=== PATIENT | male | born 1930 | race Caucasian/White ===

== ENCOUNTER 2017-02-23 10:25 | Inpatient (IN) | payer MEDICARE, BC ==
[2017-02-23] MEDS ORDERED: FUROSEMIDE 10 MG/ML 4 ML VIAL IV STA (10:32)
[2017-02-23] MEDS ORDERED: ALBUTEROL NEBULIZED 2.5 MG/3 ML INHALATION STA (10:32)
[2017-02-23] MEDS ORDERED: IPRATROPIUM 0.5 MG/2.5 ML NEBU INHALATION STA (10:32)
--- NOTE | 2017-02-23 10:40 | ED ---
General Adult HPI - General Chief complaint: Shortness of Breath Stated complaint: Leg Pain Time Seen by Provider: 02/23/17 10:31 Source: patient, RN notes reviewed, old records reviewed Mode of arrival: wheelchair Limitations: no limitations - History of Present Illness Initial comments: This is an 86-year-old male to the ER for evaluation patient is presents today for evaluation regarding this to shortness of breath and leg edema. Overall weight gain. Patient has history of heart disease heart failure status post CABG 15 years ago. She has been taking Lasix to no avail, no significant urinary output. Patient denies any pain no recent fevers cough or congestion. Patient states he does have significant exertional shortness of breath. Again deny chest pain. No other change in medication - Related Data Home Medications Medication Instructions Recorded Confirmed Ascorbic Acid [Vitamin C] 500 mg PO DAILY@1200 07/22/14 02/23/17 Aspirin 81 mg PO 07/22/14 02/23/17 Cholecalciferol [Vitamin D3] 400 unit PO DAILY@1200 07/22/14 02/23/17 Finasteride [Proscar] 5 mg PO QA 07/22/14 02/23/17 Furosemide [Lasix] 80 mg PO AC-BID 07/22/14 02/23/17 Lisinopril [Zestril] 5 mg PO 07/22/14 02/23/17 Potassium Chloride [Klor-Con 10] 10 meq PO QA 07/22/14 02/23/17 Warfarin [Coumadin] 5 mg PO MOWEFR 07/22/14 02/23/17 Warfarin [Coumadin] 2.5 mg PO SUTUTHSA 11/03/14 02/23/17 Doxazosin Mesylate 8 mg PO QAM 02/23/17 02/23/17 Ferrous Sulfate [Feosol] 325 mg PO QAM 02/23/17 02/23/17 Simvastatin [Zocor] 20 mg PO HS 02/23/17 02/23/17 Vitamin E (Dl,Tocopheryl Acet) 400 unit PO DAILY@1200 02/23/17 02/23/17 [Vitamin E] glipiZIDE [Glucotrol] 10 mg PO AC-BID 02/23/17 02/23/17 Allergies Allergy/AdvReac Type Severity Reaction Status Date / Time No Known Allergies Allergy Verified 02/23/17 11:49 Review of Systems ROS Statement: Those systems with pertinent positive or pertinent negative responses have been documented in the HPI. ROS Other: All systems not noted in ROS Statement are negative. Past Medical History Past Medical History: Heart Failure, COPD, CVA/TIA, Diabetes Mellitus, Hearing Disorder / Deafness, Hyperlipidemia, Hypertension, Myocardial Infarction ([place]), Prostate Disorder Additional Past Medical History / Comment(s): TIA, chronic venous stasis with previous harvesting of vein from the left lower extremity for CABG, chronic back pain,constipation,enlarged prostate,mult bruising areas, deaf in Left ear Last Myocardial Infarction Date:: UNK History of Any Multi-Drug Resistant Organisms: None Reported Past Surgical History: Back Surgery, Coronary Bypass/CABG, Ear Surgery Additional Past Surgical History / Comment(s): 11-04-14 LAPROSCOPIC SHIVAM INGUINAL HERNIA REPAIR. OTHER PAST HX: right ear surgery, lumbar surgery with Dr. Ho many years ago, bilateral carotid endarterectomy with Dr. Villalobos, right shoulder lipoma excision. pneumonia Past Anesthesia/Blood Transfusion Reactions: No Reported Reaction Past Psychological History: Depression Smoking Status: Former smoker Past Alcohol Use History: None Reported Past Drug Use History: None Reported - Past Family History Mother Family Medical History: Cancer, Myocardial Infarction ([place]) Additional Family Medical History / Comment(s): Breast Father Family Medical History: Myocardial Infarction ([place]) Sister(s) Family Medical History: Cancer, Rheumatoid Arthritis ([place]) Additional Family Medical History / Comment(s): BREAST General Exam Limitations: no limitations General appearance: alert, in no apparent distress Head exam: Present: atraumatic, normocephalic, normal inspection Eye exam: Present: normal appearance, PERRL, EOMI. Absent: scleral icterus, conjunctival injection, periorbital swelling ENT exam: Present: normal exam, mucous membranes moist Neck exam: Present: normal inspection. Absent: tenderness, meningismus, lymphadenopathy Respiratory exam: Present: respiratory distress, wheezes, accessory muscle use, decreased breath sounds. Absent: rales, rhonchi, stridor Cardiovascular Exam: Present: regular rate, normal rhythm, normal heart sounds. Absent: systolic murmur, diastolic murmur, rubs, gallop, clicks GI/Abdominal exam: Present: soft, normal bowel sounds. Absent: distended, tenderness, guarding, rebound, rigid Extremities exam: Present: normal inspection, full ROM, normal capillary refill. Absent: tenderness, pedal edema, joint swelling, calf tenderness Back exam: Present: normal inspection Neurological exam: Present: alert, oriented X3, CN II-XII intact Psychiatric exam: Present: normal affect, normal mood Skin exam: Present: warm, dry, intact, normal color. Absent: rash Course Vital Signs 02/23/17 02/23/17 02/23/17 10:28 10:52 11:30 Temperature 97.4 F L Pulse Rate 90 60 Respiratory 20 20 Rate Blood Pressure 150/64 O2 Sat by Pulse 90 L Oximetry 02/23/17 11:41 Temperature Pulse Rate 81 Respiratory 20 Rate Blood Pressure 128/53 O2 Sat by Pulse 100 Oximetry - Reevaluation(s) Reevaluation #1: 02/23/17 12:18 Did improve pulse ox as well as oxygenation EKG Findings - EKG Comments: EKG Findings:: EKG shows sinus rhythm with PVCs, rate of 77, QRS 116, QTc 488 Medical Decision Making - Medical Decision Making 86-year-old ER for evaluation. Patient is ER for significant exacerbation of CHF COPD with hypoxia. Patient will be admitted for cardiopulmonary resuscitation and observation - Lab Data Result diagrams: 02/23/17 10:45 02/23/17 10:45 Lab Results 02/23/17 02/23/17 02/23/17 Range/Units 10:45 10:45 10:45 WBC 4.4 (3.8-10.6) k/uL RBC 3.63 L (4.30-5.90) m/uL Hgb 10.7 L (13.0-17.5) gm/dL Hct 34.8 L (39.0-53.0) % MCV 95.8 (80.0-100.0) fL MCH 29.4 (25.0-35.0) pg MCHC 30.7 L (31.0-37.0) g/dL RDW 14.5 (11.5-15.5) % Plt Count 89 L (150-450) k/uL Neutrophils % 63 % Lymphocytes % 25 % Monocytes % 7 % Eosinophils % 4 % Basophils % 0 % Neutrophils # 2.8 (1.3-7.7) k/uL Lymphocytes # 1.1 (1.0-4.8) k/uL Monocytes # 0.3 (0-1.0) k/uL Eosinophils # 0.2 (0-0.7) k/uL Basophils # 0.0 (0-0.2) k/uL Manual Slide Review Performed Hypochromasia Slight PT (9.0-12.0) sec INR (<1.2) APTT (22.0-30.0) sec Sodium 143 (137-145) mmol/L Potassium 4.3 (3.5-5.1) mmol/L Chloride 100 (98-107) mmol/L Carbon Dioxide 36 H (22-30) mmol/L Anion Gap 7 mmol/L BUN 45 H (9-20) mg/dL Creatinine 1.90 H (0.66-1.25) mg/dL Est GFR (MDRD) Af Amer 41 (>60 ml/min/1.73 sqM) Est GFR (MDRD) Non-Af 34 (>60 ml/min/1.73 sqM) Glucose 184 H (74-99) mg/dL Calcium 8.9 (8.4-10.2) mg/dL Magnesium 2.5 H (1.6-2.3) mg/dL Total Bilirubin 0.7 (0.2-1.3) mg/dL AST 21 (17-59) U/L ALT 34 (21-72) U/L Alkaline Phosphatase 89 (38-126) U/L Total Creatine Kinase 27 L (55-170) U/L CK-MB (CK-2) 0.7 (0.0-2.4) ng/mL CK-MB (CK-2) Rel Index 2.6 Troponin I 0.030 (0.000-0.034) ng/mL NT-Pro-B Natriuret Pep pg/mL Total Protein 6.0 L (6.3-8.2) g/dL Albumin 3.3 L (3.5-5.0) g/dL 02/23/17 02/23/17 Range/Units 10:45 10:45 WBC (3.8-10.6) k/uL RBC (4.30-5.90) m/uL Hgb (13.0-17.5) gm/dL Hct (39.0-53.0) % MCV (80.0-100.0) fL MCH (25.0-35.0) pg MCHC (31.0-37.0) g/dL RDW (11.5-15.5) % Plt Count (150-450) k/uL Neutrophils % % Lymphocytes % % Monocytes % % Eosinophils % % Basophils % % Neutrophils # (1.3-7.7) k/uL Lymphocytes # (1.0-4.8) k/uL Monocytes # (0-1.0) k/uL Eosinophils # (0-0.7) k/uL Basophils # (0-0.2) k/uL Manual Slide Review Hypochromasia PT 22.3 H (9.0-12.0) sec INR 2.5 H (<1.2) APTT 31.1 H (22.0-30.0) sec Sodium (137-145) mmol/L Potassium (3.5-5.1) mmol/L Chloride (98-107) mmol/L Carbon Dioxide (22-30) mmol/L Anion Gap mmol/L BUN (9-20) mg/dL Creatinine (0.66-1.25) mg/dL Est GFR (MDRD) Af Amer (>60 ml/min/1.73 sqM) Est GFR (MDRD) Non-Af (>60 ml/min/1.73 sqM) Glucose (74-99) mg/dL Calcium (8.4-10.2) mg/dL Magnesium (1.6-2.3) mg/dL Total Bilirubin (0.2-1.3) mg/dL AST (17-59) U/L ALT (21-72) U/L Alkaline Phosphatase (38-126) U/L Total Creatine Kinase (55-170) U/L CK-MB (CK-2) (0.0-2.4) ng/mL CK-MB (CK-2) Rel Index Troponin I (0.000-0.034) ng/mL NT-Pro-B Natriuret Pep 7290 pg/mL Total Protein (6.3-8.2) g/dL Albumin (3.5-5.0) g/dL - Radiology Data Radiology results: report reviewed (Chest x-ray positive for CHF), image reviewed Disposition Clinical Impression: Acute renal failure, Acute exacerbation of chronic obstructive airways disease , Acute pulmonary edema, Congestive heart failure Disposition: ADMITTED IP TO THIS HOSP Condition: Fair Referrals: Moise Jacobo MD [Primary Care Provider] - 1-2 days
[2017-02-23 11:03] LABS: Basophils % (A) 0 %; Eosinophils # (A) 0.2 k/uL (0-0.7); Eosinophils % (A) 4 %; HCT 34.8 % (39.0-53.0); HGB 10.7 gm/dL (13.0-17.5); Hypochromasia Slight; Lymphocytes # (A) 1.1 k/uL (1.0-4.8); Lymphocytes % (A) 25 %; MCH 29.4 pg (25.0-35.0); MCHC 30.7 g/dL (31.0-37.0); MCV 95.8 fL (80.0-100.0); Mean Platelet Volume 8.7; Monocytes # (A) 0.3 k/uL (0-1.0); Monocytes % (A) 7 %; Neutrophils # (A) 2.8 k/uL (1.3-7.7); Neutrophils % (A) 63 %; RBC 3.63 m/uL (4.30-5.90); RDW 14.5 % (11.5-15.5); WBC 4.4 k/uL (3.8-10.6)
[2017-02-23 11:07] LABS: INR 2.5 (<1.2); Partial Thromboplastin Time 31.1 sec (22.0-30.0); Prothrombin Time 22.3 sec (9.0-12.0)
[2017-02-23 11:08] LABS: Albumin 3.3 g/dL (3.5-5.0); Calcium 8.9 mg/dL (8.4-10.2); Magnesium 2.5 mg/dL (1.6-2.3); Potassium 4.3 mmol/L (3.5-5.1); Total Bilirubin 0.7 mg/dL (0.2-1.3)
--- NOTE | 2017-02-23 11:25 | XR ---
EXAMINATION TYPE: XR chest 1V portable DATE OF EXAM: 02/23/2017 COMPARISON: 11/12/2014 HISTORY: Short of breath TECHNIQUE: Single frontal view of the chest is obtained. FINDINGS: Heart is enlarged. There is pulmonary vascular congestion. There is blunting of costophren ic angles. There are chest leads. There are sternal wires. IMPRESSION: Congestive heart failure. Pleural effusions. Chest appears worse than last exam.
[2017-02-23 11:33] LABS: Creatine Kinase MB 0.7 ng/mL (0.0-2.4); Troponin I 0.03 ng/mL (0.000-0.034)
[2017-02-23 11:45] LABS: Platelet Count 89 k/uL (150-450)
--- NOTE | 2017-02-23 15:47 | US ---
EXAMINATION TYPE: US venous doppler duplex LE DATE OF EXAM: 02/23/2017 3:35 PM COMPARISON: NONE CLINICAL HISTORY: Led edema-pain. SIDE PERFORMED: Bilateral TECHNIQUE: The lower extremity deep venous system is examined utilizing real time linear array sonog dot with graded compression, doppler sonography and color-flow sonography. VESSELS IMAGED: External Iliac Vein (EIV) Common Femoral Vein Deep Femoral Vein Greater Saphenous Vein * Femoral Vein Popliteal Vein Small Saphenous Vein * Proximal Calf Veins (* superficial vessels) Moderate superficial edema right, severe edema left Right Leg: Negative for DVT Left Leg: Negative for DVT IMPRESSION: Normal exam. No evidence of deep venous thrombosis in both legs.
[2017-02-23 16:47] LABS: Glucose,Whole Blood 218 mg/dL (75-99)
[2017-02-23] MEDS: glipiZIDE 10 MG TAB PO SCH (17:09)
[2017-02-23] MEDS: WARFARIN 2.5 MG TAB PO SCH (17:09)
[2017-02-23 17:48] LABS: Creatine Kinase MB 0.6 ng/mL (0.0-2.4); Troponin I 0.025 ng/mL (0.000-0.034)
[2017-02-23 20:51] LABS: Glucose,Whole Blood 208 mg/dL (75-99)
[2017-02-23] MEDS: FUROSEMIDE 10 MG/ML 4 ML VIAL IV SCH (21:08)
[2017-02-23] MEDS: ASPIRIN 81 MG PO SCH (21:09)
[2017-02-23] MEDS: ATORVASTATIN 10 MG TAB PO SCH (21:09)
[2017-02-23] MEDS: LISINOPRIL 5 MG TAB PO SCH (21:09)
[2017-02-24 06:16] LABS: Glucose,Whole Blood 73 mg/dL (75-99)
[2017-02-24 06:26] LABS: Basophils % (A) 0 %; Eosinophils # (A) 0.2 k/uL (0-0.7); Eosinophils % (A) 4 %; HCT 33.1 % (39.0-53.0); HGB 9.9 gm/dL (13.0-17.5); Hypochromasia Moderate; Lymphocytes # (A) 1.2 k/uL (1.0-4.8); Lymphocytes % (A) 26 %; MCH 29.3 pg (25.0-35.0); MCV 97.7 fL (80.0-100.0); Mean Platelet Volume 9.5; Monocytes # (A) 0.4 k/uL (0-1.0); Monocytes % (A) 8 %; Neutrophils # (A) 2.7 k/uL (1.3-7.7); Neutrophils % (A) 60 %; RBC 3.39 m/uL (4.30-5.90); RDW 15.6 % (11.5-15.5); WBC 4.5 k/uL (3.8-10.6)
[2017-02-24 06:43] LABS: Potassium 4.3 mmol/L (3.5-5.1)
[2017-02-24 06:47] LABS: Platelet Count 73 k/uL (150-450)
[2017-02-24] MEDS: VITAMIN E (DL,TOCOPHERYL ACET) 400 UNIT CAP PO SCH (08:58)
[2017-02-24] MEDS: FERROUS SULFATE 325 MG TAB PO SCH (08:58)
[2017-02-24] MEDS: CHOLECALCIFEROL 400 UNIT TAB PO SCH (08:58)
[2017-02-24] MEDS: FUROSEMIDE 10 MG/ML 4 ML VIAL IV SCH (08:58)
[2017-02-24] MEDS: FINASTERIDE 5 MG TAB PO SCH (08:58)
[2017-02-24] MEDS: ASCORBIC ACID 500 MG TAB PO SCH (08:59)
[2017-02-24] MEDS: POTASSIUM CHLORIDE ER 10 MEQ TAB.ER.PRT PO SCH (08:59)
[2017-02-24] MEDS: glipiZIDE 10 MG TAB PO SCH ×2 (08:59→17:16)
--- NOTE | 2017-02-24 09:44 | P.NPCON ---
History of Present Illness - Reason for Consult Consult date: 02/24/17 acute renal failure - Chief Complaint Shortness of breath, acute kidney injury - History of Present Illness This is a 86-year-old male seen in consultation because of chronic kidney disease, acute kidney injury. He was admitted because of worsening edema of his legs with pain in the left leg and some mild serosanguineous discharge weeping edema. He said he has gained weight because of the swelling and is more short of breath. He admits eating prepared foods probably high in sodium. He describes this to the fact that his is now in the alf because of dementia. So he is eating processed foods. No changes in medication. He was on Lasix 20 mg 5 tablets in morning and 4 in the evening and it was not helping his edema. No fever chills no chest pain. No hemoptysis. No nausea vomiting diarrhea. His abdomen is somewhat bloated but this is normal for him he says. He does have history of prostatism. He is also known with chronic kidney disease creatinine has ranged between 1.7 in 2013-1.9 and the best creatinine in the last few months has been 1.46 on . Urinalysis unremarkable for any proteinuria Past history significant for diabetes, COPD coronary artery bypass graft 15 years ago. Past Medical History Past Medical History: Heart Failure, COPD, CVA/TIA, Diabetes Mellitus, Hearing Disorder / Deafness, Hyperlipidemia, Hypertension, Myocardial Infarction ([place]), Prostate Disorder Additional Past Medical History / Comment(s): TIA, chronic venous stasis with previous harvesting of vein from the left lower extremity for CABG, chronic back pain,constipation,enlarged prostate,mult bruising areas, deaf in Left ear Last Myocardial Infarction Date:: UNK History of Any Multi-Drug Resistant Organisms: None Reported Past Surgical History: Back Surgery, Coronary Bypass/CABG, Ear Surgery Additional Past Surgical History / Comment(s): 11-04-14 LAPROSCOPIC SHIVAM INGUINAL HERNIA REPAIR. OTHER PAST HX: right ear surgery, lumbar surgery with Dr. Ho many years ago, bilateral carotid endarterectomy with Dr. Villalobos, right shoulder lipoma excision. pneumonia Past Anesthesia/Blood Transfusion Reactions: No Reported Reaction Past Psychological History: Depression Smoking Status: Former smoker Past Alcohol Use History: None Reported Additional Past Alcohol Use History / Comment(s): Patient smoked occasional cigar many years ago. He denies any medical marijuana, marijuana or street drug use. He denies any alcohol use. He is retired from [employer]. He served in the Armed [employer] in the [employer] and was stationed in [place] for 18 months. He is currently living at home with his . There are no pets in the home. No recent travel. Past Drug Use History: None Reported - Past Family History Mother Family Medical History: Cancer, Myocardial Infarction ([place]) Additional Family Medical History / Comment(s): Breast Father Family Medical History: Myocardial Infarction ([place]) Sister(s) Family Medical History: Cancer, Rheumatoid Arthritis ([place]) Additional Family Medical History / Comment(s): BREAST Medications and Allergies Home Medications Medication Instructions Recorded Confirmed Type Ascorbic Acid [Vitamin C] 500 mg PO DAILY@1200 07/22/14 02/23/17 History Aspirin 81 mg PO 07/22/14 02/23/17 History Cholecalciferol [Vitamin D3] 400 unit PO DAILY@1200 07/22/14 02/23/17 History Finasteride [Proscar] 5 mg PO QA 07/22/14 02/23/17 History Furosemide [Lasix] 80 mg PO AC-BID 07/22/14 02/23/17 History Lisinopril [Zestril] 5 mg PO 07/22/14 02/23/17 History Potassium Chloride [Klor-Con 10] 10 meq PO QA 07/22/14 02/23/17 History Warfarin [Coumadin] 5 mg PO MOWEFR 07/22/14 02/23/17 History Warfarin [Coumadin] 2.5 mg PO SUTUTHSA 11/03/14 02/23/17 History Doxazosin Mesylate 8 mg PO QAM 02/23/17 02/23/17 History Ferrous Sulfate [Feosol] 325 mg PO QAM 02/23/17 02/23/17 History Simvastatin [Zocor] 20 mg PO 02/23/17 02/23/17 History Vitamin E (Dl,Tocopheryl Acet) 400 unit PO DAILY@1200 02/23/17 02/23/17 History [Vitamin E] glipiZIDE [Glucotrol] 10 mg PO AC-BID 02/23/17 02/23/17 History Allergies Allergy/AdvReac Type Severity Reaction Status Date / Time No Known Allergies Allergy Verified 02/23/17 11:49 Physical Exam Vitals: Vital Signs Temp Pulse Pulse Resp BP BP Pulse Ox 02/24/17 08:00 97.0 F L 84 20 117/69 96 02/24/17 04:00 97.9 F 69 18 106/69 95 02/24/17 00:00 97.8 F 74 18 111/65 96 02/23/17 20:09 92 L 02/23/17 20:00 97.9 F 83 19 113/67 95 02/23/17 16:00 97.4 F L 83 20 140/71 94 L 02/23/17 15:43 86 24 02/23/17 14:20 97.0 F L 86 24 141/66 92 L 02/23/17 13:22 98.9 F 78 16 128/56 95 02/23/17 13:09 97.0 F L 86 22 141/66 92 L 02/23/17 11:52 78 02/23/17 11:41 81 20 128/53 100 02/23/17 11:30 20 02/23/17 11:07 68 02/23/17 10:52 60 02/23/17 10:28 97.4 F L 90 20 150/64 90 L Intake and Output 02/23/17 02/24/17 02/24/17 22:59 06:59 14:59 Intake Total 660 240 Balance 660 240 Intake: Oral 660 240 Other: Voiding Method Toilet Toilet # Voids 2 2 Weight 86.8 kg Examination is awake alert oriented comfortable. HEENT exam no facial asymmetry carotid bruit or lymphadenopathy. His JVD is elevated about 7-8 cm above the sternal angle Heart sounds are remarkable for a grade 3 systolic ejection murmur. Cardiac upstroke was normal. He is in normal sinus rhythm Abdomen is soft somewhat distended and protuberant no ascites clinically was demonstrated. No masses felt nontender Extremity examination reveals 2+ edema with some stains on his bed sheet with serous sanguinous stains. Warm to touch. Neurologically awake alert oriented able to sit up with minimal help. No focal motor deficit Results - Lab Results Most recent lab results Calcium 9.0 mg/dL (8.4-10.2) 02/24/17 06:03 Magnesium 2.5 mg/dL (1.6-2.3) H 02/23/17 10:45 02/24/17 06:03 02/24/17 06:03 Assessment and Plan Assessment: Impression. 1. Acute kidney injury from prerenal from congestive heart failure. 2. CK D secondary to nephrosclerosis with baseline creatinine ranging between 1.46-1.9 from 2013 with no proteinuria in the urinalysis 3. Congestive heart failure likely secondary to diuretic resistance and poor absorption in spite of being on 180 mg of Lasix. There may be an element of diet 3 salt intake in excess because of consuming process food. 4. History of coronary artery bypass graft 15 years ago. 5. History of diabetes but no proteinuria 6. History of TIA in the past and 7. History of BPH. 8. Cellulitis of legs 9. Aortic sclerosis VS Stnosis. 10. Anemia of CKD H 9.9 1. Thromobocytopenia chronic since 2013, etiol? Recommendation. IV Lasix 80 every 12 hours. Monitor I's and O's closely and Check orthostatics every day morning. Check postvoid bladder residual Continue antibiotics. Echo to assess Iron sat
--- NOTE | 2017-02-24 09:53 | HP ---
HISTORY AND PHYSICAL DATE OF ADMISSION: 02/23/2017 This is a 86-year-old white male who is being admitted by me for Dr. Jacobo and I am covering him for this reason. CHIEF COMPLAINT: Severe shortness of breath and edema of the legs and pain in the left leg. This patient was brought to the emergency room because he was having severe pain and his both legs, but especially in the left leg, which he has severe edema and also erythematous changes with history of cellulitis. The patient also has increasing shortness of breath. He has a history of coronary artery disease, has had coronary artery bypass graft in the past about 15 years ago. He was evaluated in the emergency room and he was found to have congestive heart failure and his BNP was 7280. CBC showed a WBC count of 4.4, hemoglobin 10.7, platelet count 89,000. Cardiac enzymes were within normal limits. Glucose was 184 and chest x-ray showed acute pulmonary edema with pleural effusion. The patient was admitted to the hospital for further evaluation and treatment. PAST MEDICAL HISTORY: Reveals that he has a history of coronary artery disease and he has had coronary artery bypass graft in the past. He also has history of degenerative arthritis of multiple joints and chronic anemia, diabetes mellitus, and benign prostatic hypertrophy, hypertensive cardiovascular disease. His platelet count this time was 89,000 CURRENT MEDICATIONS: Including aspirin 81 mg p.o. daily, vitamin D3 daily and finasteride 5 mg daily, Lasix 80 mg p.o. b.i.d., lisinopril 5 mg daily, and potassium chloride 10 mEq daily. SOCIAL HISTORY: He does not smoke and he does not drink alcohol. ALLERGIES: He has no known drug allergies. FAMILY HISTORY: Noncontributory. He lives alone and his son takes care of him. REVIEW OF SYSTEMS: The patient denies any headache. Appetite had been poor lately. No chest pain but he is increasingly short of breath. He has no abdominal pain. He has no polyuria, dysuria. He has no neurological symptoms. PHYSICAL EXAMINATION: Reveals an 86-year-old white male, appears fairly comfortable, but he has dyspnea on exertion and he is alert and oriented. He seemed to have slight memory problems and there is no jaundice. There is no generalized lymphadenopathy. No petechia or bruises. His temperature is 97.9, and blood pressure 150/64. Examination of the ENT negative. NECK: Supple. There is no jugular venous distention. There is no goiter and no carotid bruits. Heart is in sinus rhythm. LUNGS: Clear to auscultation and percussion. ABDOMEN: Soft and nontender. There is no mass palpable. Examination of the lower extremities revealed no pitting edema. Neurologic examination does not reveal localizing signs and his lower extremities reveal bilateral edema. Left leg has severe erythematous changes suggestive of cellulitis. IMPRESSION: 1. Acute on chronic congestive heart failure. His BNP is 7290. 2. Coronary artery disease with a past history of coronary artery bypass graft. 3. Cellulitis of the left lower extremity. 4. Anemia possibly due to chronic disease. 5. Hypertensive cardiovascular disease. 6. Hyperlipidemia. 7. Thrombocytopenia[place] [address]. 8. Renal failure. 9. Benign prostatic hypertrophy. 10.Degenerative arthritis multiple joints. PLAN: Patient will be admitted to the hospital. Heart will be monitored with telemetry. We will obtain cardiology consultation and also nephrology consultation. We will also get a venous Doppler of the lower extremities to rule out any DVT. We will place him back on his previous medication and also will start him on some antibiotics and Rocephin IV will be started. Prognosis is guarded. All the diagnosis, prognosis and therapeutic plans were discussed in detail with the patient and also with his son. RAFFAELE / EDINSON: [id number] /
--- NOTE | 2017-02-24 10:53 | CONS ---
CONSULTATION This patient's electronic medical records reviewed and old charts were reviewed. The patient came with a complaint of worsening edema over his both legs and particularly the pain in the left leg over the last few days. The patient denies any significant orthopnea or PND. He has mild exertional shortness of breath. The patient has a known history of coronary artery bypass surgery many years ago. He has been taking Lasix 100 mg in the morning and 80 mg in the evening. He denies cough with expectoration. No fever or chills or denies any bowel or bladder problems. The patient does have a history of chronic kidney disease. PAST HISTORY: Includes diabetes, history of coronary artery bypass surgery 15 years ago. Past history of a stroke, hypertension, myocardial infarction. History of venous stasis, coronary artery bypass surgery, chronic back pain, enlarged prostate and bowel obstruction surgery done, bilateral carotid end arterectomy. Right shoulder lipoma was removed. HOME MEDICATIONS: Included vitamin C,aspirin,vitamin D3, Lasix 80 mg b.i.d., Coumadin, Feosol, Zocor and Glucotrol. PHYSICAL EXAMINATION: At present reveals an 86-year-old gentleman who does not appear to be in any acute distress at present, the patient is afebrile, heart rate is 70 to 80 per minute, blood pressure is 117/69 mmHg. Oxygen saturation is 96%. HEENT examination is negative. NECK: Supple. Jugular venous pressure is elevated. ABDOMEN: Soft, distended. Liver and spleen are not enlarged. There is a possibility of fluid. Extremities: There is 2+ pedal edema present. LABORATORY DATA: Hemoglobin is 9.9, electrolytes are normal. BUN is 49. Creatinine is 1.9. The patient's BNP level was 7200, troponin is 0.036 and 0.025. Chest x-ray suggestive of congestive cardiac failure. FINAL IMPRESSION: 1. This patient is primarily presented with bilateral swelling in the legs secondary to congestive cardiac failure. Chest x-ray does show evidence of some left ventricular failure. 2. The patient has a chronic kidney disease. 3. Stable coronary artery bypass surgery. The patient does have a short ejection systolic murmur over the left sternal border. RECOMMENDATIONS: We will recommend to continue the patient on Lasix IV mg b.i.d. echo and Doppler study will be done to assess the left ventricular systolic function. Mild elevation in the troponin is probably secondary to congestive cardiac failure. I do not think we are dealing with acute coronary syndrome. MMODL / IJN: [id number] /
[2017-02-24 11:40] LABS: Glucose,Whole Blood 180 mg/dL (75-99)
[2017-02-24] MEDS: cefTRIAXone IN SWFI 1,000 MG/10 ML SYRINGE IVP SCH (11:52)
[2017-02-24 16:09] LABS: Iron Saturation 17.55 (15.00-50.00)
[2017-02-24 16:31] LABS: Glucose,Whole Blood 152 mg/dL (75-99)
[2017-02-24] MEDS: WARFARIN 2.5 MG TAB PO SCH (17:16)
[2017-02-24] MEDS: ATORVASTATIN 10 MG TAB PO SCH (20:30)
[2017-02-24] MEDS: LISINOPRIL 5 MG TAB PO SCH (20:30)
[2017-02-24] MEDS: ASPIRIN 81 MG PO SCH (20:30)
[2017-02-24] MEDS: FUROSEMIDE 10 MG/ML 10 ML VIAL IV SCH (20:30)
[2017-02-24 21:24] LABS: Glucose,Whole Blood 223 mg/dL (75-99)
[2017-02-25 06:28] LABS: Glucose,Whole Blood 88 mg/dL (75-99)
[2017-02-25 06:34] LABS: HCT 33.5 % (39.0-53.0); HGB 10.4 gm/dL (13.0-17.5); Hypochromasia Marked; MCH 30.5 pg (25.0-35.0); MCHC 30.9 g/dL (31.0-37.0); MCV 98.8 fL (80.0-100.0); Macrocytosis Slight; Mean Platelet Volume 9.4; RBC 3.39 m/uL (4.30-5.90); RDW 15.6 % (11.5-15.5); WBC 5.7 k/uL (3.8-10.6)
[2017-02-25 06:40] LABS: Platelet Count 79 k/uL (150-450)
[2017-02-25 06:48] LABS: Calcium 9.2 mg/dL (8.4-10.2); Potassium 4.4 mmol/L (3.5-5.1)
[2017-02-25 06:59] LABS: INR 2.5 (<1.2)
[2017-02-25] MEDS: glipiZIDE 10 MG TAB PO SCH ×2 (07:12→17:16)
[2017-02-25] MEDS: FUROSEMIDE 10 MG/ML 10 ML VIAL IV SCH (08:37)
[2017-02-25] MEDS: FERROUS SULFATE 325 MG TAB PO SCH (08:37)
[2017-02-25] MEDS: POTASSIUM CHLORIDE ER 10 MEQ TAB.ER.PRT PO SCH (08:37)
[2017-02-25] MEDS: FINASTERIDE 5 MG TAB PO SCH (08:37)
[2017-02-25] MEDS: cefTRIAXone IN SWFI 1,000 MG/10 ML SYRINGE IVP SCH (08:38)
[2017-02-25 12:10] LABS: Glucose,Whole Blood 103 mg/dL (75-99)
[2017-02-25] MEDS: VITAMIN E (DL,TOCOPHERYL ACET) 400 UNIT CAP PO SCH (12:29)
[2017-02-25] MEDS: CHOLECALCIFEROL 400 UNIT TAB PO SCH (12:29)
[2017-02-25] MEDS: ASCORBIC ACID 500 MG TAB PO SCH (12:29)
--- NOTE | 2017-02-25 13:37 | P.PN ---
Subjective Progress Note Date: 02/25/17 Principal diagnosis: CHF This is a pleasant 86-year-old gentleman with history of coronary artery bypass surgery 15 years ago, diabetes, hypertension, [place], stroke as well as bilateral carotid endarterectomies. Presented to the emergency department with complaints of worsening edema and pain in both legs worse on the left leg over the last few days. Complaining of some exertional shortness of breath. Chest x-ray showed congestive heart failure, pleural effusions and appeared to be worse than last exam. BNP was found to be elevated at 7290. He is also Found to have very minimal elevation of third troponin at 0.030, 0.025 and 0.036. He is currently on 80 mg IV Lasix every 12 hours. Upon examination, patient feels his edema has improved pain has lessened in his legs and he is breathing a bit better. He continues to have shortness of breath with activity. Objective - Vital Signs Vital signs: Vital Signs Temp 98.7 F 02/25/17 12:00 Pulse 84 02/25/17 12:00 Resp 16 02/25/17 08:00 BP 137/68 02/25/17 12:00 Pulse Ox 98 02/25/17 12:00 Intake & Output 02/24/17 02/25/17 02/25/17 18:59 06:59 18:59 Intake Total 716 240 Balance 716 240 Weight 90.8 kg Intake: Oral 716 240 Other: Voiding Method Toilet Toilet Urinal # Voids 1 1 # Bowel Movements 0 - Exam PHYSICAL EXAMINATION: HEENT: Head is atraumatic, normocephalic. Pupils equal, round. Neck is supple. There is elevated jugular venous pressure. HEART EXAMINATION: Heart sounds irregular irregular, S1 and S2 normal. CHEST EXAMINATION: Lungs are clear to auscultation and precussion. No chest wall tenderness is noted on palpation or with deep breathing. ABDOMEN: Soft, nontender. Bowel sounds are heard. No organomegaly noted. EXTREMITIES: 1+ peripheral pulses with evidence of 2+ peripheral edema and no calf tenderness noted. NEUROLOGIC patient is awake, alert and oriented x3. . - Labs CBC & Chem 7: 02/25/17 05:42 02/25/17 05:42 Labs: Abnormal Lab Results - Last 24 Hours (Table) 02/24/17 02/24/17 02/25/17 Range/Units 16:29 21:23 05:42 RBC 3.39 L (4.30-5.90) m/uL Hgb 10.4 L (13.0-17.5) gm/dL Hct 33.5 L (39.0-53.0) % MCHC 30.9 L (31.0-37.0) g/dL RDW 15.6 H (11.5-15.5) % Plt Count 79 L (150-450) k/uL PT (9.0-12.0) sec INR (<1.2) Carbon Dioxide (22-30) mmol/L BUN (9-20) mg/dL Creatinine (0.66-1.25) mg/dL POC Glucose (mg/dL) 152 H 223 H (75-99) mg/dL 02/25/17 02/25/17 02/25/17 Range/Units 05:42 05:42 11:45 RBC (4.30-5.90) m/uL Hgb (13.0-17.5) gm/dL Hct (39.0-53.0) % MCHC (31.0-37.0) g/dL RDW (11.5-15.5) % Plt Count (150-450) k/uL PT 22.0 H (9.0-12.0) sec INR 2.5 H (<1.2) Carbon Dioxide 37 H (22-30) mmol/L BUN 47 H (9-20) mg/dL Creatinine 1.95 H (0.66-1.25) mg/dL POC Glucose (mg/dL) 103 H (75-99) mg/dL Assessment and Plan Assessment: #1 congestive heart failure, acute on chronic, awaiting echocardiogram results #2 chronic kidney disease #3 history of coronary artery disease with coronary artery bypass surgery, stable #4 chronic atrial fibrillation, on Coumadin #5 mild troponin leak, not consistent with acute coronary syndrome Plan: From a cardiology perspective, we will continue current medications including Lasix 80 mg IV every 12 hours. Await results of echocardiogram with Doppler study. Further recommendations to follow. 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 Patient was seen and examined.
--- NOTE | 2017-02-25 13:39 | PN ---
PROGRESS NOTE DATE OF SERVICE: 02/24/2017 This is an 86-year-old white male who was admitted with severe shortness of breath and edema of the both lower extremities and severe erythematous changes in the right leg. The patient was found to have acute congestive heart failure with marked edema of the extremities and chest x-ray showing congestive heart failure with some pleural effusion. The patient is known to have coronary artery disease. The patient was admitted to the hospital for further evaluation and treatment. The patient was seen by [facility] in consultation. Currently, he is receiving Lasix IV and also he was started on IV antibiotics of Rocephin and a venous Doppler was obtained and this was negative for any DVT bilaterally. The patient wearing nasal oxygen currently and patient clinically feeling better. Vital signs otherwise stable. Heart is in sinus rhythm. Lungs revealed diminished breath sounds over both bases and moist rales bilaterally. Abdomen soft and nontender. There is no mass palpable. Examination of the lower extremities revealed bilateral pitting edema and the left side is worse than right leg and also there is some improvement in the erythematous changes of the skin. IMPRESSION: 1. Acute on chronic congestive heart failure. 2. Coronary artery disease. 3. Cellulitis of the lower extremities. 4. Diabetes mellitus. Overall prognosis is guarded. The diagnosis, prognosis and therapeutic plans were discussed in detail with the patient again today. MMODL / IJN: [id number] /
--- NOTE | 2017-02-25 14:04 | ECHOF ---
Referral Reason:chf MEASUREMENTS -------- HEIGHT: 182.9 cm WEIGHT: 86.6 kg BP: RVIDd: 4.9 cm (< 3.3) IVSd: 1.4 cm (0.6 - 1.1) LVIDd: 5.9 cm (3.9 - 5.3) LVPWd: 1.2 cm (0.6 - 1.1) IVSs: 1.5 cm LVIDs: 5.6 cm LVPWs: 1.0 cm LA Diam: 5.4 cm (2.7 - 3.8) LAESV Index (A-L): 71.14 ml/m Ao Diam: 3.7 cm (2.0 - 3.7) AV Cusp: 1.5 cm (1.5 - 2.6) LA Diam: 5.2 cm (2.7 - 3.8) MV EXCURSION: 24.989 mm (> 18.000) MV EF SLOPE: 60 mm/s (70 - 150) EPSS: 0.6 cm MV E Dave: 1.25 m/s MV DecT: 201 ms MV A Dave: 0.27 m/s MV E/A Ratio: 4.67 RAP: 5.00 mmHg RVSP: 58.34 mmHg FINDINGS -------- Atrial fibrillation. This was a technically adequate study. The left ventricular size is normal. There is mild concentric left ventricular hypertrophy. Overa ll left ventricular systolic function is moderately impaired with, an EF between 35 - 40 %. The right ventricle is moderately enlarged. LA is severely dilated >40 ml/m2 The right atrial size is normal. There is mild aortic valve sclerosis. There is no evidence of aortic regurgitation. Mild mitral annular calcification present. Mild mitral regurgitation is present. Moderate tricuspid regurgitation present. There is moderate pulmonary hypertension. The right elpidio tricular systolic pressure, as measured by Doppler, is 58.34mmHg. Trace/mild (physiologic) pulmonic regurgitation. The aortic root size is normal. There is no pericardial effusion. CONCLUSIONS -------- 1. The left ventricular size is normal. 2. There is mild concentric left ventricular hypertrophy. 3. Overall left ventricular systolic function is moderately impaired with, an EF between 35 - 40 %. 4. The right ventricle is moderately enlarged. 5. LA is severely dilated >40 ml/m2 6. There is mild aortic valve sclerosis. 7. Mild mitral annular calcification present. 8. Mild mitral regurgitation is present. 9. Moderate tricuspid regurgitation present. 10. There is moderate pulmonary hypertension. 11. The right ventricular systolic pressure, as measured by Doppler, is 58.34mmHg. 12. Trace/mild (physiologic) pulmonic regurgitation. 13. The aortic root size is normal. 14. There is no pericardial effusion. LEAVE SPECIALIST: Grace Olguin RDCS
--- NOTE | 2017-02-25 14:15 | PN ---
PROGRESS NOTE DATE OF SERVICE: 02/25/2017 This is an 86-year-old white male admitted with a acute on chronic congestive heart failure and marked edema of the lower extremities and cellulitis in the left leg. He had a venous Doppler which was negative for DVT of both legs. The patient has been started on IV Rocephin and also IV Lasix and he was seen by [facility]. He also is known to have diabetes mellitus and he is on glipizide. His blood sugar has been running low and his diabetes is being controlled with glipizide. He is checking the lower extremities. Left leg cellulitis seems to be improving but he still has a marked edema of both lower extremities. He was seen by [facility]. His overall prognosis is guarded. He has a history of coronary artery disease and has undergone coronary bypass graft in the past. His heart is in sinus rhythm. Lungs revealed diminished breath sounds at both bases with scattered rales and rhonchi. Abdomen soft and nontender. There is no mass palpable. Examination of the lower extremities revealed significant improvement of erythematous changes on the left lower extremity and also still has some marked edema. Neurologic examination does not reveal localizing signs. IMPRESSION: 1. Acute on chronic congestive heart failure. 2. Coronary artery disease. 3. Cellulitis of the left lower extremity. 4. Diabetes mellitus. Will continue current medication. Overall prognosis is guarded. MMODL / IJN: [id number] /
[2017-02-25 16:48] LABS: Glucose,Whole Blood 109 mg/dL (75-99)
--- NOTE | 2017-02-25 16:54 | PN ---
PROGRESS NOTE Patient is seen for followup for acute kidney injury secondary to cardiorenal syndrome. He was admitted to the hospital with shortness of breath and fluid overload. He is currently maintained on Lasix 80 mg IV q.12 hours. The patient states that his swelling persists. He may be feeling slightly better; however, his weight seems to have gone up from yesterday and 24 hour urine output is not recorded to be much. EXAMINATION: Blood pressure is 137/68, heart rate 84 per minute. He is afebrile. Examination of the heart: S1, S2. Examination lungs: Bilateral breath sounds are heard. Abdomen is soft, nontender, distended. Examination of lower extremity shows chronic skin changes and chronic edema 2+ bilaterally, actually 3+ in his left lower extremity with chronic skin changes. LICENSED DIRECT ENTRY MIDWIFE exam is grossly intact. LAB: Show sodium 143, potassium 4.4, BUN 47, serum creatinine 1.95, hemoglobin 10.4 g/dL. ASSESSMENT: 1. Acute kidney injury, cardiorenal, currently nonoliguric. Renal function is about the same. Echocardiogram shows ejection fraction of 35-40% with moderately enlarged right ventricle and left atrium. I will increase the diuresis to Lasix drip and if he does not diurese the patient may need dobutamine. 2. Cardiomyopathy, EF 35 to 40% with elevated right heart pressures and left atrial dilatation. 3. Chronic kidney disease with previous creatinine at about 1.4 mg/dL from 2014 secondary to nephrosclerosis with urinalysis being negative for protein. 4. History of coronary artery disease status post coronary artery bypass surgery. 5. History of diabetes. 6. Aortic sclerosis versus stenosis. 7. History of transient ischemic attack. PLAN: Change Lasix to IV Lasix drip. Continue with fluid restriction and avoid high salt intake. Repeat labs in a.m. MMODL / IJN: [id number] /
[2017-02-25] MEDS: FUROSEMIDE 250 MG in SODIUM CHLORIDE 0.9% 225 ML IVP SCH (16:55)
[2017-02-25] MEDS: WARFARIN 5 MG TAB PO SCH (17:16)
[2017-02-25] MEDS: ASPIRIN 81 MG PO SCH (21:14)
[2017-02-25] MEDS: LISINOPRIL 5 MG TAB PO SCH (21:14)
[2017-02-25] MEDS: ATORVASTATIN 10 MG TAB PO SCH (21:14)
[2017-02-25 21:17] LABS: Glucose,Whole Blood 137 mg/dL (75-99)
[2017-02-26 06:19] LABS: Glucose,Whole Blood 69 mg/dL (75-99)
[2017-02-26 06:36] LABS: Glucose,Whole Blood 87 mg/dL (75-99)
[2017-02-26 06:54] LABS: INR 2.5 (<1.2); Prothrombin Time 22.2 sec (9.0-12.0)
[2017-02-26 06:55] LABS: Albumin 3.3 g/dL (3.5-5.0); Calcium 9.4 mg/dL (8.4-10.2); Potassium 4.6 mmol/L (3.5-5.1); Total Bilirubin 0.8 mg/dL (0.2-1.3); Total Protein 6.3 g/dL (6.3-8.2)
[2017-02-26] MEDS: glipiZIDE 10 MG TAB PO SCH ×2 (06:59→17:26)
[2017-02-26] MEDS: cefTRIAXone IN SWFI 1,000 MG/10 ML SYRINGE IVP SCH (08:42)
[2017-02-26] MEDS: POTASSIUM CHLORIDE ER 10 MEQ TAB.ER.PRT PO SCH (08:42)
[2017-02-26] MEDS: FINASTERIDE 5 MG TAB PO SCH (08:43)
[2017-02-26] MEDS: FERROUS SULFATE 325 MG TAB PO SCH (08:43)
[2017-02-26 11:20] LABS: Glucose,Whole Blood 127 mg/dL (75-99)
[2017-02-26] MEDS: CHOLECALCIFEROL 400 UNIT TAB PO SCH (11:22)
[2017-02-26] MEDS: VITAMIN E (DL,TOCOPHERYL ACET) 400 UNIT CAP PO SCH (11:22)
[2017-02-26] MEDS: ASCORBIC ACID 500 MG TAB PO SCH (11:22)
--- NOTE | 2017-02-26 13:07 | P.PN ---
Subjective Progress Note Date: 02/26/17 Principal diagnosis: CHF This is a pleasant 86-year-old gentleman with history of coronary artery bypass surgery 15 years ago, diabetes, hypertension, [place], stroke as well as bilateral carotid endarterectomies. Presented to the emergency department with complaints of worsening edema and pain in both legs worse on the left leg . Chest x-ray showed congestive heart failure, pleural effusions and appeared to be worse than last exam. BNP was found to be elevated at 7290. She is currently on IV Lasix drip 5 mg per hour, his urine output has been minimal, and his weight is actually documented to be up from yesterday. Nephrology is going to increase the Lasix drip to 10 mg per hour today, if urine output remains marginal dobutamine may be added. Patient continues to have bilateral peripheral edema as well as rales to the bases. INR 2.5, potassium 4.6, BUN 48 , creatinine 1.9. . Objective - Vital Signs Vital signs: Vital Signs Temp 98.0 F 02/26/17 08:00 Pulse 75 02/26/17 08:00 Resp 18 02/26/17 08:00 BP 113/65 02/26/17 08:00 Pulse Ox 96 02/26/17 08:00 Intake & Output 02/25/17 02/26/17 02/26/17 18:59 06:59 18:59 Intake Total 960 35 255 Output Total 1000 300 Balance 960 -965 -45 Weight 90.7 kg Intake: Intake, IV Titration 35 15 Amount Furosemide 250 mg In 35 15 Sodium Chloride 0.9% 225 ml @ 5 MG/HR 5 mls/hr IVP .Q24H [facility] Rx#:[id number] Oral 960 240 Output: Urine 1000 300 Other: Voiding Method Bedside Commode Bedside Commode Urinal Urinal # Voids 0 2 # Bowel Movements 0 - Exam PHYSICAL EXAMINATION: HEENT: Head is atraumatic, normocephalic. Pupils equal, round. Neck is supple. There is elevated jugular venous pressure. HEART EXAMINATION: Heart sounds irregular irregular, S1 and S2 normal. CHEST EXAMINATION: Lungs reveal rales to bilateral bases . No chest wall tenderness is noted on palpation or with deep breathing. ABDOMEN: Soft, nontender. Bowel sounds are heard. No organomegaly noted. EXTREMITIES: 1+ peripheral pulses with evidence of 2+ peripheral edema left leg greater than the right and no calf tenderness noted. NEUROLOGIC patient is awake, alert and oriented x3. . - Labs CBC & Chem 7: 02/25/17 05:42 02/26/17 06:14 Labs: Abnormal Lab Results - Last 24 Hours (Table) 02/24/17 02/25/17 02/25/17 Range/Units 06:03 16:46 20:59 PT (9.0-12.0) sec INR (<1.2) Carbon Dioxide (22-30) mmol/L BUN (9-20) mg/dL Creatinine (0.66-1.25) mg/dL Glucose (74-99) mg/dL POC Glucose (mg/dL) 109 H 137 H (75-99) mg/dL Iron 43 L (65-175) ug/dL Albumin (3.5-5.0) g/dL 02/26/17 02/26/17 02/26/17 Range/Units 06:07 06:14 06:14 PT 22.2 H (9.0-12.0) sec INR 2.5 H (<1.2) Carbon Dioxide 41 H* (22-30) mmol/L BUN 48 H (9-20) mg/dL Creatinine 1.90 H (0.66-1.25) mg/dL Glucose 66 L (74-99) mg/dL POC Glucose (mg/dL) 69 L (75-99) mg/dL Iron (65-175) ug/dL Albumin 3.3 L (3.5-5.0) g/dL 02/26/17 Range/Units 11:19 PT (9.0-12.0) sec INR (<1.2) Carbon Dioxide (22-30) mmol/L BUN (9-20) mg/dL Creatinine (0.66-1.25) mg/dL Glucose (74-99) mg/dL POC Glucose (mg/dL) 127 H (75-99) mg/dL Iron (65-175) ug/dL Albumin (3.5-5.0) g/dL Assessment and Plan Plan: Assessment and plan #1 systolic congestive heart failure acute on chronic, echocardiogram with Doppler study reveals an ejection fraction of 35-40%. #2 acute on chronic kidney disease #3 known history of coronary artery disease with prior bypass surgery #4 chronic persistent atrial fibrillation, on Coumadin for anticoagulation #5 hypertension #6 diabetes #7 history of TIA Plan Lasix drip will be increased to 10 mg per hour, if patient continues not to put out adequate urine we will add dobutamine to his medication regime. Check lytes BUN and creatinine in the morning. DNP note has been reviewed, I agree with a documented findings and plan of care. Patient was seen and examined.
--- NOTE | 2017-02-26 14:58 | PN ---
PROGRESS NOTE Patient is seen for followup for acute kidney injury secondary to cardiorenal syndrome. He is still complaining of significant edema. He is also short of breath. The patient was started on Lasix drip yesterday. However, his weight has not decreased. 24 hour urine output is higher at about 1000 mL for 24 hours. EXAMINATION: Blood pressure is 128/67, heart rate 54 per minute. Patient is afebrile. Examination of the heart S1, S2. Examination of the lungs bilateral breath sounds are heard. Abdomen is soft, nontender. Examination of lower extremities shows chronic skin changes with chronic edema, left worse than right. MATERIALS SCIENTIST exam is grossly intact. LABORATORY DATA: The labs show sodium 145, potassium 4.6, CO2 is 41, BUN 48, serum creatinine 1.9, calcium 9.4. ASSESSMENT: 1. Acute kidney injury. Cardiorenal. Renal function about the same. Currently, patient is maintained on Lasix drip. He has not diuresed much. I will increase his Lasix drip to 10 mg an hour. 2. Metabolic acidosis secondary to diuretics. Will start Diamox. 3. Chronic kidney disease. The previous creatinine at 1.4 mg/dL from 2013, most likely secondary to nephrosclerosis. Patient has a benign UA. 4. History of coronary artery disease status post coronary artery bypass surgery. 5. Cardiomyopathy, EF 35-40% with moderately enlarged right ventricle and left atrium. 6. Aortic sclerosis versus stenosis. 7. History of transient ischemic attack. PLAN: Increase Lasix drip to 10 mg an hour. Start Diamox and if volume status is not improved, patient may need dobutamine. MMODL / IJN: [id number] /
[2017-02-26] MEDS: FUROSEMIDE 250 MG in SODIUM CHLORIDE 0.9% 225 ML IVP SCH (15:33)
--- NOTE | 2017-02-26 15:44 | CDI ---
Last Revision, January 2017 Documentation Clarification Form Date: 02/26/2017 3:26:00 PM From: Jacki Foster RN, CCDS Admit Date: 02/23/2017 12:16:00 PM Patient Name: Ilya Christian Visit Number: [id number] Discharge Date: ATTENTION: The Clinical Documentation Specialists (CDI) and [facility] Coding Staff appreciate your assistance in clarifying documentation. Please respond to the clarification below the line at the bottom and electronically sign. The CDI & [facility] Coding staff will review the response and follow-up if needed. Please note: Queries are made part of the Legal Health Record. If you have any questions, please contact the author of this message via ITS. Dr. Orly Mercer History/Risk Factors: Systolic CHF, COPD, CVA/TIA, DM, Hypertension, Former smoker Clinical Indicators: Present with complaints of shortness of breath and bilateral leg edema, ongoing evaluation for acute kidney injury secondary to cardiorenal syndrome, with the stage of the CKD not specified. Current on admission: BUN 45, CR 1.90 GFR: 34 Patients Baseline: CR 1.4 (per progress notes) Treatment: Monitor Labs In order to capture the severity of condition, please clarify if the condition signifies: CKD Stage 1 (GFR > 90) CKD Stage 2 (GFR 60-89) CKD Stage 3 (GFR 30-59) CKD Stage 4 (GFR 15-29) CKD Stage 5 (GFR <15) ESRD Other, please specify Unable to determine Please continue to document in your progress notes and discharge summary in order to capture severity of illness and risk of mortality. Include clinical findings that support your diagnosis. MTDD
[2017-02-26 17:11] LABS: Glucose,Whole Blood 139 mg/dL (75-99)
[2017-02-26] MEDS: WARFARIN 2.5 MG TAB PO SCH (17:26)
[2017-02-26] MEDS: ASPIRIN 81 MG PO SCH (20:23)
[2017-02-26] MEDS: acetaZOLAMIDE 250 MG TAB PO SCH (20:23)
[2017-02-26] MEDS: ATORVASTATIN 10 MG TAB PO SCH (20:23)
[2017-02-26] MEDS: LISINOPRIL 5 MG TAB PO SCH (20:23)
[2017-02-26 21:11] LABS: Glucose,Whole Blood 198 mg/dL (75-99)
--- NOTE | 2017-02-26 22:42 | P.CONS ---
History of Present Illness - Reason for Consult Consult date: 02/26/17 - Chief Complaint Increasing edema and shortness of breath - History of Present Illness 86-year-old male with a known history of chronic kidney disease presented to the emergency center feeling poorly for several days. Was having increasing edema to the bilateral lower extremities with resultant weeping. The patient relates that his weight is been increasing despite his use of oral Lasix at home. His living situation has changed in that his is at the jail and he said eating as well as he used to. Because he was feeling considerably worse he presented to the emergency center with evidence of a cellulitis the left lower extremity the infectious diseases consultation was requested. The patient has a known history of a coronary artery bypass grafting procedure and had vein harvest from the left leg and is had resultant chronic venous stasis to the lower extremity which is now considerably aggravated by his worsening renal failure and extensive volume overload. Review of Systems Patient feels poorly he has weakness and shortness of breath. HEENT:Denies headache or acute visual change. Denies sinus or mouth discomforts. Denies neck stiffness or pain. Denies significant oral cavity pain. Denies difficulty on swallowing. Lungs: Patient has ongoing shortness of breath he has minimal cough but no sputum production or hemoptysis Cardiovascular: Feels poorly has chronic shortness of breath he has dyspnea on exertion and poor exercise tolerance Gastrointestinal:Denies nausea, vomiting, diarrhea, constipation, hematemesis, melena, hematochezia. No no significant change of bowel habit noticed. Musculoskeletal: denies significant myalgias or arthralgias. No new joint swelling. Denies new back pain. Skin: As per the HPI Neuro: Denies headache or visual change. Denies any new onset localized weakness or difficulty with ambulation. Denies falls or seizures. Psychiatric:Denies anxiety or depression. Endocrine: Extensive fatigue and increasing weight gain Past Medical History Past Medical History: Heart Failure, COPD, CVA/TIA, Diabetes Mellitus, Hearing Disorder / Deafness, Hyperlipidemia, Hypertension, Myocardial Infarction ([place]), Prostate Disorder Additional Past Medical History / Comment(s): TIA, chronic venous stasis with previous harvesting of vein from the left lower extremity for CABG, chronic back pain,constipation,enlarged prostate,mult bruising areas, deaf in Left ear Last Myocardial Infarction Date:: UNK History of Any Multi-Drug Resistant Organisms: None Reported Past Surgical History: Back Surgery, Coronary Bypass/CABG, Ear Surgery Additional Past Surgical History / Comment(s): 11-04-14 LAPROSCOPIC SHIVAM INGUINAL HERNIA REPAIR. OTHER PAST HX: right ear surgery, lumbar surgery with Dr. Ho many years ago, bilateral carotid endarterectomy with Dr. Villalobos, right shoulder lipoma excision. pneumonia Past Anesthesia/Blood Transfusion Reactions: No Reported Reaction Past Psychological History: Depression Smoking Status: Former smoker Past Alcohol Use History: None Reported Additional Past Alcohol Use History / Comment(s): Patient smoked occasional cigar many years ago. He denies any medical marijuana, marijuana or street drug use. He denies any alcohol use. He is retired from [employer]. He served in the [employer] in the [employer] and was stationed in [place] for 18 months. He is currently living at home with his . There are no pets in the home. No recent travel. Past Drug Use History: None Reported - Past Family History Mother Family Medical History: Cancer, Myocardial Infarction ([place]) Additional Family Medical History / Comment(s): Breast Father Family Medical History: Myocardial Infarction ([place]) Sister(s) Family Medical History: Cancer, Rheumatoid Arthritis ([place]) Additional Family Medical History / Comment(s): BREAST Medications and Allergies Home Medications and Allergies Comment(s): Current Medications Acetazolamide (Diamox) 250 mg PO BID [facility] Last Admin: 02/26/17 20:23 Dose: 250 mg Ascorbic Acid (Vitamin C) 500 mg PO DAILY@1200 [facility] Last Admin: 02/26/17 11:22 Dose: 500 mg Aspirin (Aspirin) 81 mg PO [facility] Last Admin: 02/26/17 20:23 Dose: 81 mg Atorvastatin Calcium (Lipitor) 10 mg PO [facility] Last Admin: 02/26/17 20:23 Dose: 10 mg Ceftriaxone Sodium (Rocephin) 1,000 mg IVP Q24HR [facility] Last Admin: 02/26/17 08:42 Dose: 1,000 mg Cholecalciferol (Vitamin D3) 400 unit PO DAILY@1200 [facility] Last Admin: 02/26/17 11:22 Dose: 400 unit Ferrous Sulfate (Feosol) 325 mg PO [facility] Last Admin: 02/26/17 08:43 Dose: 325 mg [facility] Admin: 02/26/17 08:43 Dose: 5 mg Glipizide (Glucotrol) 10 mg PO AC-BID [facility] Last Admin: 02/26/17 17:26 Dose: 10 mg Furosemide 250 mg/ Sodium (Chloride) 250 mls @ 10 mls/hr IVP .Q24H [facility] PRN Reason: 10 MG/HR Last Admin: 02/26/17 15:33 Dose: 10 mg/hr, 10 mls/hr Lisinopril (Zestril) 5 mg PO [facility] Last Admin: 02/26/17 20:23 Dose: 5 mg Potassium Chloride (K-Dur 10) 10 meq [facility] Last Admin: 02/26/17 08:42 Dose: 10 meq Vitamin E (Vitamin E) 400 unit PO DAILY@1200 [facility] Last Admin: 02/26/17 11:22 Dose: 400 unit Warfarin Sodium (Coumadin) 2.5 mg PO [email or web address]@1800 [facility] Last Admin: 02/26/17 17:26 Dose: 2.5 mg Warfarin Sodium (Coumadin) 5 mg PO MoWeFr@1800 [facility] Last Admin: 02/25/17 17:16 Dose: 5 mg Home Medications Medication Instructions Recorded Confirmed Type Ascorbic Acid [Vitamin C] 500 mg PO DAILY@1200 07/22/14 02/23/17 History Aspirin 81 mg PO 07/22/14 02/23/17 History Cholecalciferol [Vitamin D3] 400 unit PO DAILY@1200 07/22/14 02/23/17 History Finasteride [Proscar] 5 mg PO QA 07/22/14 02/23/17 History Furosemide [Lasix] 80 mg PO AC-BID 07/22/14 02/23/17 History Lisinopril [Zestril] 5 mg PO 07/22/14 02/23/17 History Potassium Chloride [Klor-Con 10] 10 meq PO QA 07/22/14 02/23/17 History Warfarin [Coumadin] 5 mg PO MOWEFR 07/22/14 02/23/17 History Warfarin [Coumadin] 2.5 mg PO SUTUTHSA 11/03/14 02/23/17 History Doxazosin Mesylate 8 mg PO QA 02/23/17 02/23/17 History Ferrous Sulfate [Feosol] 325 mg PO QA 02/23/17 02/23/17 History Simvastatin [Zocor] 20 mg PO HS 02/23/17 02/23/17 History Vitamin E (Dl,Tocopheryl Acet) 400 unit PO DAILY@1200 02/23/17 02/23/17 History [Vitamin E] glipiZIDE [Glucotrol] 10 mg PO AC-BID 02/23/17 02/23/17 History Allergies Allergy/AdvReac Type Severity Reaction Status Date / Time No Known Allergies Allergy Verified 02/23/17 11:49 Physical Exam Vitals: Vital Signs Temp Pulse Resp BP Pulse Ox 02/26/17 20:00 97.8 F 80 18 134/77 99 02/26/17 16:00 78 18 02/26/17 15:59 98.8 F 78 18 140/86 99 02/26/17 12:00 98.3 F 54 L 18 128/67 97 02/26/17 08:00 98.0 F 75 18 113/65 96 02/26/17 04:00 97.2 F L 75 17 116/67 97 02/26/17 00:00 97.0 F L 64 18 134/76 96 Intake and Output 02/26/17 02/26/17 02/26/17 06:59 14:59 22:59 Intake Total 35 255 114.833 Output Total 400 300 800 Balance -365 45 -685.167 Intake: Intake, IV Titration 35 15 114.833 Amount Furosemide 250 mg In 35 15 114.833 Sodium Chloride 0.9% 225 ml @ 10 MG/HR 10 mls/hr IVP .Q24H [facility] Rx#: [id number] Oral 240 Output: Urine 400 300 800 Other: Voiding Method Bedside Commode Bedside Commode Bedside Commode Urinal Urinal Urinal # Voids 2 3 Weight 90.7 kg 90.7 kg Patient Weight 02/27/17 06:59 Weight 90.7 kg Pleasant 86-year-old male who is short of breath and somewhat uncomfortable but denies fevers or chills. HEENT: Anicteric conjunctiva are pink and moist nasal mucosa grossly intact without significant lesions, there is no thrush. Full denture Neck: The neck is supple without significant lymphadenopathy or thyromegaly. Lungs: Symmetrical air entry is noted with bibasilar crackles but no alfredito wheezing. No egophony or dullness Heart: Irregular with an audible S1 and S2 loud S4 no distinct murmur click or rub PMI is nondisplaced Abdomen: Positive bowel sounds soft and nontender without palpable masses or organomegaly. There was no guarding or rebound. Extremities: The upper extremities have excellent pulses they are symmetric, no significant petechiae or telangiectasia. No splinter hemorrhages were noted. Lower extremities have significant edema left leg consuming more than the right. Left leg is evidence of the extensive erythematous present from the foot to the knee. There is been some weeping that is noted. He has tenderness that since the leg or to the groin. Edema is present rate the lower abdominal wall. No erythema is seen. No extensive lymphadenopathy is noted inguinal or other areas Neuro: Awake alert oriented to person place and time. There are no acute new gross focal sensory motor deficits. Results CBC & Chem 7: 02/25/17 05:42 02/26/17 06:14 Labs: Abnormal Lab Results - Last 24 Hours (Table) 02/26/17 02/26/17 02/26/17 Range/Units 06:07 06:14 06:14 PT 22.2 H (9.0-12.0) sec INR 2.5 H (<1.2) Carbon Dioxide 41 H* (22-30) mmol/L BUN 48 H (9-20) mg/dL Creatinine 1.90 H (0.66-1.25) mg/dL Glucose 66 L (74-99) mg/dL POC Glucose (mg/dL) 69 L (75-99) mg/dL Albumin 3.3 L (3.5-5.0) g/dL 02/26/17 02/26/17 02/26/17 Range/Units 11:19 17:08 21:09 PT (9.0-12.0) sec INR (<1.2) Carbon Dioxide (22-30) mmol/L BUN (9-20) mg/dL Creatinine (0.66-1.25) mg/dL Glucose (74-99) mg/dL POC Glucose (mg/dL) 127 H 139 H 198 H (75-99) mg/dL Albumin (3.5-5.0) g/dL Laboratory Results WBC 5.7 k/uL (3.8-10.6) 02/25/17 05:42 RBC 3.39 m/uL (4.30-5.90) L 02/25/17 05:42 Hgb 10.4 gm/dL (13.0-17.5) L 02/25/17 05:42 Hct 33.5 % (39.0-53.0) L 02/25/17 05:42 MCV 98.8 fL (80.0-100.0) 02/25/17 05:42 MCH 30.5 pg (25.0-35.0) 02/25/17 05:42 MCHC 30.9 g/dL (31.0-37.0) L 02/25/17 05:42 RDW 15.6 % (11.5-15.5) H 02/25/17 05:42 Plt Count 79 k/uL (150-450) L 02/25/17 05:42 Neutrophils % 60 % 02/24/17 06:03 Lymphocytes % 26 % 02/24/17 06:03 Monocytes % 8 % 02/24/17 06:03 Eosinophils % 4 % 02/24/17 06:03 Basophils % 0 % 02/24/17 06:03 Neutrophils # 2.7 k/uL (1.3-7.7) 02/24/17 06:03 Lymphocytes # 1.2 k/uL (1.0-4.8) 02/24/17 06:03 Monocytes # 0.4 k/uL (0-1.0) 02/24/17 06:03 Eosinophils # 0.2 k/uL (0-0.7) 02/24/17 06:03 Basophils # 0.0 k/uL (0-0.2) 02/24/17 06:03 Manual Slide Review Performed 02/23/17 10:45 Hypochromasia Marked 02/25/17 05:42 Macrocytosis Slight 02/25/17 05:42 PT 22.2 sec (9.0-12.0) H 02/26/17 06:14 INR 2.5 (<1.2) H 02/26/17 06:14 APTT 31.1 sec (22.0-30.0) H 02/23/17 10:45 Sodium 145 mmol/L (137-145) 02/26/17 06:14 Potassium 4.6 mmol/L (3.5-5.1) 02/26/17 06:14 Chloride 100 mmol/L (98-107) 02/26/17 06:14 Carbon Dioxide 41 mmol/L (22-30) H* 02/26/17 06:14 Anion Gap 4 mmol/L 02/26/17 06:14 BUN 48 mg/dL (9-20) H 02/26/17 06:14 Creatinine 1.90 mg/dL (0.66-1.25) H 02/26/17 06:14 Est GFR (MDRD) Af Amer 41 (>60 ml/min/1.73 sqM) 02/26/17 06:14 Est GFR (MDRD) Non-Af 34 (>60 ml/min/1.73 sqM) 02/26/17 06:14 Glucose 66 mg/dL (74-99) L 02/26/17 06:14 POC Glucose (mg/dL) 198 mg/dL (75-99) H 02/26/17 21:09 POC Glu [employer]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 ID Beata Saez 02/26/17 21:09 Uric Acid 8.1 mg/dL (3.5-8.5) 02/23/17 10:45 Calcium 9.4 mg/dL (8.4-10.2) 02/26/17 06:14 Magnesium 2.5 mg/dL (1.6-2.3) H 02/23/17 10:45 Iron 43 ug/dL (65-175) L 02/24/17 06:03 TIBC 245 ug/dL (228-460) 02/24/17 06:03 Iron Saturation 17.55 (15.00-50.00) 02/24/17 06:03 Total Bilirubin 0.8 mg/dL (0.2-1.3) 02/26/17 06:14 AST 22 U/L (17-59) 02/26/17 06:14 ALT 34 U/L (21-72) 02/26/17 06:14 Alkaline Phosphatase 91 U/L (38-126) 02/26/17 06:14 Total Creatine Kinase 27 U/L (55-170) L 02/23/17 17:02 CK-MB (CK-2) 0.6 ng/mL (0.0-2.4) 02/23/17 17:02 CK-MB (CK-2) Rel Index 2.2 02/23/17 17:02 Troponin I 0.036 ng/mL (0.000-0.034) H* 02/23/17 22:57 NT-Pro-B Natriuret Pep 7290 pg/mL 02/23/17 10:45 Total Protein 6.3 g/dL (6.3-8.2) 02/26/17 06:14 Albumin 3.3 g/dL (3.5-5.0) L 02/26/17 06:14 Assessment and Plan (1) Congestive heart failure Current Visit: Yes Status: Acute Code(s): I50.9 - HEART FAILURE, UNSPECIFIED SNOMED Code(s): 10707486 (2) Acute renal failure Current Visit: Yes Status: Acute Code(s): N17.9 - ACUTE KIDNEY FAILURE, UNSPECIFIED SNOMED Code(s): 63681998 (3) Cellulitis Narrative/Plan: 86-year-old male presents to hospital with increasing lower extremity edema especially the left lower extremity associated with weeping and drainage. He was feeling poorly. Much more short of breath and having increasing difficulty with day-to-day activities. He also relates to social situation is difficult with his being in the jail. Admission there was evidence of worsening of his chronic kidney disease with acute renal failure superimposed on his significant systolic congestive heart failure and pulmonary edema. He is an insulin drip showing some improvement. The extensive cellulitis of the left lower extremity is noted. The patient relates starting to show some improvement because he's had some diuresis. Duplexes been performed with no evidence of any deep venous thrombosis. We'll utilize Silvadene wrap the left lower extremity to see if we cannot more rapidly improve this extensive edematous process with a secondary infection. The vein harvest to the extremity is a significant intruding factor to the extensive edema and resultant cellulitis. Elevation the limb is important. Is being followed by nephrology trying to improve his fluid and potassium intake. Current Visit: No Status: Acute Code(s): L03.90 - CELLULITIS, UNSPECIFIED SNOMED Code(s): 991656323
--- NOTE | 2017-02-27 06:08 | PN ---
PROGRESS NOTE DATE OF SERVICE: 02/26/2017 This is an 86-year-old white male who was admitted with congestive heart failure and renal failure. He was seen by [facility] in consultation and also by Nephrology on consultation. He also has marked edema of the lower extremities and also cellulitis involving the left leg and he is currently on antibiotics with Rocephin IV and he was started on IV Lasix and his edema of the legs persisting. Dr. Mercer started him on Lasix IV drip. The patient appears to be fairly comfortable and his main problem is edema of the lower extremities. Ultrasound was negative for any DVT. He is currently receiving IV antibiotics for the cellulitis. However, we will get an Infectious Disease consultation. His vital signs were stable. He also has diabetes mellitus and he is a diabetic being controlled with NovoLog sliding scale. Overall prognosis is guarded. [id number] / IJN: [id number] /
[2017-02-27] MEDS: glipiZIDE 10 MG TAB PO SCH ×2 (06:44→17:24)
[2017-02-27 06:53] LABS: Glucose,Whole Blood 105 mg/dL (75-99)
[2017-02-27] MEDS: FERROUS SULFATE 325 MG TAB PO SCH (08:29)
[2017-02-27] MEDS: acetaZOLAMIDE 250 MG TAB PO SCH ×2 (08:29→21:13)
[2017-02-27] MEDS: FINASTERIDE 5 MG TAB PO SCH (08:29)
[2017-02-27] MEDS: POTASSIUM CHLORIDE ER 10 MEQ TAB.ER.PRT PO SCH (08:29)
[2017-02-27] MEDS: cefTRIAXone IN SWFI 1,000 MG/10 ML SYRINGE IVP SCH (08:32)
[2017-02-27 09:55] LABS: INR 2.4 (<1.2); Prothrombin Time 21.8 sec (9.0-12.0)
[2017-02-27 09:56] LABS: Calcium 9.3 mg/dL (8.4-10.2); Magnesium 2.5 mg/dL (1.6-2.3)
--- NOTE | 2017-02-27 10:26 | CDI ---
Last Revision, January 2017 Documentation Clarification Form Date: 02/26/2017 3:26:00 PM From: Jacki Foster RN, CCDS Admit Date: 02/23/2017 12:16:00 PM Patient Name: Ilya Christian Visit Number: [id number] Discharge Date: ATTENTION: The Clinical Documentation Specialists (CDI) and [facility] Coding Staff appreciate your assistance in clarifying documentation. Please respond to the clarification below the line at the bottom and electronically sign. The CDI & [facility] Coding staff will review the response and follow-up if needed. Please note: Queries are made part of the Legal Health Record. If you have any questions, please contact the author of this message via ITS. Dr. Orly Mercer History/Risk Factors: Systolic CHF, COPD, CVA/TIA, DM, Hypertension, Former smoker Clinical Indicators: Present with complaints of shortness of breath and bilateral leg edema, ongoing evaluation for acute kidney injury secondary to cardiorenal syndrome with stage of CKD not specified. Current on admission BUN 45, CR 1.90 GFR: 34 Patients Baseline: CR 1.4 (per progress notes) Treatment: Monitor Labs In order to capture the severity of condition, please clarify if the condition signifies: CKD Stage 1 (GFR > 90) CKD Stage 2 (GFR 60-89) CKD Stage 3 (GFR 30-59) CKD Stage 4 (GFR 15-29) CKD Stage 5 (GFR <15) ESRD Other, please specify Unable to determine Please continue to document in your progress notes and discharge summary in order to capture severity of illness and risk of mortality. Include clinical findings that support your diagnosis. MTDD
[2017-02-27 11:30] LABS: Glucose,Whole Blood 170 mg/dL (75-99)
--- NOTE | 2017-02-27 12:14 | P.PN ---
Subjective Progress Note Date: 02/27/17 Principal diagnosis: CHF This is a pleasant 86-year-old gentleman with history of coronary artery bypass surgery 15 years ago, diabetes, hypertension, [place], stroke as well as bilateral carotid endarterectomies. Presented to the emergency department with complaints of worsening edema and pain in both legs worse on the left leg . Chest x-ray showed congestive heart failure, pleural effusions and appeared to be worse than last exam. BNP was found to be elevated at 7290. She is currently on IV Lasix drip 5 mg per hour, his urine output has been minimal, and his weight is actually documented to be up from yesterday. Nephrology is going to increase the Lasix drip to 10 mg per hour today, if urine output remains marginal dobutamine may be added. Patient continues to have bilateral peripheral edema as well as rales to the bases. INR 2.5, potassium 4.6, BUN 48 , creatinine 1.9. 02/28/2016 Patient seen and examined this morning, Diuresed very well through the night last night, 2600 out. Weight down 1 kg. INR 2.4, potassium 4.0, BUN 48, creatinine 1.9, magnesium 2.5. Complaining of some pain in his left lower leg. Edema much improved today overall. Breathing improving as well. . Objective - Vital Signs Vital signs: Vital Signs Temp 97.5 F L 02/27/17 08:23 Pulse 88 02/27/17 08:23 Resp 20 02/27/17 08:23 BP 131/68 02/27/17 08:23 Pulse Ox 97 02/27/17 08:23 Intake & Output 02/26/17 02/27/17 02/27/17 18:59 06:59 18:59 Intake Total 369.833 476 Output Total 1100 1775 Balance -730.167 -1775 476 Weight 90.7 kg 90.7 kg Intake: Intake, IV Titration 129.833 Amount Furosemide 250 mg In 129.833 Sodium Chloride 0.9% 225 ml @ 10 MG/HR 10 mls/hr IVP .Q24H [facility] Rx#: [id number] Oral 240 476 Output: Urine 1100 1775 Other: Voiding Method Bedside Commode Bedside Commode Urinal Urinal # Voids 3 - Exam PHYSICAL EXAMINATION: HEENT: Head is atraumatic, normocephalic. Pupils equal, round. Neck is supple. There is elevated jugular venous pressure. HEART EXAMINATION: Heart sounds irregular irregular, S1 and S2 normal. CHEST EXAMINATION: Lungs reveal diminished air entry to bilateral bases . No chest wall tenderness is noted on palpation or with deep breathing. ABDOMEN: Soft, nontender. Bowel sounds are heard. No organomegaly noted. EXTREMITIES: 1+ peripheral pulses with evidence of 1+ peripheral edema left leg greater than the right , bilateral Gm wraps in place. NEUROLOGIC patient is awake, alert and oriented x3. . - Labs CBC & Chem 7: 02/25/17 05:42 02/27/17 09:23 Labs: Abnormal Lab Results - Last 24 Hours (Table) 02/26/17 02/26/17 02/27/17 Range/Units 17:08 21:09 06:40 PT (9.0-12.0) sec INR (<1.2) Carbon Dioxide (22-30) mmol/L BUN (9-20) mg/dL Creatinine (0.66-1.25) mg/dL Glucose (74-99) mg/dL POC Glucose (mg/dL) 139 H 198 H 105 H (75-99) mg/dL Magnesium (1.6-2.3) mg/dL 02/27/17 02/27/17 02/27/17 Range/Units 09:23 09:23 11:27 PT 21.8 H (9.0-12.0) sec INR 2.4 H (<1.2) Carbon Dioxide 36 H (22-30) mmol/L BUN 48 H (9-20) mg/dL Creatinine 1.91 H (0.66-1.25) mg/dL Glucose 182 H (74-99) mg/dL POC Glucose (mg/dL) 170 H (75-99) mg/dL Magnesium 2.5 H (1.6-2.3) mg/dL Assessment and Plan Plan: Assessment and plan #1 systolic congestive heart failure acute on chronic, echocardiogram with Doppler study reveals an ejection fraction of 35-40%. #2 acute on chronic kidney disease #3 known history of coronary artery disease with prior bypass surgery #4 chronic persistent atrial fibrillation, on Coumadin for anticoagulation #5 hypertension #6 diabetes #7 history of TIA Plan From cardiology's perspective, we'll recommend to continue Lasix drip at current rate. Repeat chest x-ray. Check lytes, BUN and creatinine, intake and output along with daily weights in the morning. DNP note has been reviewed, I agree with a documented findings and plan of care. Patient was seen and examined.
[2017-02-27] MEDS: CHOLECALCIFEROL 400 UNIT TAB PO SCH (13:05)
[2017-02-27] MEDS: ACETAMINOPHEN TAB 325 MG TAB PO PRN (13:06)
[2017-02-27] MEDS: ASCORBIC ACID 500 MG TAB PO SCH (13:06)
[2017-02-27] MEDS: VITAMIN E (DL,TOCOPHERYL ACET) 400 UNIT CAP PO SCH (13:06)
[2017-02-27] MEDS ORDERED: traMADol 50 MG TAB PO PRN (13:45)
--- NOTE | 2017-02-27 13:52 | XR ---
EXAMINATION TYPE: XR chest 2V DATE OF EXAM: 02/27/2017 COMPARISON: 02/23/2017 TECHNIQUE: PA and lateral views submitted. HISTORY: CHF and shortness of breath FINDINGS: Bilateral consolidation and pleural effusion or thickening noted. Coarsened interstitium stable. Card ia megaly postoperative changes noted. Atherosclerotic change aorta. Diffuse osteopenia and arthropathy of the shoulders. No sizable pneumothorax. IMPRESSION: 1. Stable bilateral infiltrate and small effusion. Mild central venous congestion in the differential .
--- NOTE | 2017-02-27 16:10 | PN ---
PROGRESS NOTE Patient is seen for followup for acute kidney injury secondary to cardiorenal syndrome. His creatinine is staying at 1.9. He is currently maintained on Lasix drip at 10 mg/hour and he has put out more urine than the day before after increasing the Lasix drip. Patient is still complaining of pain in his left lower extremity, which is more swollen than his right lower extremity. PHYSICAL EXAMINATION: Blood pressure is 141/67, heart rate 88 per minute. He has a temperature of 100.3. EXAMINATION OF THE HEART: S1, S2. EXAMINATION OF LUNGS: Bilateral breath sounds are heard. ABDOMEN: Soft, non-tender. Examination of lower extremities shows edema 2+ bilaterally, 3+ on the left side. ATOMIC PHYSICS PROFESSOR exam is grossly intact. LABS: Sodium 145, potassium 4.0, BUN 48, serum creatinine 1.9. ASSESSMENT: 1. Acute kidney injury, cardiorenal, with improved urine output, currently on Lasix drip at 10 mg/hour. We will continue with the Lasix drip for now. 2. Cardiomyopathy with ejection fraction of 35% to 40%. 3. Chronic kidney disease, stage IIIB, with previous creatinine in 2015 at 1.48, though it has been as high as 1.7 as well. Etiology is likely nephrosclerosis versus diabetic nephropathy. Will obtain urinalysis. 4. History of transient ischemic attack. 5. Aortic stenosis versus sclerosis. 6. Metabolic alkalosis secondary to diuretics, currently maintained on Diamox, and improved. CO2 is at 36 now. PLAN: Continue with Diamox. Check urinalysis. Continue Lasix drip at 10 mg/hour and repeat labs in a.m. MMODL / IJN: [id number] /
[2017-02-27 16:27] LABS: Glucose,Whole Blood 201 mg/dL (75-99)
[2017-02-27] MEDS: WARFARIN 5 MG TAB PO SCH (17:24)
[2017-02-27] MEDS: INSULIN ASPART 100 UNIT/ML 1 ML 10 ML VIAL SQ SCH ×2 (17:24→21:57)
--- NOTE | 2017-02-27 20:52 | P.PN ---
Subjective Progress Note Date: 02/27/17 Principal diagnosis: Increasing edema and shortness of breath 86-year-old male with a known history of chronic kidney disease presented to the emergency center feeling poorly for several days. Was having increasing edema to the bilateral lower extremities with resultant weeping. The patient relates that his weight is been increasing despite his use of oral Lasix at home. His living situation has changed in that his is at the snf and he said eating as well as he used to. Because he was feeling considerably worse he presented to the emergency center with evidence of a cellulitis the left lower extremity the infectious diseases consultation was requested. The patient has a known history of a coronary artery bypass grafting procedure and had vein harvest from the left leg and is had resultant chronic venous stasis to the lower extremity which is now considerably aggravated by his worsening renal failure and extensive volume overload. Patient feeling somewhat better today. No short of breath. Lower extremity edema is improved. The progress is discussed with the patient's son. Objective - Vital Signs Vital signs: Vital Signs Temp 99.0 F 02/27/17 19:46 Pulse 83 02/27/17 19:46 Resp 18 02/27/17 19:46 BP 128/77 02/27/17 19:46 Pulse Ox 100 02/27/17 19:46 Intake & Output 02/27/17 02/27/17 02/28/17 06:59 18:59 06:59 Intake Total 948 Output Total 1775 625 300 Balance -1775 323 -300 Weight 90.7 kg Intake: Oral 948 Output: Urine 1775 625 300 Other: Voiding Method Bedside Commode Urinal # Voids 2 1 # Bowel Movements 1 - Exam Pleasant 86-year-old male who is short of breath and somewhat uncomfortable but denies fevers or chills. HEENT: Anicteric conjunctiva are pink and moist nasal mucosa grossly intact without significant lesions, there is no thrush. Full denture Neck: The neck is supple without significant lymphadenopathy or thyromegaly. Lungs: Symmetrical air entry is noted with bibasilar crackles but no alfredito wheezing. No egophony or dullness Heart: Irregular with an audible S1 and S2 loud S4 no distinct murmur click or rub PMI is nondisplaced Abdomen: Positive bowel sounds soft and nontender without palpable masses or organomegaly. There was no guarding or rebound. Extremities: The upper extremities have excellent pulses they are symmetric, no significant petechiae or telangiectasia. No splinter hemorrhages were noted. Lower extremities have edema left leg more than the right. Left leg is evidence of the extensive erythematous present from the foot to the knee. The erythema is improved and the weeping to the leg is also improved today. He has tenderness that travels from the leg to the groin but no erythema at that site No extensive lymphadenopathy is noted inguinal or other areas Neuro: Awake alert oriented to person place and time. There are no acute new gross focal sensory motor deficits. - Labs CBC & Chem 7: 02/25/17 05:42 02/27/17 09:23 Labs: Abnormal Lab Results - Last 24 Hours (Table) 02/26/17 02/27/17 02/27/17 Range/Units 21:09 06:40 09:23 PT (9.0-12.0) sec INR (<1.2) Carbon Dioxide 36 H (22-30) mmol/L BUN 48 H (9-20) mg/dL Creatinine 1.91 H (0.66-1.25) mg/dL Glucose 182 H (74-99) mg/dL POC Glucose (mg/dL) 198 H 105 H (75-99) mg/dL Magnesium 2.5 H (1.6-2.3) mg/dL 02/27/17 02/27/17 02/27/17 Range/Units 09:23 11:27 16:25 PT 21.8 H (9.0-12.0) sec INR 2.4 H (<1.2) Carbon Dioxide (22-30) mmol/L BUN (9-20) mg/dL Creatinine (0.66-1.25) mg/dL Glucose (74-99) mg/dL POC Glucose (mg/dL) 170 H 201 H (75-99) mg/dL Magnesium (1.6-2.3) mg/dL Laboratory Results WBC 5.7 k/uL (3.8-10.6) 02/25/17 05:42 RBC 3.39 m/uL (4.30-5.90) L 02/25/17 05:42 Hgb 10.4 gm/dL (13.0-17.5) L 02/25/17 05:42 Hct 33.5 % (39.0-53.0) L 02/25/17 05:42 MCV 98.8 fL (80.0-100.0) 02/25/17 05:42 MCH 30.5 pg (25.0-35.0) 02/25/17 05:42 MCHC 30.9 g/dL (31.0-37.0) L 02/25/17 05:42 RDW 15.6 % (11.5-15.5) H 02/25/17 05:42 Plt Count 79 k/uL (150-450) L 02/25/17 05:42 Neutrophils % 60 % 02/24/17 06:03 Lymphocytes % 26 % 02/24/17 06:03 Monocytes % 8 % 02/24/17 06:03 Eosinophils % 4 % 02/24/17 06:03 Basophils % 0 % 02/24/17 06:03 Neutrophils # 2.7 k/uL (1.3-7.7) 02/24/17 06:03 Lymphocytes # 1.2 k/uL (1.0-4.8) 02/24/17 06:03 Monocytes # 0.4 k/uL (0-1.0) 02/24/17 06:03 Eosinophils # 0.2 k/uL (0-0.7) 02/24/17 06:03 Basophils # 0.0 k/uL (0-0.2) 02/24/17 06:03 Manual Slide Review Performed 02/23/17 10:45 Hypochromasia Marked 02/25/17 05:42 Macrocytosis Slight 02/25/17 05:42 PT 21.8 sec (9.0-12.0) H 02/27/17 09:23 INR 2.4 (<1.2) H 02/27/17 09:23 APTT 31.1 sec (22.0-30.0) H 02/23/17 10:45 Sodium 145 mmol/L (137-145) 02/27/17 09:23 Potassium 4.0 mmol/L (3.5-5.1) 02/27/17 09:23 Chloride 98 mmol/L (98-107) 02/27/17 09:23 Carbon Dioxide 36 mmol/L (22-30) H 02/27/17 09:23 Anion Gap 11 mmol/L 02/27/17 09:23 BUN 48 mg/dL (9-20) H 02/27/17 09:23 Creatinine 1.91 mg/dL (0.66-1.25) H 02/27/17 09:23 Est GFR (MDRD) Af Amer 41 (>60 ml/min/1.73 sqM) 02/27/17 09:23 Est GFR (MDRD) Non-Af 33 (>60 ml/min/1.73 sqM) 02/27/17 09:23 Glucose 182 mg/dL (74-99) H 02/27/17 09:23 POC Glucose (mg/dL) 201 mg/dL (75-99) H 02/27/17 16:25 POC Glu Shaping Machine Operator ID Tia Lynch 02/27/17 16:25 Uric Acid 8.1 mg/dL (3.5-8.5) 02/23/17 10:45 Calcium 9.3 mg/dL (8.4-10.2) 02/27/17 09:23 Magnesium 2.5 mg/dL (1.6-2.3) H 02/27/17 09:23 Iron 43 ug/dL (65-175) L 02/24/17 06:03 TIBC 245 ug/dL (228-460) 02/24/17 06:03 Iron Saturation 17.55 (15.00-50.00) 02/24/17 06:03 Total Bilirubin 0.8 mg/dL (0.2-1.3) 02/26/17 06:14 AST 22 U/L (17-59) 02/26/17 06:14 ALT 34 U/L (21-72) 02/26/17 06:14 Alkaline Phosphatase 91 U/L (38-126) 02/26/17 06:14 Total Creatine Kinase 27 U/L (55-170) L 02/23/17 17:02 CK-MB (CK-2) 0.6 ng/mL (0.0-2.4) 02/23/17 17:02 CK-MB (CK-2) Rel Index 2.2 02/23/17 17:02 Troponin I 0.036 ng/mL (0.000-0.034) H* 02/23/17 22:57 NT-Pro-B Natriuret Pep 7290 pg/mL 02/23/17 10:45 Total Protein 6.3 g/dL (6.3-8.2) 02/26/17 06:14 Albumin 3.3 g/dL (3.5-5.0) L 02/26/17 06:14 Assessment and Plan (1) Congestive heart failure Current Visit: Yes Status: Acute Code(s): I50.9 - HEART FAILURE, UNSPECIFIED SNOMED Code(s): 02370087 (2) Acute renal failure Current Visit: Yes Status: Acute Code(s): N17.9 - ACUTE KIDNEY FAILURE, UNSPECIFIED SNOMED Code(s): 57859758 (3) Cellulitis Narrative/Plan: 86-year-old male presents to hospital with increasing lower extremity edema especially the left lower extremity associated with weeping and drainage. He was feeling poorly. Much more short of breath and having increasing difficulty with day-to-day activities. He also relates to social situation is difficult with his being in the snf. Admission there was evidence of worsening of his chronic kidney disease with acute renal failure superimposed on his significant systolic congestive heart failure and pulmonary edema. He is an insulin drip showing some improvement. The extensive cellulitis of the left lower extremity is noted. The patient relates starting to show some improvement because he's had some diuresis. Duplexes been performed with no evidence of any deep venous thrombosis. The Silvadene wrap is now allowed some improvement of this extensive edematous process with a secondary infection. The vein harvest to the extremity is a significant contributing factor to the extensive edema and resultant cellulitis. Elevation the limb is important. Is being followed by nephrology trying to improve his fluid and potassium balance. Current Visit: No Status: Acute Code(s): L03.90 - CELLULITIS, UNSPECIFIED SNOMED Code(s): 680016545
[2017-02-27] MEDS: FUROSEMIDE 250 MG in SODIUM CHLORIDE 0.9% 225 ML IVP SCH (21:12)
[2017-02-27] MEDS: ASPIRIN 81 MG PO SCH (21:13)
[2017-02-27] MEDS: ATORVASTATIN 10 MG TAB PO SCH (21:13)
[2017-02-27] MEDS: LISINOPRIL 5 MG TAB PO SCH (21:13)
[2017-02-27 21:27] LABS: Glucose,Whole Blood 91 mg/dL (75-99)
[2017-02-28] MEDS: INSULIN ASPART 100 UNIT/ML 1 ML 10 ML VIAL SQ SCH ×4 (06:50→20:23)
[2017-02-28 07:12] LABS: Glucose,Whole Blood 45 mg/dL (75-99)
[2017-02-28 07:12] LABS: Glucose,Whole Blood 69 mg/dL (75-99)
[2017-02-28 07:18] LABS: Appearance,Urine Clear (Clear); Bilirubin,Urine Negative (Negative); Blood,Urine Small (Negative); Color,Urine Light Yellow; Glucose,Urine (UA) Negative (Negative); Ketones,Urine Negative (Negative); Leukocyte Esterase,Urine Negative (Negative); Mucus,Urine Rare /hpf; Nitrite,Urine Negative (Negative); PH, Urine 7.5 (5.0-8.0); Protein,Urine Negative (Negative); RBC,Urine 18 /hpf (0-5); Specific Gravity,Urine 1.007 (1.001-1.035); Urobilinogen,Urine <2.0 mg/dL (<2.0)
[2017-02-28 07:27] LABS: Calcium 9.3 mg/dL (8.4-10.2); Potassium 3.8 mmol/L (3.5-5.1)
[2017-02-28 07:32] LABS: Glucose,Whole Blood 97 mg/dL (75-99)
[2017-02-28] MEDS: POTASSIUM CHLORIDE ER 10 MEQ TAB.ER.PRT PO SCH (08:57)
[2017-02-28] MEDS: FINASTERIDE 5 MG TAB PO SCH (08:57)
[2017-02-28] MEDS: acetaZOLAMIDE 250 MG TAB PO SCH ×2 (08:57→20:25)
[2017-02-28] MEDS: FERROUS SULFATE 325 MG TAB PO SCH (08:57)
[2017-02-28] MEDS: glipiZIDE 10 MG TAB PO SCH ×2 (08:57→17:24)
[2017-02-28] MEDS: cefTRIAXone IN SWFI 1,000 MG/10 ML SYRINGE IVP SCH (09:06)
--- NOTE | 2017-02-28 11:31 | P.PN ---
Subjective Patient is seen in follow-up for acute kidney injury on chronic kidney disease. 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 Creatinine today is a little worse from yesterday at 1.98. He is currently maintained on Lasix drip running at 10 mL an hour. His weight is trending down. Edema is improving. Dyspnea has also improved. Oral intake is good. Vital signs are stable. General: The patient appeared well nourished and normally developed. HEENT: Head exam is unremarkable. Neck is without jugular venous distension. LUNGS: Lungs are clear to auscultation and percussion. Breath sounds decreased. HEART: Rate and Rhythm are regular. First and second heart sounds normal. No murmurs, rubs or gallops. ABDOMEN: Abdominal exam reveals normal bowel sounds. Non-tender and non- distended. No evidence of peritonitis. EXTREMITITES: 1+ edema. Objective - Vital Signs Vital signs: Vital Signs Temp 97.3 F L 02/28/17 08:00 Pulse 69 02/28/17 08:00 Resp 18 02/28/17 08:00 BP 110/55 02/28/17 08:00 Pulse Ox 100 02/28/17 08:00 Intake & Output 02/27/17 02/28/17 02/28/17 18:59 06:59 18:59 Intake Total 948 500 Output Total 625 750 Balance 323 -750 500 Weight 88.1 kg Intake: IV 20 Furosemide 250 mg In 20 Sodium Chloride 0.9% 225 ml @ 10 MG/HR 10 mls/hr IVP .Q24H [facility] Rx#: [id number] Oral 948 480 Output: Urine 625 750 Other: Voiding Method Bedside Commode Bedside Commode Urinal Urinal # Voids 2 2 1 # Bowel Movements 1 - Labs CBC & Chem 7: 02/25/17 05:42 02/28/17 06:53 Labs: Abnormal Lab Results - Last 24 Hours (Table) 02/27/17 02/27/17 02/28/17 Range/Units 11:27 16:25 06:20 Sodium (137-145) mmol/L Carbon Dioxide (22-30) mmol/L BUN (9-20) mg/dL Creatinine (0.66-1.25) mg/dL Glucose (74-99) mg/dL POC Glucose (mg/dL) 170 H 201 H (75-99) mg/dL Urine Blood Small H (Negative) Urine RBC 18 H (0-5) /hpf Urine Mucus Rare H (None) /hpf 02/28/17 02/28/17 02/28/17 Range/Units 06:48 06:53 07:09 Sodium 146 H (137-145) mmol/L Carbon Dioxide 39 H (22-30) mmol/L BUN 48 H (9-20) mg/dL Creatinine 1.98 H (0.66-1.25) mg/dL Glucose 39 L* (74-99) mg/dL POC Glucose (mg/dL) 45 L 69 L (75-99) mg/dL Urine Blood (Negative) Urine RBC (0-5) /hpf Urine Mucus (None) /hpf Assessment and Plan Plan: Assessment: #1. Nonoliguric acute kidney injury secondary to ATN secondary to cardiorenal syndrome. Creatinine is little worse today at 1.98. No proteinuria noted on urinalysis. #2. 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 #3. Systolic CHF with ejection fraction of 35-40%. #4. Volume overload. Improving. Weight trending down. #5. Mild hypernatremia secondary to dehydration from water loss due to diuretics. #6. Metabolic alkalosis due to volume contraction. Plan: Discontinue Lasix drip. Start Lasix 80 mg IV twice daily. Maintain Diamox for now. Monitor sodium level. Repeat electrolytes in the morning. Avoid nephrotoxic agents and hypotensive episodes.
[2017-02-28 11:46] LABS: Glucose,Whole Blood 151 mg/dL (75-99)
[2017-02-28] MEDS: CHOLECALCIFEROL 400 UNIT TAB PO SCH (12:23)
[2017-02-28] MEDS: VITAMIN E (DL,TOCOPHERYL ACET) 400 UNIT CAP PO SCH (12:23)
[2017-02-28] MEDS: ASCORBIC ACID 500 MG TAB PO SCH (12:23)
[2017-02-28] MEDS: FUROSEMIDE 10 MG/ML 10 ML VIAL IV SCH ×2 (12:23→20:25)
--- NOTE | 2017-02-28 12:59 | P.PN ---
Subjective Progress Note Date: 02/28/17 Principal diagnosis: CHF This is a pleasant 86-year-old gentleman with history of coronary artery bypass surgery 15 years ago, diabetes, hypertension, GA, stroke as well as bilateral carotid endarterectomies. Presented to the emergency department with complaints of worsening edema and pain in both legs worse on the left leg . Chest x-ray showed congestive heart failure, pleural effusions and appeared to be worse than last exam. BNP was found to be elevated at 7290. She is currently on IV Lasix drip 5 mg per hour, his urine output has been minimal, and his weight is actually documented to be up from yesterday. Nephrology is going to increase the Lasix drip to 10 mg per hour today, if urine output remains marginal dobutamine may be added. Patient continues to have bilateral peripheral edema as well as rales to the bases. INR 2.5, potassium 4.6, BUN 48 , creatinine 1.9. 02/27/2017 Patient seen and examined this morning, Diuresed very well through the night last night, 2600 out. Weight down 1 kg. INR 2.4, potassium 4.0, BUN 48, creatinine 1.9, magnesium 2.5. Complaining of some pain in his left lower leg. Edema much improved today overall. Breathing improving as well. 02/28/2017 Patient seen and examined this morning, weight down 2 kg today. Sodium 146, potassium 3.8, BUN 48, creatinine 1.9. Continues to diurese well, edema is improving, breathing is improving. . Objective - Vital Signs Vital signs: Vital Signs Temp 97.3 F L 02/28/17 08:00 Pulse 69 02/28/17 08:00 Resp 18 02/28/17 08:00 BP 110/55 02/28/17 08:00 Pulse Ox 100 02/28/17 08:00 Intake & Output 02/27/17 02/28/17 02/28/17 18:59 06:59 18:59 Intake Total 948 500 Output Total 625 750 800 Balance 323 -750 -300 Weight 88.1 kg Intake: IV 20 Furosemide 250 mg In 20 Sodium Chloride 0.9% 225 ml @ 10 MG/HR 10 mls/hr IVP .Q24H [facility] Rx#: [id number] Oral 948 480 Output: Urine 625 750 800 Other: Voiding Method Bedside Commode Bedside Commode Urinal Urinal # Voids 2 2 5 # Bowel Movements 1 1 - Exam PHYSICAL EXAMINATION: HEENT: Head is atraumatic, normocephalic. Pupils equal, round. Neck is supple. There is elevated jugular venous pressure. HEART EXAMINATION: Heart sounds irregular irregular, S1 and S2 normal. CHEST EXAMINATION: Lungs reveal diminished air entry to bilateral bases . No chest wall tenderness is noted on palpation or with deep breathing. ABDOMEN: Soft, nontender. Bowel sounds are heard. No organomegaly noted. EXTREMITIES: 1+ peripheral pulses with evidence of trace to 1+ peripheral edema left leg greater than the right , bilateral Gm wraps in place. NEUROLOGIC patient is awake, alert and oriented x3. . - Labs CBC & Chem 7: 02/25/17 05:42 02/28/17 06:53 Labs: Abnormal Lab Results - Last 24 Hours (Table) 02/27/17 02/28/17 02/28/17 Range/Units 16:25 06:20 06:48 Sodium (137-145) mmol/L Carbon Dioxide (22-30) mmol/L BUN (9-20) mg/dL Creatinine (0.66-1.25) mg/dL Glucose (74-99) mg/dL POC Glucose (mg/dL) 201 H 45 L (75-99) mg/dL Urine Blood Small H (Negative) Urine RBC 18 H (0-5) /hpf Urine Mucus Rare H (None) /hpf 02/28/17 02/28/17 02/28/17 Range/Units 06:53 07:09 11:33 Sodium 146 H (137-145) mmol/L Carbon Dioxide 39 H (22-30) mmol/L BUN 48 H (9-20) mg/dL Creatinine 1.98 H (0.66-1.25) mg/dL Glucose 39 L* (74-99) mg/dL POC Glucose (mg/dL) 69 L 151 H (75-99) mg/dL Urine Blood (Negative) Urine RBC (0-5) /hpf Urine Mucus (None) /hpf Assessment and Plan Plan: Assessment and plan #1 systolic congestive heart failure acute on chronic, echocardiogram with Doppler study reveals an ejection fraction of 35-40%. #2 acute on chronic kidney disease #3 known history of coronary artery disease with prior bypass surgery #4 chronic persistent atrial fibrillation, on Coumadin for anticoagulation #5 hypertension #6 diabetes #7 history of TIA Plan IV Lasix drip was discontinued today and patient was initiated on Lasix 80 mg IV push twice a day. We will continue to monitor accurate intake and output along with daily weights and daily lytes BUN and creatinine. DNP note has been reviewed, I agree with a documented findings and plan of care. Patient was seen and examined.
[2017-02-28 13:22] LABS: INR 2.4 (<1.2); Prothrombin Time 21.8 sec (9.0-12.0)
[2017-02-28 16:51] LABS: Glucose,Whole Blood 125 mg/dL (75-99)
[2017-02-28] MEDS: WARFARIN 2.5 MG TAB PO SCH (17:24)
[2017-02-28] MEDS: ASPIRIN 81 MG PO SCH (20:25)
[2017-02-28] MEDS: LISINOPRIL 5 MG TAB PO SCH (20:25)
[2017-02-28] MEDS: ATORVASTATIN 10 MG TAB PO SCH (20:25)
[2017-02-28 21:18] LABS: Glucose,Whole Blood 139 mg/dL (75-99)
--- NOTE | 2017-02-28 23:29 | P.PN ---
Subjective Progress Note Date: 02/28/17 Principal diagnosis: Increasing edema and shortness of breath 86-year-old male with a known history of chronic kidney disease presented to the emergency center feeling poorly for several days. Was having increasing edema to the bilateral lower extremities with resultant weeping. The patient relates that his weight is been increasing despite his use of oral Lasix at home. His living situation has changed in that his is at the longterm and he said eating as well as he used to. Because he was feeling considerably worse he presented to the emergency center with evidence of a cellulitis the left lower extremity the infectious diseases consultation was requested. The patient has a known history of a coronary artery bypass grafting procedure and had vein harvest from the left leg and is had resultant chronic venous stasis to the lower extremity which is now considerably aggravated by his worsening renal failure and extensive volume overload. Patient feeling somewhat better today. No short of breath. Lower extremity edema is improved. The progress is discussed with the patient's son. Objective - Vital Signs Vital signs: Vital Signs Temp 99.0 F 02/28/17 20:00 Pulse 93 02/28/17 20:00 Resp 18 02/28/17 20:00 BP 125/69 02/28/17 20:00 Pulse Ox 95 02/28/17 20:00 Intake & Output 02/28/17 02/28/17 03/01/17 06:59 18:59 06:59 Intake Total 500 Output Total 750 1000 Balance -750 -500 Weight 88.1 kg Intake: IV 20 Furosemide 250 mg In 20 Sodium Chloride 0.9% 225 ml @ 10 MG/HR 10 mls/hr IVP .Q24H [facility] Rx#: [id number] Oral 480 Output: Urine 750 1000 Other: Voiding Method Bedside Commode Urinal # Voids 2 2 # Bowel Movements 1 1 - Exam Pleasant 86-year-old male who is short of breath and somewhat uncomfortable but denies fevers or chills. HEENT: Anicteric conjunctiva are pink and moist nasal mucosa grossly intact without significant lesions, there is no thrush. Full denture Neck: The neck is supple without significant lymphadenopathy or thyromegaly. Lungs: Symmetrical air entry is noted with bibasilar crackles but no alfredito wheezing. No egophony or dullness Heart: Irregular with an audible S1 and S2 loud S4 no distinct murmur click or rub PMI is nondisplaced Abdomen: Positive bowel sounds soft and nontender without palpable masses or organomegaly. There was no guarding or rebound. Extremities: The upper extremities have excellent pulses they are symmetric, no significant petechiae or telangiectasia. No splinter hemorrhages were noted. Lower extremities have edema left leg more than the right. Left leg is evidence of the extensive erythematous present from the foot to the knee. The erythema is improved No weeping is noted in the leg today. He has tenderness that travels from the leg to the groin but no erythema at that site No extensive lymphadenopathy is noted inguinal or other areas Neuro: Awake alert oriented to person place and time. There are no acute new gross focal sensory motor deficits. - Labs CBC & Chem 7: 02/25/17 05:42 02/28/17 06:53 Labs: Abnormal Lab Results - Last 24 Hours (Table) 02/28/17 02/28/17 02/28/17 Range/Units 06:20 06:48 06:53 PT (9.0-12.0) sec INR (<1.2) Sodium 146 H (137-145) mmol/L Carbon Dioxide 39 H (22-30) mmol/L BUN 48 H (9-20) mg/dL Creatinine 1.98 H (0.66-1.25) mg/dL Glucose 39 L* (74-99) mg/dL POC Glucose (mg/dL) 45 L (75-99) mg/dL Urine Blood Small H (Negative) Urine RBC 18 H (0-5) /hpf Urine Mucus Rare H (None) /hpf 02/28/17 02/28/17 02/28/17 Range/Units 06:55 07:09 11:33 PT 21.8 H (9.0-12.0) sec INR 2.4 H (<1.2) Sodium (137-145) mmol/L Carbon Dioxide (22-30) mmol/L BUN (9-20) mg/dL Creatinine (0.66-1.25) mg/dL Glucose (74-99) mg/dL POC Glucose (mg/dL) 69 L 151 H (75-99) mg/dL Urine Blood (Negative) Urine RBC (0-5) /hpf Urine Mucus (None) /hpf 02/28/17 02/28/17 Range/Units 16:41 20:58 PT (9.0-12.0) sec INR (<1.2) Sodium (137-145) mmol/L Carbon Dioxide (22-30) mmol/L BUN (9-20) mg/dL Creatinine (0.66-1.25) mg/dL Glucose (74-99) mg/dL POC Glucose (mg/dL) 125 H 139 H (75-99) mg/dL Urine Blood (Negative) Urine RBC (0-5) /hpf Urine Mucus (None) /hpf Microbiology - Last 24 Hours (Table) 02/27/17 12:29 Blood Culture - Preliminary Blood No Growth after 24 hours Laboratory Results WBC 5.7 k/uL (3.8-10.6) 02/25/17 05:42 RBC 3.39 m/uL (4.30-5.90) L 02/25/17 05:42 Hgb 10.4 gm/dL (13.0-17.5) L 02/25/17 05:42 Hct 33.5 % (39.0-53.0) L 02/25/17 05:42 MCV 98.8 fL (80.0-100.0) 02/25/17 05:42 MCH 30.5 pg (25.0-35.0) 02/25/17 05:42 MCHC 30.9 g/dL (31.0-37.0) L 02/25/17 05:42 RDW 15.6 % (11.5-15.5) H 02/25/17 05:42 Plt Count 79 k/uL (150-450) L 02/25/17 05:42 Neutrophils % 60 % 02/24/17 06:03 Lymphocytes % 26 % 02/24/17 06:03 Monocytes % 8 % 02/24/17 06:03 Eosinophils % 4 % 02/24/17 06:03 Basophils % 0 % 02/24/17 06:03 Neutrophils # 2.7 k/uL (1.3-7.7) 02/24/17 06:03 Lymphocytes # 1.2 k/uL (1.0-4.8) 02/24/17 06:03 Monocytes # 0.4 k/uL (0-1.0) 02/24/17 06:03 Eosinophils # 0.2 k/uL (0-0.7) 02/24/17 06:03 Basophils # 0.0 k/uL (0-0.2) 02/24/17 06:03 Manual Slide Review Performed 02/23/17 10:45 Hypochromasia Marked 02/25/17 05:42 Macrocytosis Slight 02/25/17 05:42 PT 21.8 sec (9.0-12.0) H 02/28/17 06:55 INR 2.4 (<1.2) H 02/28/17 06:55 APTT 31.1 sec (22.0-30.0) H 02/23/17 10:45 Sodium 146 mmol/L (137-145) H 02/28/17 06:53 Potassium 3.8 mmol/L (3.5-5.1) 02/28/17 06:53 Chloride 99 mmol/L (98-107) 02/28/17 06:53 Carbon Dioxide 39 mmol/L (22-30) H 02/28/17 06:53 Anion Gap 8 mmol/L 02/28/17 06:53 BUN 48 mg/dL (9-20) H 02/28/17 06:53 Creatinine 1.98 mg/dL (0.66-1.25) H 02/28/17 06:53 Est GFR (MDRD) Af Amer 39 (>60 ml/min/1.73 sqM) 02/28/17 06:53 Est GFR (MDRD) Non-Af 32 (>60 ml/min/1.73 sqM) 02/28/17 06:53 Glucose 39 mg/dL (74-99) L* 02/28/17 06:53 POC Glucose (mg/dL) 139 mg/dL (75-99) H 02/28/17 20:58 POC Glu [employer]ator [employer] ID Kari Jeffers 02/28/17 20:[address] Glu mg/dL 126 02/27/17 09:23 Hemoglobin A1c 6.0 % (4.0-6.0) 02/27/17 09:23 Uric Acid 8.1 mg/dL (3.5-8.5) 02/23/17 10:45 Calcium 9.3 mg/dL (8.4-10.2) 02/28/17 06:53 Magnesium 2.5 mg/dL (1.6-2.3) H 02/27/17 09:23 Iron 43 ug/dL (65-175) L 02/24/17 06:03 TIBC 245 ug/dL (228-460) 02/24/17 06:03 Iron Saturation 17.55 (15.00-50.00) 02/24/17 06:03 Total Bilirubin 0.8 mg/dL (0.2-1.3) 02/26/17 06:14 AST 22 U/L (17-59) 02/26/17 06:14 ALT 34 U/L (21-72) 02/26/17 06:14 Alkaline Phosphatase 91 U/L (38-126) 02/26/17 06:14 Total Creatine Kinase 27 U/L (55-170) L 02/23/17 17:02 CK-MB (CK-2) 0.6 ng/mL (0.0-2.4) 02/23/17 17:02 CK-MB (CK-2) Rel Index 2.2 02/23/17 17:02 Troponin I 0.036 ng/mL (0.000-0.034) H* 02/23/17 22:57 NT-Pro-B Natriuret Pep 7290 pg/mL 02/23/17 10:45 Total Protein 6.3 g/dL (6.3-8.2) 02/26/17 06:14 Albumin 3.3 g/dL (3.5-5.0) L 02/26/17 06:14 Urine Color Light Yellow 02/28/17 06:20 Urine Appearance Clear (Clear) 02/28/17 06:20 Urine pH 7.5 (5.0-8.0) 02/28/17 06:20 Ur Specific [place] 1.007 (1.001-1.035) 02/28/17 06:20 Urine Protein Negative (Negative) 02/28/17 06:20 Urine Glucose (UA) Negative (Negative) 02/28/17 06:20 Urine Ketones Negative (Negative) 02/28/17 06:20 Urine Blood Small (Negative) H 02/28/17 06:20 Urine Nitrite Negative (Negative) 02/28/17 06:20 Urine Bilirubin Negative (Negative) 02/28/17 06:20 Urine Urobilinogen <2.0 mg/dL (<2.0) 02/28/17 06:20 Ur Leukocyte Esterase Negative (Negative) 02/28/17 06:20 Urine RBC 18 /hpf (0-5) H 02/28/17 06:20 Urine Mucus Rare /hpf (None) H 02/28/17 06:20 Microbiology 02/27/17 12:29 Blood Blood Culture - Preliminary No Growth after 24 hours Assessment and Plan (1) Congestive heart failure Current Visit: Yes Status: Acute Code(s): I50.9 - HEART FAILURE, UNSPECIFIED SNOMED Code(s): 77352922 (2) Acute renal failure Current Visit: Yes Status: Acute Code(s): N17.9 - ACUTE KIDNEY FAILURE, UNSPECIFIED SNOMED Code(s): 98979907 (3) Cellulitis Narrative/Plan: 86-year-old male presents to hospital with increasing lower extremity edema especially the left lower extremity associated with weeping and drainage. He was feeling poorly. Much more short of breath and having increasing difficulty with day-to-day activities. He also relates to social situation is difficult with his being in the longterm. Admission there was evidence of worsening of his chronic kidney disease with acute renal failure superimposed on his significant systolic congestive heart failure and pulmonary edema. He is an insulin drip showing some improvement. The extensive cellulitis of the left lower extremity is noted. The patient relates starting to show some improvement because he's had some diuresis. Duplexes been performed with no evidence of any deep venous thrombosis. The Silvadene wrap is now allowed some improvement of this extensive edematous process with a secondary infection. The vein harvest to the extremity is a significant contributing factor to the extensive edema and resultant cellulitis. Elevation the limb is important. Is being followed by nephrology trying to improve his fluid and potassium balance. Once the patient shows more improvement may be transition to oral antibiotic therapy with cefuroxime 500 mg orally every 12 hours for 10 days. Current Visit: No Status: Acute Code(s): L03.90 - CELLULITIS, UNSPECIFIED SNOMED Code(s): 701326752
[2017-03-01 06:15] LABS: Glucose,Whole Blood 53 mg/dL (75-99)
[2017-03-01] MEDS: INSULIN ASPART 100 UNIT/ML 1 ML 10 ML VIAL SQ SCH ×4 (06:27→23:27)
[2017-03-01 06:31] LABS: Glucose,Whole Blood 53 mg/dL (75-99)
[2017-03-01 07:21] LABS: Glucose,Whole Blood 97 mg/dL (75-99)
[2017-03-01 08:15] LABS: INR 2.8 (<1.2); Prothrombin Time 24.7 sec (9.0-12.0)
[2017-03-01] MEDS: FUROSEMIDE 10 MG/ML 10 ML VIAL IV SCH ×3 (09:06→23:42)
[2017-03-01] MEDS: glipiZIDE 10 MG TAB PO SCH ×2 (09:06→17:31)
[2017-03-01] MEDS: FERROUS SULFATE 325 MG TAB PO SCH (09:06)
[2017-03-01] MEDS: acetaZOLAMIDE 250 MG TAB PO SCH ×2 (09:06→21:42)
[2017-03-01] MEDS: FINASTERIDE 5 MG TAB PO SCH (09:06)
[2017-03-01] MEDS: cefTRIAXone IN SWFI 1,000 MG/10 ML SYRINGE IVP SCH (09:06)
[2017-03-01] MEDS: POTASSIUM CHLORIDE ER 10 MEQ TAB.ER.PRT PO SCH (09:06)
[2017-03-01] MEDS: VITAMIN E (DL,TOCOPHERYL ACET) 400 UNIT CAP PO SCH (11:25)
[2017-03-01] MEDS: ASCORBIC ACID 500 MG TAB PO SCH (11:25)
[2017-03-01] MEDS: CHOLECALCIFEROL 400 UNIT TAB PO SCH (11:25)
[2017-03-01 12:25] LABS: Glucose,Whole Blood 82 mg/dL (75-99)
[2017-03-01 12:43] LABS: Calcium 9.2 mg/dL (8.4-10.2); Potassium 3.8 mmol/L (3.5-5.1)
--- NOTE | 2017-03-01 15:01 | P.PN ---
Subjective Progress Note Date: 03/01/17 Principal diagnosis: CHF This is a pleasant 86-year-old gentleman with history of coronary artery bypass surgery 15 years ago, diabetes, hypertension, HI, stroke as well as bilateral carotid endarterectomies. Presented to the emergency department with complaints of worsening edema and pain in both legs worse on the left leg . Chest x-ray showed congestive heart failure, pleural effusions and appeared to be worse than last exam. BNP was found to be elevated at 7290. She is currently on IV Lasix drip 5 mg per hour, his urine output has been minimal, and his weight is actually documented to be up from yesterday. Nephrology is going to increase the Lasix drip to 10 mg per hour today, if urine output remains marginal dobutamine may be added. Patient continues to have bilateral peripheral edema as well as rales to the bases. INR 2.5, potassium 4.6, BUN 48 , creatinine 1.9. 02/27/2017 Patient seen and examined this morning, Diuresed very well through the night last night, 2600 out. Weight down 1 kg. INR 2.4, potassium 4.0, BUN 48, creatinine 1.9, magnesium 2.5. Complaining of some pain in his left lower leg. Edema much improved today overall. Breathing improving as well. 02/28/2017 Patient seen and examined this morning, weight down 2 kg today. Sodium 146, potassium 3.8, BUN 48, creatinine 1.9. Continues to diurese well, edema is improving, breathing is improving. 03/01/2017 Patient seen and examined this morning weight is down 2 kg, continues to have some peripheral edema. Creatinine 2.07 today. In are 2.8 . Objective - Vital Signs Vital signs: Vital Signs Temp 99.2 F 03/01/17 11:29 Pulse 78 03/01/17 11:29 Resp 18 03/01/17 11:29 BP 121/61 03/01/17 11:29 Pulse Ox 100 03/01/17 11:29 Intake & Output 02/28/17 03/01/17 03/01/17 18:59 06:59 18:59 Intake Total 500 200 10 Output Total 1000 Balance -500 200 10 Weight 86.7 kg Intake: IV 20 10 Furosemide 250 mg In 20 Sodium Chloride 0.9% 225 ml @ 10 MG/HR 10 mls/hr IVP .Q24H [facility] Rx#: [id number] saline 10 Oral 480 200 Output: Urine 1000 Other: Voiding Method Bedside Commode Bedside Commode Urinal Urinal # Voids 2 300 # Bowel Movements 1 3 - Exam PHYSICAL EXAMINATION: HEENT: Head is atraumatic, normocephalic. Pupils equal, round. Neck is supple. There is elevated jugular venous pressure. HEART EXAMINATION: Heart sounds irregular irregular, S1 and S2 normal. CHEST EXAMINATION: Lungs reveal diminished air entry to bilateral bases . No chest wall tenderness is noted on palpation or with deep breathing. ABDOMEN: Soft, nontender. Bowel sounds are heard. No organomegaly noted. EXTREMITIES: 1+ peripheral pulses with evidence of trace to 1+ peripheral edema left leg greater than the right , bilateral Gm wraps in place. NEUROLOGIC patient is awake, alert and oriented x3. . - Labs CBC & Chem 7: 02/25/17 05:42 03/01/17 07:58 Labs: Abnormal Lab Results - Last 24 Hours (Table) 02/28/17 02/28/17 03/01/17 Range/Units 16:41 20:58 06:14 PT (9.0-12.0) sec INR (<1.2) Carbon Dioxide (22-30) mmol/L BUN (9-20) mg/dL Creatinine (0.66-1.25) mg/dL POC Glucose (mg/dL) 125 H 139 H 53 L (75-99) mg/dL 03/01/17 03/01/17 03/01/17 Range/Units 06:29 07:58 07:58 PT 24.7 H (9.0-12.0) sec INR 2.8 H (<1.2) Carbon Dioxide 33 H (22-30) mmol/L BUN 47 H (9-20) mg/dL Creatinine 2.07 H (0.66-1.25) mg/dL POC Glucose (mg/dL) 53 L (75-99) mg/dL Microbiology - Last 24 Hours (Table) 02/27/17 12:29 Blood Culture - Preliminary Blood No Growth after 48 hours Assessment and Plan Plan: Assessment and plan #1 systolic congestive heart failure acute on chronic, echocardiogram with Doppler study reveals an ejection fraction of 35-40%. #2 acute on chronic kidney disease #3 known history of coronary artery disease with prior bypass surgery #4 chronic persistent atrial fibrillation, on Coumadin for anticoagulation #5 hypertension #6 diabetes #7 history of TIA Plan Current dose of IV Lasix. Check lytes BUN and creatinine in the morning. DNP note has been reviewed, I agree with a documented findings and plan of care. Patient was seen and examined.
[2017-03-01 15:10] LABS: Glucose,Whole Blood 120 mg/dL (75-99)
[2017-03-01] MEDS: ACETAMINOPHEN TAB 325 MG TAB PO PRN (16:22)
[2017-03-01 17:20] LABS: Glucose,Whole Blood 96 mg/dL (75-99)
[2017-03-01] MEDS: WARFARIN 5 MG TAB PO SCH (17:34)
--- NOTE | 2017-03-01 18:46 | PN ---
PROGRESS NOTE Patient is seen for followup for acute kidney injury mainly cardiorenal syndrome. He has been putting out more urine however he remains quite fluid overloaded. Currently patient is maintained on Lasix, which was switched from IV drip to 80 mg q.12 hours. I discussed with Cardiology. We will start him on a dobutamine drip and increase his Lasix to 40 IV q8 hours. EXAMINATION: Patient is comfortable. Blood pressure is 130/80, heart rate 100 per minute. Patient is afebrile and had a temp of 101.8. Examination of the heart S1, S2. Examination of the lungs bilateral breath sounds are heard. Abdomen is soft, nontender. Examination of the lower extremities shows chronic skin changes, significant edema bilaterally. Right more than left. [employer] exam is grossly intact. LABS SHOW: Sodium 144, potassium 3.8, chloride 101, BUN 47, serum creatinine 2.07. ASSESSMENT: 1. Acute kidney injury, cardiorenal. The patient has had some improvement in his edema. However, he still remains significantly volume overloaded. We will increase the Lasix to 40 mg IV q.8 hours and discuss with Cardiology. We can start him on dobutamine drip, which we can continue over the weekend. 2. Fluid overload, with cardiomyopathy, ejection fraction about 30%. 3. Metabolic alkalosis, maintained on Demadex and improved. PLAN: Increase Lasix to 80 mg q.8 hours, add dobutamine for about 1-2 days. Renal function is stable. MMODL / IJN: [id number] /
[2017-03-01 21:38] LABS: Glucose,Whole Blood 127 mg/dL (75-99)
[2017-03-01] MEDS: ASPIRIN 81 MG PO SCH (21:42)
[2017-03-01] MEDS: LISINOPRIL 5 MG TAB PO SCH (21:43)
[2017-03-01] MEDS: ATORVASTATIN 10 MG TAB PO SCH (21:43)
[2017-03-02 06:07] LABS: Basophils % (A) 0 %; Eosinophils % (A) 0 %; HCT 33.8 % (39.0-53.0); HGB 9.9 gm/dL (13.0-17.5); Hypochromasia Marked; Lymphocytes # (A) 1.1 k/uL (1.0-4.8); Lymphocytes % (A) 9 %; MCH 28.9 pg (25.0-35.0); MCHC 29.4 g/dL (31.0-37.0); MCV 98.3 fL (80.0-100.0); Mean Platelet Volume 8.6; Monocytes # (A) 0.6 k/uL (0-1.0); Monocytes % (A) 5 %; Neutrophils # (A) 10.1 k/uL (1.3-7.7); Neutrophils % (A) 84 %; Platelet Count 114 k/uL (150-450); RBC 3.44 m/uL (4.30-5.90); RDW 15.1 % (11.5-15.5)
[2017-03-02 06:15] LABS: Calcium 9.3 mg/dL (8.4-10.2); Potassium 3.5 mmol/L (3.5-5.1)
[2017-03-02 06:18] LABS: Glucose,Whole Blood 103 mg/dL (75-99)
[2017-03-02] MEDS: INSULIN ASPART 100 UNIT/ML 1 ML 10 ML VIAL SQ SCH ×4 (06:59→22:07)
[2017-03-02] MEDS ORDERED: glipiZIDE 10 MG TAB PO SCH (07:30)
[2017-03-02] MEDS: cefTRIAXone IN SWFI 1,000 MG/10 ML SYRINGE IVP SCH (08:59)
[2017-03-02] MEDS: acetaZOLAMIDE 250 MG TAB PO SCH ×2 (09:00→22:08)
[2017-03-02] MEDS: FUROSEMIDE 10 MG/ML 10 ML VIAL IV SCH ×3 (09:00→23:17)
[2017-03-02] MEDS: FERROUS SULFATE 325 MG TAB PO SCH (09:00)
[2017-03-02] MEDS: FINASTERIDE 5 MG TAB PO SCH (09:00)
[2017-03-02] MEDS: POTASSIUM CHLORIDE ER 10 MEQ TAB.ER.PRT PO SCH (09:00)
[2017-03-02] MEDS ORDERED: POTASSIUM CHLORIDE ER 20 MEQ TAB.ER PO STA (09:12)
--- NOTE | 2017-03-02 09:16 | P.PN ---
Subjective Patient is seen in follow-up for acute kidney injury on chronic kidney disease. 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 Creatinine today is a little worse from yesterday at 2.15. He is currently maintained on IV Lasix 80 mg 3 times daily. Edema is improved but still has quite a bit of edema. Oral intake is fair. His weight is a little bit higher today. Also difficult to get accurate I's and O's as he is having loose bowel movements and urine together. Vital signs are stable. General: The patient appeared well nourished and normally developed. HEENT: Head exam is unremarkable. Neck is without jugular venous distension. LUNGS: Lungs are clear to auscultation and percussion. Breath sounds decreased. HEART: Rate and Rhythm are regular. First and second heart sounds normal. No murmurs, rubs or gallops. ABDOMEN: Abdominal exam reveals normal bowel sounds. Non-tender and non- distended. No evidence of peritonitis. EXTREMITITES: 1+ edema. Objective - Vital Signs Vital signs: Vital Signs Temp 97.6 F 03/02/17 08:20 Pulse 98 03/02/17 08:20 Resp 18 03/02/17 08:20 BP 115/59 03/02/17 08:20 Pulse Ox 100 03/02/17 08:20 Intake & Output 03/01/17 03/02/17 03/02/17 18:59 06:59 18:59 Intake Total 250 240 Output Total 300 3 Balance -50 -3 240 Weight 87.1 kg Intake: IV 10 saline 10 Oral 240 240 Output: Urine 300 Urine/Stool Mix 3 Other: Voiding Method Bedside Commode Bedside Commode Urinal Diaper # Voids 300 2 # Bowel Movements 1 2 - Labs CBC & Chem 7: 03/02/17 05:37 03/02/17 05:37 Labs: Abnormal Lab Results - Last 24 Hours (Table) 03/01/17 03/01/17 03/01/17 Range/Units 07:58 14:57 21:33 WBC (3.8-10.6) k/uL RBC (4.30-5.90) m/uL Hgb (13.0-17.5) gm/dL Hct (39.0-53.0) % MCHC (31.0-37.0) g/dL Plt Count (150-450) k/uL Neutrophils # (1.3-7.7) k/uL Carbon Dioxide 33 H (22-30) mmol/L BUN 47 H (9-20) mg/dL Creatinine 2.07 H (0.66-1.25) mg/dL POC Glucose (mg/dL) 120 H 127 H (75-99) mg/dL 03/02/17 03/02/17 03/02/17 Range/Units 05:37 05:37 06:14 WBC 12.0 H (3.8-10.6) k/uL RBC 3.44 L (4.30-5.90) m/uL Hgb 9.9 L (13.0-17.5) gm/dL Hct 33.8 L (39.0-53.0) % MCHC 29.4 L (31.0-37.0) g/dL Plt Count 114 L (150-450) k/uL Neutrophils # 10.1 H (1.3-7.7) k/uL Carbon Dioxide 35 H (22-30) mmol/L BUN 51 H (9-20) mg/dL Creatinine 2.15 H (0.66-1.25) mg/dL POC Glucose (mg/dL) 103 H (75-99) mg/dL Microbiology - Last 24 Hours (Table) 02/27/17 12:29 Blood Culture - Preliminary Blood No Growth after 48 hours Assessment and Plan Plan: Assessment: #1. Nonoliguric acute kidney injury secondary to ATN secondary to cardiorenal syndrome. Creatinine is little worse today at 2.15. No proteinuria noted on urinalysis. #2. 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 #3. Systolic CHF with ejection fraction of 35-40%. #4. Volume overload. Improving. #5. Mild hypernatremia secondary to dehydration from water loss due to diuretics. Improved. #6. Metabolic alkalosis due to volume contraction. Stable. #7. Hypokalemia due to diuretics. Also rule out magnesium deficiency. Plan: Continue Lasix 80 mg IV 3 times daily for the next 24 hours. Add low-dose dobutamine. Maintain Diamox for now. Repeat electrolytes in the morning. Avoid nephrotoxic agents and hypotensive episodes. Daily weights. Replace potassium. 40 mEq today.
[2017-03-02] MEDS: DOBUTamine DRIP 500 MG in DEXTROSE/WATER 1 250ML.BAG IV SCH (10:18)
--- NOTE | 2017-03-02 11:53 | PN ---
PROGRESS NOTE Mr. Christian is an 86-year-old male who presented with symptoms of progressive dyspnea. He has a known history of chronic atrial fibrillation as well as chronic kidney disease. He is status post coronary artery bypass grafting. He is complaining of diarrhea at this time related to C difficile. He denies any chest pain. He denies any dizziness or palpitation. He has been started on IV dobutamine because of his worsening renal function as well as his persistent fluid overload in spite of IV Lasix. He continues to be on: 1. Lasix 80 mg IV q.8 hours. 2. Lipitor 10 mg daily. 3. Aspirin once a day. 4. Coumadin. 5. Lisinopril 5 mg daily. 6. Glipizide. 7. Diamox 250 mg twice a day. PHYSICAL EXAMINATION: Blood pressure 115/59 with a heart rate in the 90s. LUNGS: A few crackles at the bases. HEART: Irregularly irregular. S1, S2. No S3. Systolic murmur. No diastolic murmur. No rub. ABDOMEN: Soft, nontender. EXTREMITIES: Plus 1 to 2 edema bilaterally. LAB DATA AND IMAGING: BUN and creatinine of 51 and 2.15. His carbon dioxide is 35. His echocardiogram that was performed during this admission showed an ejection fraction of 35% to 40%. IMPRESSION: 1. Worsening renal failure. 2. Congestive heart failure with known history of cardiomyopathy. 3. Chronic atrial fibrillation. 4. Hypertension. 5. Hyperlipidemia. RECOMMENDATIONS: From the cardiac standpoint, we will continue IV dobutamine for now, follow his renal function, follow his INR. Depending on his blood pressure, beta elza can be added to his regimen. MMODL / IJN: [id number] /
--- NOTE | 2017-03-02 12:20 | PN ---
PROGRESS NOTE DATE OF SERVICE: 03/02/17 ATTENDING PHYSICIAN: Dr. Mervin Oliver, covering for Dr. Jacobo. However, today, Dr. 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 Today, I did have discussion with his nurse, which informed me that the patient had positive for C difficile. The patient also had left leg cellulitis and has been taken care of by the Infectious disease Dr. Padilla. The patient has underlying chronic kidney disease and chronic renal failure and has been followed by Dr. Gonzalez/Dr. Mercer. The patient also has underlying heart disease and congestive heart failure and has been followed by the Cardiology. On today's examination patient felt today that he is a diabetic. He feeling miserable and by the diarrhea and he has a diarrhea history that has been on and off for the last 2 months. He currently if he drinks water he has to go to the bathroom. With the first problem facing at this time is the C difficile and I did advise the nurse to contract and check with Dr. Padilla with Infectious Disease. I did consult with the Infectious Disease control consultation as well and I did start the patient on Vancomycin orally 250 mg for q.6 hours and probiotic as well. Next problem is underlying chronic kidney disease, has been seen by Dr. Gonzalez with impression nonoliguric acute kidney injury secondary to the ATN secondary to cardiorenal syndrome. His creatinine is 2.15 and no proteinuria in the urinalysis. 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 He had systolic congestive heart failure with the ischemic cardiomyopathy and the ejection fraction 35-40. He has a history of volume overload. However, with the current diarrhea, he will be losing more fluid. In his note as well he mentioned that he had mild hypernatremia with dehydration from the water loss and metabolic alkalosis due to volume contraction, hypokalemia due to the diuretic and rule out magnesium deficiency. Plan at this time 80 mg of Lasix 3 times a day for the next 24 hours and he had adding low-dose dobutamine and maintain on the Diamox and repeat electrolytes in a.m. His white count is 12, and hemoglobin is 9.9, hematocrit 33.8, and his platelet count is 114 with the underlying leukocytosis as well as anemia and thrombocytopenia added to his complexion. He is diabetic and he has a problem with the renal failure and the oral hypoglycemic has been causing him to be hypoglycemia and we will discontinue all the oral hypoglycemia and only continue with the insulin to scale. His creatinine today 2.07 and BUN is 47. His PT and INR was not available today and his blood sugar was this morning 103 and prior to that at night, 127 and 96. On the physical examination, his vital signs indicating temperature 97.6 orally. His pulse rate 98, respiratory rate 18, blood pressure 115/59, and the oxygen 2 L was 100%. His HEENT negative. Neck was supple. The chest was aerated bilaterally and the heart was irregular irregularities apparently with atrial fibrillation. His last followup with cardiology was done by Dr. Aga Roger. Her underlying impression is that the patient has systolic congestive heart failure, acute on the top of chronic and his echocardiogram revealed that the ejection fraction 35-40%, and he had acute on the top of chronic kidney disease as well as he has a coronary artery disease and history of bypass graft and chronic resistant atrial fibrillation on anticoagulation with the Coumadin. He has a history of hypertension which is currently normotensive and diabetes mellitus type 2, and currently he is hypoglycemic. We will be discontinuing the oral hypoglycemic agent. His chest was aerated today. No wheezes, no rhonchi. The heart was irregular irregularity. The abdomen is soft, cramping with extensive bathroom diarrhea associated with C difficile. Extremities: He has a wrapping on the leg for previous left leg ulcer and that was taken care of by Dr. Padilla. PLAN: The patient is started on vancomycin. The discontinuation of the Rocephin as well as started probiotic and discontinuation of the glipizide and continue with the scale only and further recommendation is requesting Dr. Padilla to evaluate the patient and I did discuss that with the nurse and Dr. Oliver will follow the patient after the weekend. We will be planning for laboratory tomorrow and including the CBC with differential and the CMP. MMODL / IJN: [id number] /
[2017-03-02 12:35] LABS: Glucose,Whole Blood 176 mg/dL (75-99)
[2017-03-02] MEDS: ASCORBIC ACID 500 MG TAB PO SCH (13:21)
[2017-03-02] MEDS: CHOLECALCIFEROL 400 UNIT TAB PO SCH (13:21)
[2017-03-02] MEDS: LACTOBACILLUS ACIDOPH & BULGAR 1 EACH PACKET PO SCH ×3 (13:22→22:07)
[2017-03-02] MEDS: VITAMIN E (DL,TOCOPHERYL ACET) 400 UNIT CAP PO SCH (13:22)
[2017-03-02] MEDS: VANCOMYCIN ORAL SOLUTION 250 MG/5 ML BOTTLE PO SCH ×3 (15:10→23:19)
--- NOTE | 2017-03-02 16:35 | PN ---
PROGRESS NOTE DATE OF SERVICE: 02/27/2017 This is an 86-year-old white male who was admitted with a severe shortness of breath and severe swelling of the legs and also pain and redness of the left leg, and he was admitted with diagnoses of congestive heart failure, hypoxia, and marked edema on the lower extremities, mainly the left lower extremity and also severe erythematous changes and cellulitis involving the left leg. At the time of admission, patient also was found to have renal failure due to acute renal injury. The patient was started on IV antibiotics and the patient was seen by [facility] in consultation and also by inpatient nursing aide, Dr. Mercer. The patient was receiving aggressive diuretic treatment. Patient was seen by Dr. Mercer and the edema is still not improving, and patient is currently on antibiotics and his vital signs otherwise stable and he is also complaining of weakness and tiredness. His diabetes is being controlled with NovoLog sliding scale. The overall prognosis is guarded. We will also consult Dr. Padilla regarding his cellulitis. MMODL / IJN: [id number] /
[2017-03-02 17:02] LABS: Glucose,Whole Blood 158 mg/dL (75-99)
--- NOTE | 2017-03-02 17:50 | PN ---
PROGRESS NOTE DATE OF SERVICE: 03/01/2017 This is an 86-year-old white male who is a patient of Dr. Jacobo's and the patient was admitted by me because I am covering Dr. Jacobo who is on vacation now. The patient was admitted with general weakness and shortness of breath and the patient was found to have congestive heart failure and marked edema of the lower extremities and cellulitis involving the left leg and patient is also known to have diabetes mellitus and chronic anemia and at the time of admission, patient was also found to have a renal failure due to acute kidney injury from his congestive heart failure. The patient was seen by [facility] and they are following the patient. The veneer layer, also saw the patient in consultation. Dr. Kurtz is following the patient and the patient treated with Lasix and has been treated and received Lasix. He was given a Lasix drip and his swelling is still there but is gradually improving and patient is also placed on Diamox by the veneer layer and his cellulitis is also improving. He is on Rocephin IV and he was seen by Dr. Padilla in consultation and he is also following the patient. Overall, clinically patient is improving gradually and prognosis is guarded. He has no acute cardio or respiratory problems. Prognosis guarded. The diagnosis, prognosis and therapeutic plans were discussed in detail with the patient today and we will continue current medications and treatments. MMODL / IJN: [id number] /
--- NOTE | 2017-03-02 18:05 | PN ---
PROGRESS NOTE DATE OF SERVICE: 02/28/2017 This is an 86-year-old white male who was admitted with severe edema of the legs and in the cellulitis involving the left leg and also congestive heart failure with marked elevation of BNP and patient also known to have diabetes mellitus and the patient was admitted for further evaluation and treatment. Patient has been placed back on his previous home medications and he was seen by [facility] in consultation. At the time of admission, patient was found to have acute renal injury due to the congestive heart failure and patient was seen by a artificial intelligence specialist in consultation. Patient was treated aggressively with diuretics and the artificial intelligence specialist recommended giving him Lasix IV drip and the edema is gradually improving, but the patient also had cellulitis involving the left leg and the patient is currently on IV Rocephin and the patient was seen by Dr. Padilla in consultation and he is also following the patient with regard to the cellulitis. The patient's overall general condition is improving slowly. He still has marked edema of the left lower extremity. The cellulitis started improving. Overall prognosis guarded. He is still extremely weak and tired, but he is not in acute distress, but he is resting. Overall prognosis is guarded. We will continue current treatments. MMODL / IJN: [id number] /
[2017-03-02 18:34] LABS: INR 3.4 (<1.2); Prothrombin Time 30.8 sec (9.0-12.0)
[2017-03-02] MEDS: CHERRY FLAVOR 60 ML BOTTLE PO PRN ×2 (18:48→23:20)
[2017-03-02] MEDS: WARFARIN 2.5 MG TAB PO SCH (19:41)
[2017-03-02 21:53] LABS: Glucose,Whole Blood 224 mg/dL (75-99)
[2017-03-02] MEDS: LISINOPRIL 5 MG TAB PO SCH (22:08)
[2017-03-02] MEDS: ATORVASTATIN 10 MG TAB PO SCH (22:08)
[2017-03-03 06:33] LABS: Glucose,Whole Blood 105 mg/dL (75-99)
[2017-03-03] MEDS: INSULIN ASPART 100 UNIT/ML 1 ML 10 ML VIAL SQ SCH ×4 (06:36→21:26)
[2017-03-03] MEDS: VANCOMYCIN ORAL SOLUTION 250 MG/5 ML BOTTLE PO SCH ×4 (06:41→23:46)
[2017-03-03] MEDS: CHERRY FLAVOR 60 ML BOTTLE PO PRN ×4 (06:42→23:47)
[2017-03-03 07:12] LABS: Basophils % (A) 0 %; Eosinophils # (A) 0.1 k/uL (0-0.7); Eosinophils % (A) 1 %; HCT 32.1 % (39.0-53.0); HGB 9.3 gm/dL (13.0-17.5); Hypochromasia Marked; Lymphocytes # (A) 1.3 k/uL (1.0-4.8); Lymphocytes % (A) 13 %; MCH 28.6 pg (25.0-35.0); MCHC 28.9 g/dL (31.0-37.0); MCV 98.7 fL (80.0-100.0); Mean Platelet Volume 8.7; Monocytes # (A) 0.7 k/uL (0-1.0); Monocytes % (A) 7 %; Neutrophils # (A) 7.3 k/uL (1.3-7.7); Neutrophils % (A) 77 %; Platelet Count 129 k/uL (150-450); RBC 3.25 m/uL (4.30-5.90); RDW 14.9 % (11.5-15.5); WBC 9.5 k/uL (3.8-10.6)
[2017-03-03 07:17] LABS: INR 3.2 (<1.2); Prothrombin Time 28.7 sec (9.0-12.0)
[2017-03-03 07:29] LABS: Magnesium 2.3 mg/dL (1.6-2.3); Potassium 3.5 mmol/L (3.5-5.1)
[2017-03-03] MEDS ORDERED: POTASSIUM CHLORIDE ER 20 MEQ TAB.ER PO STA (08:31)
[2017-03-03] MEDS: FUROSEMIDE 10 MG/ML 10 ML VIAL IV SCH ×3 (08:52→23:46)
[2017-03-03] MEDS: acetaZOLAMIDE 250 MG TAB PO SCH ×2 (08:52→21:25)
[2017-03-03] MEDS: POTASSIUM CHLORIDE ER 10 MEQ TAB.ER.PRT PO SCH (08:52)
[2017-03-03] MEDS: FERROUS SULFATE 325 MG TAB PO SCH (08:52)
[2017-03-03] MEDS: FINASTERIDE 5 MG TAB PO SCH (08:52)
[2017-03-03] MEDS: LACTOBACILLUS ACIDOPH & BULGAR 1 EACH PACKET PO SCH ×4 (08:52→21:25)
--- NOTE | 2017-03-03 08:53 | P.PN ---
Subjective Patient is seen in follow-up for acute kidney injury on chronic kidney disease. 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 Creatinine today is a little worse from yesterday at 2.27. He is currently maintained on IV Lasix 80 mg 3 times daily. Dobutamine was also started on 03/02/2017. Edema is improved but still has quite a bit of edema. Oral intake is fair. His weight is higher today as it's now being checked while laying down and before it was a standing scale. Also difficult to get accurate I's and O's as he is having loose bowel movements and urine together. He is also noted to be C. diff positive. Vital signs are stable. General: The patient appeared well nourished and normally developed. HEENT: Head exam is unremarkable. Neck is without jugular venous distension. LUNGS: Lungs are clear to auscultation and percussion. Breath sounds decreased. HEART: Rate and Rhythm are regular. First and second heart sounds normal. No murmurs, rubs or gallops. ABDOMEN: Abdominal exam reveals normal bowel sounds. Non-tender and non- distended. No evidence of peritonitis. EXTREMITITES: 1+ edema. Objective - Vital Signs Vital signs: Vital Signs Temp 96.9 F L 03/03/17 04:00 Pulse 96 03/03/17 04:00 Resp 18 03/03/17 04:00 BP 111/56 03/03/17 04:00 Pulse Ox 96 03/03/17 04:00 Intake & Output 03/02/17 03/03/17 03/03/17 18:59 06:59 18:59 Intake Total 240 Balance 240 Weight 90 kg 89 kg Intake: Oral 240 Other: Voiding Method Bedside Commode Bedside Commode Diaper Diaper # Voids 5 2 # Bowel Movements 5 4 - Labs CBC & Chem 7: 03/03/17 06:18 03/03/17 06:18 Labs: Abnormal Lab Results - Last 24 Hours (Table) 03/02/17 03/02/17 03/02/17 Range/Units 08:11 12:15 17:00 RBC (4.30-5.90) m/uL Hgb (13.0-17.5) gm/dL Hct (39.0-53.0) % MCHC (31.0-37.0) g/dL Plt Count (150-450) k/uL PT (9.0-12.0) sec INR (<1.2) Carbon Dioxide (22-30) mmol/L BUN (9-20) mg/dL Creatinine (0.66-1.25) mg/dL POC Glucose (mg/dL) 176 H 158 H (75-99) mg/dL C. difficile (EIA) Intrp Positive A (Negative) 03/02/17 03/02/17 03/03/17 Range/Units 18:18 21:37 06:18 RBC (4.30-5.90) m/uL Hgb (13.0-17.5) gm/dL Hct (39.0-53.0) % MCHC (31.0-37.0) g/dL Plt Count (150-450) k/uL PT 30.8 H (9.0-12.0) sec INR 3.4 H (<1.2) Carbon Dioxide 34 H (22-30) mmol/L BUN 54 H (9-20) mg/dL Creatinine 2.27 H (0.66-1.25) mg/dL POC Glucose (mg/dL) 224 H (75-99) mg/dL C. difficile (EIA) Intrp (Negative) 03/03/17 03/03/17 03/03/17 Range/Units 06:18 06:18 06:28 RBC 3.25 L (4.30-5.90) m/uL Hgb 9.3 L (13.0-17.5) gm/dL Hct 32.1 L (39.0-53.0) % MCHC 28.9 L (31.0-37.0) g/dL Plt Count 129 L (150-450) k/uL PT 28.7 H (9.0-12.0) sec INR 3.2 H (<1.2) Carbon Dioxide (22-30) mmol/L BUN (9-20) mg/dL Creatinine (0.66-1.25) mg/dL POC Glucose (mg/dL) 105 H (75-99) mg/dL C. difficile (EIA) Intrp (Negative) Microbiology - Last 24 Hours (Table) 03/01/17 18:11 Blood Culture - Preliminary Blood No Growth after 24 hours 02/27/17 12:29 Blood Culture - Preliminary Blood No Growth after 72 hours Assessment and Plan Plan: Assessment: #1. Nonoliguric acute kidney injury secondary to ATN secondary to cardiorenal syndrome. Renal function is worse today with creatinine at 2.27. No proteinuria noted on urinalysis. #2. 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 #3. Systolic CHF with ejection fraction of 35-40%. #4. Volume overload. Improving. #5. Mild hypernatremia secondary to dehydration from water loss due to diuretics. Improved. #6. Metabolic alkalosis due to volume contraction. Improved. #7. Hypokalemia due to diuretics. Magnesium replete. [place] #8. C. diff colitis. Plan: Continue Lasix 80 mg IV 3 times daily for now. Maintain low-dose dobutamine. Maintain Diamox for now. Repeat electrolytes in the morning. Avoid nephrotoxic agents and hypotensive episodes. Daily weights. Replace potassium. 40 mEq today.
--- NOTE | 2017-03-03 10:15 | PN ---
PROGRESS NOTE DATE OF SERVICE: 03/02/2017. REASON FOR EVALUATION: C difficile colitis. HISTORY OF PRESENT ILLNESS: The patient is an 86-year-old male who was admitted to this facility after he presented on February 06, 2017 with chief complaints of increasing shortness of breath and leg edema. The patient subsequently has been diagnosed with congestive heart failure with left lower extremity cellulitis and was seen by Dr. Pdailla on February 26, 2017. The patient has been treated with IV Rocephin for his underlying left lower extremity cellulitis. The patient apparently has developed diarrhea with multiple loose stools over the last 2 days. Stool for C difficile was sent which came back positive, hence, the admitting team asked the RN to call the ID service for ID evaluation and antibiotic adjustment. The admitting team did discontinue his Rocephin. The patient did mention he had multiple loose stools, though denies any blood or mucus in it. He did have some vague lower abdominal pain for last 2 days mostly cramping with intensity of 3-4/10 and no radiation , no associated nausea or vomiting. Did mention that his left leg swelling and redness has improved. Denies having any high-grade fever or chills. His white count was slightly coming up to 12,000 today. REVIEW OF SYMPTOMS: Positive points including weakness, diarrhea, abdominal pain, and some shortness of breath. Rest of systems being negative. His past medical and past surgical histories were reviewed. No change. Medication reviewed. ALLERGIES: No known drug allergies. EXAMINATION: Blood pressure is 114/58 with a pulse of 90, temperature of 99.1. He is 97% on 2 L nasal cannula. General description is an elderly male lying in bed in no distress. No tachypnea or accessory muscle of respiration use. HEENT: Shows pallor, no scleral icterus. Oral mucosa is dry. NECK: Trachea is central. No thyromegaly. LUNGS: Unlabored breathing, decreased intensity of breath sounds. No wheeze. HEART: S1, S2. Regular rate and rhythm. ABDOMEN: Soft, no tenderness. No guarding. No rigidity. EXTREMITIES: Left leg very minimal erythema. No significant skin breakdown or any drainage. NEUROLOGICAL: Patient is awake, alert, oriented. Mood and affect normal. LABS: Hemoglobin is 9.8, white count of 12,000. BUN of 51, creatinine is 2.15. Stool for C diff positive. DIAGNOSTIC IMPRESSION AND PLAN: Patient with diarrhea with multiple loose stools, some crampy abdominal pain. The patient now stool for C diff positive with elevated white count and antibiotic exposure, likely a symptomatic C difficile colitis. PLAN: 1. Vancomycin 250 p.o. q.6 hours. 2. We will add Questran for symptomatic relief and toxin binding. 3. Leg cellulitis has been adequately treated and antibiotic has been discontinued. Agree with plan as per admitting team. 4. We will follow up on his clinical condition and further adjust medication if needed. Thank you for this consultation. Will follow this patient along with you. MMODL / IJN: [id number] / JENNIFER
[2017-03-03] MEDS: WARFARIN 2.5 MG TAB PO SCH (10:41)
[2017-03-03 11:50] LABS: Glucose,Whole Blood 166 mg/dL (75-99)
[2017-03-03] MEDS: CHOLECALCIFEROL 400 UNIT TAB PO SCH (12:10)
[2017-03-03] MEDS: VITAMIN E (DL,TOCOPHERYL ACET) 400 UNIT CAP PO SCH (12:10)
[2017-03-03] MEDS: ASCORBIC ACID 500 MG TAB PO SCH (12:10)
--- NOTE | 2017-03-03 12:15 | PN ---
PROGRESS NOTE PATIENT NO CODE. He is 86 years old white male. Today, he was moved to a private room due to the C difficile. He had no known allergy. DATE OF SERVICE: March 03, 2017. ATTENDING PHYSICIAN: Dr. Jacobo. However, patient followed by Dr. Oliver and I am dictating the progress note for covering on the weekend, Dr. Mervin Oliver. Currently patient is seen, evaluated, and he had diarrhea and found to be positive for C difficile. His consultation was already with Dr. Benito Padilla, Dr. Durham, infectious Disease, covering for Dr. Padilla and subsequently as Dr. Padilla out of town, Dr. Durham saw the patient and started him also on vancomycin orally and for the C difficile and the patient has a diagnostic of multiple diarrhea and stool and had a crampy abdominal pain and found that he positive for C diff. He had underlying and anemia mild, and he started him on vancomycin 250 mg q.6 hours and he had the Questran. He has also had leg cellulitis and treated with antibiotic and discontinued. Agreed with the plan. This is Dr. Durham's infectious disease consultation. The antibiotic was discontinued because of the C difficile, which probably associated with antibiotic. The patient also had underlying history of chronic kidney disease, seen by Dr. Gonzalez. He stated that he is stage IIIB secondary to nephrosclerosis and his baseline was 1.4-1.7. He is at 2.27 and we are maintaining the Lasix at 3 times a day. He is also on dobutamine. His edema is improved but still present. On the assessment by Dr. Gonzalez he stated that he has a nonoliguric acute kidney injury secondary to ATN with secondary to cardiorenal syndrome. The renal function is worse today and the creatinine is 2.27. 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 Also he had a systolic congestive heart failure with ejection fraction 35-40. He had volume overload is improving. He had a mild hypernatremia secondary to dehydration from the water loss due to diuretic and he had a metabolic alkalosis due to volume contraction hypokalemia due to diuretic magnesium. Magnesium depletion and had C difficile. He recommended to continue Lasix 80 mg t.i.d. and low-dose of the dobutamine and maintain the Diamox and repeat electrolytes in a.m. Avoid nephrotoxic agents and hypotensive agents and daily weight and replace the potassium with 40 mEq. Today as patient is seen, evaluated. LABORATORY: Indicating his white count is normal 9.5 and his hemoglobin 9.3 and hematocrit 32.1, and his platelet count is 129, with the underlying mild thrombocytopenia and hypochromasia. His protime is 3.2, and we will still continue holding the Coumadin. His electrolytes indicating sodium 141, potassium 3.5, carbon dioxide 34, and his BUN 54 and creatinine 2.27. His estimated glomerular filtration rate for non- is 27, and his blood sugar has been fairly well controlled with only coverage to scale and oral hypoglycemic agents. His calcium is 9. Magnesium is 2.3. On the microbiology, blood cultures negative, which was done after 24 hours and after 72 hours, still negative. EXAMINATION: The patient is conscious, alert, oriented. He felt to that his loose bowel came and he was calling the nursing techn for help. His HEENT was negative. Neck was supple. Oropharynx was no thrush. Chest was clear to auscultation, percussion and the heart was regular sinus rhythm and his echocardiogram indicating that was done on February 24 indicating mild left ventricular cyst, ventricular hypertrophy. He had impaired ejection fraction 35-40% and enlarged right ventricle. He had the left atrium was dilated severely with more than 40 mL/m2. He had also moderate pulmonary hypertension and he had right ventricular systolic pressure 58.34 with the associated pulmonary hypertension. Pulmonary regurgitation. Mild mitral annular calcification. Mitral regurgitation, moderate tricuspid regurgitation. The patient has also all chronic paroxysmal atrial fibrillation and he had also incomplete left bundle branch block and prolonged QT and patient was on chronic anticoagulation with Coumadin for the atrial fibrillation and ischemic cardiomyopathy with systolic impairment, probably with the associated congestive heart failure. The abdomen is soft. However, he has discomfort with deep palpation with spasm and cramping lower abdomen due to the C diff. Extremity is wrapped his legs bilaterally for the edema and with Gm bandage and also he had left leg ulceration and was treated by Dr. Benito Padilla. ASSESSMENT: 1. As mentioned above in my note and currently he has wound healing and with wrap on the left leg. 2. As well as associated congestive heart failure, systolic and diastolic with pulmonary hypertension, acute on the top of chronic. 3. C difficile with diarrhea at this point and patient currently on the medication and with the continuing monitoring. General condition is still guarded and with multiple medical problems. MMODL / IJN: [id number] /
--- NOTE | 2017-03-03 13:30 | PN ---
PROGRESS NOTE Mr. Christian is an 86-year-old male who presented with symptoms of progressive dyspnea, has chronic persistent atrial fibrillation, history of chronic disease status post bypass grafting. He continues to feeling fatigued today. He continues to be on IV dobutamine drip. He has no chest pain, no palpitation. He denies any nausea. He continues to have peripheral edema. He continues to be on the IV dobutamine in addition to that, Diamox 250 mg twice a day, Lasix 80 mg IV q.8 hours, lisinopril 5 mg daily, Coumadin. PHYSICAL EXAMINATION: Blood pressure 127/60 with a heart in 60. LUNGS: No wheezes or rales. HEART: Irregular regular S1, S2. No S3. No rub. ABDOMEN: Soft and nontender. EXTREMITIES: Edema bilaterally. LAB DATA: BUN and creatinine of 54 and 2.27. INR is 3.2. Potassium is 3.5, hemoglobin of 9.3. IMPRESSION: 1. Atrial fibrillation, chronic and persistent, anticoagulated. 2. Symptoms of congestive heart failure. 3. Chronic kidney disease. 4. Hypertension. 5. Hyperlipidemia. RECOMMENDATION: We will continue on the present therapy. Follow his heart rate, further adjust his regimen in the meantime. We will continue IV dobutamine for another 24 hours. Unfortunately in view of the worsening renal function and the overall status, the prognosis is guarded. MMODL / IJN: [id number] /
[2017-03-03 17:02] LABS: Glucose,Whole Blood 215 mg/dL (75-99)
--- NOTE | 2017-03-03 17:30 | PN ---
PROGRESS NOTE DATE OF SERVICE: 03/03/2017. REASON FOR FOLLOWUP: C difficile colitis. INTERVAL HISTORY: The patient is afebrile. His diarrhea frequency is slightly decreased. Per the RN did have about 2 loose stools today. The patient denies significant abdominal pain. No nausea, no vomiting. Denies any pain in the left leg area. EXAMINATION: Blood pressure is 127/60 with a pulse of 52, temperature 97.1. He is 96% on 2 L nasal cannula. General description is an elderly male lying in bed in no distress. Respiratory system unlabored breathing. Clear to auscultation anteriorly. Heart S1, S2. Regular rate and rhythm. Abdomen is soft, distended. No guarding or rigidity. Extremities: Swelling and redness has much improved to resolved. LABS: Hemoglobin 9.8, white count normalized to 9.5 with a BUN of 54, creatinine is 2.27. DIAGNOSTIC IMPRESSION/PLAN: 1. Patient with C difficile colitis currently responding to be p.o. vancomycin, Questran has been added for symptomatic relief and toxin binding. 2. Left lower extremity cellulitis, adequately treated. 3. Dr. Padilla will follow this patient tomorrow who will be updated about his care. MMODL / IJN: [id number] /
[2017-03-03] MEDS: CHOLESTYRAMINE (WITH SUGAR) 4 GM PACKET PO SCH (18:31)
[2017-03-03 21:08] LABS: Glucose,Whole Blood 227 mg/dL (75-99)
[2017-03-03] MEDS: LISINOPRIL 5 MG TAB PO SCH (21:25)
[2017-03-03] MEDS: ATORVASTATIN 10 MG TAB PO SCH (21:25)
[2017-03-03] MEDS: DOBUTamine DRIP 500 MG in DEXTROSE/WATER 1 250ML.BAG IV SCH (21:57)
[2017-03-04 06:07] LABS: Glucose,Whole Blood 160 mg/dL (75-99)
[2017-03-04] MEDS: VANCOMYCIN ORAL SOLUTION 250 MG/5 ML BOTTLE PO SCH ×3 (06:37→18:38)
[2017-03-04] MEDS: INSULIN ASPART 100 UNIT/ML 1 ML 10 ML VIAL SQ SCH ×4 (06:37→21:40)
[2017-03-04] MEDS: CHERRY FLAVOR 60 ML BOTTLE PO PRN (06:37)
[2017-03-04 06:49] LABS: INR 3.3 (<1.2); Prothrombin Time 29.5 sec (9.0-12.0)
[2017-03-04 07:00] LABS: Calcium 9.1 mg/dL (8.4-10.2); Magnesium 2.4 mg/dL (1.6-2.3); Potassium 3.8 mmol/L (3.5-5.1)
[2017-03-04] MEDS: FUROSEMIDE 10 MG/ML 10 ML VIAL IV SCH ×3 (09:30→20:26)
[2017-03-04] MEDS: LACTOBACILLUS ACIDOPH & BULGAR 1 EACH PACKET PO SCH ×4 (09:31→20:26)
[2017-03-04] MEDS: POTASSIUM CHLORIDE ER 10 MEQ TAB.ER.PRT PO SCH (09:32)
[2017-03-04] MEDS: acetaZOLAMIDE 250 MG TAB PO SCH ×2 (09:32→20:26)
[2017-03-04] MEDS: CHOLECALCIFEROL 400 UNIT TAB PO SCH (09:32)
[2017-03-04] MEDS: FINASTERIDE 5 MG TAB PO SCH (09:32)
[2017-03-04] MEDS: ASCORBIC ACID 500 MG TAB PO SCH (09:32)
[2017-03-04] MEDS: FERROUS SULFATE 325 MG TAB PO SCH (09:32)
[2017-03-04] MEDS: CHOLESTYRAMINE (WITH SUGAR) 4 GM PACKET PO SCH ×2 (09:33→18:37)
[2017-03-04] MEDS: VITAMIN E (DL,TOCOPHERYL ACET) 400 UNIT CAP PO SCH (09:33)
[2017-03-04 11:18] LABS: Glucose,Whole Blood 155 mg/dL (75-99)
--- NOTE | 2017-03-04 14:02 | P.PN ---
Subjective Progress Note Date: 03/04/17 Principal diagnosis: CHF This is a pleasant 86-year-old gentleman with history of coronary artery bypass surgery 15 years ago, diabetes, hypertension, NH, stroke as well as bilateral carotid endarterectomies. Presented to the emergency department with complaints of worsening edema and pain in both legs worse on the left leg . Chest x-ray showed congestive heart failure, pleural effusions and appeared to be worse than last exam. BNP was found to be elevated at 7290. She is currently on IV Lasix drip 5 mg per hour, his urine output has been minimal, and his weight is actually documented to be up from yesterday. Nephrology is going to increase the Lasix drip to 10 mg per hour today, if urine output remains marginal dobutamine may be added. Patient continues to have bilateral peripheral edema as well as rales to the bases. INR 2.5, potassium 4.6, BUN 48 , creatinine 1.9. 02/27/2017 Patient seen and examined this morning, Diuresed very well through the night last night, 2600 out. Weight down 1 kg. INR 2.4, potassium 4.0, BUN 48, creatinine 1.9, magnesium 2.5. Complaining of some pain in his left lower leg. Edema much improved today overall. Breathing improving as well. 02/28/2017 Patient seen and examined this morning, weight down 2 kg today. Sodium 146, potassium 3.8, BUN 48, creatinine 1.9. Continues to diurese well, edema is improving, breathing is improving. 03/01/2017 Patient seen and examined this morning weight is down 2 kg, continues to have some peripheral edema. Creatinine 2.07 today. In are 2.8 03/04/2017 Patient seen and examined this morning, doing much better overall. Continues to be on IV dobutamine. Blood pressure 116/60 heart rate in the 90s. Weight down 2 kg. Ostium 3.4, BUN 27, creatinine 0.7. . Objective - Vital Signs Vital signs: Vital Signs Temp 97.9 F 03/04/17 04:00 Pulse 98 03/04/17 04:00 Resp 19 03/04/17 04:00 BP 118/59 03/04/17 04:00 Pulse Ox 98 03/04/17 04:00 Intake & Output 03/03/17 03/04/17 03/04/17 18:59 06:59 18:59 Intake Total 412.795 240 Output Total 900 400 Balance -900 412.795 -160 Weight 89 kg 90 kg Intake: Intake, IV Titration 232.795 Amount DOBUTamine DRIP 500 mg In 232.795 Dextrose/Water 1 250ml. bag @ 2.5 MCG/KG/MIN 6.53 mls/hr IV .[facility] Rx#: [id number] Oral 180 240 Output: Urine 900 400 Other: Voiding Method Bedside Commode Bedside Commode Diaper Diaper # Voids 3 1 # Bowel Movements 2 3 - Exam PHYSICAL EXAMINATION: HEENT: Head is atraumatic, normocephalic. Pupils equal, round. Neck is supple. There is elevated jugular venous pressure. HEART EXAMINATION: Heart sounds irregular irregular, S1 and S2 normal. CHEST EXAMINATION: Lungs reveal diminished air entry to bilateral bases . No chest wall tenderness is noted on palpation or with deep breathing. ABDOMEN: Soft, nontender. Bowel sounds are heard. No organomegaly noted. EXTREMITIES: 1+ peripheral pulses with evidence of trace to 1+ peripheral edema left leg greater than the right , bilateral Gm wraps in place. NEUROLOGIC patient is awake, alert and oriented x3. . - Labs CBC & Chem 7: 03/03/17 06:18 03/04/17 06:11 Labs: Abnormal Lab Results - Last 24 Hours (Table) 03/03/17 03/03/17 03/04/17 Range/Units 16:54 21:04 05:59 PT (9.0-12.0) sec INR (<1.2) BUN (9-20) mg/dL Creatinine (0.66-1.25) mg/dL Glucose (74-99) mg/dL POC Glucose (mg/dL) 215 H 227 H 160 H (75-99) mg/dL Magnesium (1.6-2.3) mg/dL 03/04/17 03/04/17 03/04/17 Range/Units 06:11 06:11 11:16 PT 29.5 H (9.0-12.0) sec INR 3.3 H (<1.2) BUN 51 H (9-20) mg/dL Creatinine 2.24 H (0.66-1.25) mg/dL Glucose 129 H (74-99) mg/dL POC Glucose (mg/dL) 155 H (75-99) mg/dL Magnesium 2.4 H (1.6-2.3) mg/dL Microbiology - Last 24 Hours (Table) 03/01/17 18:11 Blood Culture - Preliminary Blood No Growth after 48 hours 02/27/17 12:29 Blood Culture - Preliminary Blood No Growth after 96 hours Assessment and Plan Plan: Assessment and plan #1 systolic congestive heart failure acute on chronic, echocardiogram with Doppler study reveals an ejection fraction of 35-40%. #2 acute on chronic kidney disease #3 known history of coronary artery disease with prior bypass surgery #4 chronic persistent atrial fibrillation, on Coumadin for anticoagulation #5 hypertension #6 diabetes #7 history of TIA Plan Current dose of PO Lasix. Continues to be on dobutamine. Check lytes BUN and creatinine in the morning. DNP note has been reviewed, I agree with a documented findings and plan of care. Patient was seen and examined.
--- NOTE | 2017-03-04 15:10 | PN ---
PROGRESS NOTE DATE OF SERVICE: 03/04/2017 This is an 86-year-old white male who was admitted with severe shortness of breath, general weakness and marked edema on the lower extremities, mostly on the left side and also cellulitis involving the left leg. The patient had a markedly elevated BNP and a chest x-ray showing congestive heart failure. The patient has severe low ejection fraction. The patient was seen by [facility] in consultation. The patient also had acute renal injury from the congestive heart failure. She was seen by [facility] in consultation and they have been following the patient. The patient was treated aggressively with IV Lasix and also was given Lasix IV drip. The patient was started on IV antibiotics with Rocephin for the cellulitis and apparently this started gradually improving. The patient recently developed severe diarrhea and the stool was positive for C diff. The patient was seen by Dr. Padilla in consultation and the patient has been placed on vancomycin orally. The IV Rocephin has been discontinued. The patient is still extremely weak and has shortness of breath on exertion. However, we will have community mental health social worker see the patient for making discharge planning and possibly transferring him to a rehab unit when discharged. Prognosis is guarded. MMODL / IJN: [id number] /
[2017-03-04 16:12] LABS: Glucose,Whole Blood 194 mg/dL (75-99)
[2017-03-04] MEDS: ATORVASTATIN 10 MG TAB PO SCH (20:26)
[2017-03-04] MEDS: LISINOPRIL 5 MG TAB PO SCH (20:26)
[2017-03-04] MEDS: DOBUTamine DRIP 500 MG in DEXTROSE/WATER 1 250ML.BAG IV SCH (20:58)
--- NOTE | 2017-03-04 21:25 | P.PN ---
Subjective Progress Note Date: 03/04/17 Principal diagnosis: Increasing edema and shortness of breath 86-year-old male with a known history of chronic kidney disease presented to the emergency center feeling poorly for several days. Was having increasing edema to the bilateral lower extremities with resultant weeping. The patient relates that his weight is been increasing despite his use of oral Lasix at home. His living situation has changed in that his is at the senior care and he said eating as well as he used to. Because he was feeling considerably worse he presented to the emergency center with evidence of a cellulitis the left lower extremity the infectious diseases consultation was requested. The patient has a known history of a coronary artery bypass grafting procedure and had vein harvest from the left leg and is had resultant chronic venous stasis to the lower extremity which is now considerably aggravated by his worsening renal failure and extensive volume overload. Patient feeling somewhat better today. No shortness of breath. Lower extremity edema is improved. Developed diarrhea and CDIFF was isolated. Rocephin has completed and diarrhea improved with oral Vanco. Objective - Vital Signs Vital signs: Vital Signs Temp 97.9 F 03/04/17 04:00 Pulse 104 H 03/04/17 16:00 Resp 19 03/04/17 16:00 BP 110/60 03/04/17 16:00 Pulse Ox 95 03/04/17 16:00 Intake & Output 03/04/17 03/04/17 03/05/17 06:59 18:59 06:59 Intake Total 412.795 480 Output Total 400 Balance 412.795 80 Weight 90 kg Intake: Intake, IV Titration 232.795 Amount DOBUTamine DRIP 500 mg In 232.795 Dextrose/Water 1 250ml. bag @ 2.5 MCG/KG/MIN 6.53 mls/hr IV .Q24H LUIS Rx#: [id number] Oral 180 480 Output: Urine 400 Other: Voiding Method Bedside Commode Bedside Commode Diaper Diaper # Voids 1 # Bowel Movements 3 - Exam Pleasant 86-year-old male who is short of breath and somewhat uncomfortable but denies fevers or chills. HEENT: Anicteric conjunctiva are pink and moist nasal mucosa grossly intact without significant lesions, there is no thrush. Full denture Neck: The neck is supple without significant lymphadenopathy or thyromegaly. Lungs: Symmetrical air entry is noted with bibasilar crackles but no alfredito wheezing. No egophony or dullness Heart: Irregular with an audible S1 and S2 loud S4 no distinct murmur click or rub PMI is nondisplaced Abdomen: Positive bowel sounds soft and nontender without palpable masses or organomegaly. There was no guarding or rebound. Extremities: The upper extremities have excellent pulses they are symmetric, no significant petechiae or telangiectasia. No splinter hemorrhages were noted. Lower extremities have edema left leg more than the right. Left leg is evidence of the extensive erythematous present from the foot to the knee. The erythema is much improved and no longer tender No extensive lymphadenopathy is noted inguinal or other areas Neuro: Awake alert oriented to person place and time. There are no acute new gross focal sensory motor deficits. - Labs CBC & Chem 7: 03/03/17 06:18 03/04/17 06:11 Labs: Abnormal Lab Results - Last 24 Hours (Table) 03/04/17 03/04/17 03/04/17 Range/Units 05:59 06:11 06:11 PT 29.5 H (9.0-12.0) sec INR 3.3 H (<1.2) BUN 51 H (9-20) mg/dL Creatinine 2.24 H (0.66-1.25) mg/dL Glucose 129 H (74-99) mg/dL POC Glucose (mg/dL) 160 H (75-99) mg/dL Magnesium 2.4 H (1.6-2.3) mg/dL 03/04/17 03/04/17 Range/Units 11:16 16:10 PT (9.0-12.0) sec INR (<1.2) BUN (9-20) mg/dL Creatinine (0.66-1.25) mg/dL Glucose (74-99) mg/dL POC Glucose (mg/dL) 155 H 194 H (75-99) mg/dL Magnesium (1.6-2.3) mg/dL Microbiology - Last 24 Hours (Table) 03/01/17 18:11 Blood Culture - Preliminary Blood No Growth after 72 hours 02/27/17 12:29 Blood Culture - Preliminary Blood No Growth after 120 hours Laboratory Results WBC 9.5 k/uL (3.8-10.6) 03/03/17 06:18 RBC 3.25 m/uL (4.30-5.90) L 03/03/17 06:18 Hgb 9.3 gm/dL (13.0-17.5) L 03/03/17 06:18 Hct 32.1 % (39.0-53.0) L 03/03/17 06:18 MCV 98.7 fL (80.0-100.0) 03/03/17 06:18 MCH 28.6 pg (25.0-35.0) 03/03/17 06:18 MCHC 28.9 g/dL (31.0-37.0) L 03/03/17 06:18 RDW 14.9 % (11.5-15.5) 03/03/17 06:18 Plt Count 129 k/uL (150-450) L 03/03/17 06:18 Neutrophils % 77 % 03/03/17 06:18 Lymphocytes % 13 % 03/03/17 06:18 Monocytes % 7 % 03/03/17 06:18 Eosinophils % 1 % 03/03/17 06:18 Basophils % 0 % 03/03/17 06:18 Neutrophils # 7.3 k/uL (1.3-7.7) 03/03/17 06:18 Lymphocytes # 1.3 k/uL (1.0-4.8) 03/03/17 06:18 Monocytes # 0.7 k/uL (0-1.0) 03/03/17 06:18 Eosinophils # 0.1 k/uL (0-0.7) 03/03/17 06:18 Basophils # 0.0 k/uL (0-0.2) 03/03/17 06:18 Manual Slide Review Performed 02/23/17 10:45 Hypochromasia Marked 03/03/17 06:18 Macrocytosis Slight 02/25/17 05:42 PT 29.5 sec (9.0-12.0) H 03/04/17 06:11 INR 3.3 (<1.2) H 03/04/17 06:11 APTT 31.1 sec (22.0-30.0) H 02/23/17 10:45 Sodium 141 mmol/L (137-145) 03/04/17 06:11 Potassium 3.8 mmol/L (3.5-5.1) 03/04/17 06:11 Chloride 102 mmol/L (98-107) 03/04/17 06:11 Carbon Dioxide 30 mmol/L (22-30) 03/04/17 06:11 Anion Gap 9 mmol/L 03/04/17 06:11 BUN 51 mg/dL (9-20) H 03/04/17 06:11 Creatinine 2.24 mg/dL (0.66-1.25) H 03/04/17 06:11 Est GFR (MDRD) Af Amer 34 (>60 ml/min/1.73 sqM) 03/04/17 06:11 Est GFR (MDRD) Non-Af 28 (>60 ml/min/1.73 sqM) 03/04/17 06:11 Glucose 129 mg/dL (74-99) H 03/04/17 06:11 POC Glucose (mg/dL) 194 mg/dL (75-99) H 03/04/17 16:10 POC Glu Crime Laboratory Analyst ID Brittanie Currie 03/04/17 16:[address] Glu mg/dL 126 02/27/17 09:23 Hemoglobin A1c 6.0 % (4.0-6.0) 02/27/17 09:23 Uric Acid 8.1 mg/dL (3.5-8.5) 02/23/17 10:45 Calcium 9.1 mg/dL (8.4-10.2) 03/04/17 06:11 Magnesium 2.4 mg/dL (1.6-2.3) H 03/04/17 06:11 Iron 43 ug/dL (65-175) L 02/24/17 06:03 TIBC 245 ug/dL (228-460) 02/24/17 06:03 Iron Saturation 17.55 (15.00-50.00) 02/24/17 06:03 Total Bilirubin 0.8 mg/dL (0.2-1.3) 02/26/17 06:14 AST 22 U/L (17-59) 02/26/17 06:14 ALT 34 U/L (21-72) 02/26/17 06:14 Alkaline Phosphatase 91 U/L (38-126) 02/26/17 06:14 Total Creatine Kinase 27 U/L (55-170) L 02/23/17 17:02 CK-MB (CK-2) 0.6 ng/mL (0.0-2.4) 02/23/17 17:02 CK-MB (CK-2) Rel Index 2.2 02/23/17 17:02 Troponin I 0.036 ng/mL (0.000-0.034) H* 02/23/17 22:57 NT-Pro-B Natriuret Pep 7290 pg/mL 02/23/17 10:45 Total Protein 6.3 g/dL (6.3-8.2) 02/26/17 06:14 Albumin 3.3 g/dL (3.5-5.0) L 02/26/17 06:14 Urine Color Light Yellow 02/28/17 06:20 Urine Appearance Clear (Clear) 02/28/17 06:20 Urine pH 7.5 (5.0-8.0) 02/28/17 06:20 Ur Specific [place] 1.007 (1.001-1.035) 02/28/17 06:20 Urine Protein Negative (Negative) 02/28/17 06:20 Urine Glucose (UA) Negative (Negative) 02/28/17 06:20 Urine Ketones Negative (Negative) 02/28/17 06:20 Urine Blood Small (Negative) H 02/28/17 06:20 Urine Nitrite Negative (Negative) 02/28/17 06:20 Urine Bilirubin Negative (Negative) 02/28/17 06:20 Urine Urobilinogen <2.0 mg/dL (<2.0) 02/28/17 06:20 Ur Leukocyte Esterase Negative (Negative) 02/28/17 06:20 Urine RBC 18 /hpf (0-5) H 02/28/17 06:20 Urine Mucus Rare /hpf (None) H 02/28/17 06:20 C. difficile (EIA) Intrp Positive (Negative) A 03/02/17 08:11 Microbiology 03/01/17 18:11 Blood Blood Culture - Preliminary No Growth after 72 hours 02/27/17 12:29 Blood Blood Culture - Preliminary No Growth after 120 hours Assessment and Plan (1) Congestive heart failure Current Visit: Yes Status: Acute Code(s): I50.9 - HEART FAILURE, UNSPECIFIED SNOMED Code(s): 41454107 (2) Acute renal failure Current Visit: Yes Status: Acute Code(s): N17.9 - ACUTE KIDNEY FAILURE, UNSPECIFIED SNOMED Code(s): 88280068 (3) Cellulitis Narrative/Plan: 86-year-old male presents to hospital with increasing lower extremity edema especially the left lower extremity associated with weeping and drainage. He was feeling poorly. Much more short of breath and having increasing difficulty with day-to-day activities. He also relates to social situation is difficult with his being in the senior care. Admission there was evidence of worsening of his chronic kidney disease with acute renal failure superimposed on his significant systolic congestive heart failure and pulmonary edema. He is an insulin drip showing some improvement. The extensive cellulitis of the left lower extremity is noted. The patient relates starting to show some improvement because he's had some diuresis. Duplexes been performed with no evidence of any deep venous thrombosis. The Silvadene wrap is now allowed resolution of the swelling erythema and cellulitis of the left leg. The vein harvest to the extremity is a significant contributing factor to the extensive edema and resultant cellulitis. Elevation the limb is important. Is being followed by nephrology trying to improve his fluid and potassium balance. It is noted patient developed diarrhea and Clostridium difficile colitis has been diagnosed. Responding well to vancomycin therapy. Fortunately the leg is now much improved and intravenous antibiotic therapy has discontinued. Current Visit: No Status: Acute Code(s): L03.90 - CELLULITIS, UNSPECIFIED SNOMED Code(s): 076893799
[2017-03-04 21:28] LABS: Glucose,Whole Blood 228 mg/dL (75-99)
--- NOTE | 2017-03-04 22:07 | PN ---
PROGRESS NOTE Patient is seen for followup for acute kidney injury mainly cardiorenal syndrome. He was admitted with severe fluid overload for which patient was started on Lasix drip initially. This was then discontinued to Lasix 80 mg IV q.8 hours. Over the weekend dobutamine was started and it looks like the patient's edema has improved significantly. His weight, however, is not changed much. The patient is currently weak. He is lying in bed. He also has C. difficile colitis. Creatinine is staying about the same at about 2.2 mg/dL. The patient denies any significant shortness of breath. EXAMINATION: Blood pressure is 101/57, heart rate 100 per minute. He is afebrile. Examination of the heart S1, S2. Examination lungs bilateral breath sounds are heard. Decreased breath sounds bases. Abdomen is soft, nontender. Examination lower extremities shows much decreased edema left is still greater than right. There is edema in the upper thighs though. EMBALMER ASSISTANT exam is grossly intact. ASSESSMENT: 1. Acute kidney injury, cardiorenal syndrome. Renal function is stable. I will decrease the Lasix and we will also check a chest x-ray in a.m. 2. Clostridium difficile colitis. 3. Metabolic alkalosis. Maintained on Diamox. 4. Hypokalemia, status post replacement. 5. Generalized debility. PLAN: Decrease Lasix. Check chest x-ray in a.m. since blood pressure is significantly low, we may need to discontinue the VERNON inhibitors. I will reassess tomorrow. MMODL / IJN: [id number] /
[2017-03-05] MEDS: VANCOMYCIN ORAL SOLUTION 250 MG/5 ML BOTTLE PO SCH ×4 (00:08→17:40)
[2017-03-05 05:54] LABS: Glucose,Whole Blood 143 mg/dL (75-99)
[2017-03-05] MEDS: INSULIN ASPART 100 UNIT/ML 1 ML 10 ML VIAL SQ SCH ×4 (06:33→21:49)
[2017-03-05 06:43] LABS: INR 3.5 (<1.2); Prothrombin Time 31.2 sec (9.0-12.0)
[2017-03-05] MEDS: acetaZOLAMIDE 250 MG TAB PO SCH ×2 (09:22→21:49)
[2017-03-05] MEDS: FERROUS SULFATE 325 MG TAB PO SCH (09:23)
[2017-03-05] MEDS: FUROSEMIDE 10 MG/ML 10 ML VIAL IV SCH ×2 (09:23→17:40)
[2017-03-05] MEDS: FINASTERIDE 5 MG TAB PO SCH (09:23)
[2017-03-05] MEDS: CHOLESTYRAMINE (WITH SUGAR) 4 GM PACKET PO SCH ×2 (09:24→17:40)
[2017-03-05] MEDS: POTASSIUM CHLORIDE ER 10 MEQ TAB.ER.PRT PO SCH (09:24)
[2017-03-05] MEDS: ASCORBIC ACID 500 MG TAB PO SCH (09:24)
[2017-03-05] MEDS: CHOLECALCIFEROL 400 UNIT TAB PO SCH (09:24)
[2017-03-05] MEDS: LACTOBACILLUS ACIDOPH & BULGAR 1 EACH PACKET PO SCH ×5 (09:24→21:56)
[2017-03-05] MEDS: VITAMIN E (DL,TOCOPHERYL ACET) 400 UNIT CAP PO SCH (09:25)
[2017-03-05 12:09] LABS: Glucose,Whole Blood 173 mg/dL (75-99)
--- NOTE | 2017-03-05 15:34 | P.PN ---
Subjective Progress Note Date: 03/05/17 Principal diagnosis: CHF This is a pleasant 86-year-old gentleman with history of coronary artery bypass surgery 15 years ago, diabetes, hypertension, ID, stroke as well as bilateral carotid endarterectomies. Presented to the emergency department with complaints of worsening edema and pain in both legs worse on the left leg . Chest x-ray showed congestive heart failure, pleural effusions and appeared to be worse than last exam. BNP was found to be elevated at 7290. She is currently on IV Lasix drip 5 mg per hour, his urine output has been minimal, and his weight is actually documented to be up from yesterday. Nephrology is going to increase the Lasix drip to 10 mg per hour today, if urine output remains marginal dobutamine may be added. Patient continues to have bilateral peripheral edema as well as rales to the bases. INR 2.5, potassium 4.6, BUN 48 , creatinine 1.9. 02/27/2017 Patient seen and examined this morning, Diuresed very well through the night last night, 2600 out. Weight down 1 kg. INR 2.4, potassium 4.0, BUN 48, creatinine 1.9, magnesium 2.5. Complaining of some pain in his left lower leg. Edema much improved today overall. Breathing improving as well. 02/28/2017 Patient seen and examined this morning, weight down 2 kg today. Sodium 146, potassium 3.8, BUN 48, creatinine 1.9. Continues to diurese well, edema is improving, breathing is improving. 03/01/2017 Patient seen and examined this morning weight is down 2 kg, continues to have some peripheral edema. Creatinine 2.07 today. In are 2.8 03/04/2017 Patient seen and examined this morning, doing much better overall. Continues to be on IV dobutamine. Blood pressure 116/60 heart rate in the 90s. Weight down 2 kg. Ostium 3.4, BUN 27, creatinine 0.7. 03/05/2017 Patient seen sitting up in the chair today, continues to be on IV dobutamine. Weight unchanged today. INR 3.5. . Objective - Vital Signs Vital signs: Vital Signs Temp 98.2 F 03/05/17 08:00 Pulse 107 H 03/05/17 11:37 Resp 16 03/05/17 11:43 BP 130/71 03/05/17 11:37 Pulse Ox 94 L 03/05/17 11:37 Intake & Output 03/04/17 03/05/17 03/05/17 18:59 06:59 18:59 Intake Total 480 360 Output Total 400 Balance 80 360 Weight 90 kg 90 kg Intake: Oral 480 360 Output: Urine 400 Other: Voiding Method Bedside Commode Diaper Diaper Diaper # Voids 1 2 # Bowel Movements 1 1 - Exam PHYSICAL EXAMINATION: HEENT: Head is atraumatic, normocephalic. Pupils equal, round. Neck is supple. There is elevated jugular venous pressure. HEART EXAMINATION: Heart sounds irregular irregular, S1 and S2 normal. CHEST EXAMINATION: Lungs reveal diminished air entry to bilateral bases . No chest wall tenderness is noted on palpation or with deep breathing. ABDOMEN: Soft, nontender. Bowel sounds are heard. No organomegaly noted. EXTREMITIES: 1+ peripheral pulses with evidence of trace to 1+ peripheral edema left leg greater than the right , bilateral Gm wraps in place. NEUROLOGIC patient is awake, alert and oriented x3. . - Labs CBC & Chem 7: 03/03/17 06:18 03/04/17 06:11 Labs: Abnormal Lab Results - Last 24 Hours (Table) 03/04/17 03/04/17 03/05/17 Range/Units 16:10 21:27 05:53 PT (9.0-12.0) sec INR (<1.2) POC Glucose (mg/dL) 194 H 228 H 143 H (75-99) mg/dL 03/05/17 03/05/17 Range/Units 06:10 12:07 PT 31.2 H (9.0-12.0) sec INR 3.5 H (<1.2) POC Glucose (mg/dL) 173 H (75-99) mg/dL Microbiology - Last 24 Hours (Table) 02/27/17 12:29 Blood Culture - Final Blood No Growth after 144 hours 03/01/17 18:11 Blood Culture - Preliminary Blood No Growth after 72 hours Assessment and Plan Plan: Assessment and plan #1 systolic congestive heart failure acute on chronic, echocardiogram with Doppler study reveals an ejection fraction of 35-40%. #2 acute on chronic kidney disease #3 known history of coronary artery disease with prior bypass surgery #4 chronic persistent atrial fibrillation, on Coumadin for anticoagulation #5 hypertension #6 diabetes #7 history of TIA Plan Current dose of PO Lasix. Continues to be on dobutamine. We would recommend to continue dobutamine and possibly discontinue in 24 hours. Check lytes BUN and creatinine in the morning. DNP note has been reviewed, I agree with a documented findings and plan of care. Patient was seen and examined.
[2017-03-05] MEDS: DOBUTamine DRIP 500 MG in DEXTROSE/WATER 1 250ML.BAG IV SCH (16:25)
--- NOTE | 2017-03-05 17:02 | PN ---
PROGRESS NOTE DATE OF SERVICE: 03/05/2017 This is an 86-year-old white male who was admitted with increasing shortness of breath, general weakness and severe edema of the lower extremities, but it was worse on the left side, and then there was also cellulitis with weeping and drainage. The patient was admitted to the hospital for further evaluation and treatment. He had a markedly elevated BNP and the patient also has systolic congestive heart failure. The patient was seen by [facility] in consideration and at the time of admission, the patient also was found to have renal failure due to acute renal injury. The patient was seen by a government minister in consultation and the patient was started on IV antibiotic Rocephin for the cellulitis and Dr. Padilla saw the patient in consultation. The patient was given Lasix IV and government minister gave him this, placed him on an Lasix IV drip and the swelling came down to some extent and the cellulitis also was controlled with antibiotics. Apparently the patient developed severe diarrhea due to C. diff. infection and the Rocephin was discontinued and his cellulitis improved, but he was still placed on vancomycin oral orally. The patient still continues to be extremely weak and the patient's IV fluids and also diuretics are being regulated by the government minister. However, the overall prognosis is guarded. manager financial services is evaluating the patient for discharge arrangements. RAFFAELE / EDINSON: [id number] /
[2017-03-05 17:10] LABS: Glucose,Whole Blood 184 mg/dL (75-99)
--- NOTE | 2017-03-05 20:53 | PN ---
PROGRESS NOTE The patient is seen for followup for acute kidney injury secondary to cardiorenal syndrome. He is currently lying in bed. Patient is feeling weak, but he appears slightly better than yesterday. He is continuously having diarrhea from Clostridium difficile colitis. EXAMINATION: Blood pressure is 130/71, heart rate 107 per minute. Patient is afebrile. Examination of the heart S1, S2. Examination lungs bilateral breath sounds are heard. Abdomen is soft, nontender. Exam of lower extremities shows chronic skin changes, edema 2+ bilaterally, more on the right leg than on the left leg. WARDROBE MISTRESS exam is grossly intact. LAB: Show from yesterday serum creatinine 2.24, BUN was 51. Sodium 141, potassium 3.8. ASSESSMENT: 1. Acute kidney injury, cardiorenal syndrome. Renal function has been fairly stable. Patient is maintained on IV Lasix, which was decreased yesterday. I will decrease it further since the patient is having significant diarrhea. 2. Cardiomyopathy. Maintained on dobutamine which will be discontinued tomorrow. 3. Clostridium difficile colitis, currently still having diarrhea. 4. Metabolic alkalosis, maintained on Diamox. I will repeat labs in a.m. as patient may now have acidosis from the GI fluid loss from diarrhea. PLAN: To decrease IV Lasix. Repeat labs in a.m. If renal function is worse, we may need to hold off or decrease rhonda inhibitors. MMODL / IJN: [id number] /
[2017-03-05 21:04] LABS: Glucose,Whole Blood 185 mg/dL (75-99)
[2017-03-05] MEDS: LISINOPRIL 5 MG TAB PO SCH (21:49)
[2017-03-05] MEDS: ATORVASTATIN 10 MG TAB PO SCH (21:49)
--- NOTE | 2017-03-05 22:52 | P.PN ---
Subjective Progress Note Date: 03/05/17 Principal diagnosis: Increasing edema and shortness of breath 86-year-old male with a known history of chronic kidney disease presented to the emergency center feeling poorly for several days. Was having increasing edema to the bilateral lower extremities with resultant weeping. The patient relates that his weight is been increasing despite his use of oral Lasix at home. His living situation has changed in that his is at the [place] [facility] and he said eating as well as he used to. Because he was feeling considerably worse he presented to the emergency center with evidence of a cellulitis the left lower extremity the infectious diseases consultation was requested. The patient has a known history of a coronary artery bypass grafting procedure and had vein harvest from the left leg and is had resultant chronic venous stasis to the lower extremity which is now considerably aggravated by his worsening renal failure and extensive volume overload. Patient feeling somewhat better today. No shortness of breath. Lower extremity edema is improved. Developed diarrhea and CDIFF was isolated. Rocephin has completed and diarrhea improved with oral Vanco. Objective - Vital Signs Vital signs: Vital Signs Temp 98.2 F 03/05/17 08:00 Pulse 107 H 03/05/17 11:37 Resp 16 03/05/17 11:43 BP 130/71 03/05/17 11:37 Pulse Ox 94 L 03/05/17 11:37 Intake & Output 03/05/17 03/05/17 03/06/17 06:59 18:59 06:59 Intake Total 850 Output Total 100 Balance 750 Weight 90 kg 90 kg Intake: Intake, IV Titration 250 Amount DOBUTamine DRIP 500 mg In 250 Dextrose/Water 1 250ml. bag @ 2.5 MCG/KG/MIN 6.53 mls/hr IV .Q24H [facility] Rx#: [id number] Oral 600 Output: Urine 100 Other: Voiding Method Diaper Diaper # Voids 1 1 # Bowel Movements 1 1 - Exam Pleasant 86-year-old male who is short of breath and somewhat uncomfortable but denies fevers or chills. HEENT: Anicteric conjunctiva are pink and moist nasal mucosa grossly intact without significant lesions, there is no thrush. Full denture Neck: The neck is supple without significant lymphadenopathy or thyromegaly. Lungs: Symmetrical air entry is noted with bibasilar crackles but no alfredito wheezing. No egophony or dullness Heart: Irregular with an audible S1 and S2 loud S4 no distinct murmur click or rub PMI is nondisplaced Abdomen: Positive bowel sounds soft and nontender without palpable masses or organomegaly. There was no guarding or rebound. Extremities: The upper extremities have excellent pulses they are symmetric, no significant petechiae or telangiectasia. No splinter hemorrhages were noted. Lower extremities have edema left leg more than the right. Left leg is evidence of the extensive erythematous present from the foot to the knee. The erythema is much improved and no longer tender No extensive lymphadenopathy is noted inguinal or other areas Neuro: Awake alert oriented to person place and time. There are no acute new gross focal sensory motor deficits. - Labs CBC & Chem 7: 03/03/17 06:18 03/04/17 06:11 Labs: Abnormal Lab Results - Last 24 Hours (Table) 03/05/17 03/05/17 03/05/17 Range/Units 05:53 06:10 12:07 PT 31.2 H (9.0-12.0) sec INR 3.5 H (<1.2) POC Glucose (mg/dL) 143 H 173 H (75-99) mg/dL 03/05/17 03/05/17 Range/Units 17:08 20:52 PT (9.0-12.0) sec INR (<1.2) POC Glucose (mg/dL) 184 H 185 H (75-99) mg/dL Microbiology - Last 24 Hours (Table) 03/01/17 18:11 Blood Culture - Preliminary Blood No Growth after 96 hours 02/27/17 12:29 Blood Culture - Final Blood No Growth after 144 hours Laboratory Results WBC 9.5 k/uL (3.8-10.6) 03/03/17 06:18 RBC 3.25 m/uL (4.30-5.90) L 03/03/17 06:18 Hgb 9.3 gm/dL (13.0-17.5) L 03/03/17 06:18 Hct 32.1 % (39.0-53.0) L 03/03/17 06:18 MCV 98.7 fL (80.0-100.0) 03/03/17 06:18 MCH 28.6 pg (25.0-35.0) 03/03/17 06:18 MCHC 28.9 g/dL (31.0-37.0) L 03/03/17 06:18 RDW 14.9 % (11.5-15.5) 03/03/17 06:18 Plt Count 129 k/uL (150-450) L 03/03/17 06:18 Neutrophils % 77 % 03/03/17 06:18 Lymphocytes % 13 % 03/03/17 06:18 Monocytes % 7 % 03/03/17 06:18 Eosinophils % 1 % 03/03/17 06:18 Basophils % 0 % 03/03/17 06:18 Neutrophils # 7.3 k/uL (1.3-7.7) 03/03/17 06:18 Lymphocytes # 1.3 k/uL (1.0-4.8) 03/03/17 06:18 Monocytes # 0.7 k/uL (0-1.0) 03/03/17 06:18 Eosinophils # 0.1 k/uL (0-0.7) 03/03/17 06:18 Basophils # 0.0 k/uL (0-0.2) 03/03/17 06:18 Manual Slide Review Performed 02/23/17 10:45 Hypochromasia Marked 03/03/17 06:18 Macrocytosis Slight 02/25/17 05:42 PT 31.2 sec (9.0-12.0) H 03/05/17 06:10 INR 3.5 (<1.2) H 03/05/17 06:10 APTT 31.1 sec (22.0-30.0) H 02/23/17 10:45 Sodium 141 mmol/L (137-145) 03/04/17 06:11 Potassium 3.8 mmol/L (3.5-5.1) 03/04/17 06:11 Chloride 102 mmol/L (98-107) 03/04/17 06:11 Carbon Dioxide 30 mmol/L (22-30) 03/04/17 06:11 Anion Gap 9 mmol/L 03/04/17 06:11 BUN 51 mg/dL (9-20) H 03/04/17 06:11 Creatinine 2.24 mg/dL (0.66-1.25) H 03/04/17 06:11 Est GFR (MDRD) Af Amer 34 (>60 ml/min/1.73 sqM) 03/04/17 06:11 Est GFR (MDRD) Non-Af 28 (>60 ml/min/1.73 sqM) 03/04/17 06:11 Glucose 129 mg/dL (74-99) H 03/04/17 06:11 POC Glucose (mg/dL) 185 mg/dL (75-99) H 03/05/17 20:52 POC Glu [employer] Professor ID Keturah Chamorro 03/05/17 20:[address] Glu mg/dL 126 02/27/17 09:23 Hemoglobin A1c 6.0 % (4.0-6.0) 02/27/17 09:23 Uric Acid 8.1 mg/dL (3.5-8.5) 02/23/17 10:45 Calcium 9.1 mg/dL (8.4-10.2) 03/04/17 06:11 Magnesium 2.4 mg/dL (1.6-2.3) H 03/04/17 06:11 Iron 43 ug/dL (65-175) L 02/24/17 06:03 TIBC 245 ug/dL (228-460) 02/24/17 06:03 Iron Saturation 17.55 (15.00-50.00) 02/24/17 06:03 Total Bilirubin 0.8 mg/dL (0.2-1.3) 02/26/17 06:14 AST 22 U/L (17-59) 02/26/17 06:14 ALT 34 U/L (21-72) 02/26/17 06:14 Alkaline Phosphatase 91 U/L (38-126) 02/26/17 06:14 Total Creatine Kinase 27 U/L (55-170) L 02/23/17 17:02 CK-MB (CK-2) 0.6 ng/mL (0.0-2.4) 02/23/17 17:02 CK-MB (CK-2) Rel Index 2.2 02/23/17 17:02 Troponin I 0.036 ng/mL (0.000-0.034) H* 02/23/17 22:57 NT-Pro-B Natriuret Pep 7290 pg/mL 02/23/17 10:45 Total Protein 6.3 g/dL (6.3-8.2) 02/26/17 06:14 Albumin 3.3 g/dL (3.5-5.0) L 02/26/17 06:14 Urine Color Light Yellow 02/28/17 06:20 Urine Appearance Clear (Clear) 02/28/17 06:20 Urine pH 7.5 (5.0-8.0) 02/28/17 06:20 Ur Specific Brewer 1.007 (1.001-1.035) 02/28/17 06:20 Urine Protein Negative (Negative) 02/28/17 06:20 Urine Glucose (UA) Negative (Negative) 02/28/17 06:20 Urine Ketones Negative (Negative) 02/28/17 06:20 Urine Blood Small (Negative) H 02/28/17 06:20 Urine Nitrite Negative (Negative) 02/28/17 06:20 Urine Bilirubin Negative (Negative) 02/28/17 06:20 Urine Urobilinogen <2.0 mg/dL (<2.0) 02/28/17 06:20 Ur Leukocyte Esterase Negative (Negative) 02/28/17 06:20 Urine RBC 18 /hpf (0-5) H 02/28/17 06:20 Urine Mucus Rare /hpf (None) H 02/28/17 06:20 C. difficile (EIA) Intrp Positive (Negative) A 03/02/17 08:11 Microbiology 03/01/17 18:11 Blood Blood Culture - Preliminary No Growth after 96 hours 02/27/17 12:29 Blood Blood Culture - Final No Growth after 144 hours Assessment and Plan (1) Congestive heart failure Current Visit: Yes Status: Acute Code(s): I50.9 - HEART FAILURE, UNSPECIFIED SNOMED Code(s): 93254180 (2) Acute renal failure Current Visit: Yes Status: Acute Code(s): N17.9 - ACUTE KIDNEY FAILURE, UNSPECIFIED SNOMED Code(s): 99615407 (3) Cellulitis Narrative/Plan: 86-year-old male presents to hospital with increasing lower extremity edema especially the left lower extremity associated with weeping and drainage. He was feeling poorly. Much more short of breath and having increasing difficulty with day-to-day activities. He also relates to social situation is difficult with his being in the [place] [facility]. Admission there was evidence of worsening of his chronic kidney disease with acute renal failure superimposed on his significant systolic congestive heart failure and pulmonary edema. He is an insulin drip showing some improvement. The extensive cellulitis of the left lower extremity is noted. The patient relates starting to show some improvement because he's had some diuresis. Duplexes been performed with no evidence of any deep venous thrombosis. The Silvadene wrap is now allowed resolution of the swelling erythema and cellulitis of the left leg. The vein harvest to the extremity is a significant contributing factor to the extensive edema and resultant cellulitis. Elevation the limb is important. Is being followed by nephrology trying to improve his fluid and potassium balance. It is noted patient developed diarrhea and Clostridium difficile colitis has been diagnosed. Responding well to vancomycin therapy. One stool only today. Plan 10 days of therapy. Fortunately the leg is now much improved and intravenous antibiotic therapy has discontinued. Current Visit: No Status: Acute Code(s): L03.90 - CELLULITIS, UNSPECIFIED SNOMED Code(s): 272438021
[2017-03-06] MEDS: VANCOMYCIN ORAL SOLUTION 250 MG/5 ML BOTTLE PO SCH ×4 (00:40→15:56)
[2017-03-06 05:54] LABS: Glucose,Whole Blood 143 mg/dL (75-99)
[2017-03-06 06:25] LABS: INR 3.1 (<1.2)
[2017-03-06 06:36] LABS: Calcium 9.2 mg/dL (8.4-10.2); Potassium 3.9 mmol/L (3.5-5.1)
[2017-03-06] MEDS: INSULIN ASPART 100 UNIT/ML 1 ML 10 ML VIAL SQ SCH ×4 (07:03→21:21)
--- NOTE | 2017-03-06 07:57 | XR ---
EXAMINATION TYPE: XR chest 1V DATE OF EXAM: 02/27/2017 COMPARISON: Prior chest x-ray 03/06/2017 HISTORY: Congestive heart failure, hypoxia TECHNIQUE: Single frontal view of the chest is obtained. FINDINGS: Patient is post median sternotomy and there are overlying cardiac leads. The heart is enla rged. Patchy bilateral perihilar densities present which may reflect atelectasis or possibly airspace disease. No pneumothorax. Blunting of the costophrenic angle on the right is again noted. Interstiti um mildly prominent. IMPRESSION: No significant change. There may be a component of volume overload, correlate, follow-up recommended. Consider underlying edema versus pneumonia. Stable cardiomegaly.
[2017-03-06] MEDS: ASCORBIC ACID 500 MG TAB PO SCH (08:59)
[2017-03-06] MEDS: FERROUS SULFATE 325 MG TAB PO SCH (08:59)
[2017-03-06] MEDS: POTASSIUM CHLORIDE ER 10 MEQ TAB.ER.PRT PO SCH (08:59)
[2017-03-06] MEDS: FUROSEMIDE 10 MG/ML 10 ML VIAL IV SCH (08:59)
[2017-03-06] MEDS: acetaZOLAMIDE 250 MG TAB PO SCH (08:59)
[2017-03-06] MEDS: LACTOBACILLUS ACIDOPH & BULGAR 1 EACH PACKET PO SCH ×4 (08:59→20:19)
[2017-03-06] MEDS: CHOLESTYRAMINE (WITH SUGAR) 4 GM PACKET PO SCH ×2 (08:59→15:56)
[2017-03-06] MEDS: FINASTERIDE 5 MG TAB PO SCH (08:59)
[2017-03-06] MEDS: VITAMIN E (DL,TOCOPHERYL ACET) 400 UNIT CAP PO SCH (08:59)
[2017-03-06] MEDS: CHOLECALCIFEROL 400 UNIT TAB PO SCH (09:00)
--- NOTE | 2017-03-06 10:06 | P.PN ---
Subjective Patient is seen in follow-up for acute kidney injury on chronic kidney disease. 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 Creatinine today is down to 1.99. He is currently maintained on IV Lasix 60 mg once daily. Dobutamine was also started on 03/02/2017. Edema is improved. Oral intake is fair. He is noted to be C. diff positive and is having quite a bit of diarrhea. Vital signs are stable. General: The patient appeared well nourished and normally developed. HEENT: Head exam is unremarkable. Neck is without jugular venous distension. LUNGS: Lungs are clear to auscultation and percussion. Breath sounds decreased. HEART: Rate and Rhythm are regular. First and second heart sounds normal. No murmurs, rubs or gallops. ABDOMEN: Abdominal exam reveals normal bowel sounds. Non-tender and non- distended. No evidence of peritonitis. EXTREMITITES: Trace edema. Objective - Vital Signs Vital signs: Vital Signs Temp 98.4 F 03/06/17 04:15 Pulse 62 03/06/17 04:15 Resp 18 03/06/17 04:15 BP 133/70 03/06/17 04:15 Pulse Ox 98 03/06/17 04:15 Intake & Output 03/05/17 03/06/17 03/06/17 18:59 06:59 18:59 Intake Total 850 236 Output Total 100 2 Balance 750 -2 236 Weight 90 kg 92 kg Intake: Intake, IV Titration 250 Amount DOBUTamine DRIP 500 mg In 250 Dextrose/Water 1 250ml. bag @ 2.5 MCG/KG/MIN 6.53 mls/hr IV .Q24H [facility] Rx#: [id number] Oral 600 236 Output: Urine 100 Urine/Stool Mix 2 Other: Voiding Method Diaper Diaper # Voids 1 2 # Bowel Movements 1 - Labs CBC & Chem 7: 03/03/17 06:18 03/06/17 05:45 Labs: Abnormal Lab Results - Last 24 Hours (Table) 03/05/17 03/05/17 03/05/17 Range/Units 12:07 17:08 20:52 PT (9.0-12.0) sec INR (<1.2) Carbon Dioxide (22-30) mmol/L BUN (9-20) mg/dL Creatinine (0.66-1.25) mg/dL Glucose (74-99) mg/dL POC Glucose (mg/dL) 173 H 184 H 185 H (75-99) mg/dL 03/06/17 03/06/17 03/06/17 Range/Units 05:45 05:45 05:50 PT 28.0 H (9.0-12.0) sec INR 3.1 H (<1.2) Carbon Dioxide 31 H (22-30) mmol/L BUN 49 H (9-20) mg/dL Creatinine 1.99 H (0.66-1.25) mg/dL Glucose 136 H (74-99) mg/dL POC Glucose (mg/dL) 143 H (75-99) mg/dL Microbiology - Last 24 Hours (Table) 03/01/17 18:11 Blood Culture - Preliminary Blood No Growth after 96 hours 02/27/17 12:29 Blood Culture - Final Blood No Growth after 144 hours Assessment and Plan Plan: Assessment: #1. Nonoliguric acute kidney injury secondary to ATN secondary to cardiorenal syndrome. Renal function is better today with creatinine at 1.99. No proteinuria noted on urinalysis. #2. 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 #3. Systolic CHF with ejection fraction of 35-40%. #4. Volume overload. Improving. #5. C diff colitis maintained on antibiotics. #6. Metabolic alkalosis due to volume contraction. Improved. Plan: Continue Lasix 60 mg once daily. Discontinue dobutamine. Discontinue Diamox. Repeat electrolytes in the morning. Avoid nephrotoxic agents and hypotensive episodes.
[2017-03-06 11:51] LABS: Glucose,Whole Blood 184 mg/dL (75-99)
--- NOTE | 2017-03-06 15:17 | P.PN ---
Subjective Progress Note Date: 03/06/17 Principal diagnosis: CHF This is a pleasant 86-year-old gentleman with history of coronary artery bypass surgery 15 years ago, diabetes, hypertension, [place], stroke as well as bilateral carotid endarterectomies. Presented to the emergency department with complaints of worsening edema and pain in both legs worse on the left leg . Chest x-ray showed congestive heart failure, pleural effusions and appeared to be worse than last exam. BNP was found to be elevated at 7290. She is currently on IV Lasix drip 5 mg per hour, his urine output has been minimal, and his weight is actually documented to be up from yesterday. Nephrology is going to increase the Lasix drip to 10 mg per hour today, if urine output remains marginal dobutamine may be added. Patient continues to have bilateral peripheral edema as well as rales to the bases. INR 2.5, potassium 4.6, BUN 48 , creatinine 1.9. 02/27/2017 Patient seen and examined this morning, Diuresed very well through the night last night, 2600 out. Weight down 1 kg. INR 2.4, potassium 4.0, BUN 48, creatinine 1.9, magnesium 2.5. Complaining of some pain in his left lower leg. Edema much improved today overall. Breathing improving as well. 02/28/2017 Patient seen and examined this morning, weight down 2 kg today. Sodium 146, potassium 3.8, BUN 48, creatinine 1.9. Continues to diurese well, edema is improving, breathing is improving. 03/01/2017 Patient seen and examined this morning weight is down 2 kg, continues to have some peripheral edema. Creatinine 2.07 today. In are 2.8 03/04/2017 Patient seen and examined this morning, doing much better overall. Continues to be on IV dobutamine. Blood pressure 116/60 heart rate in the 90s. Weight down 2 kg. Ostium 3.4, BUN 27, creatinine 0.7. 03/05/2017 Patient seen sitting up in the chair today, continues to be on IV dobutamine. Weight unchanged today. INR 3.5. 03/06/2017 Seen and examined this morning, creatinine today down to 1.9, currently maintained on IV Lasix 60 mg daily, dobutamine discontinued. Edema is improving , patient states today feeling overall better. Oral intake is fair, patient is C. diff positive and still continues to have a significant amount of diarrhea. . Objective - Vital Signs Vital signs: Vital Signs Temp 96.8 F L 03/06/17 08:00 Pulse 69 03/06/17 14:04 Resp 16 03/06/17 14:04 BP 113/56 03/06/17 12:00 Pulse Ox 94 L 03/06/17 12:00 Intake & Output 03/05/17 03/06/17 03/06/17 18:59 06:59 18:59 Intake Total 850 456 Output Total 100 2 Balance 750 -2 456 Weight 90 kg 92 kg Intake: Intake, IV Titration 250 Amount DOBUTamine DRIP 500 mg In 250 Dextrose/Water 1 250ml. bag @ 2.5 MCG/KG/MIN 6.53 mls/hr IV .Q24H [facility] Rx#: [id number] Oral 600 456 Output: Urine 100 Urine/Stool Mix 2 Other: Voiding Method Diaper Diaper Diaper # Voids 1 2 2 # Bowel Movements 1 2 - Exam PHYSICAL EXAMINATION: HEENT: Head is atraumatic, normocephalic. Pupils equal, round. Neck is supple. There is elevated jugular venous pressure. HEART EXAMINATION: Heart sounds irregular irregular, S1 and S2 normal. CHEST EXAMINATION: Lungs reveal diminished air entry to bilateral bases . No chest wall tenderness is noted on palpation or with deep breathing. ABDOMEN: Soft, nontender. Bowel sounds are heard. No organomegaly noted. EXTREMITIES: 1+ peripheral pulses with evidence of trace to 1+ peripheral edema left leg greater than the right , bilateral Gm wraps in place. NEUROLOGIC patient is awake, alert and oriented x3. . - Labs CBC & Chem 7: 03/03/17 06:18 03/06/17 05:45 Labs: Abnormal Lab Results - Last 24 Hours (Table) 03/05/17 03/05/17 03/06/17 Range/Units 17:08 20:52 05:45 PT 28.0 H (9.0-12.0) sec INR 3.1 H (<1.2) Carbon Dioxide (22-30) mmol/L BUN (9-20) mg/dL Creatinine (0.66-1.25) mg/dL Glucose (74-99) mg/dL POC Glucose (mg/dL) 184 H 185 H (75-99) mg/dL 03/06/17 03/06/17 03/06/17 Range/Units 05:45 05:50 11:44 PT (9.0-12.0) sec INR (<1.2) Carbon Dioxide 31 H (22-30) mmol/L BUN 49 H (9-20) mg/dL Creatinine 1.99 H (0.66-1.25) mg/dL Glucose 136 H (74-99) mg/dL POC Glucose (mg/dL) 143 H 184 H (75-99) mg/dL Microbiology - Last 24 Hours (Table) 03/01/17 18:11 Blood Culture - Preliminary Blood No Growth after 96 hours 02/27/17 12:29 Blood Culture - Final Blood No Growth after 144 hours Assessment and Plan Plan: Assessment and plan #1 systolic congestive heart failure acute on chronic, echocardiogram with Doppler study reveals an ejection fraction of 35-40%. #2 acute on chronic kidney disease #3 known history of coronary artery disease with prior bypass surgery #4 chronic persistent atrial fibrillation, on Coumadin for anticoagulation #5 hypertension #6 diabetes #7 history of TIA Plan We will continue Lasix 60 mg daily, dobutamine has been discontinued as well as the Diamox. Check labs in the morning.. . DNP note has been reviewed, I agree with a documented findings and plan of care. Patient was seen and examined.
[2017-03-06] MEDS ORDERED: LOPERAMIDE 2 MG CAP PO ONE (16:12)
[2017-03-06 16:55] LABS: Glucose,Whole Blood 203 mg/dL (75-99)
[2017-03-06] MEDS: DOBUTamine DRIP 500 MG in DEXTROSE/WATER 1 250ML.BAG IV SCH (19:45)
[2017-03-06] MEDS: ATORVASTATIN 10 MG TAB PO SCH (20:19)
[2017-03-06] MEDS: LISINOPRIL 5 MG TAB PO SCH (20:19)
[2017-03-06 20:49] LABS: Basophils % (A) 0 %; Eosinophils # (A) 0.3 k/uL (0-0.7); Eosinophils % (A) 4 %; HCT 33.4 % (39.0-53.0); Hypochromasia Marked; Lymphocytes # (A) 0.9 k/uL (1.0-4.8); Lymphocytes % (A) 14 %; MCH 29.5 pg (25.0-35.0); MCHC 29.9 g/dL (31.0-37.0); MCV 98.9 fL (80.0-100.0); Mean Platelet Volume 7.7; Monocytes # (A) 0.4 k/uL (0-1.0); Monocytes % (A) 6 %; Neutrophils # (A) 4.8 k/uL (1.3-7.7); Neutrophils % (A) 74 %; Platelet Count 203 k/uL (150-450); RBC 3.37 m/uL (4.30-5.90); WBC 6.5 k/uL (3.8-10.6)
[2017-03-06 21:30] LABS: Glucose,Whole Blood 176 mg/dL (75-99)
--- NOTE | 2017-03-06 22:44 | P.PN ---
Subjective Progress Note Date: 03/06/17 Principal diagnosis: Increasing edema and shortness of breath 86-year-old male with a known history of chronic kidney disease presented to the emergency center feeling poorly for several days. Was having increasing edema to the bilateral lower extremities with resultant weeping. The patient relates that his weight is been increasing despite his use of oral Lasix at home. His living situation has changed in that his is at the halfway and he said eating as well as he used to. Because he was feeling considerably worse he presented to the emergency center with evidence of a cellulitis the left lower extremity the infectious diseases consultation was requested. The patient has a known history of a coronary artery bypass grafting procedure and had vein harvest from the left leg and is had resultant chronic venous stasis to the lower extremity which is now considerably aggravated by his worsening renal failure and extensive volume overload. Patient feeling somewhat better today. No shortness of breath. Lower extremity edema is improved. Developed diarrhea and CDIFF was isolated. Rocephin has completed and diarrhea improved with oral Vanco. Objective - Vital Signs Vital signs: Vital Signs Temp 98.4 F 03/06/17 19:30 Pulse 62 03/06/17 19:30 Resp 16 03/06/17 19:30 BP 112/58 03/06/17 19:30 Pulse Ox 96 03/06/17 19:30 Intake & Output 03/06/17 03/06/17 03/07/17 06:59 18:59 06:59 Intake Total 576 Output Total 2 2 Balance -2 574 Weight 92 kg Intake: Oral 576 Output: Urine/Stool Mix 2 2 Other: Voiding Method Diaper Diaper Diaper Incontinent # Voids 2 2 # Bowel Movements 2 - Exam Pleasant 86-year-old male who is short of breath and somewhat uncomfortable but denies fevers or chills. HEENT: Anicteric conjunctiva are pink and moist nasal mucosa grossly intact without significant lesions, there is no thrush. Full denture Neck: The neck is supple without significant lymphadenopathy or thyromegaly. Lungs: Symmetrical air entry is noted with bibasilar crackles but no alfredito wheezing. No egophony or dullness Heart: Irregular with an audible S1 and S2 loud S4 no distinct murmur click or rub PMI is nondisplaced Abdomen: Positive bowel sounds soft and nontender without palpable masses or organomegaly. There was no guarding or rebound. Extremities: The upper extremities have excellent pulses they are symmetric, no significant petechiae or telangiectasia. No splinter hemorrhages were noted. Lower extremities have edema left leg more than the right. Left leg is evidence of the extensive erythematous present from the foot to the knee. The erythema is much improved and no longer tender No extensive lymphadenopathy is noted inguinal or other areas Neuro: Awake alert oriented to person place and time. There are no acute new gross focal sensory motor deficits. - Labs CBC & Chem 7: 03/06/17 20:27 03/06/17 05:45 Labs: Abnormal Lab Results - Last 24 Hours (Table) 03/06/17 03/06/17 03/06/17 Range/Units 05:45 05:45 05:50 RBC (4.30-5.90) m/uL Hgb (13.0-17.5) gm/dL Hct (39.0-53.0) % MCHC (31.0-37.0) g/dL Lymphocytes # (1.0-4.8) k/uL PT 28.0 H (9.0-12.0) sec INR 3.1 H (<1.2) Carbon Dioxide 31 H (22-30) mmol/L BUN 49 H (9-20) mg/dL Creatinine 1.99 H (0.66-1.25) mg/dL Glucose 136 H (74-99) mg/dL POC Glucose (mg/dL) 143 H (75-99) mg/dL Magnesium (1.6-2.3) mg/dL 03/06/17 03/06/17 03/06/17 Range/Units 11:44 16:49 20:27 RBC 3.37 L (4.30-5.90) m/uL Hgb 10.0 L (13.0-17.5) gm/dL Hct 33.4 L (39.0-53.0) % MCHC 29.9 L (31.0-37.0) g/dL Lymphocytes # 0.9 L (1.0-4.8) k/uL PT (9.0-12.0) sec INR (<1.2) Carbon Dioxide (22-30) mmol/L BUN (9-20) mg/dL Creatinine (0.66-1.25) mg/dL Glucose (74-99) mg/dL POC Glucose (mg/dL) 184 H 203 H (75-99) mg/dL Magnesium (1.6-2.3) mg/dL 03/06/17 03/06/17 Range/Units 20:27 21:07 RBC (4.30-5.90) m/uL Hgb (13.0-17.5) gm/dL Hct (39.0-53.0) % MCHC (31.0-37.0) g/dL Lymphocytes # (1.0-4.8) k/uL PT (9.0-12.0) sec INR (<1.2) Carbon Dioxide (22-30) mmol/L BUN (9-20) mg/dL Creatinine (0.66-1.25) mg/dL Glucose (74-99) mg/dL POC Glucose (mg/dL) 176 H (75-99) mg/dL Magnesium 2.5 H (1.6-2.3) mg/dL Microbiology - Last 24 Hours (Table) 03/01/17 18:11 Blood Culture - Preliminary Blood No Growth after 120 hours Laboratory Results WBC 6.5 k/uL (3.8-10.6) 03/06/17 20: RBC 3.37 m/uL (4.30-5.90) L 03/06/17 20:27 Hgb 10.0 gm/dL (13.0-17.5) L 03/06/17 20:27 Hct 33.4 % (39.0-53.0) L 03/06/17 20: MCV 98.9 fL (80.0-100.0) 03/06/17 20: MCH 29.5 pg (25.0-35.0) 03/06/17 20: MCHC 29.9 g/dL (31.0-37.0) L 03/06/17 20: RDW 14.0 % (11.5-15.5) 03/06/17 20:27 Plt Count 203 k/uL (150-450) 03/06/17 20:27 Neutrophils % 74 % 03/06/17 20:27 Lymphocytes % 14 % 03/06/17 20:27 Monocytes % 6 % 03/06/17 20:27 Eosinophils % 4 % 03/06/17 20:27 Basophils % 0 % 03/06/17 20:27 Neutrophils # 4.8 k/uL (1.3-7.7) 03/06/17 20: Lymphocytes # 0.9 k/uL (1.0-4.8) L 03/06/17 20:27 Monocytes # 0.4 k/uL (0-1.0) 03/06/17 20:27 Eosinophils # 0.3 k/uL (0-0.7) 03/06/17 20: Basophils # 0.0 k/uL (0-0.2) 03/06/17 20:27 Manual Slide Review Performed 02/23/17 10:45 Hypochromasia Marked 03/06/17 20:27 Macrocytosis Slight 02/25/17 05:42 PT 28.0 sec (9.0-12.0) H 03/06/17 05:45 INR 3.1 (<1.2) H 03/06/17 05:45 APTT 31.1 sec (22.0-30.0) H 02/23/17 10:45 Sodium 140 mmol/L (137-145) 03/06/17 05:45 Potassium 3.9 mmol/L (3.5-5.1) 03/06/17 05:45 Chloride 102 mmol/L (98-107) 03/06/17 05:45 Carbon Dioxide 31 mmol/L (22-30) H 03/06/17 05:45 Anion Gap 7 mmol/L 03/06/17 05:45 BUN 49 mg/dL (9-20) H 03/06/17 05:45 Creatinine 1.99 mg/dL (0.66-1.25) H 03/06/17 05:45 Est GFR (MDRD) Af Amer 39 (>60 ml/min/1.73 sqM) 03/06/17 05:45 Est GFR (MDRD) Non-Af 32 (>60 ml/min/1.73 sqM) 03/06/17 05:45 Glucose 136 mg/dL (74-99) H 03/06/17 05:45 POC Glucose (mg/dL) 176 mg/dL (75-99) H 03/06/17 21:07 POC Glu [employer] ID LexiKari bautista 03/06/17 21:[address] Glu mg/dL 126 02/27/17 09:23 Hemoglobin A1c 6.0 % (4.0-6.0) 02/27/17 09:23 Uric Acid 8.1 mg/dL (3.5-8.5) 02/23/17 10:45 Calcium 9.2 mg/dL (8.4-10.2) 03/06/17 05:45 Magnesium 2.5 mg/dL (1.6-2.3) H 03/06/17 20:27 Iron 43 ug/dL (65-175) L 02/24/17 06:03 TIBC 245 ug/dL (228-460) 02/24/17 06:03 Iron Saturation 17.55 (15.00-50.00) 02/24/17 06:03 Total Bilirubin 0.8 mg/dL (0.2-1.3) 02/26/17 06:14 AST 22 U/L (17-59) 02/26/17 06:14 ALT 34 U/L (21-72) 02/26/17 06:14 Alkaline Phosphatase 91 U/L (38-126) 02/26/17 06:14 Total Creatine Kinase 27 U/L (55-170) L 02/23/17 17:02 CK-MB (CK-2) 0.6 ng/mL (0.0-2.4) 02/23/17 17:02 CK-MB (CK-2) Rel Index 2.2 02/23/17 17:02 Troponin I 0.036 ng/mL (0.000-0.034) H* 02/23/17 22:57 NT-Pro-B Natriuret Pep 7290 pg/mL 02/23/17 10:45 Total Protein 6.3 g/dL (6.3-8.2) 02/26/17 06:14 Albumin 3.3 g/dL (3.5-5.0) L 02/26/17 06:14 Urine Color Light Yellow 02/28/17 06:20 Urine Appearance Clear (Clear) 02/28/17 06:20 Urine pH 7.5 (5.0-8.0) 02/28/17 06:20 Ur Specific [place] 1.007 (1.001-1.035) 02/28/17 06:20 Urine Protein Negative (Negative) 02/28/17 06:20 Urine Glucose (UA) Negative (Negative) 02/28/17 06:20 Urine Ketones Negative (Negative) 02/28/17 06:20 Urine Blood Small (Negative) H 02/28/17 06:20 Urine Nitrite Negative (Negative) 02/28/17 06:20 Urine Bilirubin Negative (Negative) 02/28/17 06:20 Urine Urobilinogen <2.0 mg/dL (<2.0) 02/28/17 06:20 Ur Leukocyte Esterase Negative (Negative) 02/28/17 06:20 Urine RBC 18 /hpf (0-5) H 02/28/17 06:20 Urine Mucus Rare /hpf (None) H 02/28/17 06:20 C. difficile (EIA) Intrp Positive (Negative) A 03/02/17 08:11 Microbiology 03/01/17 18:11 Blood Blood Culture - Preliminary No Growth after 120 hours 02/27/17 12:29 Blood Blood Culture - Final No Growth after 144 hours Assessment and Plan (1) Congestive heart failure Current Visit: Yes Status: Acute Code(s): I50.9 - HEART FAILURE, UNSPECIFIED SNOMED Code(s): 48687642 (2) Acute renal failure Current Visit: Yes Status: Acute Code(s): N17.9 - ACUTE KIDNEY FAILURE, UNSPECIFIED SNOMED Code(s): 61887501 (3) Cellulitis Narrative/Plan: 86-year-old male presents to hospital with increasing lower extremity edema especially the left lower extremity associated with weeping and drainage. He was feeling poorly. Much more short of breath and having increasing difficulty with day-to-day activities. He also relates to social situation is difficult with his being in the halfway. Admission there was evidence of worsening of his chronic kidney disease with acute renal failure superimposed on his significant systolic congestive heart failure and pulmonary edema. He is an insulin drip showing some improvement. The extensive cellulitis of the left lower extremity is noted. The patient relates starting to show some improvement because he's had some diuresis. Duplexes been performed with no evidence of any deep venous thrombosis. The Silvadene wrap is now allowed resolution of the swelling erythema and cellulitis of the left leg. The vein harvest to the extremity is a significant contributing factor to the extensive edema and resultant cellulitis. Elevation the limb is important. Is being followed by nephrology trying to improve his fluid and potassium balance. It is noted patient developed diarrhea and Clostridium difficile colitis has been diagnosed. Responding well to vancomycin therapy. Less frequent stools today. Plan 10 days of therapy. Fortunately the leg is now much improved and intravenous antibiotic therapy has discontinued. Because of some ongoing large-volume stools 8 single dose of Imodium and is added. Current Visit: No Status: Acute Code(s): L03.90 - CELLULITIS, UNSPECIFIED SNOMED Code(s): 072353403
[2017-03-07] MEDS: VANCOMYCIN ORAL SOLUTION 250 MG/5 ML BOTTLE PO SCH ×4 (00:49→17:58)
[2017-03-07 06:23] LABS: Glucose,Whole Blood 205 mg/dL (75-99)
[2017-03-07] MEDS: INSULIN ASPART 100 UNIT/ML 1 ML 10 ML VIAL SQ SCH ×4 (06:36→21:26)
[2017-03-07 07:03] LABS: Calcium 9.1 mg/dL (8.4-10.2); Potassium 3.8 mmol/L (3.5-5.1)
[2017-03-07 07:06] LABS: INR 2.7 (<1.2); Prothrombin Time 24.3 sec (9.0-12.0)
[2017-03-07] MEDS: FUROSEMIDE 10 MG/ML 10 ML VIAL IV SCH (09:41)
[2017-03-07] MEDS: LACTOBACILLUS ACIDOPH & BULGAR 1 EACH PACKET PO SCH ×4 (09:41→20:20)
[2017-03-07] MEDS: FINASTERIDE 5 MG TAB PO SCH (09:41)
[2017-03-07] MEDS: FERROUS SULFATE 325 MG TAB PO SCH (09:41)
[2017-03-07] MEDS: POTASSIUM CHLORIDE ER 10 MEQ TAB.ER.PRT PO SCH (09:42)
[2017-03-07] MEDS: CHOLESTYRAMINE (WITH SUGAR) 4 GM PACKET PO SCH ×2 (09:42→17:57)
--- NOTE | 2017-03-07 11:20 | FL ---
Modified barium swallow. HISTORY: Dysphagia. Modified barium swallow was performed with the department of speech pathology. The patient was prese nted with various consistencies of barium. Norman aspiration was noted with thin liquid barium. Full report is to follow from the department of [facility]. Impression: Norman aspiration was noted with thin liquid barium.
[2017-03-07 11:35] LABS: Glucose,Whole Blood 158 mg/dL (75-99)
[2017-03-07] MEDS: CHOLECALCIFEROL 400 UNIT TAB PO SCH (12:42)
[2017-03-07] MEDS: VITAMIN E (DL,TOCOPHERYL ACET) 400 UNIT CAP PO SCH (12:42)
[2017-03-07] MEDS: ASCORBIC ACID 500 MG TAB PO SCH (12:42)
--- NOTE | 2017-03-07 13:44 | P.CNPUL ---
History of Present Illness Consult date: 03/07/17 Requesting physician: Mervin Oliver Reason for consult: pneumonia Chief complaint: Shortness of breath and leg edema History of present illness: This is an 86-year-old white male with history of multiple medical problems including chronic systolic congestive heart failure, COPD, diabetes, hypertension, coronary artery disease and previous NE, previous CABG, history of enlarged prostate, patient presented and he was admitted to the hospital on 02/23/2017 with mostly symptoms of acute congestive heart failure, acute renal failure, and acute cellulitis of the left lower extremity. Since admission, the patient has been seen by many consultants including nephrology, cardiology, infectious disease, and has been treated for his congestive heart failure with diuretics, and cellulitis with antibiotics, and he was treated by nephrology for what seems to be a stage IIB renal failure secondary to nephrosclerosis. Baseline creatinine is in the range of 1.4-1.7. Patient was placed on good doses of diuretics in the form of Lasix, and he was on dobutamine on telemetry recently which was discontinued by cardiology. Overall the patient has made a significant clinical improvement, follow-up chest x-ray done yesterday showed some component of volume overload, patchy bilateral perihilar densities representing areas of atelectasis or pneumonia. Patient had a swallow evaluation study, and there was alfredito aspiration noted with thin liquid barium. Hence the Department of speech pathology is making recommendations regarding feeding. Clinically however the patient is feeling better, breathing easier, he seems to be debilitated and he will likely benefit from physical therapy or from rehabilitation. Today, the patient describes some occasional cough, no wheezing, no chest pain, no fever no chills no hemoptysis, no nausea no vomiting no abdominal pain. Review of Systems 14 point review of systems were obtained, please refer to pertinent positives in HPI otherwise remaining systems are negative. Past Medical History Past Medical History: Heart Failure, COPD, CVA/TIA, Diabetes Mellitus, Hearing Disorder / Deafness, Hyperlipidemia, Hypertension, Myocardial Infarction (NE), Prostate Disorder Additional Past Medical History / Comment(s): TIA, chronic venous stasis with previous harvesting of vein from the left lower extremity for CABG, chronic back pain,constipation,enlarged prostate,mult bruising areas, deaf in Left ear Last Myocardial Infarction Date:: UNK History of Any Multi-Drug Resistant Organisms: None Reported Past Surgical History: Back Surgery, Coronary Bypass/CABG, Ear Surgery Additional Past Surgical History / Comment(s): 11-04-14 LAPROSCOPIC SHIVAM INGUINAL HERNIA REPAIR. OTHER PAST HX: right ear surgery, lumbar surgery with Dr. Ho many years ago, bilateral carotid endarterectomy with Dr. Villalobos, right shoulder lipoma excision. pneumonia Past Anesthesia/Blood Transfusion Reactions: No Reported Reaction Past Psychological History: Depression Smoking Status: Former smoker Past Alcohol Use History: None Reported Additional Past Alcohol Use History / Comment(s): Patient smoked occasional cigar many years ago. He denies any medical marijuana, marijuana or street drug use. He denies any alcohol use. He is retired from [email or web address]. He served in the [employer] in the [employer] and was stationed in [place] for 18 months. He is currently living at home with his . There are no pets in the home. No recent travel. Past Drug Use History: None Reported - Past Family History Mother Family Medical History: Cancer, Myocardial Infarction (NE) Additional Family Medical History / Comment(s): Breast Father Family Medical History: Myocardial Infarction (NE) Sister(s) Family Medical History: Cancer, Rheumatoid Arthritis (RA) Additional Family Medical History / Comment(s): BREAST Medications and Allergies Home Medications Medication Instructions Recorded Confirmed Type Ascorbic Acid [Vitamin C] 500 mg PO DAILY@1200 07/22/14 02/23/17 History Aspirin 81 mg PO HS 07/22/14 02/23/17 History Cholecalciferol [Vitamin D3] 400 unit PO DAILY@1200 07/22/14 02/23/17 History Finasteride [Proscar] 5 mg PO QAM 07/22/14 02/23/17 History Furosemide [Lasix] 80 mg PO AC-BID 07/22/14 02/23/17 History Lisinopril [Zestril] 5 mg PO HS 07/22/14 02/23/17 History Potassium Chloride [Klor-Con 10] 10 meq PO QAM 07/22/14 02/23/17 History Warfarin [Coumadin] 5 mg PO MOWEFR 07/22/14 02/23/17 History Warfarin [Coumadin] 2.5 mg PO SUTUTHSA 11/03/14 02/23/17 History Doxazosin Mesylate 8 mg PO QAM 02/23/17 02/23/17 History Ferrous Sulfate [Feosol] 325 mg PO QAM 02/23/17 02/23/17 History Simvastatin [Zocor] 20 mg PO HS 02/23/17 02/23/17 History Vitamin E (Dl,Tocopheryl Acet) 400 unit PO DAILY@1200 02/23/17 02/23/17 History [Vitamin E] glipiZIDE [Glucotrol] 10 mg PO AC-BID 02/23/17 02/23/17 History Allergies Allergy/AdvReac Type Severity Reaction Status Date / Time No Known Allergies Allergy Verified 02/23/17 11:49 Physical Exam Vitals: Vital Signs Temp Pulse Resp BP Pulse Ox 03/07/17 12:00 97.0 F L 66 20 134/74 95 03/07/17 08:00 97.0 F L 80 18 119/62 100 03/07/17 04:00 97.9 F 79 18 109/57 94 L 03/07/17 00:00 97.4 F L 65 18 117/59 93 L 03/06/17 19:30 98.4 F 62 16 112/58 96 03/06/17 16:00 69 16 116/56 96 03/06/17 14:04 69 16 Intake and Output 03/06/17 03/07/17 03/07/17 22:59 06:59 14:59 Intake Total 120 0 Output Total 2 Balance 118 0 Intake: Oral 120 0 Output: Urine/Stool Mix 2 Other: Voiding Method Diaper Diaper Diaper Incontinent Incontinent Incontinent # Voids 2 1 # Bowel Movements 1 Weight 92 kg Physical Exam: Revealed an 86-year-old white male, frail looking, in no form of respiratory distress, seems to be comfortable. HEENT:[Neck is supple.] [No neck masses.] [No thyromegaly.] [No JVD.] Anicteric conjunctiva, PERRLA, EOMI. Dry mucous membranes noted. Chest: [Diminished breath sounds at the bases with minimal crackles, no alfredito wheezing noted. No dullness..] Cardiac Exam: [Irregular irregular rhythm Normal S1 and S2, no S3 gallop, no murmur.] Abdomen: [Soft, nontender, no megaly, no rebound, no guarding, normal bowel sounds.] Extremities: [No clubbing, no edema, no cyanosis.] There is evidence of edema bilaterally, left more so than right, there is also some extensive erythematous changes of the left lower extremity from the left foot to the left knee. Neurological Exam: [No focal neurologic deficit.] However the patient seems to be generally weak. Lymphatics: No lymphadenopathy. Psychiatric: Normal mood affect and mental status examination. Results - Laboratory Findings CBC and BMP: 03/06/17 20:27 03/07/17 06:14 PT/INR, D-dimer PT 24.3 sec (9.0-12.0) H 03/07/17 06:14 INR 2.7 (<1.2) H 03/07/17 06:14 Abnormal lab findings: Abnormal Labs 02/23/17 02/23/17 02/23/17 10:45 10:45 10:45 WBC RBC 3.63 L Hgb 10.7 L Hct 34.8 L MCHC 30.7 L RDW Plt Count 89 L Neutrophils # Lymphocytes # PT INR APTT Sodium Carbon Dioxide 36 H BUN 45 H Creatinine 1.90 H Glucose 184 H POC Glucose (mg/dL) Magnesium 2.5 H Iron Total Creatine Kinase 27 L Troponin I Total Protein 6.0 L Albumin 3.3 L Urine Blood Urine RBC Urine Mucus C. difficile (EIA) Intrp 02/23/17 02/23/17 02/23/17 10:45 16:45 17:02 WBC RBC Hgb Hct MCHC RDW Plt Count Neutrophils # Lymphocytes # PT 22.3 H INR 2.5 H APTT 31.1 H Sodium Carbon Dioxide BUN Creatinine Glucose POC Glucose (mg/dL) 218 H Magnesium Iron Total Creatine Kinase 27 L Troponin I Total Protein Albumin Urine Blood Urine RBC Urine Mucus C. difficile (EIA) Intrp 02/23/17 02/23/17 02/24/17 20:49 22:57 06:03 WBC RBC 3.39 L Hgb 9.9 L Hct 33.1 L MCHC 30.0 L RDW 15.6 H Plt Count 73 L Neutrophils # Lymphocytes # PT INR APTT Sodium Carbon Dioxide BUN Creatinine Glucose POC Glucose (mg/dL) 208 H Magnesium Iron Total Creatine Kinase Troponin I 0.036 H* Total Protein Albumin Urine Blood Urine RBC Urine Mucus C. difficile (EIA) Intrp 02/24/17 02/24/17 02/24/17 06:03 06:03 06:14 WBC RBC Hgb Hct MCHC RDW Plt Count Neutrophils # Lymphocytes # PT INR APTT Sodium Carbon Dioxide 36 H BUN 49 H Creatinine 1.99 H Glucose 73 L POC Glucose (mg/dL) 73 L Magnesium Iron 43 L Total Creatine Kinase Troponin I Total Protein Albumin Urine Blood Urine RBC Urine Mucus C. difficile (EIA) Intr 02/24/17 02/24/17 02/24/17 11:25 16:29 21:23 WBC RBC Hgb Hct MCHC RDW Plt Count Neutrophils # Lymphocytes # PT INR APTT Sodium Carbon Dioxide BUN Creatinine Glucose POC Glucose (mg/dL) 180 H 152 H 223 H Magnesium Iron Total Creatine Kinase Troponin I Total Protein Albumin Urine Blood Urine RBC Urine Mucus C. difficile (EIA) Intrp 02/25/17 02/25/17 02/25/17 05:42 05:42 05:42 WBC RBC 3.39 L Hgb 10.4 L Hct 33.5 L MCHC 30.9 L RDW 15.6 H Plt Count 79 L Neutrophils # Lymphocytes # PT 22.0 H INR 2.5 H APTT Sodium Carbon Dioxide 37 H BUN 47 H Creatinine 1.95 H Glucose POC Glucose (mg/dL) Magnesium Iron Total Creatine Kinase Troponin I Total Protein Albumin Urine Blood Urine RBC Urine Mucus C. difficile (EIA) Intrp 02/25/17 02/25/17 02/25/17 11:45 16:46 20:59 WBC RBC Hgb Hct MCHC RDW Plt Count Neutrophils # Lymphocytes # PT INR APTT Sodium Carbon Dioxide BUN Creatinine Glucose POC Glucose (mg/dL) 103 H 109 H 137 H Magnesium Iron Total Creatine Kinase Troponin I Total Protein Albumin Urine Blood Urine RBC Urine Mucus C. difficile (EIA) Intrp 02/26/17 02/26/17 02/26/17 06:07 06:14 06:14 WBC RBC Hgb Hct MCHC RDW Plt Count Neutrophils # Lymphocytes # PT 22.2 H INR 2.5 H APTT Sodium Carbon Dioxide 41 H* BUN 48 H Creatinine 1.90 H Glucose 66 L POC Glucose (mg/dL) 69 L Magnesium Iron Total Creatine Kinase Troponin I Total Protein Albumin 3.3 L Urine Blood Urine RBC Urine Mucus C. difficile (EIA) Intrp 02/26/17 02/26/17 02/26/17 11:19 17:08 21:09 WBC RBC Hgb Hct MCHC RDW Plt Count Neutrophils # Lymphocytes # PT INR APTT Sodium Carbon Dioxide BUN Creatinine Glucose POC Glucose (mg/dL) 127 H 139 H 198 H Magnesium Iron Total Creatine Kinase Troponin I Total Protein Albumin Urine Blood Urine RBC Urine Mucus C. difficile (EIA) [facility] 02/27/17 02/27/17 02/27/17 06:40 09:23 09:23 WBC RBC Hgb Hct MCHC RDW Plt Count Neutrophils # Lymphocytes # PT 21.8 H INR 2.4 H APTT Sodium Carbon Dioxide 36 H BUN 48 H Creatinine 1.91 H Glucose 182 H POC Glucose (mg/dL) 105 H Magnesium 2.5 H Iron Total Creatine Kinase Troponin I Total Protein Albumin Urine Blood Urine RBC Urine Mucus C. difficile (EIA) [facility] 02/27/17 02/27/17 02/28/17 11:27 16:25 06:20 WBC RBC Hgb Hct MCHC RDW Plt Count Neutrophils # Lymphocytes # PT INR APTT Sodium Carbon Dioxide BUN Creatinine Glucose POC Glucose (mg/dL) 170 H 201 H Magnesium Iron Total Creatine Kinase Troponin I Total Protein Albumin Urine Blood Small H Urine RBC 18 H Urine Mucus Rare H C. difficile (EIA) [facility] 02/28/17 02/28/17 02/28/17 06:48 06:53 06:55 WBC RBC Hgb Hct MCHC RDW Plt Count Neutrophils # Lymphocytes # PT 21.8 H INR 2.4 H APTT Sodium 146 H Carbon Dioxide 39 H BUN 48 H Creatinine 1.98 H Glucose 39 L* POC Glucose (mg/dL) 45 L Magnesium Iron Total Creatine Kinase Troponin I Total Protein Albumin Urine Blood Urine RBC Urine Mucus C. difficile (EIA) [facility] 02/28/17 02/28/17 02/28/17 07:09 11:33 16:41 WBC RBC Hgb Hct MCHC RDW Plt Count Neutrophils # Lymphocytes # PT INR APTT Sodium Carbon Dioxide BUN Creatinine Glucose POC Glucose (mg/dL) 69 L 151 H 125 H Magnesium Iron Total Creatine Kinase Troponin I Total Protein Albumin Urine Blood Urine RBC Urine Mucus C. difficile (EIA) [facility] 02/28/17 03/01/17 03/01/17 20:58 06:14 06:29 WBC RBC Hgb Hct MCHC RDW Plt Count Neutrophils # Lymphocytes # PT INR APTT Sodium Carbon Dioxide BUN Creatinine Glucose POC Glucose (mg/dL) 139 H 53 L 53 L Magnesium Iron Total Creatine Kinase Troponin I Total Protein Albumin Urine Blood Urine RBC Urine Mucus C. difficile (EIA) Intrp 03/01/17 03/01/17 03/01/17 07:58 07:58 14:57 WBC RBC Hgb Hct MCHC RDW Plt Count Neutrophils # Lymphocytes # PT 24.7 H INR 2.8 H APTT Sodium Carbon Dioxide 33 H BUN 47 H Creatinine 2.07 H Glucose POC Glucose (mg/dL) 120 H Magnesium Iron Total Creatine Kinase Troponin I Total Protein Albumin Urine Blood Urine RBC Urine Mucus C. difficile (EIA) Intrp 03/01/17 03/02/17 03/02/17 21:33 05:37 05:37 WBC 12.0 H RBC 3.44 L Hgb 9.9 L Hct 33.8 L MCHC 29.4 L RDW Plt Count 114 L Neutrophils # 10.1 H Lymphocytes # PT INR APTT Sodium Carbon Dioxide 35 H BUN 51 H Creatinine 2.15 H Glucose POC Glucose (mg/dL) 127 H Magnesium Iron Total Creatine Kinase Troponin I Total Protein Albumin Urine Blood Urine RBC Urine Mucus C. difficile (EIA) Intrp 03/02/17 03/02/17 03/02/17 06:14 08:11 12:15 WBC RBC Hgb Hct MCHC RDW Plt Count Neutrophils # Lymphocytes # PT INR APTT Sodium Carbon Dioxide BUN Creatinine Glucose POC Glucose (mg/dL) 103 H 176 H Magnesium Iron Total Creatine Kinase Troponin I Total Protein Albumin Urine Blood Urine RBC Urine Mucus C. difficile (EIA) Intr Positive A 03/02/17 03/02/17 03/02/17 17:00 18:18 21:37 WBC RBC Hgb Hct MCHC RDW Plt Count Neutrophils # Lymphocytes # PT 30.8 H INR 3.4 H APTT Sodium Carbon Dioxide BUN Creatinine Glucose POC Glucose (mg/dL) 158 H 224 H Magnesium Iron Total Creatine Kinase Troponin I Total Protein Albumin Urine Blood Urine RBC Urine Mucus C. difficile (EIA) Intrp 03/03/17 03/03/17 03/03/17 06:18 06:18 06:18 WBC RBC 3.25 L Hgb 9.3 L Hct 32.1 L MCHC 28.9 L RDW Plt Count 129 L Neutrophils # Lymphocytes # PT 28.7 H INR 3.2 H APTT Sodium Carbon Dioxide 34 H BUN 54 H Creatinine 2.27 H Glucose POC Glucose (mg/dL) Magnesium Iron Total Creatine Kinase Troponin I Total Protein Albumin Urine Blood Urine RBC Urine Mucus C. difficile (EIA) Intrp 03/03/17 03/03/17 03/03/17 06:28 11:45 16:54 WBC RBC Hgb Hct MCHC RDW Plt Count Neutrophils # Lymphocytes # PT INR APTT Sodium Carbon Dioxide BUN Creatinine Glucose POC Glucose (mg/dL) 105 H 166 H 215 H Magnesium Iron Total Creatine Kinase Troponin I Total Protein Albumin Urine Blood Urine RBC Urine Mucus C. difficile (EIA) Intrp 03/03/17 03/04/17 03/04/17 21:04 05:59 06:11 WBC RBC Hgb Hct MCHC RDW Plt Count Neutrophils # Lymphocytes # PT 29.5 H INR 3.3 H APTT Sodium Carbon Dioxide BUN Creatinine Glucose POC Glucose (mg/dL) 227 H 160 H Magnesium Iron Total Creatine Kinase Troponin I Total Protein Albumin Urine Blood Urine RBC Urine Mucus C. difficile (EIA) Intr 03/04/17 03/04/17 03/04/17 06:11 11:16 16:10 WBC RBC Hgb Hct MCHC RDW Plt Count Neutrophils # Lymphocytes # PT INR APTT Sodium Carbon Dioxide BUN 51 H Creatinine 2.24 H Glucose 129 H POC Glucose (mg/dL) 155 H 194 H Magnesium 2.4 H Iron Total Creatine Kinase Troponin I Total Protein Albumin Urine Blood Urine RBC Urine Mucus C. difficile (EIA) Intr 03/04/17 03/05/17 03/05/17 21:27 05:53 06:10 WBC RBC Hgb Hct MCHC RDW Plt Count Neutrophils # Lymphocytes # PT 31.2 H INR 3.5 H APTT Sodium Carbon Dioxide BUN Creatinine Glucose POC Glucose (mg/dL) 228 H 143 H Magnesium Iron Total Creatine Kinase Troponin I Total Protein Albumin Urine Blood Urine RBC Urine Mucus C. difficile (EIA) Intrp 03/05/17 03/05/17 03/05/17 12:07 17:08 20:52 WBC RBC Hgb Hct MCHC RDW Plt Count Neutrophils # Lymphocytes # PT INR APTT Sodium Carbon Dioxide BUN Creatinine Glucose POC Glucose (mg/dL) 173 H 184 H 185 H Magnesium Iron Total Creatine Kinase Troponin I Total Protein Albumin Urine Blood Urine RBC Urine Mucus C. difficile (EIA) Intrp 03/06/17 03/06/17 03/06/17 05:45 05:45 05:50 WBC RBC Hgb Hct MCHC RDW Plt Count Neutrophils # Lymphocytes # PT 28.0 H INR 3.1 H APTT Sodium Carbon Dioxide 31 H BUN 49 H Creatinine 1.99 H Glucose 136 H POC Glucose (mg/dL) 143 H Magnesium Iron Total Creatine Kinase Troponin I Total Protein Albumin Urine Blood Urine RBC Urine Mucus C. difficile (EIA) Intrp 03/06/17 03/06/17 03/06/17 11:44 16:49 20:27 WBC RBC 3.37 L Hgb 10.0 L Hct 33.4 L MCHC 29.9 L RDW Plt Count Neutrophils # Lymphocytes # 0.9 L PT INR APTT Sodium Carbon Dioxide BUN Creatinine Glucose POC Glucose (mg/dL) 184 H 203 H Magnesium Iron Total Creatine Kinase Troponin I Total Protein Albumin Urine Blood Urine RBC Urine Mucus C. difficile (EIA) Intrp 03/06/17 03/06/17 03/07/17 20:27 21:07 06:14 WBC RBC Hgb Hct MCHC RDW Plt Count Neutrophils # Lymphocytes # PT 24.3 H INR 2.7 H APTT Sodium Carbon Dioxide BUN Creatinine Glucose POC Glucose (mg/dL) 176 H Magnesium 2.5 H Iron Total Creatine Kinase Troponin I Total Protein Albumin Urine Blood Urine RBC Urine Mucus C. difficile (EIA) Intrp 03/07/17 03/07/17 03/07/17 06:14 06:22 11:33 WBC RBC Hgb Hct MCHC RDW Plt Count Neutrophils # Lymphocytes # PT INR APTT Sodium Carbon Dioxide BUN 48 H Creatinine 1.91 H Glucose 107 H POC Glucose (mg/dL) 205 H 158 H Magnesium Iron Total Creatine Kinase Troponin I Total Protein Albumin Urine Blood Urine RBC Urine Mucus C. difficile (EIA) Intr - Diagnostic Findings Chest x-ray: image reviewed (Please refer to HPI.) Assessment and Plan Assessment: Impression: 1 acute on chronic systolic congestive heart failure 2 chronic microaspiration with possible component of aspiration pneumonia bilaterally. 3 acute renal failure, nonoliguric acute kidney injury secondary to ATN secondary to cardiorenal syndrome. 4 systolic congestive heart failure with ejection fraction of 35-40%. 5 acute cellulitis of the left lower extremity 6 acute C. difficile colitis being treated Recommendation: I fully agree with the present treatment plan, patient is actually improving since admission, all his meds were reviewed, would suggest basically following up the recommendation of speech is that appear regarding feedings. We'll continue to follow. Time with Patient: Greater than 30
--- NOTE | 2017-03-07 14:28 | PN ---
PROGRESS NOTE Patient is seen for followup for acute kidney injury, mainly cardiorenal syndrome. Patient is status post Lasix drip and dobutamine. He is now maintained on IV Lasix, which was decreased to 60 mg IV daily as the patient has had significant diarrhea from C. diff colitis. Today is sitting up in a chair. His nurse reports that he has trouble swallowing with high suspicion for aspiration and therefore, currently he is not eating. He is being scheduled for a barium swallow. PHYSICAL EXAMINATION: Blood pressure 134/74, heart rate 66 per minute. He is afebrile. examination of the heart, S1, S2. Examination of the lungs, decreased breath sounds at the bases. Bilateral basal crackles are heard. Abdomen is soft, distended, obese, nontender. Examination of the lower extremities, chronic skin changes with edema, 2+ on the left leg, 1+on the right with significant improvement in edema since admission. LABS: Show sodium 140, potassium 3.8, serum creatinine 1.9 mg/dL. ASSESSMENT: 1. Acute kidney injury mainly cardiorenal with stable renal function. 2. Volume overload, currently improved. 3. Clostridium difficile colitis with some improvement in diarrhea. 4. Aspiration. Patient is currently n.p.o. and being further evaluated for swallowing studies. 5. Cardiomyopathy, ejection fraction of 30% to 35%, status post acute . PLAN: Continue with current dose of IV Lasix. RAFFAELE / ISABELN: [id number] /
--- NOTE | 2017-03-07 14:31 | P.PN ---
Subjective Progress Note Date: 03/07/17 Principal diagnosis: CHF This is a pleasant 86-year-old gentleman with history of coronary artery bypass surgery 15 years ago, diabetes, hypertension, [place], stroke as well as bilateral carotid endarterectomies. Presented to the emergency department with complaints of worsening edema and pain in both legs worse on the left leg . Chest x-ray showed congestive heart failure, pleural effusions and appeared to be worse than last exam. BNP was found to be elevated at 7290. She is currently on IV Lasix drip 5 mg per hour, his urine output has been minimal, and his weight is actually documented to be up from yesterday. Nephrology is going to increase the Lasix drip to 10 mg per hour today, if urine output remains marginal dobutamine may be added. Patient continues to have bilateral peripheral edema as well as rales to the bases. INR 2.5, potassium 4.6, BUN 48 , creatinine 1.9. 02/27/2017 Patient seen and examined this morning, Diuresed very well through the night last night, 2600 out. Weight down 1 kg. INR 2.4, potassium 4.0, BUN 48, creatinine 1.9, magnesium 2.5. Complaining of some pain in his left lower leg. Edema much improved today overall. Breathing improving as well. 02/28/2017 Patient seen and examined this morning, weight down 2 kg today. Sodium 146, potassium 3.8, BUN 48, creatinine 1.9. Continues to diurese well, edema is improving, breathing is improving. 03/01/2017 Patient seen and examined this morning weight is down 2 kg, continues to have some peripheral edema. Creatinine 2.07 today. In are 2.8 03/04/2017 Patient seen and examined this morning, doing much better overall. Continues to be on IV dobutamine. Blood pressure 116/60 heart rate in the 90s. Weight down 2 kg. Ostium 3.4, BUN 27, creatinine 0.7. 03/05/2017 Patient seen sitting up in the chair today, continues to be on IV dobutamine. Weight unchanged today. INR 3.5. 03/06/2017 Seen and examined this morning, creatinine today down to 1.9, currently maintained on IV Lasix 60 mg daily, dobutamine discontinued. Edema is improving , patient states today feeling overall better. Oral intake is fair, patient is C. diff positive and still continues to have a significant amount of diarrhea. 03/07/2017 Patient seen and examined this morning, feeling better overall. Edema significantly improved today. Off IV dobutamine for 48 hours. INR 2.7, BUN 48 , creatinine 1.9, potassium 3.8. . Objective - Vital Signs Vital signs: Vital Signs Temp 97.0 F L 03/07/17 12:00 Pulse 66 03/07/17 12:00 Resp 20 03/07/17 12:00 BP 134/74 03/07/17 12:00 Pulse Ox 95 03/07/17 12:00 Intake & Output 03/06/17 03/07/17 03/07/17 18:59 06:59 18:59 Intake Total 576 0 Output Total 2 Balance 574 0 Weight 92 kg Intake: Oral 576 0 Output: Urine/Stool Mix 2 Other: Voiding Method Diaper Diaper Diaper Incontinent Incontinent # Voids 2 1 # Bowel Movements 2 1 - Exam PHYSICAL EXAMINATION: HEENT: Head is atraumatic, normocephalic. Pupils equal, round. Neck is supple. There is elevated jugular venous pressure. HEART EXAMINATION: Heart sounds irregular irregular, S1 and S2 normal. CHEST EXAMINATION: Lungs reveal diminished air entry to bilateral bases . No chest wall tenderness is noted on palpation or with deep breathing. ABDOMEN: Soft, nontender. Bowel sounds are heard. No organomegaly noted. EXTREMITIES: 1+ peripheral pulses with evidence of trace peripheral edema left leg greater than the right , bilateral Gm wraps in place. NEUROLOGIC patient is awake, alert and oriented x3. . - Labs CBC & Chem 7: 03/06/17 20:27 03/07/17 06:14 Labs: Abnormal Lab Results - Last 24 Hours (Table) 03/06/17 03/06/17 03/06/17 Range/Units 16:49 20:27 20:27 RBC 3.37 L (4.30-5.90) m/uL Hgb 10.0 L (13.0-17.5) gm/dL Hct 33.4 L (39.0-53.0) % MCHC 29.9 L (31.0-37.0) g/dL Lymphocytes # 0.9 L (1.0-4.8) k/uL PT (9.0-12.0) sec INR (<1.2) BUN (9-20) mg/dL Creatinine (0.66-1.25) mg/dL Glucose (74-99) mg/dL POC Glucose (mg/dL) 203 H (75-99) mg/dL Magnesium 2.5 H (1.6-2.3) mg/dL 03/06/17 03/07/17 03/07/17 Range/Units 21:07 06:14 06:14 RBC (4.30-5.90) m/uL Hgb (13.0-17.5) gm/dL Hct (39.0-53.0) % MCHC (31.0-37.0) g/dL Lymphocytes # (1.0-4.8) k/uL PT 24.3 H (9.0-12.0) sec INR 2.7 H (<1.2) BUN 48 H (9-20) mg/dL Creatinine 1.91 H (0.66-1.25) mg/dL Glucose 107 H (74-99) mg/dL POC Glucose (mg/dL) 176 H (75-99) mg/dL Magnesium (1.6-2.3) mg/dL 03/07/17 03/07/17 Range/Units 06:22 11:33 RBC (4.30-5.90) m/uL Hgb (13.0-17.5) gm/dL Hct (39.0-53.0) % MCHC (31.0-37.0) g/dL Lymphocytes # (1.0-4.8) k/uL PT (9.0-12.0) sec INR (<1.2) BUN (9-20) mg/dL Creatinine (0.66-1.25) mg/dL Glucose (74-99) mg/dL POC Glucose (mg/dL) 205 H 158 H (75-99) mg/dL Magnesium (1.6-2.3) mg/dL Microbiology - Last 24 Hours (Table) 03/01/17 18:11 Blood Culture - Preliminary Blood No Growth after 120 hours Assessment and Plan Plan: Assessment and plan #1 systolic congestive heart failure acute on chronic, echocardiogram with Doppler study reveals an ejection fraction of 35-40%. #2 acute on chronic kidney disease #3 known history of coronary artery disease with prior bypass surgery #4 chronic persistent atrial fibrillation, on Coumadin for anticoagulation #5 hypertension #6 diabetes #7 history of TIA Plan We will continue patient on his current medications. Possible discharge home tomorrow. DNP note has been reviewed, I agree with a documented findings and plan of care. Patient was seen and examined.
[2017-03-07 16:22] LABS: Glucose,Whole Blood 184 mg/dL (75-99)
[2017-03-07] MEDS: ATORVASTATIN 10 MG TAB PO SCH (20:20)
[2017-03-07 21:13] LABS: Glucose,Whole Blood 139 mg/dL (75-99)
--- NOTE | 2017-03-07 22:45 | P.PN ---
Subjective Progress Note Date: 03/07/17 Principal diagnosis: Increasing edema and shortness of breath 86-year-old male with a known history of chronic kidney disease presented to the emergency center feeling poorly for several days. Was having increasing edema to the bilateral lower extremities with resultant weeping. The patient relates that his weight is been increasing despite his use of oral Lasix at home. His living situation has changed in that his is at the [place] [facility] and he said eating as well as he used to. Because he was feeling considerably worse he presented to the emergency center with evidence of a cellulitis the left lower extremity the infectious diseases consultation was requested. The patient has a known history of a coronary artery bypass grafting procedure and had vein harvest from the left leg and is had resultant chronic venous stasis to the lower extremity which is now considerably aggravated by his worsening renal failure and extensive volume overload. Patient feeling somewhat better today. No shortness of breath. Lower extremity edema is improved. Developed diarrhea and CDIFF was isolated. Rocephin has completed and diarrhea improved with oral Vanco. Patient has been noted to fail his swallow study. Has been seen by pulmonary critical care. He is doing relatively well in no need for any further intervention except appropriate diet and techniques to avoid aspiration. Objective - Vital Signs Vital signs: Vital Signs Temp 97.6 F 03/07/17 20:00 Pulse 67 03/07/17 20:00 Resp 18 03/07/17 20:00 BP 101/58 03/07/17 20:00 Pulse Ox 99 03/07/17 20:00 Intake & Output 03/07/17 03/07/17 03/08/17 06:59 18:59 06:59 Intake Total 476 Output Total 400 Balance 76 Weight 92 kg Intake: Oral 476 Output: Urine 400 Other: Voiding Method Diaper Diaper Diaper Incontinent Incontinent Incontinent # Voids 1 # Bowel Movements 1 - Exam Pleasant 86-year-old male who is short of breath and somewhat uncomfortable but denies fevers or chills. HEENT: Anicteric conjunctiva are pink and moist nasal mucosa grossly intact without significant lesions, there is no thrush. Full denture Neck: The neck is supple without significant lymphadenopathy or thyromegaly. Lungs: Symmetrical air entry is noted with bibasilar crackles but no alfredito wheezing. No egophony or dullness Heart: Irregular with an audible S1 and S2 loud S4 no distinct murmur click or rub PMI is nondisplaced Abdomen: Positive bowel sounds soft and nontender without palpable masses or organomegaly. There was no guarding or rebound. Extremities: The upper extremities have excellent pulses they are symmetric, no significant petechiae or telangiectasia. No splinter hemorrhages were noted. Lower extremities have edema left leg more than the right. Left leg is evidence of the extensive erythematous present from the foot to the knee. The erythema is much improved and no longer tender No extensive lymphadenopathy is noted inguinal or other areas Neuro: Awake alert oriented to person and place. There are no acute new gross focal sensory motor deficits. - Labs CBC & Chem 7: 03/06/17 20:27 03/07/17 06:14 Labs: Abnormal Lab Results - Last 24 Hours (Table) 03/07/17 03/07/17 03/07/17 Range/Units 06:14 06:14 06:22 PT 24.3 H (9.0-12.0) sec INR 2.7 H (<1.2) BUN 48 H (9-20) mg/dL Creatinine 1.91 H (0.66-1.25) mg/dL Glucose 107 H (74-99) mg/dL POC Glucose (mg/dL) 205 H (75-99) mg/dL 03/07/17 03/07/17 03/07/17 Range/Units 11:33 16:20 21:03 PT (9.0-12.0) sec INR (<1.2) BUN (9-20) mg/dL Creatinine (0.66-1.25) mg/dL Glucose (74-99) mg/dL POC Glucose (mg/dL) 158 H 184 H 139 H (75-99) mg/dL Microbiology - Last 24 Hours (Table) 03/01/17 18:11 Blood Culture - Final Blood No Growth after 144 hours Laboratory Results WBC 6.5 k/uL (3.8-10.6) 03/06/17 20:27 RBC 3.37 m/uL (4.30-5.90) L 03/06/17 20:27 Hgb 10.0 gm/dL (13.0-17.5) L 03/06/17 20:27 Hct 33.4 % (39.0-53.0) L 03/06/17 20: MCV 98.9 fL (80.0-100.0) 03/06/17 20: MCH 29.5 pg (25.0-35.0) 03/06/17 20: MCHC 29.9 g/dL (31.0-37.0) L 03/06/17 20: RDW 14.0 % (11.5-15.5) 03/06/17 20: Plt Count 203 k/uL (150-450) 03/06/17 20: Neutrophils % 74 % 03/06/17: Lymphocytes % 14 % 03/06/17: Monocytes % 6 % 03/06/17: Eosinophils % 4 % 03/06/17 Basophils % 0 % 03/06/17: Neutrophils # 4.8 k/uL (1.3-7.7) 03/06/17 20: Lymphocytes # 0.9 k/uL (1.0-4.8) L 03/06/17: Monocytes # 0.4 k/uL (0-1.0) 03/06/17: Eosinophils # 0.3 k/uL (0-0.7) 03/06/17: Basophils # 0.0 k/uL (0-0.2) 03/06/17 20: Manual Slide Review Performed 02/23/17 10:45 Hypochromasia Marked 03/06/17 20:27 Macrocytosis Slight 02/25/17 05:42 PT 24.3 sec (9.0-12.0) H 03/07/17 06:14 INR 2.7 (<1.2) H 03/07/17 06:14 APTT 31.1 sec (22.0-30.0) H 02/23/17 10:45 Sodium 140 mmol/L (137-145) 03/07/17 06:14 Potassium 3.8 mmol/L (3.5-5.1) 03/07/17 06:14 Chloride 103 mmol/L (98-107) 03/07/17 06:14 Carbon Dioxide 27 mmol/L (22-30) 03/07/17 06:14 Anion Gap 10 mmol/L 03/07/17 06:14 BUN 48 mg/dL (9-20) H 03/07/17 06:14 Creatinine 1.91 mg/dL (0.66-1.25) H 03/07/17 06:14 Est GFR (MDRD) Af Amer 41 (>60 ml/min/1.73 sqM) 03/07/17 06:14 Est GFR (MDRD) Non-Af 33 (>60 ml/min/1.73 sqM) 03/07/17 06:14 Glucose 107 mg/dL (74-99) H 03/07/17 06:14 POC Glucose (mg/dL) 139 mg/dL (75-99) H 03/07/17 21:03 POC Glu Camera Maker Irasema Chang 03/07/17 21:[address] Glu mg/dL 126 02/27/17 09:23 Hemoglobin A1c 6.0 % (4.0-6.0) 02/27/17 09:23 Uric Acid 8.1 mg/dL (3.5-8.5) 02/23/17 10:45 Calcium 9.1 mg/dL (8.4-10.2) 03/07/17 06:14 Magnesium 2.5 mg/dL (1.6-2.3) H 03/06/17 20:27 Iron 43 ug/dL (65-175) L 02/24/17 06:03 TIBC 245 ug/dL (228-460) 02/24/17 06:03 Iron Saturation 17.55 (15.00-50.00) 02/24/17 06:03 Total Bilirubin 0.8 mg/dL (0.2-1.3) 02/26/17 06:14 AST 22 U/L (17-59) 02/26/17 06:14 ALT 34 U/L (21-72) 02/26/17 06:14 Alkaline Phosphatase 91 U/L (38-126) 02/26/17 06:14 Total Creatine Kinase 27 U/L (55-170) L 02/23/17 17:02 CK-MB (CK-2) 0.6 ng/mL (0.0-2.4) 02/23/17 17:02 CK-MB (CK-2) Rel Index 2.2 02/23/17 17:02 Troponin I 0.036 ng/mL (0.000-0.034) H* 02/23/17 22:57 NT-Pro-B Natriuret Pep 7290 pg/mL 02/23/17 10:45 Total Protein 6.3 g/dL (6.3-8.2) 02/26/17 06:14 Albumin 3.3 g/dL (3.5-5.0) L 02/26/17 06:14 Urine Color Light Yellow 02/28/17 06:20 Urine Appearance Clear (Clear) 02/28/17 06:20 Urine pH 7.5 (5.0-8.0) 02/28/17 06:20 Ur Specific [place] 1.007 (1.001-1.035) 02/28/17 06:20 Urine Protein Negative (Negative) 02/28/17 06:20 Urine Glucose (UA) Negative (Negative) 02/28/17 06:20 Urine Ketones Negative (Negative) 02/28/17 06:20 Urine Blood Small (Negative) H 02/28/17 06:20 Urine Nitrite Negative (Negative) 02/28/17 06:20 Urine Bilirubin Negative (Negative) 02/28/17 06:20 Urine Urobilinogen <2.0 mg/dL (<2.0) 02/28/17 06:20 Ur Leukocyte Esterase Negative (Negative) 02/28/17 06:20 Urine RBC 18 /hpf (0-5) H 02/28/17 06:20 Urine Mucus Rare /hpf (None) H 02/28/17 06:20 C. difficile (EIA) Intrp Positive (Negative) A 03/02/17 08:11 Microbiology 03/01/17 18:11 Blood Blood Culture - Final No Growth after 144 hours 02/27/17 12:29 Blood Blood Culture - Final No Growth after 144 hours - Imaging and Cardiology CT scan - chest: image reviewed (Improving basilar atelectasis infiltrate) Assessment and Plan (1) Congestive heart failure Current Visit: Yes Status: Acute Code(s): I50.9 - HEART FAILURE, UNSPECIFIED SNOMED Code(s): 39790593 (2) Acute renal failure Current Visit: Yes Status: Acute Code(s): N17.9 - ACUTE KIDNEY FAILURE, UNSPECIFIED SNOMED Code(s): 27281984 (3) Cellulitis Narrative/Plan: 86-year-old male presents to hospital with increasing lower extremity edema especially the left lower extremity associated with weeping and drainage. He was feeling poorly. Much more short of breath and having increasing difficulty with day-to-day activities. He also relates to social situation is difficult with his being in the [place] [facility]. Admission there was evidence of worsening of his chronic kidney disease with acute renal failure superimposed on his significant systolic congestive heart failure and pulmonary edema. He is an insulin drip showing some improvement. The extensive cellulitis of the left lower extremity is noted. The patient relates starting to show some improvement because he's had some diuresis. Duplexes been performed with no evidence of any deep venous thrombosis. The Silvadene wrap is now allowed resolution of the swelling erythema and cellulitis of the left leg. The vein harvest to the extremity is a significant contributing factor to the extensive edema and resultant cellulitis. Elevation the limb is important. Is being followed by nephrology trying to improve his fluid and potassium balance. It is noted patient developed diarrhea and Clostridium difficile colitis has been diagnosed. Responding well to vancomycin therapy. Less frequent stools today. Plan 10 days of therapy. Fortunately the leg is now much improved and intravenous antibiotic therapy has discontinued. Because of some ongoing large-volume stools a single dose of Imodium was given and there is no been reduction in volume of stool. With his new diet he is doing relatively well with his lunch. No evidence of aspiration. Current Visit: No Status: Acute Code(s): L03.90 - CELLULITIS, UNSPECIFIED SNOMED Code(s): 409702060
[2017-03-08] MEDS: VANCOMYCIN ORAL SOLUTION 250 MG/5 ML BOTTLE PO SCH ×5 (00:05→23:12)
[2017-03-08] MEDS: LISINOPRIL 5 MG TAB PO SCH ×2 (00:05→22:00)
[2017-03-08 06:31] LABS: Glucose,Whole Blood 125 mg/dL (75-99)
[2017-03-08 06:31] LABS: INR 2.2 (<1.2); Prothrombin Time 20.1 sec (9.0-12.0)
[2017-03-08] MEDS: INSULIN ASPART 100 UNIT/ML 1 ML 10 ML VIAL SQ SCH ×4 (06:45→22:00)
[2017-03-08] MEDS: FERROUS SULFATE 325 MG TAB PO SCH (09:05)
[2017-03-08] MEDS: CHOLESTYRAMINE (WITH SUGAR) 4 GM PACKET PO SCH ×2 (09:05→17:39)
[2017-03-08] MEDS: FINASTERIDE 5 MG TAB PO SCH (09:05)
[2017-03-08] MEDS: POTASSIUM CHLORIDE ER 10 MEQ TAB.ER.PRT PO SCH (09:05)
[2017-03-08] MEDS: FUROSEMIDE 10 MG/ML 10 ML VIAL IV SCH ×2 (09:05→21:59)
[2017-03-08] MEDS: LACTOBACILLUS ACIDOPH & BULGAR 1 EACH PACKET PO SCH ×4 (09:05→22:01)
--- NOTE | 2017-03-08 11:23 | P.PN ---
Subjective Progress Note Date: 03/08/17 Principal diagnosis: CHF This is a pleasant 86-year-old gentleman with history of coronary artery bypass surgery 15 years ago, diabetes, hypertension, [place], stroke as well as bilateral carotid endarterectomies. Presented to the emergency department with complaints of worsening edema and pain in both legs worse on the left leg. Complaining of some exertional shortness of breath. Chest x-ray showed congestive heart failure, pleural effusions and appeared to be worse than last exam. BNP was found to be elevated at 7290. He is also Found to have very minimal elevation of third troponin at 0.030, 0.025 and 0.036. He was diuresed with IV Lasix and was also on dobutamine drip. Currently being treated for C. diff with by mouth vancomycin. He is currently on Lasix 60 mg IV push twice a day per nephrology. Upon examination this morning, patient is resting in bed complains of quite a bit of phlegm and his breathing seems stable. Objective - Vital Signs Vital signs: Vital Signs Temp 97.1 F L 03/08/17 08:00 Pulse 96 03/08/17 08:00 Resp 16 03/08/17 08:00 BP 122/59 03/08/17 08:00 Pulse Ox 98 03/08/17 08:00 Intake & Output 03/07/17 03/08/17 03/08/17 18:59 06:59 18:59 Intake Total 476 240 Output Total 400 0 Balance 76 240 Weight 92.5 kg Intake: Oral 476 240 Output: Urine 400 Stool 0 Other: Voiding Method Diaper Diaper Diaper Incontinent Incontinent Incontinent # Voids 1 3 1 # Bowel Movements 1 - Exam PHYSICAL EXAMINATION: HEENT: Head is atraumatic, normocephalic. Pupils equal, round. Neck is supple. There is elevated jugular venous pressure. HEART EXAMINATION: Heart sounds irregular irregular, S1 and S2 normal. CHEST EXAMINATION: Lungs reveal diminished air entry bilaterally. No chest wall tenderness is noted on palpation or with deep breathing. ABDOMEN: Soft, nontender. Bowel sounds are heard. No organomegaly noted. EXTREMITIES: 1+ peripheral pulses with evidence of trace peripheral edema, left greater than right and no calf tenderness noted. Lateral Gm wrap in place. NEUROLOGIC patient is awake, alert and oriented x3. . - Labs CBC & Chem 7: 03/06/17 20:27 01/11/18 06:14 Labs: Abnormal Lab Results - Last 24 Hours (Table) 03/07/17 03/07/17 03/07/17 Range/Units 11:33 16:20 21:03 PT (9.0-12.0) sec INR (<1.2) POC Glucose (mg/dL) 158 H 184 H 139 H (75-99) mg/dL 03/08/17 03/08/17 Range/Units 05:57 06:20 PT 20.1 H (9.0-12.0) sec INR 2.2 H (<1.2) POC Glucose (mg/dL) 125 H (75-99) mg/dL Microbiology - Last 24 Hours (Table) 03/01/17 18:11 Blood Culture - Final Blood No Growth after 144 hours Assessment and Plan Assessment: #1 systolic congestive heart failure, acute on chronic, echocardiogram shows an ejection fraction of 35-40% #2 acute on chronic kidney disease #3 history of coronary artery disease with coronary artery bypass surgery, stable #4 chronic atrial fibrillation, on Coumadin #5 mild troponin leak, not consistent with acute coronary syndrome #6 hypertension #7 diabetes #8 history of TIA Plan: Tool Checker perspective, we'll continue patient on current medications. Anticipate discharge soon. Further recommendations to follow. [employer] note has been reviewed, I agree with a documented findings and plan of care. Patient was seen and examined.
--- NOTE | 2017-03-08 11:45 | P.PN ---
Subjective Progress Note Date: 03/08/17 Principal diagnosis: acute on chronic systolic congestive heart failure, aspiration pneumonia, and acute cellulitis of lower extremity. This is an 86-year-old white male with history of multiple medical problems including chronic systolic congestive heart failure, COPD, diabetes, hypertension, coronary artery disease and previous NH, previous CABG, history of enlarged prostate, patient presented and he was admitted to the hospital on 02/23/2017 with mostly symptoms of acute congestive heart failure, acute renal failure, and acute cellulitis of the left lower extremity. Since admission, the patient has been seen by many consultants including nephrology, cardiology, infectious disease, and has been treated for his congestive heart failure with diuretics, and cellulitis with antibiotics, and he was treated by nephrology for what seems to be a stage IIB renal failure secondary to nephrosclerosis. Baseline creatinine is in the range of 1.4-1.7. Patient was placed on good doses of diuretics in the form of Lasix, and he was on dobutamine on telemetry recently which was discontinued by cardiology. Overall the patient has made a significant clinical improvement, follow-up chest x-ray done yesterday showed some component of volume overload, patchy bilateral perihilar densities representing areas of atelectasis or pneumonia. Patient had a swallow evaluation study, and there was alrfedito aspiration noted with thin liquid barium. Hence the Department of speech pathology is making recommendations regarding feeding. Clinically however the patient is feeling better, breathing easier, he seems to be debilitated and he will likely benefit from physical therapy or from rehabilitation. Today, the patient describes some occasional cough, no wheezing, no chest pain, no fever no chills no hemoptysis, no nausea no vomiting no abdominal pain. Patient was reevaluated today on 03/08/2017, feeling better, breathing easier, no cough no wheezing no shortness of breath, seen by speech pathology, and recommendation was made regarding his diet.labs were reviewed INR is 2.2, otherwise no other labs were done today. Patient is pleasant, and in no distress. Objective - Vital Signs Vital signs: Vital Signs Temp 97.1 F L 03/08/17 08:00 Pulse 96 03/08/17 08:00 Resp 16 03/08/17 08:00 BP 122/59 03/08/17 08:00 Pulse Ox 98 03/08/17 08:00 Intake & Output 03/07/17 03/08/17 03/08/17 18:59 06:59 18:59 Intake Total 476 240 Output Total 400 0 Balance 76 240 Weight 92.5 kg Intake: Oral 476 240 Output: Urine 400 Stool 0 Other: Voiding Method Diaper Diaper Diaper Incontinent Incontinent Incontinent # Voids 1 3 1 # Bowel Movements 1 - Exam Physical Exam: Revealed an 86-year-old white male, frail looking, in no form of respiratory distress, seems to be comfortable. HEENT:[Neck is supple.] [No neck masses.] [No thyromegaly.] [No JVD.] Anicteric conjunctiva, PERRLA, EOMI. Dry mucous membranes noted. Chest: [Diminished breath sounds at the bases with minimal crackles, no alfredito wheezing noted. No dullness..] Cardiac Exam: [Irregular irregular rhythm Normal S1 and S2, no S3 gallop, no murmur.] Abdomen: [Soft, nontender, no megaly, no rebound, no guarding, normal bowel sounds.] Extremities: [No clubbing, no edema, no cyanosis.] There is evidence of edema bilaterally, left more so than right, there is also some extensive erythematous changes of the left lower extremity from the left foot to the left knee. Neurological Exam: [No focal neurologic deficit.] However the patient seems to be generally weak. Lymphatics: No lymphadenopathy. Psychiatric: Normal mood affect and mental status examination. - Labs CBC & Chem 7: 03/06/17 20:27 03/07/17 06:14 Labs: Abnormal Lab Results - Last 24 Hours (Table) 03/07/17 03/07/17 03/08/17 Range/Units 16:20 21:03 05:57 PT 20.1 H (9.0-12.0) sec INR 2.2 H (<1.2) POC Glucose (mg/dL) 184 H 139 H (75-99) mg/dL 03/08/17 Range/Units 06:20 PT (9.0-12.0) sec INR (<1.2) POC Glucose (mg/dL) 125 H (75-99) mg/dL Microbiology - Last 24 Hours (Table) 03/01/17 18:11 Blood Culture - Final Blood No Growth after 144 hours Assessment and Plan Assessment: Impression: 1 acute on chronic systolic congestive heart failure 2 chronic microaspiration with possible component of aspiration pneumonia bilaterally. 3 acute renal failure, nonoliguric acute kidney injury secondary to ATN secondary to cardiorenal syndrome. 4 systolic congestive heart failure with ejection fraction of 35-40%. 5 acute cellulitis of the left lower extremity 6 acute C. difficile colitis being treated Recommendation: continue present treatment plan, not much to be added from my perspective, will follow on when necessary basis. Time with Patient: Less than 30
[2017-03-08 12:04] LABS: Glucose,Whole Blood 200 mg/dL (75-99)
[2017-03-08] MEDS: ACETAMINOPHEN TAB 325 MG TAB PO PRN (13:27)
[2017-03-08] MEDS: ASCORBIC ACID 500 MG TAB PO SCH (13:27)
[2017-03-08] MEDS: VITAMIN E (DL,TOCOPHERYL ACET) 400 UNIT CAP PO SCH (13:27)
[2017-03-08] MEDS: CHOLECALCIFEROL 400 UNIT TAB PO SCH (13:27)
--- NOTE | 2017-03-08 15:20 | PN ---
PROGRESS NOTE Patient is seen for followup for acute kidney injury, mainly cardiorenal syndrome, which has improved. The patient's edema has significantly improved as well. He was having a lot of diarrhea from C. diff colitis, which seems to have slowed down. Lasix was decreased secondary to significant diarrhea. However, this morning patient states he feels more swollen. He denies any significant shortness of breath. PHYSICAL EXAMINATION: Blood pressure is 122/59, heart rate 96 per minute. He is afebrile. Examination of the heart, S1, S2. Examination of the lungs lungs bilateral breath sounds are heard. Decreased breath sounds at bases. Abdomen is soft, nontender. Examination of the lower extremities, chronic skin changes, chronic edema 2+ bilaterally, worse on the left leg than on the right leg. LABS: Show serum creatinine 1.9 mg/dL on 03/07/2017. Sodium 140, potassium 3.8. ASSESSMENT: 1. Acute kidney injury, cardiorenal. Renal function is currently fairly stable with creatinine about 1.9 mg/dL. I will increase the Lasix to 60 mg IV q.12 hours. 2. Clostridium difficile colitis with improvement in diarrhea. 3. Cardiomyopathy, ejection fraction of about 30%. Status post Dobutamine ]and Lasix drip. 4. Metabolic alkalosis, maintained on Diamox. {patient was maintained on Diamox. It is now discontinued. 5. Hypertension. Blood pressure is stable. Patient is maintained on rhonda inhibitors. PLAN: Continue with the Zestril and increase Lasix to 60 mg IV b.i.d. Check labs periodically and monitor electrolytes. MMODL / IJN: [id number] /
[2017-03-08 16:37] LABS: Glucose,Whole Blood 196 mg/dL (75-99)
--- NOTE | 2017-03-08 20:29 | PN ---
PROGRESS NOTE DATE OF SERVICE: 03/06/2017 This is an 86-year-old white male who is a patient of Dr. Jacobo's and the patient was admitted by me, as I was covering Dr. Jacobo, who is on vacation. The patient came to the emergency room because of increasing shortness of breath and worsening edema and pain of both legs, worse on the left side and also there was skin erythema and weeping drainage on the left leg and the patient was found to have markedly elevated BNP and chest x-ray showed congestive heart failure and pleural effusion. The patient was admitted to the hospital for further evaluation and treatment. The patient had extensive cellulitis involving the left leg and patient was started on IV Rocephin and also he was seen by [facility] in consultation and also he had renal failure due to acute kidney injury and he was seen by a golf technician in consultation. He was treated aggressively with the Lasix and he was placed back on his previous home medications. The patient also has a history of coronary artery disease and a past history of coronary artery bypass graft and he also has a history of chronic atrial fibrillation. The patient was seen by Dr. Mercer and the patient was treated with Lasix IV drip. Because of the extensive cellulitis, Dr. Padilla was consulted from infectious disease. With the Rocephin, the cellulitis seemed to be improving; however, patient developed severe diarrhea and stool was stool was positive for C. diff. and the Rocephin was discontinued and patient was placed on vancomycin orally. The patient was extremely weak and physical therapy was started. The patient patient's renal function is still abnormal and still the patient is getting IV Lasix. He has alert and oriented and vital signs otherwise stable. He also has a history of diabetes and this is being controlled with NovoLog sliding scale. Overall prognosis is guarded. MMODL / IJN: [id number] /
--- NOTE | 2017-03-08 20:59 | PN ---
PROGRESS NOTE DATE OF SERVICE: 03/07/2017. This is an 86-year-old white male who has multiple medical problems and he was admitted this time with increasing shortness of breath and increasing edema of the legs and cellulitis of the left leg and the patient was also found to have congestive heart failure and the patient was placed back on his previous home medications and [facility] saw the patient in consultation and was treated aggressively with Lasix and as he was found to have acute kidney injury and renal failure, he was seen by a data officer in consultation. Patient was treated with Lasix IV drip and he was started on IV antibiotics. He initially received Rocephin IV. He also is known to have diabetes mellitus and chronic atrial fibrillation and he has been on Coumadin. He has also been on glipizide. As his blood sugar was running low, the glipizide was discontinued and he was placed on NovoLog sliding scale. The patient developed severe diarrhea and stool was positive for C. diff. and the Rocephin was discontinued and the patient was also being followed by Dr. Padilla in consultation and he placed him on vancomycin orally. The patient still continues to have diarrhea, even though there is some improvement. The patient is getting physical therapy for improving his muscle strength and his vital signs are otherwise stable. He is alert and oriented, but he has some memory problems. The overall prognosis is guarded. The diagnosis, prognosis and therapeutic plans were discussed in detail with the patient today. [id number] / IJN: [id number] /
[2017-03-08 21:02] LABS: Glucose,Whole Blood 144 mg/dL (75-99)
--- NOTE | 2017-03-08 21:05 | PN ---
PROGRESS NOTE DATE OF SERVICE: 03/08/2017 This is an 86-year-old white male who was brought to the emergency room because of increasing shortness of breath and edema of the lower extremities, worse on the left side and also cellulitis of the left leg. In the ER, his chest x-ray showed congestive heart failure, pleural effusion and his BNP was markedly elevated and the patient was also known to have chronic atrial fibrillation, diabetes mellitus, early dementia and the patient was seen by [facility] in consultation and the patient was treated aggressively with Lasix IV. As he was found to have renal failure due to acute kidney injury from the congestive heart failure, the patient was seen by pot reliner in consultation. He was started on Lasix IV drip and his blood sugar was running low and the glipizide was discontinued and he was placed on NovoLog sliding scale. His cellulitis started improving. He was also seen by Dr. Padilla in consultation from infectious disease and the patient developed severe diarrhea and his stool was positive for C. diff. The Rocephin was discontinued and he was placed on vancomycin orally. The patient continues to have the diarrhea, which showed some short-term improvement now and he is also extremely weak and he is getting physical therapy. He has multiple medical problems. 1. Systolic congestive heart failure with extreme a low ejection fraction, which is 35%-40%. 2. Acute on chronic kidney injury and renal failure. 3. History of coronary artery disease with past with a prior coronary artery bypass graft. 4. Chronic atrial fibrillation on Coumadin therapy. 5. Hypertensive cardiovascular disease. 6. Diabetes mellitus. 7. History of transient ischemic attack. 8. Anemia of chronic disease and the patient is on ferrous sulfate and. 9. He is on oral vancomycin for Clostridium difficile colitis. As the patient continues to have diarrhea, if it is not improving, we will get the gastroenterology consultation. Overall prognosis is guarded. As the patient is extremely weak, arrangements are being made for him to be transferred to [facility] rehab unit when discharged. MMODL / IJN: [id number] /
[2017-03-08] MEDS: ATORVASTATIN 10 MG TAB PO SCH (21:59)
--- NOTE | 2017-03-08 22:04 | P.PN ---
Subjective Progress Note Date: 03/08/17 Principal diagnosis: Increasing edema and shortness of breath 86-year-old male with a known history of chronic kidney disease presented to the emergency center feeling poorly for several days. Was having increasing edema to the bilateral lower extremities with resultant weeping. The patient relates that his weight is been increasing despite his use of oral Lasix at home. His living situation has changed in that [facility] and he said eating as well as he used to. Because he was feeling considerably worse he presented to the emergency center with evidence of a cellulitis the left lower extremity the infectious diseases consultation was requested. The patient has a known history of a coronary artery bypass grafting procedure and had vein harvest from the left leg and is had resultant chronic venous stasis to the lower extremity which is now considerably aggravated by his worsening renal failure and extensive volume overload. Patient feeling somewhat better today. No shortness of breath. Lower extremity edema is improved. Developed diarrhea and CDIFF was isolated. Rocephin has completed and diarrhea improved with oral Vanco. Patient has been noted to fail his swallow study. Has been seen by pulmonary critical care. He is doing relatively well in no need for any further intervention except appropriate diet and techniques to avoid aspiration. Objective - Vital Signs Vital signs: Vital Signs Temp 97.1 F L 03/08/17 08:00 Pulse 85 03/08/17 16:00 Resp 20 03/08/17 16:00 BP 144/71 03/08/17 16:00 Pulse Ox 95 03/08/17 16:00 Intake & Output 03/08/17 03/08/17 03/09/17 06:59 18:59 06:59 Intake Total 562 Output Total 0 Balance 562 Weight 92.5 kg Intake: Oral 562 Output: Stool 0 Other: Voiding Method Diaper Diaper Incontinent Incontinent # Voids 3 2 # Bowel Movements 2 - Exam Pleasant 86-year-old male who is short of breath and somewhat uncomfortable but denies fevers or chills. HEENT: Anicteric conjunctiva are pink and moist nasal mucosa grossly intact without significant lesions, there is no thrush. Full denture Neck: The neck is supple without significant lymphadenopathy or thyromegaly. Lungs: Symmetrical air entry is noted with bibasilar crackles but no alfredito wheezing. No egophony or dullness Heart: Irregular with an audible S1 and S2 loud S4 no distinct murmur click or rub PMI is nondisplaced Abdomen: Positive bowel sounds soft and nontender without palpable masses or organomegaly. There was no guarding or rebound. Extremities: The upper extremities have excellent pulses they are symmetric, no significant petechiae or telangiectasia. No splinter hemorrhages were noted. Lower extremities have edema left leg more than the right. Left leg is evidence of the extensive erythematous present from the foot to the knee. The erythema is much improved and no longer tender No extensive lymphadenopathy is noted inguinal or other areas Neuro: Awake alert oriented to person and place. There are no acute new gross focal sensory motor deficits. - Labs CBC & Chem 7: 03/06/17 20:27 03/07/17 06:14 Labs: Abnormal Lab Results - Last 24 Hours (Table) 03/08/17 03/08/17 03/08/17 Range/Units 05:57 06:20 12:01 PT 20.1 H (9.0-12.0) sec INR 2.2 H (<1.2) POC Glucose (mg/dL) 125 H 200 H (75-99) mg/dL 03/08/17 03/08/17 Range/Units 16:28 20:59 PT (9.0-12.0) sec INR (<1.2) POC Glucose (mg/dL) 196 H 144 H (75-99) mg/dL Microbiology - Last 24 Hours (Table) 03/01/17 18:11 Blood Culture - Final Blood No Growth after 144 hours Laboratory Results WBC 6.5 k/uL (3.8-10.6) 03/06/17 20: RBC 3.37 m/uL (4.30-5.90) L 03/06/17 20:27 Hgb 10.0 gm/dL (13.0-17.5) L 03/06/17 20: Hct 33.4 % (39.0-53.0) L 03/06/17: MCV 98.9 fL (80.0-100.0) 03/06/17 20: MCH 29.5 pg (25.0-35.0) 03/06/17 20: MCHC 29.9 g/dL (31.0-37.0) L 03/06/17 20:27 RDW 14.0 % (11.5-15.5) 03/06/17 20:27 Plt Count 203 k/uL (150-450) 03/06/17 20: Neutrophils % 74 % 03/06/17 20: Lymphocytes % 14 % 03/06/17 20: Monocytes % 6 % 03/06/17 20: Eosinophils % 4 % 03/06/17 20: Basophils % 0 % 03/06/17 20: Neutrophils # 4.8 k/uL (1.3-7.7) 03/06/17 20: Lymphocytes # 0.9 k/uL (1.0-4.8) L 03/06/17 20: Monocytes # 0.4 k/uL (0-1.0) 03/06/17: Eosinophils # 0.3 k/uL (0-0.7) 03/06/17 20: Basophils # 0.0 k/uL (0-0.2) 03/06/17 20: Manual Slide Review Performed 02/23/17 10:45 Hypochromasia Marked 03/06/17 20:27 Macrocytosis Slight 02/25/17 05:42 PT 20.1 sec (9.0-12.0) H 03/08/17 05:57 INR 2.2 (<1.2) H 03/08/17 05:57 APTT 31.1 sec (22.0-30.0) H 02/23/17 10:45 Sodium 140 mmol/L (137-145) 03/07/17 06:14 Potassium 3.8 mmol/L (3.5-5.1) 03/07/17 06:14 Chloride 103 mmol/L (98-107) 03/07/17 06:14 Carbon Dioxide 27 mmol/L (22-30) 03/07/17 06:14 Anion Gap 10 mmol/L 03/07/17 06:14 BUN 48 mg/dL (9-20) H 03/07/17 06:14 Creatinine 1.91 mg/dL (0.66-1.25) H 03/07/17 06:14 Est GFR (MDRD) Af Amer 41 (>60 ml/min/1.73 sqM) 03/07/17 06:14 Est GFR (MDRD) Non-Af 33 (>60 ml/min/1.73 sqM) 03/07/17 06:14 Glucose 107 mg/dL (74-99) H 03/07/17 06:14 POC Glucose (mg/dL) 144 mg/dL (75-99) H 03/08/17 20:59 POC Glu Accountant Controller ID Jie Murphy 03/08/17 20:[address] Glu mg/dL 126 02/27/17 09:23 Hemoglobin A1c 6.0 % (4.0-6.0) 02/27/17 09:23 Uric Acid 8.1 mg/dL (3.5-8.5) 02/23/17 10:45 Calcium 9.1 mg/dL (8.4-10.2) 03/07/17 06:14 Magnesium 2.5 mg/dL (1.6-2.3) H 03/06/17 20:27 Iron 43 ug/dL (65-175) L 02/24/17 06:03 TIBC 245 ug/dL (228-460) 02/24/17 06:03 Iron Saturation 17.55 (15.00-50.00) 02/24/17 06:03 Total Bilirubin 0.8 mg/dL (0.2-1.3) 02/26/17 06:14 AST 22 U/L (17-59) 02/26/17 06:14 ALT 34 U/L (21-72) 02/26/17 06:14 Alkaline Phosphatase 91 U/L (38-126) 02/26/17 06:14 Total Creatine Kinase 27 U/L (55-170) L 02/23/17 17:02 CK-MB (CK-2) 0.6 ng/mL (0.0-2.4) 02/23/17 17:02 CK-MB (CK-2) Rel Index 2.2 02/23/17 17:02 Troponin I 0.036 ng/mL (0.000-0.034) H* 02/23/17 22:57 NT-Pro-B Natriuret Pep 7290 pg/mL 02/23/17 10:45 Total Protein 6.3 g/dL (6.3-8.2) 02/26/17 06:14 Albumin 3.3 g/dL (3.5-5.0) L 02/26/17 06:14 Urine Color Light Yellow 02/28/17 06:20 Urine Appearance Clear (Clear) 02/28/17 06:20 Urine pH 7.5 (5.0-8.0) 02/28/17 06:20 Ur Specific [place] 1.007 (1.001-1.035) 02/28/17 06:20 Urine Protein Negative (Negative) 02/28/17 06:20 Urine Glucose (UA) Negative (Negative) 02/28/17 06:20 Urine Ketones Negative (Negative) 02/28/17 06:20 Urine Blood Small (Negative) H 02/28/17 06:20 Urine Nitrite Negative (Negative) 02/28/17 06:20 Urine Bilirubin Negative (Negative) 02/28/17 06:20 Urine Urobilinogen <2.0 mg/dL (<2.0) 02/28/17 06:20 Ur Leukocyte Esterase Negative (Negative) 02/28/17 06:20 Urine RBC 18 /hpf (0-5) H 02/28/17 06:20 Urine Mucus Rare /hpf (None) H 02/28/17 06:20 C. difficile (EIA) Intrp Positive (Negative) A 03/02/17 08:11 Microbiology 03/01/17 18:11 Blood Blood Culture - Final No Growth after 144 hours 02/27/17 12:29 Blood Blood Culture - Final No Growth after 144 hours Assessment and Plan (1) Congestive heart failure Current Visit: Yes Status: Acute Code(s): I50.9 - HEART FAILURE, UNSPECIFIED SNOMED Code(s): 79888138 (2) Acute renal failure Current Visit: Yes Status: Acute Code(s): N17.9 - ACUTE KIDNEY FAILURE, UNSPECIFIED SNOMED Code(s): 17093680 (3) Cellulitis Narrative/Plan: 86-year-old male presents to hospital with increasing lower extremity edema especially the left lower extremity associated with weeping and drainage. He was feeling poorly. Much more short of breath and having increasing difficulty with day-to-day activities. He also relates to social situation is difficult with his being in the [facility]. Admission there was evidence of worsening of his chronic kidney disease with acute renal failure superimposed on his significant systolic congestive heart failure and pulmonary edema. He is an insulin drip showing some improvement. The extensive cellulitis of the left lower extremity is noted. The patient relates starting to show some improvement because he's had some diuresis. Duplexes been performed with no evidence of any deep venous thrombosis. The Silvadene wrap is now allowed resolution of the swelling erythema and cellulitis of the left leg. The vein harvest to the extremity is a significant contributing factor to the extensive edema and resultant cellulitis. Elevation the limb is important. Is being followed by nephrology trying to improve his fluid and potassium balance. It is noted patient developed diarrhea and Clostridium difficile colitis has been diagnosed. Responding well to vancomycin therapy. Less frequent stools today. Plan 10 days of therapy. Fortunately the leg is now much improved and intravenous antibiotic therapy has discontinued. Because of some ongoing large-volume stools adose of Imodium was given and there is now reduction in volume of stool. With his new diet he is doing relatively well with his lunch. No evidence of aspiration. Current Visit: No Status: Acute Code(s): L03.90 - CELLULITIS, UNSPECIFIED SNOMED Code(s): 692114024
[2017-03-08] MEDS: CHERRY FLAVOR 60 ML BOTTLE PO PRN (23:12)
[2017-03-09 06:18] LABS: Glucose,Whole Blood 167 mg/dL (75-99)
[2017-03-09] MEDS: INSULIN ASPART 100 UNIT/ML 1 ML 10 ML VIAL SQ SCH ×4 (06:56→20:53)
[2017-03-09 07:10] LABS: INR 1.9 (<1.2); Prothrombin Time 17.3 sec (9.0-12.0)
[2017-03-09] MEDS: VANCOMYCIN ORAL SOLUTION 250 MG/5 ML BOTTLE PO SCH ×4 (07:57→23:33)
[2017-03-09] MEDS: FUROSEMIDE 10 MG/ML 10 ML VIAL IV SCH ×2 (07:59→20:54)
[2017-03-09] MEDS: FINASTERIDE 5 MG TAB PO SCH (07:59)
[2017-03-09] MEDS: POTASSIUM CHLORIDE ER 10 MEQ TAB.ER.PRT PO SCH (08:00)
[2017-03-09] MEDS: LACTOBACILLUS ACIDOPH & BULGAR 1 EACH PACKET PO SCH ×4 (08:00→20:54)
[2017-03-09] MEDS: FERROUS SULFATE 325 MG TAB PO SCH (08:00)
--- NOTE | 2017-03-09 08:51 | P.PN ---
Subjective Progress Note Date: 03/09/17 Principal diagnosis: this is an 86-year-old male with acute kidney injury on chronic kidney disease his acute kidney injury from C. diff and also cardiorenal syndrome and creatinine has been stable He continues to have some diarrhea. Has poor appetite. States that some shortness of breath. No nausea vomiting no abdominal pain. No fever chills. He was initially admitted because of worsening edema and cellulitis. His baseline creatinine is about 1.7-1.9 Objective - Vital Signs Vital signs: Vital Signs Temp 98.2 F 03/09/17 07:53 Pulse 74 03/09/17 07:53 Resp 18 03/09/17 07:53 BP 136/68 03/09/17 07:53 Pulse Ox 99 03/09/17 07:53 Intake & Output 03/08/17 03/09/17 03/09/17 18:59 06:59 18:59 Intake Total 562 120 Output Total 0 0 Balance 562 0 120 Weight 91.5 kg Intake: Oral 562 120 Output: Stool 0 0 Other: Voiding Method Diaper Diaper Diaper Incontinent Incontinent Incontinent # Voids 2 1 2 # Bowel Movements 2 1 on examination is awake alert oriented. HEENT exam no JVP neck is supple no facial asymmetry Lungs are significant for bilateral wheezing just mild and end expiratory fairly good breath sounds no dullness to percussion. heart sounds are unremarkable for any murmur rub gallop Abdomen soft nontender. No masses felt Extremity exam reveals trace to minimal edema. There is some chronic erythema of the legs. Neurologically awake alert oriented. - Labs CBC & Chem 7: 03/06/17 20:27 03/07/17 06:14 Labs: Abnormal Lab Results - Last 24 Hours (Table) 03/08/17 03/08/17 03/08/17 Range/Units 12:01 16:28 20:59 PT (9.0-12.0) sec INR (<1.2) POC Glucose (mg/dL) 200 H 196 H 144 H (75-99) mg/dL 03/09/17 03/09/17 Range/Units 05:59 06:12 PT 17.3 H (9.0-12.0) sec INR 1.9 H (<1.2) POC Glucose (mg/dL) 167 H (75-99) mg/dL Assessment and Plan Assessment: Impression. 1. Acute kidney injury from prerenal from congestive heart failure , C. diff colitis.. last creatinine on 03/07/2017 is 1.9 which is stable 2. 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 Congestive heart failure with some persistent end expiratory wheezing 4. History of coronary artery bypass graft 15 years ago. 5. History of diabetes but no proteinuria 6. History of TIA in the past and 7. History of BPH. 8. Cellulitis of legs , improved 9. Aortic sclerosis VS Stenosis. 10. Anemia of CKD , hemoglobin is 10 at target. Recommendation. 1. continue IV Lasix 60 twice a day 2.Monitor I's and O's closely and 3. Check labs tomorrow
[2017-03-09] MEDS: CHOLESTYRAMINE (WITH SUGAR) 4 GM PACKET PO SCH ×2 (10:43→18:19)
[2017-03-09 11:22] LABS: Glucose,Whole Blood 153 mg/dL (75-99)
[2017-03-09] MEDS: CHOLECALCIFEROL 400 UNIT TAB PO SCH (12:19)
[2017-03-09] MEDS: ASCORBIC ACID 500 MG TAB PO SCH (12:20)
[2017-03-09] MEDS: VITAMIN E (DL,TOCOPHERYL ACET) 400 UNIT CAP PO SCH (12:20)
--- NOTE | 2017-03-09 12:42 | PN ---
PROGRESS NOTE DATE OF SERVICE: 03/09/2017 This is an 86-year-old white male who was brought to the emergency room with increasing shortness of breath and worsening edema of the legs, left worse than the right leg. He also had severe pain and cellulitis involving the left leg. The patient's chest x-ray in the ER showed congestive heart failure and also pleural effusion. At the time of admission, the patient also was found to have renal failure due to acute renal kidney injury. The patient was started on IV antibiotics for his cellulitis of the left leg and the patient was also seen by [facility] and medical affairs director in consultation. The patient has a past history of coronary artery disease, coronary artery bypass graft and chronic atrial fibrillation. The patient developed diarrhea and stool was positive for C. difficile. The Rocephin was discontinued and patient was started on vancomycin orally and the patient was also seen by Dr. Padilla in consultation. Group Fitness Assistant Department Head was following the patient. The patient was initially treated with Lasix IV drip and now he is getting Lasix 60 mg IV b.i.d. The patient continued to have severe persistent diarrhea, but today seems to have some improvement. The patient is feeling better with regards to the diarrhea. His vital signs otherwise stable. The patient also had dysphagia and modified barium swallow was obtained by the speech therapist and there was definite aspiration and dietitian has recommended appropriate diet for him and the patient is tolerating that well. Overall prognosis is guarded. We will continue current treatments and if he continues to improve he could be discharged in 2 to 3 days and arrangements are being made for him to be transferred to [facility] rehab unit when discharged. MMSAMMY / EDINSON: [id number] /
--- NOTE | 2017-03-09 14:18 | P.PN ---
Subjective Progress Note Date: 03/09/17 Principal diagnosis: CHF This is a pleasant 86-year-old gentleman with history of coronary artery bypass surgery 15 years ago, diabetes, hypertension, LA, stroke as well as bilateral carotid endarterectomies. Presented to the emergency department with complaints of worsening edema and pain in both legs worse on the left leg. Complaining of some exertional shortness of breath. Chest x-ray showed congestive heart failure, pleural effusions and appeared to be worse than last exam. BNP was found to be elevated at 7290. He is also Found to have very minimal elevation of third troponin at 0.030, 0.025 and 0.036. He was diuresed with IV Lasix and was also on dobutamine drip. Currently being treated for C. diff with by mouth vancomycin. He is currently on Lasix 60 mg IV push twice a day per nephrology. Upon examination this morning, patient is resting in bed he feels his breathing has improved.. Objective - Vital Signs Vital signs: Vital Signs Temp 98.4 F 03/09/17 12:00 Pulse 84 03/09/17 12:00 Resp 18 03/09/17 12:00 BP 124/74 03/09/17 12:00 Pulse Ox 95 03/09/17 12:00 Intake & Output 03/08/17 03/09/17 03/09/17 18:59 06:59 18:59 Intake Total 562 240 Output Total 0 0 Balance 562 0 240 Weight 91.5 kg Intake: Oral 562 240 Output: Stool 0 0 Other: Voiding Method Diaper Diaper Diaper Incontinent Incontinent Incontinent # Voids 2 1 2 # Bowel Movements 2 1 - Exam PHYSICAL EXAMINATION: HEENT: Head is atraumatic, normocephalic. Pupils equal, round. Neck is supple. There is elevated jugular venous pressure. HEART EXAMINATION: Heart sounds irregular irregular, S1 and S2 normal. CHEST EXAMINATION: Lungs reveal diminished air entry bilaterally. No chest wall tenderness is noted on palpation or with deep breathing. ABDOMEN: Soft, nontender. Bowel sounds are heard. No organomegaly noted. EXTREMITIES: 1+ peripheral pulses with evidence of 1+ peripheral edema, left greater than right and no calf tenderness noted. NEUROLOGIC patient is awake, alert and oriented x3. . - Labs CBC & Chem 7: 03/06/17 20:27 03/07/17 06:14 Labs: Abnormal Lab Results - Last 24 Hours (Table) 03/08/17 03/08/17 03/09/17 Range/Units 16:28 20:59 05:59 PT 17.3 H (9.0-12.0) sec INR 1.9 H (<1.2) POC Glucose (mg/dL) 196 H 144 H (75-99) mg/dL 03/09/17 03/09/17 Range/Units 06:12 11:11 PT (9.0-12.0) sec INR (<1.2) POC Glucose (mg/dL) 167 H 153 H (75-99) mg/dL Assessment and Plan Assessment: #1 systolic congestive heart failure, acute on chronic, echocardiogram shows an ejection fraction of 35-40% #2 acute on chronic kidney disease #3 history of coronary artery disease with coronary artery bypass surgery, stable #4 chronic atrial fibrillation, on Coumadin #5 mild troponin leak, not consistent with acute coronary syndrome #6 hypertension #7 diabetes #8 history of TIA Plan: Rn Perioperative perspective, we'll continue patient on current medications. Continue diuretics per nephrology. Anticipate discharge soon. We will follow the patient PRN. Please do not hesitate to contact us with questions. TOOL AND MACHINE MAINTAINER note has been reviewed, I agree with a documented findings and plan of care. Patient was seen and examined.
[2017-03-09 16:35] LABS: Glucose,Whole Blood 157 mg/dL (75-99)
[2017-03-09] MEDS ORDERED: DIPHENOX-ATROP 2.5-0.025 MG 1 EACH TAB PO PRN (17:03)
--- NOTE | 2017-03-09 17:03 | P.PN ---
Subjective Progress Note Date: 03/09/17 Principal diagnosis: Increasing edema and shortness of breath 86-year-old male with a known history of chronic kidney disease presented to the emergency center feeling poorly for several days. Was having increasing edema to the bilateral lower extremities with resultant weeping. The patient relates that his weight is been increasing despite his use of oral Lasix at home. His living situation has changed in that his is at the [facility] and he said eating as well as he used to. Because he was feeling considerably worse he presented to the emergency center with evidence of a cellulitis the left lower extremity the infectious diseases consultation was requested. The patient has a known history of a coronary artery bypass grafting procedure and had vein harvest from the left leg and is had resultant chronic venous stasis to the lower extremity which is now considerably aggravated by his worsening renal failure and extensive volume overload. Patient feeling somewhat better today. No shortness of breath. Lower extremity edema is improved. Developed diarrhea and CDIFF was isolated. Rocephin has completed and diarrhea improved with oral Vanco. Patient has been noted to fail his swallow study. Has been seen by pulmonary critical care. He is doing relatively well in no need for any further intervention except appropriate diet and techniques to avoid aspiration. He is feeling better. Eating relatively well with the above diet. Is still having some loose stools. But denies significant discomfort. Objective - Vital Signs Vital signs: Vital Signs Temp 97.7 F 03/09/17 16:00 Pulse 76 03/09/17 16:00 Resp 18 03/09/17 16:00 BP 145/66 03/09/17 16:00 Pulse Ox 95 03/09/17 16:00 Intake & Output 03/08/17 03/09/17 03/09/17 18:59 06:59 18:59 Intake Total 562 240 Output Total 0 0 303 Balance 562 0 -63 Weight 91.5 kg Intake: Oral 562 240 Output: Urine 300 Stool 0 0 3 Other: Voiding Method Diaper Diaper Diaper Incontinent Incontinent Incontinent # Voids 2 1 5 # Bowel Movements 2 1 - Exam Pleasant 86-year-old male who is short of breath and somewhat uncomfortable but denies fevers or chills. HEENT: Anicteric conjunctiva are pink and moist nasal mucosa grossly intact without significant lesions, there is no thrush. Full denture Neck: The neck is supple without significant lymphadenopathy or thyromegaly. Lungs: Symmetrical air entry is noted with bibasilar crackles but no alfredito wheezing. No egophony or dullness Heart: Irregular with an audible S1 and S2 loud S4 no distinct murmur click or rub PMI is nondisplaced Abdomen: Positive bowel sounds soft and nontender without palpable masses or organomegaly. There was no guarding or rebound. Extremities: The upper extremities have excellent pulses they are symmetric, no significant petechiae or telangiectasia. No splinter hemorrhages were noted. Lower extremities have edema left leg more than the right. Left leg is evidence of the extensive erythematous present from the foot to the knee. The erythema is much improved and no longer tender No extensive lymphadenopathy is noted inguinal or other areas Neuro: Awake alert oriented to person and place. There are no acute new gross focal sensory motor deficits. - Labs CBC & Chem 7: 03/06/17 20:27 03/07/17 06:14 Labs: Abnormal Lab Results - Last 24 Hours (Table) 03/08/17 03/09/17 03/09/17 Range/Units 20:59 05:59 06:12 PT 17.3 H (9.0-12.0) sec INR 1.9 H (<1.2) POC Glucose (mg/dL) 144 H 167 H (75-99) mg/dL 03/09/17 03/09/17 Range/Units 11:11 16:18 PT (9.0-12.0) sec INR (<1.2) POC Glucose (mg/dL) 153 H 157 H (75-99) mg/dL Laboratory Results WBC 6.5 k/uL (3.8-10.6) 03/06/17 20: RBC 3.37 m/uL (4.30-5.90) L 03/06/17 20: Hgb 10.0 gm/dL (13.0-17.5) L 03/06/17: Hct 33.4 % (39.0-53.0) L 03/06/17 20: MCV 98.9 fL (80.0-100.0) 03/06/17 20: MCH 29.5 pg (25.0-35.0) 03/06/17 20: MCHC 29.9 g/dL (31.0-37.0) L 03/06/17 20:27 RDW 14.0 % (11.5-15.5) 03/06/17 20: Plt Count 203 k/uL (150-450) 03/06/17 20:27 Neutrophils % 74 % 03/06/17 20: Lymphocytes % 14 % 03/06/17 20: Monocytes % 6 % 03/06/17: Eosinophils % 4 % 03/06/17: Basophils % 0 % 03/06/17 20: Neutrophils # 4.8 k/uL (1.3-7.7) 03/06/17 20: Lymphocytes # 0.9 k/uL (1.0-4.8) L 03/06/17: Monocytes # 0.4 k/uL (0-1.0) 03/06/17 20: Eosinophils # 0.3 k/uL (0-0.7) 03/06/17: Basophils # 0.0 k/uL (0-0.2) 03/06/17 20: Manual Slide Review Performed 02/23/17 10:45 Hypochromasia Marked 03/06/17 20:27 Macrocytosis Slight 02/25/17 05:42 PT 17.3 sec (9.0-12.0) H 03/09/17 05:59 INR 1.9 (<1.2) H 03/09/17 05:59 APTT 31.1 sec (22.0-30.0) H 02/23/17 10:45 Sodium 140 mmol/L (137-145) 03/07/17 06:14 Potassium 3.8 mmol/L (3.5-5.1) 03/07/17 06:14 Chloride 103 mmol/L (98-107) 03/07/17 06:14 Carbon Dioxide 27 mmol/L (22-30) 03/07/17 06:14 Anion Gap 10 mmol/L 03/07/17 06:14 BUN 48 mg/dL (9-20) H 03/07/17 06:14 Creatinine 1.91 mg/dL (0.66-1.25) H 03/07/17 06:14 Est GFR (MDRD) Af Amer 41 (>60 ml/min/1.73 sqM) 03/07/17 06:14 Est GFR (MDRD) Non-Af 33 (>60 ml/min/1.73 sqM) 03/07/17 06:14 Glucose 107 mg/dL (74-99) H 03/07/17 06:14 POC Glucose (mg/dL) 157 mg/dL (75-99) H 03/09/17 16:18 POC Glu Grey Tender ID Brittanie Currie 03/09/17 16:[address] Glu mg/dL 126 02/27/17 09:23 Hemoglobin A1c 6.0 % (4.0-6.0) 02/27/17 09:23 Uric Acid 8.1 mg/dL (3.5-8.5) 02/23/17 10:45 Calcium 9.1 mg/dL (8.4-10.2) 03/07/17 06:14 Magnesium 2.5 mg/dL (1.6-2.3) H 03/06/17 20:27 Iron 43 ug/dL (65-175) L 02/24/17 06:03 TIBC 245 ug/dL (228-460) 02/24/17 06:03 Iron Saturation 17.55 (15.00-50.00) 02/24/17 06:03 Total Bilirubin 0.8 mg/dL (0.2-1.3) 02/26/17 06:14 AST 22 U/L (17-59) 02/26/17 06:14 ALT 34 U/L (21-72) 02/26/17 06:14 Alkaline Phosphatase 91 U/L (38-126) 02/26/17 06:14 Total Creatine Kinase 27 U/L (55-170) L 02/23/17 17:02 CK-MB (CK-2) 0.6 ng/mL (0.0-2.4) 02/23/17 17:02 CK-MB (CK-2) Rel Index 2.2 02/23/17 17:02 Troponin I 0.036 ng/mL (0.000-0.034) H* 02/23/17 22:57 NT-Pro-B Natriuret Pep 7290 pg/mL 02/23/17 10:45 Total Protein 6.3 g/dL (6.3-8.2) 02/26/17 06:14 Albumin 3.3 g/dL (3.5-5.0) L 02/26/17 06:14 Urine Color Light Yellow 02/28/17 06:20 Urine Appearance Clear (Clear) 02/28/17 06:20 Urine pH 7.5 (5.0-8.0) 02/28/17 06:20 Ur Specific [place] 1.007 (1.001-1.035) 02/28/17 06:20 Urine Protein Negative (Negative) 02/28/17 06:20 Urine Glucose (UA) Negative (Negative) 02/28/17 06:20 Urine Ketones Negative (Negative) 02/28/17 06:20 Urine Blood Small (Negative) H 02/28/17 06:20 Urine Nitrite Negative (Negative) 02/28/17 06:20 Urine Bilirubin Negative (Negative) 02/28/17 06:20 Urine Urobilinogen <2.0 mg/dL (<2.0) 02/28/17 06:20 Ur Leukocyte Esterase Negative (Negative) 02/28/17 06:20 Urine RBC 18 /hpf (0-5) H 02/28/17 06:20 Urine Mucus Rare /hpf (None) H 02/28/17 06:20 C. difficile (EIA) Intrp Positive (Negative) A 03/02/17 08:11 Microbiology 03/01/17 18:11 Blood Blood Culture - Final No Growth after 144 hours 02/27/17 12:29 Blood Blood Culture - Final No Growth after 144 hours Assessment and Plan (1) Congestive heart failure Current Visit: Yes Status: Acute Code(s): I50.9 - HEART FAILURE, UNSPECIFIED SNOMED Code(s): 64539534 (2) Acute renal failure Current Visit: Yes Status: Acute Code(s): N17.9 - ACUTE KIDNEY FAILURE, UNSPECIFIED SNOMED Code(s): 23408817 (3) Cellulitis Narrative/Plan: 86-year-old male presents to hospital with increasing lower extremity edema especially the left lower extremity associated with weeping and drainage. He was feeling poorly. Much more short of breath and having increasing difficulty with day-to-day activities. He also relates to social situation is difficult with his being in the [facility]. Admission there was evidence of worsening of his chronic kidney disease with acute renal failure superimposed on his significant systolic congestive heart failure and pulmonary edema. He is an insulin drip showing some improvement. The extensive cellulitis of the left lower extremity is noted. The patient relates starting to show some improvement because he's had some diuresis. Duplexes been performed with no evidence of any deep venous thrombosis. The Silvadene wrap is now allowed resolution of the swelling erythema and cellulitis of the left leg. The vein harvest to the extremity is a significant contributing factor to the extensive edema and resultant cellulitis. Elevation the limb is important. Is being followed by nephrology trying to improve his fluid and potassium balance. It is noted patient developed diarrhea and Clostridium difficile colitis has been diagnosed. Responding well to vancomycin therapy. Less frequent stools today. Plan 10 days of therapy. Fortunately the leg is now much improved and intravenous antibiotic therapy has discontinued. Still having some loose stools intermittently. Will attempt a few doses of Lomotil to see if this cannot help that his C. difficile me to be well controlled and that he is having no fever chills or leukocytosis. Abdominal exam is benign. Current Visit: No Status: Acute Code(s): L03.90 - CELLULITIS, UNSPECIFIED SNOMED Code(s): 639638455
[2017-03-09] MEDS ORDERED: WARFARIN 2.5 MG TAB PO ONE (18:00)
[2017-03-09 20:47] LABS: Glucose,Whole Blood 138 mg/dL (75-99)
[2017-03-09] MEDS: ATORVASTATIN 10 MG TAB PO SCH (20:54)
[2017-03-09] MEDS: LISINOPRIL 5 MG TAB PO SCH (20:54)
[2017-03-09] MEDS: CHERRY FLAVOR 60 ML BOTTLE PO PRN (23:34)
[2017-03-10 05:59] LABS: Glucose,Whole Blood 118 mg/dL (75-99)
[2017-03-10] MEDS: INSULIN ASPART 100 UNIT/ML 1 ML 10 ML VIAL SQ SCH ×4 (06:29→22:00)
[2017-03-10] MEDS: VANCOMYCIN ORAL SOLUTION 250 MG/5 ML BOTTLE PO SCH ×3 (06:30→18:42)
[2017-03-10] MEDS: CHERRY FLAVOR 60 ML BOTTLE PO PRN ×2 (06:30→18:42)
[2017-03-10 06:41] LABS: INR 1.9 (<1.2); Prothrombin Time 17.3 sec (9.0-12.0)
[2017-03-10 07:32] LABS: Calcium 9.1 mg/dL (8.4-10.2)
[2017-03-10] MEDS: FINASTERIDE 5 MG TAB PO SCH (08:00)
[2017-03-10] MEDS: FERROUS SULFATE 325 MG TAB PO SCH (08:00)
[2017-03-10] MEDS: POTASSIUM CHLORIDE ER 10 MEQ TAB.ER.PRT PO SCH (08:00)
[2017-03-10] MEDS: LACTOBACILLUS ACIDOPH & BULGAR 1 EACH PACKET PO SCH ×4 (08:00→21:59)
[2017-03-10] MEDS: FUROSEMIDE 10 MG/ML 10 ML VIAL IV SCH ×2 (08:01→21:59)
--- NOTE | 2017-03-10 09:19 | P.PN ---
Subjective Progress Note Date: 03/10/17 Principal diagnosis: This is an 86-year-old male with acute kidney injury on chronic kidney disease his acute kidney injury from C. diff and also cardiorenal syndrome and creatinine has been stable He continues to have some diarrhea. His appetite is somewhat better but on and off. Continues to have shortness of breath as well as dizziness when he sits up. His vital signs are stable. Urine output is not well recorded he is incontinent. Denies any abdominal pain fever chills. No nausea vomiting no abdominal pain. No fever chills. He was initially admitted because of worsening edema and cellulitis. His baseline creatinine is about 1.7-1.9 Objective - Vital Signs Vital signs: Vital Signs Temp 97.5 F L 03/10/17 04:00 Pulse 85 03/10/17 04:00 Resp 18 03/10/17 04:00 BP 114/65 03/10/17 04:00 Pulse Ox 97 03/10/17 04:00 Intake & Output 03/09/17 03/10/17 03/10/17 18:59 06:59 18:59 Intake Total 480 120 Output Total 303 Balance 177 120 Weight 90.5 kg Intake: Oral 480 120 Output: Urine 300 Stool 3 Other: Voiding Method Diaper Diaper Incontinent Incontinent # Voids 5 1 # Bowel Movements 1 On examination is awake alert oriented. Week and ill-looking. HEENT exam no JVP no hepatojugular reflux. Neck is supple no facial asymmetry Lungs are significant for bilateral refusing and dullness at bases. Heart sounds are unremarkable for any murmur rub gallop Abdomen soft nontender no organomegaly status masses Extremity exam was mild edema Neurologically awake alert oriented but generalized weakness. - Labs CBC & Chem 7: 03/06/17 20:27 03/10/17 05:50 Labs: Abnormal Lab Results - Last 24 Hours (Table) 03/09/17 03/09/17 03/09/17 Range/Units 11:11 16:18 20:38 PT (9.0-12.0) sec INR (<1.2) BUN (9-20) mg/dL Creatinine (0.66-1.25) mg/dL Glucose (74-99) mg/dL POC Glucose (mg/dL) 153 H 157 H 138 H (75-99) mg/dL 03/10/17 03/10/17 03/10/17 Range/Units 05:50 05:50 05:57 PT 17.3 H (9.0-12.0) sec INR 1.9 H (<1.2) BUN 41 H (9-20) mg/dL Creatinine 1.86 H (0.66-1.25) mg/dL Glucose 121 H (74-99) mg/dL POC Glucose (mg/dL) 118 H (75-99) mg/dL Assessment and Plan Assessment: Impression. 1. Acute kidney injury from prerenal from congestive heart failure , C. diff colitis.. last creatinine on 03/10/2017 today is 1.86 and on 03/07/2017 was 1.9 which is stable 2. CKD secondary to nephrosclerosis with baseline creatinine ranging between 1.46-1.9 from 2013 with no proteinuria in the urinalysis 3. Congestive heart failure with some persistent end expiratory wheezing, and dullness on percussion 4. History of coronary artery bypass graft 15 years ago. 5. History of diabetes but no proteinuria 6. History of TIA in the past and 7. History of BPH. 8. Cellulitis of legs , improved 9. Aortic sclerosis VS Stenosis. 10. Anemia of CKD , hemoglobin is 10 at target. Recommendation. 1. continue IV Lasix 60 twice a day 2.Monitor I's and O's closely and 3. Check labs tomorrow. 4. Will obtain a chest x-ray to assess his volume status better. 5. Check orthostatic changes And call me
[2017-03-10] MEDS: CHOLESTYRAMINE (WITH SUGAR) 4 GM PACKET PO SCH ×2 (10:00→18:43)
[2017-03-10 11:25] LABS: Glucose,Whole Blood 210 mg/dL (75-99)
[2017-03-10] MEDS: CHOLECALCIFEROL 400 UNIT TAB PO SCH (12:46)
[2017-03-10] MEDS: VITAMIN E (DL,TOCOPHERYL ACET) 400 UNIT CAP PO SCH (12:46)
[2017-03-10] MEDS: ASCORBIC ACID 500 MG TAB PO SCH (12:48)
--- NOTE | 2017-03-10 13:19 | P.PN ---
Progress Note - Text The patient is a 86-year-old gentleman who' s primary care physician is Dr. Jacobo and who has been followed by Dr. Mervin Oliver in his absence. I am covering for Dr. Oliver today. Patient apparently has been in the hospital about 2 weeks. He presented with increasing edema and cellulitis of the lower extremity. Also acute on chronic renal failure. He also has underlying coronary artery disease, diabetes, hypertension with previous myocardial infarction and strokes. Also the patient is recovering from C. difficile infection. He states generally he is not feeling well. appears fatigued. He states his cough and phlegm keeps him awake at night. Vital signs reveal temperature 99.6 with a pulse of 93 and respirations 18. Blood pressure is 125/70 and he is 97% saturated on 2 L nasal cannula. Lungs are generally diminished without definitive consolidation. Heart tones are regular without murmurs appreciated. Grade 1 edema. Generalized weakness but no focal neurological deficits noted. Lab results INR is 1.9 Electrolytes were unremarkable. BUN 41 with creatinine of 1.86 giving him a GFR of 35. Blood sugar was 121. Patient's weight has decreased from 91.5-90.5 kg. Apparently patient refused physical therapy today. Impressions and plans Overall this 86-year-old gentleman with numerous medical concerns as stated above. It appears that plans are in progress for possible transfer to extended care facility early this week. Chest x-ray has been ordered for today. Other labs ordered for the morning. Continue with present treatment. Coumadin 2.5 daily ordered. Repeat INR tomorrow.
--- NOTE | 2017-03-10 15:45 | XR ---
EXAMINATION TYPE: XR chest 2V DATE OF EXAM: 03/10/2017 COMPARISON: NONE HISTORY: Congestive heart failure TECHNIQUE: Frontal and lateral views of the chest are obtained. FINDINGS: There is generalized osseous demineralization and mild multilevel degenerative changes of the thoracic spine. Post CABG changes are seen of the chest in combination with cardiomegaly. Right middle lobe opacity has become more confluent in the interim. Trace pleural effusions are noted . Other scattered left basilar and right basilar linear areas of atelectasis remaining. Mild pulmonar y vascular congestion is again seen. IMPRESSION: Right middle lobe opacity. This could represent pneumonia or confluent area pulmonary edema. 2. Scattered areas of linear bibasilar subsegmental atelectasis and trace pleural effusions.
[2017-03-10 16:34] LABS: Glucose,Whole Blood 134 mg/dL (75-99)
[2017-03-10] MEDS: WARFARIN 2.5 MG TAB PO SCH (18:43)
[2017-03-10 21:14] LABS: Glucose,Whole Blood 163 mg/dL (75-99)
[2017-03-10] MEDS: LISINOPRIL 5 MG TAB PO SCH (21:59)
[2017-03-10] MEDS: ATORVASTATIN 10 MG TAB PO SCH (21:59)
[2017-03-11] MEDS: VANCOMYCIN ORAL SOLUTION 250 MG/5 ML BOTTLE PO SCH ×4 (00:01→17:56)
[2017-03-11] MEDS: INSULIN ASPART 100 UNIT/ML 1 ML 10 ML VIAL SQ SCH ×4 (06:45→20:46)
[2017-03-11 06:47] LABS: Basophils # (A) 0.1 k/uL (0-0.2); Basophils % (A) 1 %; Eosinophils # (A) 0.2 k/uL (0-0.7); Eosinophils % (A) 2 %; HCT 35.1 % (39.0-53.0); HGB 10.1 gm/dL (13.0-17.5); Hypochromasia Marked; Lymphocytes # (A) 1.6 k/uL (1.0-4.8); Lymphocytes % (A) 17 %; MCH 29.1 pg (25.0-35.0); MCHC 28.9 g/dL (31.0-37.0); MCV 100.6 fL (80.0-100.0); Macrocytosis Slight; Mean Platelet Volume 7.6; Monocytes # (A) 0.4 k/uL (0-1.0); Monocytes % (A) 4 %; Neutrophils # (A) 6.9 k/uL (1.3-7.7); Neutrophils % (A) 75 %; Platelet Count 262 k/uL (150-450); RBC 3.49 m/uL (4.30-5.90); RDW 15.5 % (11.5-15.5); WBC 9.2 k/uL (3.8-10.6)
[2017-03-11 06:51] LABS: Glucose,Whole Blood 132 mg/dL (75-99)
[2017-03-11 06:53] LABS: Prothrombin Time 18.2 sec (9.0-12.0)
--- NOTE | 2017-03-11 07:15 | P.PN ---
Progress Note - Text The patient is a 86-year-old gentleman whose primary care physician is Dr. Jacobo for whom I am covering. Apparently the patient initially presented with edema and cellulitis of the lower extremities along with the acute on chronic renal failure. History of coronary artery disease, diabetes, hypertension and old myocardial infarction and strokes. He also developed apparently a C. difficile infection. Yesterday patient seemed somewhat fatigued. This morning he is awake in bed. A little bit more alert. Still having somewhat of a cough but not able to produce much phlegm he states. No unusual chest pain or shortness of breath at this time. No nausea or vomiting. Vital signs reveal temperature of 97.1 with a pulse of 95 and irregular. Respiratory rate is 18. Blood pressure 137/66 and he is 96% saturated on 2 L nasal cannula. Lungs are generally diminished at bases but overall clear. Heart tones were irregular but rate controlled. Abdomen nontender. 1-2+ edema bilaterally without calf tenderness. As mentioned he is alert. Cranial nerves intact. Moving all extremities without focal deficits. White count is 9.2 with a hemoglobin of 10.1 and a platelet count of 262. INR 2.0 Blood sugar 132 this morning. Patient's weight is up 1.5 kg. Impressions and plans The patient apparently refused to therapy yesterday. Discussed with patient this morning optioned for possible rehab placement. Discussed importance of continuing with physical therapy for strengthening and ambulation. We will continue his Coumadin 2.5 mg daily. He is continuing on his vancomycin for the C. difficile. Continue with physical therapy and discharge planning.
[2017-03-11 07:28] LABS: T4, Free (Free Thyroxine) 1.01 ng/dL (0.78-2.19)
[2017-03-11] MEDS: FERROUS SULFATE 325 MG TAB PO SCH (09:39)
[2017-03-11] MEDS: FINASTERIDE 5 MG TAB PO SCH (09:39)
[2017-03-11] MEDS: FUROSEMIDE 10 MG/ML 10 ML VIAL IV SCH ×2 (09:39→20:48)
[2017-03-11] MEDS: LACTOBACILLUS ACIDOPH & BULGAR 1 EACH PACKET PO SCH ×5 (09:39→20:57)
[2017-03-11] MEDS: POTASSIUM CHLORIDE ER 10 MEQ TAB.ER.PRT PO SCH (09:40)
[2017-03-11] MEDS: CHOLESTYRAMINE (WITH SUGAR) 4 GM PACKET PO SCH ×2 (09:40→16:31)
[2017-03-11 11:28] LABS: Glucose,Whole Blood 258 mg/dL (75-99)
[2017-03-11] MEDS: VITAMIN E (DL,TOCOPHERYL ACET) 400 UNIT CAP PO SCH (11:45)
[2017-03-11] MEDS: ASCORBIC ACID 500 MG TAB PO SCH (11:45)
[2017-03-11] MEDS: CHOLECALCIFEROL 400 UNIT TAB PO SCH (11:46)
[2017-03-11] MEDS ORDERED: IPRATROPIUM-ALBUTEROL 3 ML NEB INHALATION PRN (15:19)
[2017-03-11] MEDS: IPRATROPIUM-ALBUTEROL 3 ML NEB INHALATION SCH ×2 (15:54→20:27)
[2017-03-11] MEDS: PIPERACILLIN-TAZOBACTAM 3.375 GM in DEXTROSE/WATER 1 50ML.BAG IVPB SCH (16:30)
[2017-03-11 16:31] LABS: Glucose,Whole Blood 120 mg/dL (75-99)
[2017-03-11] MEDS: WARFARIN 2.5 MG TAB PO SCH (17:57)
--- NOTE | 2017-03-11 19:55 | P.PN ---
Subjective Progress Note Date: 03/11/17 Principal diagnosis: Increasing edema and shortness of breath 86-year-old male with a known history of chronic kidney disease presented to the emergency center feeling poorly for several days. Was having increasing edema to the bilateral lower extremities with resultant weeping. The patient relates that his weight is been increasing despite his use of oral Lasix at home. His living situation has changed in that his is at the care home and he said eating as well as he used to. Because he was feeling considerably worse he presented to the emergency center with evidence of a cellulitis the left lower extremity the infectious diseases consultation was requested. The patient has a known history of a coronary artery bypass grafting procedure and had vein harvest from the left leg and is had resultant chronic venous stasis to the lower extremity which is now considerably aggravated by his worsening renal failure and extensive volume overload. Patient feeling somewhat better today. No shortness of breath. Lower extremity edema is improved. Developed diarrhea and CDIFF was isolated. Rocephin has completed and diarrhea improved with oral Vanco. Patient has been noted to fail his swallow study. Has been seen by pulmonary critical care. He is doing relatively well in no need for any further intervention except appropriate diet and techniques to avoid aspiration. He is feeling better. Eating relatively well with the above diet. Frequency of stools has improved. Objective - Vital Signs Vital signs: Vital Signs Temp 98.2 F 03/11/17 15:56 Pulse 91 03/11/17 15:57 Resp 14 03/11/17 15:57 BP 141/67 03/11/17 15:56 Pulse Ox 99 03/11/17 15:56 Intake & Output 03/11/17 03/11/17 03/12/17 06:59 18:59 06:59 Intake Total 100 118 Output Total 103 Balance -3 118 Weight 91.5 kg Intake: Oral 100 118 Output: Urine 100 Stool 3 Other: Voiding Method Diaper Urinal Incontinent Diaper Incontinent # Voids 1 1 # Bowel Movements 1 1 - Exam Pleasant 86-year-old male who is short of breath and somewhat uncomfortable but denies fevers or chills. HEENT: Anicteric conjunctiva are pink and moist nasal mucosa grossly intact without significant lesions, there is no thrush. Full denture Neck: The neck is supple without significant lymphadenopathy or thyromegaly. Lungs: Symmetrical air entry is noted with bibasilar crackles but no alfredito wheezing. No egophony or dullness Heart: Irregular with an audible S1 and S2 loud S4 no distinct murmur click or rub PMI is nondisplaced Abdomen: Positive bowel sounds soft and nontender without palpable masses or organomegaly. There was no guarding or rebound. Extremities: The upper extremities have excellent pulses they are symmetric, no significant petechiae or telangiectasia. No splinter hemorrhages were noted. Lower extremities have edema left leg more than the right. The erythema is improved and no longer tender No extensive lymphadenopathy is noted inguinal or other areas Neuro: Awake alert oriented to person and place. There are no acute new gross focal sensory motor deficits. - Labs CBC & Chem 7: 03/11/17 06:24 03/10/17 05:50 Labs: Abnormal Lab Results - Last 24 Hours (Table) 03/10/17 03/11/17 03/11/17 Range/Units 21:12 06:24 06:24 RBC 3.49 L (4.30-5.90) m/uL Hgb 10.1 L (13.0-17.5) gm/dL Hct 35.1 L (39.0-53.0) % MCV 100.6 H (80.0-100.0) fL MCHC 28.9 L (31.0-37.0) g/dL PT (9.0-12.0) sec INR (<1.2) POC Glucose (mg/dL) 163 H (75-99) mg/dL Vitamin B12 1476.0 H (200.0-944.0) pg/mL 03/11/17 03/11/17 03/11/17 Range/Units 06:24 06:33 11:26 RBC (4.30-5.90) m/uL Hgb (13.0-17.5) gm/dL Hct (39.0-53.0) % MCV (80.0-100.0) fL MCHC (31.0-37.0) g/dL PT 18.2 H (9.0-12.0) sec INR 2.0 H (<1.2) POC Glucose (mg/dL) 132 H 258 H (75-99) mg/dL Vitamin B12 (200.0-944.0) pg/mL 03/11/17 Range/Units 16:25 RBC (4.30-5.90) m/uL Hgb (13.0-17.5) gm/dL Hct (39.0-53.0) % MCV (80.0-100.0) fL MCHC (31.0-37.0) g/dL PT (9.0-12.0) sec INR (<1.2) POC Glucose (mg/dL) 120 H (75-99) mg/dL Vitamin B12 (200.0-944.0) pg/mL Laboratory Results WBC 9.2 k/uL (3.8-10.6) 03/11/17 06:24 RBC 3.49 m/uL (4.30-5.90) L 03/11/17 06:24 Hgb 10.1 gm/dL (13.0-17.5) L 03/11/17 06:24 Hct 35.1 % (39.0-53.0) L 03/11/17 06:24 MCV 100.6 fL (80.0-100.0) H 03/11/17 06:24 MCH 29.1 pg (25.0-35.0) 03/11/17 06:24 MCHC 28.9 g/dL (31.0-37.0) L 03/11/17 06:24 RDW 15.5 % (11.5-15.5) 03/11/17 06:24 Plt Count 262 k/uL (150-450) 03/11/17 06:24 Neutrophils % 75 % 03/11/17 06:24 Lymphocytes % 17 % 03/11/17 06:24 Monocytes % 4 % 03/11/17 06:24 Eosinophils % 2 % 03/11/17 06:24 Basophils % 1 % 03/11/17 06:24 Neutrophils # 6.9 k/uL (1.3-7.7) 03/11/17 06:24 Lymphocytes # 1.6 k/uL (1.0-4.8) 03/11/17 06:24 Monocytes # 0.4 k/uL (0-1.0) 03/11/17 06:24 Eosinophils # 0.2 k/uL (0-0.7) 03/11/17 06:24 Basophils # 0.1 k/uL (0-0.2) 03/11/17 06:24 Manual Slide Review Performed 02/23/17 10:45 Hypochromasia Marked 03/11/17 06:24 Macrocytosis Slight 03/11/17 06:24 PT 18.2 sec (9.0-12.0) H 03/11/17 06:24 INR 2.0 (<1.2) H 03/11/17 06:24 APTT 31.1 sec (22.0-30.0) H 02/23/17 10:45 Sodium 144 mmol/L (137-145) 03/10/17 05:50 Potassium 4.0 mmol/L (3.5-5.1) 03/10/17 05:50 Chloride 107 mmol/L (98-107) 03/10/17 05:50 Carbon Dioxide 28 mmol/L (22-30) 03/10/17 05:50 Anion Gap 9 mmol/L 03/10/17 05:50 BUN 41 mg/dL (9-20) H 03/10/17 05:50 Creatinine 1.86 mg/dL (0.66-1.25) H 03/10/17 05:50 Est GFR (MDRD) Af Amer 42 (>60 ml/min/1.73 sqM) 03/10/17 05:50 Est GFR (MDRD) Non-Af 35 (>60 ml/min/1.73 sqM) 03/10/17 05:50 Glucose 121 mg/dL (74-99) H 03/10/17 05:50 POC Glucose (mg/dL) 120 mg/dL (75-99) H 03/11/17 16:25 POC Glu Development Analyst ID Ami Ulrich 03/11/17 16:[address] Glu mg/dL 126 02/27/17 09:23 Hemoglobin A1c 6.0 % (4.0-6.0) 02/27/17 09:23 Uric Acid 8.1 mg/dL (3.5-8.5) 02/23/17 10:45 Calcium 9.1 mg/dL (8.4-10.2) 03/10/17 05:50 Magnesium 2.5 mg/dL (1.6-2.3) H 03/06/17 20:27 Iron 43 ug/dL (65-175) L 02/24/17 06:03 TIBC 245 ug/dL (228-460) 02/24/17 06:03 Iron Saturation 17.55 (15.00-50.00) 02/24/17 06:03 Total Bilirubin 0.8 mg/dL (0.2-1.3) 02/26/17 06:14 AST 22 U/L (17-59) 02/26/17 06:14 ALT 34 U/L (21-72) 02/26/17 06:14 Alkaline Phosphatase 91 U/L (38-126) 02/26/17 06:14 Total Creatine Kinase 27 U/L (55-170) L 02/23/17 17:02 CK-MB (CK-2) 0.6 ng/mL (0.0-2.4) 02/23/17 17:02 CK-MB (CK-2) Rel Index 2.2 02/23/17 17:02 Troponin I 0.036 ng/mL (0.000-0.034) H* 02/23/17 22:57 NT-Pro-B Natriuret Pep 97052 pg/mL 03/11/17 06:24 Total Protein 6.3 g/dL (6.3-8.2) 02/26/17 06:14 Albumin 3.3 g/dL (3.5-5.0) L 02/26/17 06:14 Vitamin B12 1476.0 pg/mL (200.0-944.0) H 03/11/17 06:24 TSH 2.060 mIU/L (0.465-4.680) 03/11/17 06:24 Free T4 1.01 ng/dL (0.78-2.19) 03/11/17 06:24 Urine Color Light Yellow 02/28/17 06:20 Urine Appearance Clear (Clear) 02/28/17 06:20 Urine pH 7.5 (5.0-8.0) 02/28/17 06:20 Ur Specific Hortense 1.007 (1.001-1.035) 02/28/17 06:20 Urine Protein Negative (Negative) 02/28/17 06:20 Urine Glucose (UA) Negative (Negative) 02/28/17 06:20 Urine Ketones Negative (Negative) 02/28/17 06:20 Urine Blood Small (Negative) H 02/28/17 06:20 Urine Nitrite Negative (Negative) 02/28/17 06:20 Urine Bilirubin Negative (Negative) 02/28/17 06:20 Urine Urobilinogen <2.0 mg/dL (<2.0) 02/28/17 06:20 Ur Leukocyte Esterase Negative (Negative) 02/28/17 06:20 Urine RBC 18 /hpf (0-5) H 02/28/17 06:20 Urine Mucus Rare /hpf (None) H 02/28/17 06:20 C. difficile (EIA) Intrp Positive (Negative) A 03/02/17 08:11 Microbiology 03/01/17 18:11 Blood Blood Culture - Final No Growth after 144 hours 02/27/17 12:29 Blood Blood Culture - Final No Growth after 144 hours Assessment and Plan (1) Congestive heart failure Current Visit: Yes Status: Acute Code(s): I50.9 - HEART FAILURE, UNSPECIFIED SNOMED Code(s): 50369161 (2) Acute renal failure Current Visit: Yes Status: Acute Code(s): N17.9 - ACUTE KIDNEY FAILURE, UNSPECIFIED SNOMED Code(s): 16425847 (3) Cellulitis Narrative/Plan: 86-year-old male presents to hospital with increasing lower extremity edema especially the left lower extremity associated with weeping and drainage. He was feeling poorly. Much more short of breath and having increasing difficulty with day-to-day activities. He also relates to social situation is difficult with his being in the care home. Admission there was evidence of worsening of his chronic kidney disease with acute renal failure superimposed on his significant systolic congestive heart failure and pulmonary edema. He is an insulin drip showing some improvement. The extensive cellulitis of the left lower extremity is noted. The patient relates starting to show some improvement because he's had some diuresis. Duplexes been performed with no evidence of any deep venous thrombosis. The Silvadene wrap is now allowed resolution of the swelling erythema and cellulitis of the left leg. The vein harvest to the extremity is a significant contributing factor to the extensive edema and resultant cellulitis. Elevation the limb is important. Is being followed by nephrology trying to improve his fluid and potassium balance. It is noted patient developed diarrhea and Clostridium difficile colitis has been diagnosed. Responding well to vancomycin therapy. Less frequent stools today. Plan 10 days of therapy. Fortunately the leg is now much improved and intravenous antibiotic therapy has discontinued. Still having some loose stools intermittently. The addition of Lomotil is markedly reduce the higher volume of his stool, he is feeling better. Abdominal exam is benign. Ready for transfer Current Visit: No Status: Acute Code(s): L03.90 - CELLULITIS, UNSPECIFIED SNOMED Code(s): 098893011
[2017-03-11 20:37] LABS: Glucose,Whole Blood 115 mg/dL (75-99)
[2017-03-11] MEDS: LISINOPRIL 5 MG TAB PO SCH ×2 (20:48→20:57)
[2017-03-11] MEDS: ATORVASTATIN 10 MG TAB PO SCH ×2 (20:48→20:57)
--- NOTE | 2017-03-11 23:26 | PN ---
PROGRESS NOTE Patient is seen for followup for acute kidney injury, which was initially mainly cardiorenal. However, patient's volume status has improved. He is status post Lasix drip and dobutamine drip. He did have C. difficile colitis and had significant diarrhea following which the Lasix was decreased. Currently, he is maintained on 60 mg IV q.12 hours. Patient is lying in bed. He denies any significant complaints. He states he is feeling weak. Appetite remains poor. EXAMINATION: Blood pressure is 141/67, heart rate 79 per minute. He is afebrile. Examination of the heart S1, S2. Examination lungs decreased breath sounds bases. Abdomen is soft, nontender. Examination lower extremity shows chronic skin changes with wrinkling of skin noted. Decreased edema. PICK UP [employer]IVER exam is grossly intact. Patient is moving all 4 extremities. LABS: Hemoglobin 10.1, serum creatinine was 1.86 yesterday. ASSESSMENT: 1. Acute kidney injury, cardiorenal with stable renal function. Continue current dose of Lasix. 2. Clostridium difficile colitis, slowly improving. 3. Generalized debility. 4. Severe cardiomyopathy, ejection fraction of about 30%. 5. Right middle lobe infiltrate, possible pneumonia. 6. Chronic kidney disease secondary to nephrosclerosis with baseline creatinine about 1.4-1.9 from 2014 with no proteinuria. PLAN: Continue with IV Lasix. Repeat labs in a.m. Overall prognosis is guarded. MMODL / IJN: [id number] /
[2017-03-12] MEDS: PIPERACILLIN-TAZOBACTAM 3.375 GM in DEXTROSE/WATER 1 50ML.BAG IVPB SCH ×3 (00:24→17:30)
[2017-03-12] MEDS: VANCOMYCIN ORAL SOLUTION 250 MG/5 ML BOTTLE PO SCH ×5 (00:24→23:59)
[2017-03-12 06:02] LABS: Glucose,Whole Blood 137 mg/dL (75-99)
[2017-03-12] MEDS: INSULIN ASPART 100 UNIT/ML 1 ML 10 ML VIAL SQ SCH ×4 (06:38→21:47)
[2017-03-12] MEDS: IPRATROPIUM-ALBUTEROL 3 ML NEB INHALATION SCH ×4 (08:23→20:24)
--- NOTE | 2017-03-12 09:54 | P.PN ---
Subjective Patient is seen in follow-up for acute kidney injury on chronic kidney disease. 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 Creatinine 1.86 as of March 10. He is currently maintained on IV Lasix 60 mg twice daily. Edema is improved. Oral intake is fair. He is noted to be C. diff positive - still having loose bowel movements. Vital signs are stable. General: The patient appeared well nourished and normally developed. HEENT: Head exam is unremarkable. Neck is without jugular venous distension. LUNGS: Scattered rhonchi. Breath sounds decreased. HEART: Rate and Rhythm are regular. First and second heart sounds normal. No murmurs, rubs or gallops. ABDOMEN: Abdominal exam reveals normal bowel sounds. Non-tender and non- distended. No evidence of peritonitis. EXTREMITITES: 1+ edema. Objective - Vital Signs Vital signs: Vital Signs Temp 97.7 F 03/12/17 04:00 Pulse 92 03/12/17 08:31 Resp 16 03/12/17 04:00 BP 110/61 03/12/17 04:00 Pulse Ox 93 L 03/12/17 04:00 Intake & Output 03/11/17 03/12/17 03/12/17 18:59 06:59 18:59 Intake Total 118 178 Output Total 300 Balance 118 -122 Weight 89.5 kg Intake: IV 10 saline 10 Intake, IV Titration 50 Amount Piperacillin-Tazobactam 3 50 .375 gm In Dextrose/Water 1 50ml.bag @ 12.5 mls/hr IVPB Q8HR [facility] Rx#: [id number] Oral 118 118 Output: Urine/Stool Mix 300 Other: Voiding Method Urinal Urinal Diaper Diaper Incontinent Incontinent # Voids 1 1 # Bowel Movements 1 1 - Labs CBC & Chem 7: 03/11/17 06:24 03/10/17 05:50 Labs: Abnormal Lab Results - Last 24 Hours (Table) 03/11/17 03/11/17 03/11/17 Range/Units 06:24 11:26 16:25 POC Glucose (mg/dL) 258 H 120 H (75-99) mg/dL Vitamin B12 1476.0 H (200.0-944.0) pg/mL 03/11/17 03/12/17 Range/Units 20:33 06:01 POC Glucose (mg/dL) 115 H 137 H (75-99) mg/dL Vitamin B12 (200.0-944.0) pg/mL Assessment and Plan Plan: Assessment: #1. Nonoliguric acute kidney injury secondary to ATN secondary to cardiorenal syndrome. Renal function relatively stable with creatinine at 1.86 as of March 10. No proteinuria noted on urinalysis. #2. 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 #3. Systolic CHF with ejection fraction of 35-40%. #4. Volume overload. Improving. #5. C diff colitis maintained on antibiotics. #6. Metabolic alkalosis due to volume contraction. Improved. Plan: Continue Lasix 60 mg twice daily. Repeat electrolytes in the morning. Avoid nephrotoxic agents and hypotensive episodes. Encourage oral intake. Follow-up chest x-ray.
[2017-03-12] MEDS: CHOLECALCIFEROL 400 UNIT TAB PO SCH (10:44)
[2017-03-12] MEDS: FUROSEMIDE 10 MG/ML 10 ML VIAL IV SCH ×2 (10:44→21:47)
[2017-03-12] MEDS: LACTOBACILLUS ACIDOPH & BULGAR 1 EACH PACKET PO SCH ×4 (10:45→21:47)
[2017-03-12] MEDS: CHOLESTYRAMINE (WITH SUGAR) 4 GM PACKET PO SCH ×2 (10:45→17:14)
[2017-03-12] MEDS: POTASSIUM CHLORIDE ER 10 MEQ TAB.ER.PRT PO SCH (10:45)
[2017-03-12] MEDS: FERROUS SULFATE 325 MG TAB PO SCH (10:45)
[2017-03-12] MEDS: VITAMIN E (DL,TOCOPHERYL ACET) 400 UNIT CAP PO SCH (10:46)
[2017-03-12] MEDS: FINASTERIDE 5 MG TAB PO SCH (10:46)
[2017-03-12] MEDS: ASCORBIC ACID 500 MG TAB PO SCH (10:46)
--- NOTE | 2017-03-12 11:03 | P.PN ---
Subjective Progress Note Date: 03/12/17 Principal diagnosis: Acute on chronic systolic congestive heart failure, aspiration pneumonia, acute cellulitis of the lower extremity. This is an 86-year-old white male with history of multiple medical problems including chronic systolic congestive heart failure, COPD, diabetes, hypertension, coronary artery disease and previous GA, previous CABG, history of enlarged prostate, patient presented and he was admitted to the hospital on 02/23/2017 with mostly symptoms of acute congestive heart failure, acute renal failure, and acute cellulitis of the left lower extremity. Since admission, the patient has been seen by many consultants including nephrology, cardiology, infectious disease, and has been treated for his congestive heart failure with diuretics, and cellulitis with antibiotics, and he was treated by nephrology for what seems to be a stage IIB renal failure secondary to nephrosclerosis. Baseline creatinine is in the range of 1.4-1.7. Patient was placed on good doses of diuretics in the form of Lasix, and he was on dobutamine on telemetry recently which was discontinued by cardiology. Overall the patient has made a significant clinical improvement, follow-up chest x-ray done yesterday showed some component of volume overload, patchy bilateral perihilar densities representing areas of atelectasis or pneumonia. Patient had a swallow evaluation study, and there was alfredito aspiration noted with thin liquid barium. Hence the Department of speech pathology is making recommendations regarding feeding. Clinically however the patient is feeling better, breathing easier, he seems to be debilitated and he will likely benefit from physical therapy or from rehabilitation. Today, the patient describes some occasional cough, no wheezing, no chest pain, no fever no chills no hemoptysis, no nausea no vomiting no abdominal pain. Patient was reevaluated today on 03/08/2017, feeling better, breathing easier, no cough no wheezing no shortness of breath, seen by speech pathology, and recommendation was made regarding his diet.labs were reviewed INR is 2.2, otherwise no other labs were done today. Patient is pleasant, and in no distress. The patient is seen again today 03/12/2017 in follow-up on the selective care unit. He is currently sitting up in the chair at the bedside. He denies any worsening shortness of breath, cough or congestion. His most recent x-ray from the revealed a right middle lobe opacity representing either pneumonia or confluent area pulmonary edema. There is also scattered areas of linear bibasilar subsegmental atelectasis and trace pleural effusions. He is maintaining good O2 saturations in the upper 90s on 2 L/m per nasal cannula. He 's been afebrile. Blood cultures revealed no growth. Yesterday lab revealed no leukocytosis. Hemoglobin 10.1. INR 2.0. ProBNP greater than 16,000. He remains on IV diuretics in the form of Lasix 60 mg twice a day. Objective - Vital Signs Vital signs: Vital Signs Temp 97.8 F 03/12/17 08:00 Pulse 92 03/12/17 08:31 Resp 18 03/12/17 08:00 BP 150/73 03/12/17 08:00 Pulse Ox 97 03/12/17 08:00 Intake & Output 03/11/17 03/12/17 03/12/17 18:59 06:59 18:59 Intake Total 118 178 Output Total 300 1 Balance 118 -122 -1 Weight 89.5 kg Intake: IV 10 saline 10 Intake, IV Titration 50 Amount Piperacillin-Tazobactam 3 50 .375 gm In Dextrose/Water 1 50ml.bag @ 12.5 mls/hr IVPB Q8HR [facility] Rx#: [id number] Oral 118 118 Output: Stool 1 Urine/Stool Mix 300 Other: Voiding Method Urinal Urinal Urinal Diaper Diaper Diaper Incontinent Incontinent Incontinent # Voids 1 1 # Bowel Movements 1 1 - Exam Physical Exam: Revealed an 86-year-old white male, frail looking, in no form of respiratory distress, seems to be comfortable. HEENT:[Neck is supple.] [No neck masses.] [No thyromegaly.] [No JVD.] Anicteric conjunctiva, PERRLA, EOMI. Dry mucous membranes noted. Chest: [Diminished breath sounds at the bases with minimal crackles, no alfredito wheezing noted. No dullness..] Cardiac Exam: [Irregular irregular rhythm Normal S1 and S2, no S3 gallop, no murmur.] Abdomen: [Soft, nontender, no megaly, no rebound, no guarding, normal bowel sounds.] Extremities: [No clubbing, no edema, no cyanosis.] There is evidence of edema bilaterally, left more so than right, there is also some extensive erythematous changes of the left lower extremity from the left foot to the left knee. Neurological Exam: [No focal neurologic deficit.] However the patient seems to be generally weak. Lymphatics: No lymphadenopathy. Psychiatric: Normal mood affect and mental status examination. - Labs CBC & Chem 7: 03/11/17 06:24 03/10/17 05:50 Labs: Abnormal Lab Results - Last 24 Hours (Table) 03/11/17 03/11/17 03/11/17 Range/Units 06:24 11:26 16:25 POC Glucose (mg/dL) 258 H 120 H (75-99) mg/dL Vitamin B12 1476.0 H (200.0-944.0) pg/mL 03/11/17 03/12/17 Range/Units 20:33 06:01 POC Glucose (mg/dL) 115 H 137 H (75-99) mg/dL Vitamin B12 (200.0-944.0) pg/mL Assessment and Plan Assessment: Impression: 1 acute on chronic systolic congestive heart failure 2 chronic microaspiration with possible component of aspiration pneumonia bilaterally. 3 acute renal failure, nonoliguric acute kidney injury secondary to ATN secondary to cardiorenal syndrome. 4 systolic congestive heart failure with ejection fraction of 35-40%. 5 acute cellulitis of the left lower extremity 6 acute C. difficile colitis being treated Plan: The patient was seen and evaluated by Dr. Colindres. Here he is stable from the pulmonary standpoint. We'll continue with diuretics and bronchodilators. He remains on vancomycin for C. difficile colitis. We'll increase his activity as tolerated. We'll continue to follow and make further recommendations based on his clinical status. I, the cosigning physician, have performed a history and physical examination on the patient. Lung sounds have coarse crackles in the bilateral posterior bases. Maintaining good O2 saturations in the 90s on 2 L/m per nasal cannula. I have discussed the assessment and plan of care with my nurse practitioner, Melissa Lynch. I attest the above documented note as dictated by her.
[2017-03-12 12:16] LABS: Glucose,Whole Blood 184 mg/dL (75-99)
--- NOTE | 2017-03-12 14:39 | XR ---
EXAMINATION TYPE: XR chest 2V DATE OF EXAM: 03/12/2017 COMPARISON: Prior chest x-ray 03/10/2017 HISTORY: Aspiration pneumonia, congestive heart failure TECHNIQUE: Frontal and lateral views of the chest are obtained. FINDINGS: Patient is post median sternotomy. Pleural-based posterior density is indeterminate but st able. The heart is enlarged. Interstitium is increased. There is blunting of the costophrenic angles. No evident pneumothorax. Pulmonary vascularity and victor manuel not significantly changed. There are overlyi ng cardiac leads. IMPRESSION: Correlate for pulmonary venous hypertension and interstitial edema, there may be small a ssociated effusions. Possible edema versus pneumonia or atelectasis.
[2017-03-12 17:04] LABS: Glucose,Whole Blood 173 mg/dL (75-99)
[2017-03-12] MEDS: WARFARIN 2.5 MG TAB PO SCH (17:14)
[2017-03-12] MEDS: CHERRY FLAVOR 60 ML BOTTLE PO PRN (17:35)
[2017-03-12 20:52] LABS: Glucose,Whole Blood 240 mg/dL (75-99)
--- NOTE | 2017-03-12 21:27 | P.PN ---
Subjective Progress Note Date: 03/12/17 Principal diagnosis: Increasing edema and shortness of breath 86-year-old male with a known history of chronic kidney disease presented to the emergency center feeling poorly for several days. Was having increasing edema to the bilateral lower extremities with resultant weeping. The patient relates that his weight is been increasing despite his use of oral Lasix at home. His living situation has changed in that his is at the retirement and he said eating as well as he used to. Because he was feeling considerably worse he presented to the emergency center with evidence of a cellulitis the left lower extremity the infectious diseases consultation was requested. The patient has a known history of a coronary artery bypass grafting procedure and had vein harvest from the left leg and is had resultant chronic venous stasis to the lower extremity which is now considerably aggravated by his worsening renal failure and extensive volume overload. Patient feeling somewhat better today. No shortness of breath. Lower extremity edema is improved. Developed diarrhea and CDIFF was isolated. Rocephin has completed and diarrhea improved with oral Vanco. Patient has been noted to fail his swallow study. Has been seen by pulmonary critical care. He is doing relatively well in no need for any further intervention except appropriate diet and techniques to avoid aspiration. He is feeling better some shortness of breath. Eating relatively well with the above diet. Frequency of stools has improved. Objective - Vital Signs Vital signs: Vital Signs Temp 97.8 F 03/12/17 08:00 Pulse 92 03/12/17 20:36 Resp 19 03/12/17 16:00 BP 134/70 03/12/17 16:00 Pulse Ox 98 03/12/17 20:25 Intake & Output 03/12/17 03/12/17 03/13/17 06:59 18:59 06:59 Intake Total 178 400 Output Total 300 407 300 Balance -122 -7 -300 Weight 89.5 kg 89.5 kg Intake: IV 10 300 saline 10 300 Intake, IV Titration 50 Amount Piperacillin-Tazobactam 3 50 .375 gm In Dextrose/Water 1 50ml.bag @ 12.5 mls/hr IVPB Q8HR [facility] Rx#: [id number] Oral 118 100 Output: Urine 300 Stool 7 Urine/Stool Mix 300 Other 400 Other: Voiding Method Urinal Urinal Diaper Diaper Incontinent Incontinent # Voids 1 3 # Bowel Movements 1 3 - Exam Pleasant 86-year-old male who is short of breath and somewhat uncomfortable but denies fevers or chills. HEENT: Anicteric conjunctiva are pink and moist nasal mucosa grossly intact without significant lesions, there is no thrush. Full denture Neck: The neck is supple without significant lymphadenopathy or thyromegaly. Lungs: Symmetrical air entry is noted with bibasilar crackles but no alfredito wheezing. No egophony or dullness Heart: Irregular with an audible S1 and S2 loud S4 no distinct murmur click or rub PMI is nondisplaced Abdomen: Positive bowel sounds soft and nontender without palpable masses or organomegaly. There was no guarding or rebound. Extremities: The upper extremities have excellent pulses they are symmetric, no significant petechiae or telangiectasia. No splinter hemorrhages were noted. Lower extremities have edema left leg more than the right. The erythema is improved and no longer tender No extensive lymphadenopathy is noted inguinal or other areas Neuro: Awake alert oriented to person and place. There are no acute new gross focal sensory motor deficits. - Labs CBC & Chem 7: 03/11/17 06:24 03/10/17 05:50 Labs: Abnormal Lab Results - Last 24 Hours (Table) 03/12/17 03/12/17 03/12/17 Range/Units 06:01 12:10 16:56 POC Glucose (mg/dL) 137 H 184 H 173 H (75-99) mg/dL 03/12/17 Range/Units 20:44 POC Glucose (mg/dL) 240 H (75-99) mg/dL Laboratory Results WBC 9.2 k/uL (3.8-10.6) 03/11/17 06:24 RBC 3.49 m/uL (4.30-5.90) L 03/11/17 06:24 Hgb 10.1 gm/dL (13.0-17.5) L 03/11/17 06:24 Hct 35.1 % (39.0-53.0) L 03/11/17 06:24 MCV 100.6 fL (80.0-100.0) H 03/11/17 06:24 MCH 29.1 pg (25.0-35.0) 03/11/17 06:24 MCHC 28.9 g/dL (31.0-37.0) L 03/11/17 06:24 RDW 15.5 % (11.5-15.5) 03/11/17 06:24 Plt Count 262 k/uL (150-450) 03/11/17 06:24 Neutrophils % 75 % 03/11/17 06:24 Lymphocytes % 17 % 03/11/17 06:24 Monocytes % 4 % 03/11/17 06:24 Eosinophils % 2 % 03/11/17 06:24 Basophils % 1 % 03/11/17 06:24 Neutrophils # 6.9 k/uL (1.3-7.7) 03/11/17 06:24 Lymphocytes # 1.6 k/uL (1.0-4.8) 03/11/17 06:24 Monocytes # 0.4 k/uL (0-1.0) 03/11/17 06:24 Eosinophils # 0.2 k/uL (0-0.7) 03/11/17 06:24 Basophils # 0.1 k/uL (0-0.2) 03/11/17 06:24 Manual Slide Review Performed 02/23/17 10:45 Hypochromasia Marked 03/11/17 06:24 Macrocytosis Slight 03/11/17 06:24 PT 18.2 sec (9.0-12.0) H 03/11/17 06:24 INR 2.0 (<1.2) H 03/11/17 06:24 APTT 31.1 sec (22.0-30.0) H 02/23/17 10:45 Sodium 144 mmol/L (137-145) 03/10/17 05:50 Potassium 4.0 mmol/L (3.5-5.1) 03/10/17 05:50 Chloride 107 mmol/L (98-107) 03/10/17 05:50 Carbon Dioxide 28 mmol/L (22-30) 03/10/17 05:50 Anion Gap 9 mmol/L 03/10/17 05:50 BUN 41 mg/dL (9-20) H 03/10/17 05:50 Creatinine 1.86 mg/dL (0.66-1.25) H 03/10/17 05:50 Est GFR (MDRD) Af Amer 42 (>60 ml/min/1.73 sqM) 03/10/17 05:50 Est GFR (MDRD) Non-Af 35 (>60 ml/min/1.73 sqM) 03/10/17 05:50 Glucose 121 mg/dL (74-99) H 03/10/17 05:50 POC Glucose (mg/dL) 240 mg/dL (75-99) H 03/12/17 20:44 POC Glu [employer] Irasema Chang 03/12/17 20:[address] Glu mg/dL 126 02/27/17 09:23 Hemoglobin A1c 6.0 % (4.0-6.0) 02/27/17 09:23 Uric Acid 8.1 mg/dL (3.5-8.5) 02/23/17 10:45 Calcium 9.1 mg/dL (8.4-10.2) 03/10/17 05:50 Magnesium 2.5 mg/dL (1.6-2.3) H 03/06/17 20:27 Iron 43 ug/dL (65-175) L 02/24/17 06:03 TIBC 245 ug/dL (228-460) 02/24/17 06:03 Iron Saturation 17.55 (15.00-50.00) 02/24/17 06:03 Total Bilirubin 0.8 mg/dL (0.2-1.3) 02/26/17 06:14 AST 22 U/L (17-59) 02/26/17 06:14 ALT 34 U/L (21-72) 02/26/17 06:14 Alkaline Phosphatase 91 U/L (38-126) 02/26/17 06:14 Total Creatine Kinase 27 U/L (55-170) L 02/23/17 17:02 CK-MB (CK-2) 0.6 ng/mL (0.0-2.4) 02/23/17 17:02 CK-MB (CK-2) Rel Index 2.2 02/23/17 17:02 Troponin I 0.036 ng/mL (0.000-0.034) H* 02/23/17 22:57 NT-Pro-B Natriuret Pep 47345 pg/mL 03/11/17 06:24 Total Protein 6.3 g/dL (6.3-8.2) 02/26/17 06:14 Albumin 3.3 g/dL (3.5-5.0) L 02/26/17 06:14 Vitamin B12 1476.0 pg/mL (200.0-944.0) H 03/11/17 06:24 TSH 2.060 mIU/L (0.465-4.680) 03/11/17 06:24 Free T4 1.01 ng/dL (0.78-2.19) 03/11/17 06:24 Urine Color Light Yellow 02/28/17 06:20 Urine Appearance Clear (Clear) 02/28/17 06:20 Urine pH 7.5 (5.0-8.0) 02/28/17 06:20 Ur Specific [place] 1.007 (1.001-1.035) 02/28/17 06:20 Urine Protein Negative (Negative) 02/28/17 06:20 Urine Glucose (UA) Negative (Negative) 02/28/17 06:20 Urine Ketones Negative (Negative) 02/28/17 06:20 Urine Blood Small (Negative) H 02/28/17 06:20 Urine Nitrite Negative (Negative) 02/28/17 06:20 Urine Bilirubin Negative (Negative) 02/28/17 06:20 Urine Urobilinogen <2.0 mg/dL (<2.0) 02/28/17 06:20 Ur Leukocyte Esterase Negative (Negative) 02/28/17 06:20 Urine RBC 18 /hpf (0-5) H 02/28/17 06:20 Urine Mucus Rare /hpf (None) H 02/28/17 06:20 C. difficile (EIA) Intrp Positive (Negative) A 03/02/17 08:11 Microbiology 03/01/17 18:11 Blood Blood Culture - Final No Growth after 144 hours 02/27/17 12:29 Blood Blood Culture - Final No Growth after 144 hours Assessment and Plan (1) Congestive heart failure Current Visit: Yes Status: Acute Code(s): I50.9 - HEART FAILURE, UNSPECIFIED SNOMED Code(s): 64417042 (2) Acute renal failure Current Visit: Yes Status: Acute Code(s): N17.9 - ACUTE KIDNEY FAILURE, UNSPECIFIED SNOMED Code(s): 87068000 (3) Cellulitis Narrative/Plan: 86-year-old male presents to hospital with increasing lower extremity edema especially the left lower extremity associated with weeping and drainage. He was feeling poorly. Much more short of breath and having increasing difficulty with day-to-day activities. He also relates to social situation is difficult with his being in the retirement. Admission there was evidence of worsening of his chronic kidney disease with acute renal failure superimposed on his significant systolic congestive heart failure and pulmonary edema. He is an insulin drip showing some improvement. The extensive cellulitis of the left lower extremity is noted. The patient relates starting to show some improvement because he's had some diuresis. Duplexes been performed with no evidence of any deep venous thrombosis. The Silvadene wrap is now allowed resolution of the swelling erythema and cellulitis of the left leg. The vein harvest to the extremity is a significant contributing factor to the extensive edema and resultant cellulitis. Elevation the limb is important. Is being followed by nephrology trying to improve his fluid and potassium balance. It is noted patient developed diarrhea and Clostridium difficile colitis has been diagnosed. Responding well to vancomycin therapy. Less frequent stools today. Plan 10 days of therapy. Fortunately the leg is now much improved and intravenous antibiotic therapy has discontinued. Still having some loose stools intermittently. The addition of Lomotil is markedly reduce the higher volume of his stool, he is feeling better. Abdominal exam is benign. He's had some shortness of breath and is now receive some Lasix. Chest x-ray in process. Being seen by pulmonary. Transfer once stable. Current Visit: No Status: Acute Code(s): L03.90 - CELLULITIS, UNSPECIFIED SNOMED Code(s): 567731162
[2017-03-12] MEDS: LISINOPRIL 5 MG TAB PO SCH (21:47)
[2017-03-12] MEDS: ATORVASTATIN 10 MG TAB PO SCH (21:47)
--- NOTE | 2017-03-12 22:20 | PN ---
PROGRESS NOTE This patient was admitted to the hospital on 02/23/[address] Oliver. The patient had presented with some increased edema of the legs and redness and painful swelling. The patient was noted to have evidence of cellulitis. He also had some evidence of congestive cardiac failure, which is chronic. He had chronic respiratory failure with associated COPD. He was treated for the same. He was given updrafts, Lasix, and was placed on IV antibiotics for cellulitis of the lower leg. The patient's general condition has gradually improved. He does have underlying history of cirrhosis of the liver, history of some mild renal failure and he had been treated with the Zosyn. The patient developed diarrhea and C difficile positive. The patient's leg appears much improved; however, yesterday he was noticed to have some evidence of dysphagia. Speech Therapy evaluated him and noted him to have some evidence of aspiration with modified barium swallow. Today he has been more alert and being fed and he is easily able to swallow without difficulty. However, the patient is gulping down his food pretty rapidly. He is being seen by Speech Therapy and being educated regarding swallowing. The patient appears to be improving. Recommended possible placement to rehab. REVIEW OF SYSTEMS: NEURO: No headaches, dizziness. PSYCH: No anxiety. CARDIAC: No chest pain, angina, palpitation. RESPIRATORY: Denies shortness of breath. Does use oxygen. GI: No nausea, vomiting, abdominal pain, diarrhea. Stools better forming but still frequent. : No symptoms of dysuria, hematuria. EXTREMITIES: Denies pain. Does have edema. CONSTITUTIONAL: No fever, chills. PHYSICAL EXAMINATION: Pleasant gentleman in no distress. Vital signs revealed temperature 97.8, pulse 101, respirations 18, blood pressure 150/73, pulse ox 97% on 2 L. HEENT: Normocephalic. NECK: No JVD. CHEST: Clear to auscultation with some mild generalized decreased air flow. Occasional rhonchi, scattered. CARDIAC: Distant heart sounds S1, S2 with no gallops. Systolic murmur 2/6, left sternal border and apex. Irregularly irregular rhythm. ABDOMEN: Soft. Bowel sounds present. Extremities revealed edema which is improved. Cellulitis seems to have resolved. LABORATORY ASSESSMENT: His blood sugars are in adequate range. ASSESSMENT: 1. Clostridium difficile colitis, improving on medical therapy. 2. Debility. 3. Chronic obstructive pulmonary disease with some exacerbation. 4. Acute on chronic congestive cardiac failure secondary to systolic dysfunction. 5. Chronic kidney disease, stage III. 6. Diabetes mellitus. 7. Chronic atrial fibrillation. PLAN: The patient at present is stable. Continue present medical regimen. Patient's condition discussed with the patient. Potential discharge to a nursing facility in the next 48 hours. The patient is being followed by speech therapist with progressively increasing diet. RAFFAELE / ISABELN: [id number] /
[2017-03-13] MEDS: VANCOMYCIN ORAL SOLUTION 250 MG/5 ML BOTTLE PO SCH ×3 (05:42→16:49)
[2017-03-13] MEDS: CHERRY FLAVOR 60 ML BOTTLE PO PRN ×2 (05:43)
[2017-03-13 05:50] LABS: Glucose,Whole Blood 138 mg/dL (75-99)
[2017-03-13] MEDS: INSULIN ASPART 100 UNIT/ML 1 ML 10 ML VIAL SQ SCH ×3 (05:53→16:46)
[2017-03-13 06:03] LABS: Calcium 9.5 mg/dL (8.4-10.2); Magnesium 2.4 mg/dL (1.6-2.3); Potassium 3.7 mmol/L (3.5-5.1)
[2017-03-13] MEDS ORDERED: DEXTROSE 5% IN WATER 1,000 ML IV ONE (07:18)
[2017-03-13] MEDS: FUROSEMIDE 10 MG/ML 10 ML VIAL IV SCH ×2 (08:16→20:51)
[2017-03-13] MEDS: CHOLESTYRAMINE (WITH SUGAR) 4 GM PACKET PO SCH ×2 (08:18→16:49)
[2017-03-13] MEDS: FERROUS SULFATE 325 MG TAB PO SCH (08:18)
[2017-03-13] MEDS: CHOLECALCIFEROL 400 UNIT TAB PO SCH (08:19)
[2017-03-13] MEDS: POTASSIUM CHLORIDE ER 10 MEQ TAB.ER.PRT PO SCH (08:19)
[2017-03-13] MEDS: VITAMIN E (DL,TOCOPHERYL ACET) 400 UNIT CAP PO SCH (08:19)
[2017-03-13] MEDS: LACTOBACILLUS ACIDOPH & BULGAR 1 EACH PACKET PO SCH ×4 (08:20→20:52)
[2017-03-13] MEDS: ASCORBIC ACID 500 MG TAB PO SCH (08:20)
[2017-03-13] MEDS: FINASTERIDE 5 MG TAB PO SCH (08:21)
[2017-03-13] MEDS: IPRATROPIUM-ALBUTEROL 3 ML NEB INHALATION SCH ×4 (08:56→19:45)
--- NOTE | 2017-03-13 11:03 | P.PN ---
Subjective Patient is seen in follow-up for acute kidney injury on chronic kidney disease. 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 Creatinine elevated at 2.2 today. Sodium level also elevated at 151 today. He is currently maintained on IV Lasix 60 mg twice daily. Edema is improved. Oral intake is fair. He is noted to be C. diff positive - still having loose bowel movements but overall improved. He has been ambulating. Vital signs are stable. General: The patient appeared well nourished and normally developed. HEENT: Head exam is unremarkable. Neck is without jugular venous distension. LUNGS: Scattered rhonchi. Breath sounds decreased. HEART: Rate and Rhythm are regular. First and second heart sounds normal. No murmurs, rubs or gallops. ABDOMEN: Abdominal exam reveals normal bowel sounds. Non-tender and non- distended. No evidence of peritonitis. EXTREMITITES: 1+ edema. Objective - Vital Signs Vital signs: Vital Signs Temp 98.8 F 03/13/17 08:00 Pulse 86 03/13/17 09:07 Resp 20 03/13/17 08:00 BP 138/79 03/13/17 08:00 Pulse Ox 98 03/13/17 08:00 Intake & Output 03/12/17 03/13/17 03/13/17 18:59 06:59 18:59 Intake Total 400 Output Total 407 300 2 Balance -7 -300 -2 Weight 89.5 kg 64.1 kg Intake: IV 300 saline 300 Oral 100 Output: Urine 300 Stool 7 2 Other 400 Other: Voiding Method Urinal Urinal Urinal Diaper Diaper Diaper Incontinent Incontinent Incontinent # Voids 3 1 # Bowel Movements 3 - Labs CBC & Chem 7: 03/11/17 06:24 03/13/17 05:37 Labs: Abnormal Lab Results - Last 24 Hours (Table) 03/12/17 03/12/17 03/12/17 Range/Units 12:10 16:56 20:44 Sodium (137-145) mmol/L Chloride (98-107) mmol/L Carbon Dioxide (22-30) mmol/L BUN (9-20) mg/dL Creatinine (0.66-1.25) mg/dL Glucose (74-99) mg/dL POC Glucose (mg/dL) 184 H 173 H 240 H (75-99) mg/dL Magnesium (1.6-2.3) mg/dL 03/13/17 03/13/17 Range/Units 05:29 05:37 Sodium 151 H (137-145) mmol/L Chloride 109 H (98-107) mmol/L Carbon Dioxide 31 H (22-30) mmol/L BUN 41 H (9-20) mg/dL Creatinine 2.20 H (0.66-1.25) mg/dL Glucose 145 H (74-99) mg/dL POC Glucose (mg/dL) 138 H (75-99) mg/dL Magnesium 2.4 H (1.6-2.3) mg/dL Assessment and Plan Plan: Assessment: #1. Nonoliguric acute kidney injury secondary to ATN secondary to cardiorenal syndrome. Renal function worsened with creatinine at 2.2 today. No proteinuria noted on urinalysis. #2. 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 #3. Systolic CHF with ejection fraction of 35-40%. #4. Volume overload. Improving. #5. C diff colitis maintained on antibiotics. #6. Metabolic alkalosis due to volume contraction. Improved. #7. Hypernatremia secondary to lack of oral water intake. Plan: Start D5W to be run at 60 mL an hour. Continue Lasix 60 mg twice daily - will taper if renal function worsened tomorrow. Repeat electrolytes in the morning. Avoid nephrotoxic agents and hypotensive episodes. Encourage oral intake.
--- NOTE | 2017-03-13 11:19 | P.PN ---
Subjective Progress Note Date: 03/13/17 Principal diagnosis: Acute on chronic systolic congestive heart failure, aspiration pneumonia, acute cellulitis of the lower extremity. This is an 86-year-old white male with history of multiple medical problems including chronic systolic congestive heart failure, COPD, diabetes, hypertension, coronary artery disease and previous AK, previous CABG, history of enlarged prostate, patient presented and he was admitted to the hospital on 02/23/2017 with mostly symptoms of acute congestive heart failure, acute renal failure, and acute cellulitis of the left lower extremity. Since admission, the patient has been seen by many consultants including nephrology, cardiology, infectious disease, and has been treated for his congestive heart failure with diuretics, and cellulitis with antibiotics, and he was treated by nephrology for what seems to be a stage IIB renal failure secondary to nephrosclerosis. Baseline creatinine is in the range of 1.4-1.7. Patient was placed on good doses of diuretics in the form of Lasix, and he was on dobutamine on telemetry recently which was discontinued by cardiology. Overall the patient has made a significant clinical improvement, follow-up chest x-ray done yesterday showed some component of volume overload, patchy bilateral perihilar densities representing areas of atelectasis or pneumonia. Patient had a swallow evaluation study, and there was alfredito aspiration noted with thin liquid barium. Hence the Department of speech pathology is making recommendations regarding feeding. Clinically however the patient is feeling better, breathing easier, he seems to be debilitated and he will likely benefit from physical therapy or from rehabilitation. Today, the patient describes some occasional cough, no wheezing, no chest pain, no fever no chills no hemoptysis, no nausea no vomiting no abdominal pain. Patient was reevaluated today on 03/08/2017, feeling better, breathing easier, no cough no wheezing no shortness of breath, seen by speech pathology, and recommendation was made regarding his diet.labs were reviewed INR is 2.2, otherwise no other labs were done today. Patient is pleasant, and in no distress. The patient is seen again today 03/12/2017 in follow-up on the selective care unit. He is currently sitting up in the chair at the bedside. He denies any worsening shortness of breath, cough or congestion. His most recent x-ray from the revealed a right middle lobe opacity representing either pneumonia or confluent area pulmonary edema. There is also scattered areas of linear bibasilar subsegmental atelectasis and trace pleural effusions. He is maintaining good O2 saturations in the upper 90s on 2 L/m per nasal cannula. He 's been afebrile. Blood cultures revealed no growth. Yesterday lab revealed no leukocytosis. Hemoglobin 10.1. INR 2.0. ProBNP greater than 16,000. He remains on IV diuretics in the form of Lasix 60 mg twice a day. The patient is seen again today 03/13/2017 in follow-up on the selective care unit. He is currently resting quite comfortably in bed. He denies any worsening shortness of breath, cough or congestion. He is maintaining good O2 saturations in the upper 90s on 2 L/m per nasal cannula. He is afebrile. Hemodynamically stable. His sodium is up to 151, creatinine 2.20 he is currently on Lasix 60 mg IV every 12 hours. Objective - Vital Signs Vital signs: Vital Signs Temp 98.8 F 03/13/17 08:00 Pulse 86 03/13/17 09:07 Resp 20 03/13/17 08:00 BP 138/79 03/13/17 08:00 Pulse Ox 98 03/13/17 08:00 Intake & Output 03/12/17 03/13/17 03/13/17 18:59 06:59 18:59 Intake Total 400 Output Total 407 300 802 Balance -7 -300 -802 Weight 89.5 kg 64.1 kg Intake: IV 300 saline 300 Oral 100 Output: Urine 300 800 Stool 7 2 Other 400 Other: Voiding Method Urinal Urinal Urinal Diaper Diaper Diaper Incontinent Incontinent Incontinent # Voids 3 1 # Bowel Movements 3 - Exam Physical Exam: Revealed an 86-year-old white male, frail looking, in no form of respiratory distress, seems to be comfortable. HEENT:[Neck is supple.] [No neck masses.] [No thyromegaly.] [No JVD.] Anicteric conjunctiva, PERRLA, EOMI. Dry mucous membranes noted. Chest: [Diminished breath sounds at the bases with minimal crackles, no alfredito wheezing noted. No dullness..] Cardiac Exam: [Irregular irregular rhythm Normal S1 and S2, no S3 gallop, no murmur.] Abdomen: [Soft, nontender, no megaly, no rebound, no guarding, normal bowel sounds.] Extremities: [No clubbing, no edema, no cyanosis.] There is evidence of edema bilaterally, left more so than right, there is also some extensive erythematous changes of the left lower extremity from the left foot to the left knee. Neurological Exam: [No focal neurologic deficit.] However the patient seems to be generally weak. Lymphatics: No lymphadenopathy. Psychiatric: Normal mood affect and mental status examination. - Labs CBC & Chem 7: 03/11/17 06:24 03/13/17 05:37 Labs: Abnormal Lab Results - Last 24 Hours (Table) 03/12/17 03/12/17 03/12/17 Range/Units 12:10 16:56 20:44 Sodium (137-145) mmol/L Chloride (98-107) mmol/L Carbon Dioxide (22-30) mmol/L BUN (9-20) mg/dL Creatinine (0.66-1.25) mg/dL Glucose (74-99) mg/dL POC Glucose (mg/dL) 184 H 173 H 240 H (75-99) mg/dL Magnesium (1.6-2.3) mg/dL 03/13/17 03/13/17 Range/Units 05:29 05:37 Sodium 151 H (137-145) mmol/L Chloride 109 H (98-107) mmol/L Carbon Dioxide 31 H (22-30) mmol/L BUN 41 H (9-20) mg/dL Creatinine 2.20 H (0.66-1.25) mg/dL Glucose 145 H (74-99) mg/dL POC Glucose (mg/dL) 138 H (75-99) mg/dL Magnesium 2.4 H (1.6-2.3) mg/dL Assessment and Plan Assessment: Impression: 1 acute on chronic systolic congestive heart failure 2 chronic microaspiration with possible component of aspiration pneumonia bilaterally. 3 acute renal failure, nonoliguric acute kidney injury secondary to ATN secondary to cardiorenal syndrome. 4 systolic congestive heart failure with ejection fraction of 35-40%. 5 acute cellulitis of the left lower extremity 6 acute C. difficile colitis being treated Plan: The patient was seen and evaluated by Dr. Colindres. He is stable from the pulmonary standpoint. He is being followed by nephrology. D5W at 60 miles per hour. Continue the diuretics. Follow-up labs in the a.m. We'll continue with bronchodilators. He remains on vancomycin for C. difficile colitis. We'll increase his activity as tolerated. We'll continue to follow and make further recommendations based on his clinical status. I, the cosigning physician, have performed a history and physical examination on the patient. Lung sounds have coarse crackles in the bilateral posterior bases. Maintaining good O2 saturations in the 90s on 2 L/m per nasal cannula. I have discussed the assessment and plan of care with my nurse practitioner, Melissa Lynch. I attest the above documented note as dictated by her.
[2017-03-13 11:28] LABS: Glucose,Whole Blood 255 mg/dL (75-99)
[2017-03-13 16:29] LABS: Glucose,Whole Blood 100 mg/dL (75-99)
[2017-03-13] MEDS: WARFARIN 2.5 MG TAB PO SCH (16:49)
[2017-03-13] MEDS: LISINOPRIL 5 MG TAB PO SCH (20:51)
[2017-03-13] MEDS: ATORVASTATIN 10 MG TAB PO SCH (20:51)
--- NOTE | 2017-03-13 21:13 | PN ---
PROGRESS NOTE CHIEF COMPLAINT: Re-evaluation. HISTORY OF PRESENT ILLNESS: This 86-year-old gentleman was admitted to the hospital with multiple ailments, including starting with cellulitis, left lower leg, chronic congestive cardiac failure secondary to systolic dysfunction with previous coronary artery disease and history of COPD. The patient also has diabetes mellitus and chronic kidney disease. He has worsening renal function. Also his sodium is up to 151 due to poor oral intake. The patient has had some difficulty in swallowing and thus is on a diet now; however, the patient's fluid intake is poor. Per request of the speech therapist, consider advising patient to have water in between meals. The patient will be started on IV dextrose at 50 mL/hour today. The patient otherwise feels better. Denies shortness of breath. Does have some cough. No hemoptysis. He does have history of chronic respiratory failure. He uses oxygen at home. REVIEW OF SYSTEMS: NEURO: Denies any headaches, dizziness. PSYCH: No anxiety. CARDIAC: Denies chest pain, angina, palpitations. RESPIRATORY: Denies shortness of breath, cough, hemoptysis. GI: No nausea, vomiting, abdominal pain. Some diarrhea but improving. : No symptoms of dysuria, hematuria. EXTREMITIES: Edema decreased. CONSTITUTIONAL: No fever, chills. PHYSICAL EXAMINATION: Pleasant gentleman at present appears dry. His oral cavity is dry. Vital signs reveal temperature 98, pulse 104, respirations 20, blood pressure 138/79, pulse ox 98% on 2 L. HEENT: Normocephalic. NECK: One plus JVD. CHEST EXAMINATION: Decreased air flow. Occasional scattered rhonchi, bilateral, with improved air flow. CARDIAC: Distant heart sounds S1, S2 with no gallops. Irregular rhythm. Systolic murmur 2/6, left sternal border and right second intercostal space. ABDOMEN: Soft. Bowel sounds present. Extremities reveal 1 to 2+ edema, both lower legs. Cellulitis of left lower leg resolved. Neurologically awake, alert, oriented with well-coordinated movements. LABORATORY ASSESSMENT: Sodium of 151. Potassium 3.7, chloride 109, CO2 content 31, BUN 41, creatinine 2.2, glucose 145, magnesium 2.4. ASSESSMENT: 1. Hypernatremia secondary to water dehydration. 2. Acute on chronic renal failure secondary to cardiac arrest, prerenal syndrome. 3. Chronic congestive cardiac failure secondary to systolic dysfunction. 4. Chronic obstructive pulmonary disease. 5. Diabetes mellitus. 6. Cellulitis of left leg, resolving. 7. Clostridium difficile colitis. PLAN: The patient at present is stable. Continue present medical regimen. Hydrate with oral fluids and IV fluids. Repeat labs tomorrow. Prognosis remains guarded. I have requested patient consider placement to a nursing facility for rehab. He is in agreement with that. MMRODRIGUEZL / ISABELN: [id number] /
[2017-03-13 21:23] LABS: Glucose,Whole Blood 179 mg/dL (75-99)
[2017-03-14] MEDS: INSULIN ASPART 100 UNIT/ML 1 ML 10 ML VIAL SQ SCH ×5 (02:06→21:06)
[2017-03-14] MEDS: VANCOMYCIN ORAL SOLUTION 250 MG/5 ML BOTTLE PO SCH ×5 (02:33→23:21)
[2017-03-14 05:54] LABS: Glucose,Whole Blood 156 mg/dL (75-99)
[2017-03-14 06:26] LABS: Calcium 9.5 mg/dL (8.4-10.2); Magnesium 2.3 mg/dL (1.6-2.3); Potassium 3.5 mmol/L (3.5-5.1)
[2017-03-14 08:07] LABS: INR 2.4 (<1.2); Prothrombin Time 21.2 sec (9.0-12.0)
[2017-03-14] MEDS: IPRATROPIUM-ALBUTEROL 3 ML NEB INHALATION SCH ×5 (08:07→19:49)
[2017-03-14] MEDS: FERROUS SULFATE 325 MG TAB PO SCH (09:48)
[2017-03-14] MEDS: FUROSEMIDE 10 MG/ML 10 ML VIAL IV SCH (09:48)
[2017-03-14] MEDS: LACTOBACILLUS ACIDOPH & BULGAR 1 EACH PACKET PO SCH ×4 (09:48→21:06)
[2017-03-14] MEDS: CHOLESTYRAMINE (WITH SUGAR) 4 GM PACKET PO SCH ×2 (09:48→17:09)
[2017-03-14] MEDS: POTASSIUM CHLORIDE ER 10 MEQ TAB.ER.PRT PO SCH (09:49)
[2017-03-14] MEDS: ASCORBIC ACID 500 MG TAB PO SCH (09:49)
[2017-03-14] MEDS: VITAMIN E (DL,TOCOPHERYL ACET) 400 UNIT CAP PO SCH (09:49)
[2017-03-14] MEDS: FINASTERIDE 5 MG TAB PO SCH (09:49)
[2017-03-14] MEDS: DEXTROSE 5% IN WATER 1,000 ML IV SCH (11:03)
[2017-03-14] MEDS: CHERRY FLAVOR 60 ML BOTTLE PO PRN ×2 (11:09→17:08)
[2017-03-14] MEDS: CHOLECALCIFEROL 400 UNIT TAB PO SCH (11:11)
[2017-03-14] MEDS ORDERED: POTASSIUM CHLORIDE ER 20 MEQ TAB.ER PO STA (11:18)
--- NOTE | 2017-03-14 11:18 | P.PN ---
Subjective Patient is seen in follow-up for acute kidney injury on chronic kidney disease. 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 Creatinine stable at 2.1 to today. Sodium level is improved at 150. He is currently maintained on IV Lasix 60 mg twice daily. Edema is improved. Oral intake is fair. He is noted to be C. diff positive - still having loose bowel movements but overall improved. He has been ambulating. Vital signs are stable. General: The patient appeared well nourished and normally developed. HEENT: Head exam is unremarkable. Neck is without jugular venous distension. LUNGS: Scattered rhonchi. Breath sounds decreased. HEART: Rate and Rhythm are regular. First and second heart sounds normal. No murmurs, rubs or gallops. ABDOMEN: Abdominal exam reveals normal bowel sounds. Non-tender and non- distended. No evidence of peritonitis. EXTREMITITES: 1+ edema. Objective - Vital Signs Vital signs: Vital Signs Temp 98.2 F 03/14/17 09:03 Pulse 98 03/14/17 09:03 Resp 20 03/14/17 09:03 BP 125/72 03/14/17 09:03 Pulse Ox 99 03/14/17 09:03 Intake & Output 03/13/17 03/14/17 03/14/17 18:59 06:59 18:59 Intake Total 360 30 Output Total 1806 53 Balance -1446 -23 Weight 83.8 kg Intake: Oral 360 Other 30 Output: Urine 1800 50 Stool 6 3 Other: Voiding Method Urinal Bedside Commode Diaper Urinal Incontinent Diaper Incontinent # Voids 2 - Labs CBC & Chem 7: 03/11/17 06:24 03/14/17 06:00 Labs: Abnormal Lab Results - Last 24 Hours (Table) 03/13/17 03/13/17 03/13/17 Range/Units 11:15 16:19 21:21 PT (9.0-12.0) sec INR (<1.2) Sodium (137-145) mmol/L Chloride (98-107) mmol/L BUN (9-20) mg/dL Creatinine (0.66-1.25) mg/dL Glucose (74-99) mg/dL POC Glucose (mg/dL) 255 H 100 H 179 H (75-99) mg/dL 03/14/17 03/14/17 03/14/17 Range/Units 05:50 06:00 06:00 PT 21.2 H (9.0-12.0) sec INR 2.4 H (<1.2) Sodium 150 H (137-145) mmol/L Chloride 111 H (98-107) mmol/L BUN 37 H (9-20) mg/dL Creatinine 2.12 H (0.66-1.25) mg/dL Glucose 131 H (74-99) mg/dL POC Glucose (mg/dL) 156 H (75-99) mg/dL Assessment and Plan Plan: Assessment: #1. Nonoliguric acute kidney injury secondary to ATN secondary to cardiorenal syndrome. Renal function stable with creatinine at 2.1 to today. No proteinuria noted on urinalysis. #2. 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 #3. Systolic CHF with ejection fraction of 35-40%. #4. Volume overload. Improving. #5. C diff colitis maintained on antibiotics. #6. Metabolic alkalosis due to volume contraction. Improved. #7. Hypernatremia secondary to lack of oral water intake. #7. Hypokalemia due to diuresis. Magnesium and replete. Plan: Resume D5W to be run at 60 mL an hour. Continue Lasix 60 mg twice daily for now. Repeat electrolytes in the morning. Avoid nephrotoxic agents and hypotensive episodes. Encourage oral intake. Replace potassium. 40 mEq today.
[2017-03-14 12:31] LABS: Glucose,Whole Blood 136 mg/dL (75-99)
--- NOTE | 2017-03-14 14:39 | P.PN ---
Subjective Progress Note Date: 03/14/17 Principal diagnosis: Acute on chronic systolic congestive heart failure, aspiration pneumonia, acute cellulitis of the lower extremity Acute on chronic systolic congestive heart failure, aspiration pneumonia, acute cellulitis of the lower extremity. This is an 86-year-old white male with history of multiple medical problems including chronic systolic congestive heart failure, COPD, diabetes, hypertension, coronary artery disease and previous [place], previous CABG, history of enlarged prostate, patient presented and he was admitted to the hospital on 02/23/2017 with mostly symptoms of acute congestive heart failure, acute renal failure, and acute cellulitis of the left lower extremity. Since admission, the patient has been seen by many consultants including nephrology, cardiology, infectious disease, and has been treated for his congestive heart failure with diuretics, and cellulitis with antibiotics, and he was treated by nephrology for what seems to be a stage IIB renal failure secondary to nephrosclerosis. Baseline creatinine is in the range of 1.4-1.7. Patient was placed on good doses of diuretics in the form of Lasix, and he was on dobutamine on telemetry recently which was discontinued by cardiology. Overall the patient has made a significant clinical improvement, follow-up chest x-ray done yesterday showed some component of volume overload, patchy bilateral perihilar densities representing areas of atelectasis or pneumonia. Patient had a swallow evaluation study, and there was alfredito aspiration noted with thin liquid barium. Hence the Department of speech pathology is making recommendations regarding feeding. Clinically however the patient is feeling better, breathing easier, he seems to be debilitated and he will likely benefit from physical therapy or from rehabilitation. Today, the patient describes some occasional cough, no wheezing, no chest pain, no fever no chills no hemoptysis, no nausea no vomiting no abdominal pain. Patient was reevaluated today on 03/08/2017, feeling better, breathing easier, no cough no wheezing no shortness of breath, seen by speech pathology, and recommendation was made regarding his diet.labs were reviewed INR is 2.2, otherwise no other labs were done today. Patient is pleasant, and in no distress. The patient is seen again today 03/12/2017 in follow-up on the selective care unit. He is currently sitting up in the chair at the bedside. He denies any worsening shortness of breath, cough or congestion. His most recent x-ray from the revealed a right middle lobe opacity representing either pneumonia or confluent area pulmonary edema. There is also scattered areas of linear bibasilar subsegmental atelectasis and trace pleural effusions. He is maintaining good O2 saturations in the upper 90s on 2 L/m per nasal cannula. He 's been afebrile. Blood cultures revealed no growth. Yesterday lab revealed no leukocytosis. Hemoglobin 10.1. INR 2.0. ProBNP greater than 16,000. He remains on IV diuretics in the form of Lasix 60 mg twice a day. The patient is seen again today 03/13/2017 in follow-up on the selective care unit. He is currently resting quite comfortably in bed. He denies any worsening shortness of breath, cough or congestion. He is maintaining good O2 saturations in the upper 90s on 2 L/m per nasal cannula. He is afebrile. Hemodynamically stable. His sodium is up to 151, creatinine 2.20 he is currently on Lasix 60 mg IV every 12 hours. On 03/14/2017 patient seen again in follow-up on medical surgical floor. Doing well, denies any worsening dyspnea, lung sounds are positive for scattered rhonchi over right upper lobe, some scattered wheezes over posterior lower lobes. Does have a loose congested nonproductive cough. Remains afebrile, on 3 L per nasal cannula oxygen, with O2 sat at 99%. Vital signs are stable. Microbiology reviewed, blood cultures are negative. He was positive for C. diff this admission, on oral vancomycin, Zosyn has been discontinued. Patient continues on breathing treatments. Today his sodium is 150, down from 151 from yesterday, potassium is 3.5, chloride is 111, BUN is 37, creatinine is 2.12. Patient's oral intake is very poor, patient has very poor appetite, his grandson is at the bedside, has been assisting his grandfather with his care. He states his grandfather has been taking in some ensure supplements, he refuses nectar thick liquids. Patient did fail swallow evaluations, remains a significant risk for aspiration. Has been taken and some ice chips, but no water. D5W is infusing at the rate of 60 mL per hour. Patient denies any shortness of breath. His bilateral lower extremity edema is improved, although there is still 1+ pitting edema, and redness in bilateral lower extremities. Objective - Vital Signs Vital signs: Vital Signs Temp 98.2 F 03/14/17 09:03 Pulse 88 03/14/17 12:28 Resp 20 03/14/17 09:03 BP 125/72 03/14/17 09:03 Pulse Ox 99 03/14/17 09:03 Intake & Output 03/13/17 03/14/17 03/14/17 18:59 06:59 18:59 Intake Total 360 30 480 Output Total 1806 53 Balance -1446 -23 480 Weight 83.8 kg Intake: Intake, IV Titration 480 Amount Dextrose 5% in Water 1, 480 000 ml @ 60 mls/hr IV . [id number] LUIS Rx#:[id number] Oral 360 Other 30 Output: Urine 1800 50 Stool 6 3 Other: Voiding Method Urinal Bedside Commode Diaper Urinal Incontinent Diaper Incontinent # Voids 2 - Exam Physical Exam: Revealed an 86-year-old white male, frail looking, in no form of respiratory distress, seems to be comfortable. HEENT:[Neck is supple.] [No neck masses.] [No thyromegaly.] [No JVD.] Anicteric conjunctiva, PERRLA, EOMI. Dry mucous membranes noted. Chest: [Diminished breath sounds at the bases, scattered rhonchi, and end expiratory wheezing noted bilaterally] Cardiac Exam: [Irregular irregular rhythm Normal S1 and S2, no S3 gallop, no murmur.] Abdomen: [Soft, nontender, no megaly, no rebound, no guarding, normal bowel sounds.] Extremities: [No clubbing, no edema, no cyanosis.] There is evidence of edema bilaterally, left more so than right, there is also some extensive erythematous changes of the left lower extremity from the left foot to the left knee. Neurological Exam: [No focal neurologic deficit.] However the patient seems to be generally weak. Lymphatics: No lymphadenopathy. Psychiatric: Normal mood affect and mental status examination. - Labs CBC & Chem 7: 03/11/17 06:24 03/14/17 06:00 Labs: Abnormal Lab Results - Last 24 Hours (Table) 03/13/17 03/13/17 03/14/17 Range/Units 16:19 21:21 05:50 PT (9.0-12.0) sec INR (<1.2) Sodium (137-145) mmol/L Chloride (98-107) mmol/L BUN (9-20) mg/dL Creatinine (0.66-1.25) mg/dL Glucose (74-99) mg/dL POC Glucose (mg/dL) 100 H 179 H 156 H (75-99) mg/dL 03/14/17 03/14/17 03/14/17 Range/Units 06:00 06:00 11:53 PT 21.2 H (9.0-12.0) sec INR 2.4 H (<1.2) Sodium 150 H (137-145) mmol/L Chloride 111 H (98-107) mmol/L BUN 37 H (9-20) mg/dL Creatinine 2.12 H (0.66-1.25) mg/dL Glucose 131 H (74-99) mg/dL POC Glucose (mg/dL) 136 H (75-99) mg/dL Assessment and Plan Plan: Assessment: 1 acute on chronic systolic congestive heart failure, has been on IV diuresis, with significant improvement in bilateral lower extremity edema, and dyspnea 2 chronic microaspiration with possible component of aspiration pneumonia bilaterally. 3 acute renal failure, nonoliguric acute kidney injury secondary to ATN secondary to cardiorenal syndrome. 4 systolic congestive heart failure with ejection fraction of 35-40%. 5 acute cellulitis of the left lower extremity 6 acute C. difficile colitis being treated 7 hypernatremia, due to poor oral intake, IV diuresis, and free water deficit Plan: Patient remains stable from pulmonary standpoint. His sodium is very slightly improved is down to 150, we will stop his IV Lasix. He is receiving D5W at the rate of 60 ML per hour. His oral intake remains very poor, according to the patient and his grandson. He had previously failed swallow evaluation, was recommended thickened liquids, however he is refusing nectar thick liquids, has been taken and ice chips. He remains a significant aspiration risk. Continue DuoNeb nebulized treatments. Continue the rest of the medical treatments. Discharge planning is in progress for discharge to subacute rehab possibly next 24 hours I performed a history & physical examination of the patient and discussed their management with my nurse practitioner, Lisa Diaz. I reviewed the nurse practitioner's note and agree with the documented findings and plan of care. Lung sounds are positive for diffuse wheezes throughout the lung bonilla, and scattered rhonchi. The findings and the impression was discussed with the patient. I attest to the documentation by the nurse practitioner. Time with Patient: Less than 30
[2017-03-14] MEDS: WARFARIN 2.5 MG TAB PO SCH (17:10)
[2017-03-14 17:33] LABS: Glucose,Whole Blood 168 mg/dL (75-99)
[2017-03-14] MEDS: LISINOPRIL 5 MG TAB PO SCH (21:06)
[2017-03-14] MEDS: ATORVASTATIN 10 MG TAB PO SCH (21:06)
[2017-03-14 21:18] LABS: Glucose,Whole Blood 188 mg/dL (75-99)
--- NOTE | 2017-03-14 22:08 | PN ---
PROGRESS NOTE CHIEF COMPLAINT: Re-evaluation. HISTORY OF PRESENT ILLNESS: This is an 86-year-old gentleman who was admitted to the hospital with cellulitis, left lower leg, and associated chronic kidney disease, chronic congestive cardiac failure, COPD, anemia. The patient subsequently also developed C difficile colitis, which is improving. The patient, however, also had some difficulty swallowing and was placed on fluid intake. The patient now has developed hypernatremia due to decreased water intake. I have met with his speech therapist today and with the patient for again bedside swallow with water. The patient was able to swallow without any choking on that when he takes only a sip at a time, and this is what the patient is encouraged to do in between his meals. The patient's sodium is still 150 today. Will continue the dextrose. REVIEW OF SYSTEMS: NEURO: Denies any headaches, dizziness. PSYCH: No anxiety. CARDIAC: No chest pain. RESPIRATORY: No shortness of breath. Does have some cough. No hemoptysis. GI: No nausea, vomiting, abdominal pain, diarrhea. : No symptoms of dysuria, hematuria. EXTREMITIES: Denies pain. Has edema. CONSTITUTIONAL: No fever or chills. PHYSICAL EXAMINATION: Elderly gentleman who appears chronically ill. Vital signs reveal temperature 98.2, pulse 98, respirations 20, blood pressure 125/72, pulse ox 99% on 3 L. HEENT: Normocephalic. NECK: No JVD. CHEST: Clear to auscultation with occasional scattered rhonchi. CARDIAC: Distant heart sounds S1, S2 with no gallops. Irregular rhythm. Systolic murmur 2/6, left sternal border. ABDOMEN: Soft. Bowel sounds normal. No organomegaly. Possible mild ascites. Extremities reveal edema. Neurologically awake, alert, oriented, well-coordinated movements, though has generalized weakness. Does have some myoclonic jerking. LABORATORY ASSESSMENT: INR 2.4. Sodium 150, potassium 3.5, chloride 111, CO2 content 30, BUN 37, creatinine 2.12. ASSESSMENT: 1. Hypernatremia. 2. Free-water dehydration. 3. Chronic kidney disease. 4. Chronic obstructive pulmonary disease. 5. Coronary artery disease. 6. Cellulitis, resolved. 7. Clostridium difficile colitis. 8. Debility. PLAN: The patient at present is stable. Continue present medical regimen. Patient is encouraged to increase water intake between meals. The patient also will be continued on IV fluids today. Expect the patient's hydration to improve enough tomorrow for potential discharge by the weekend to rehab. RAFFAELE / EDINSON: [id number] /
--- NOTE | 2017-03-14 22:23 | P.PN ---
Subjective Progress Note Date: 03/14/17 Principal diagnosis: Increasing edema and shortness of breath 86-year-old male with a known history of chronic kidney disease presented to the emergency center feeling poorly for several days. Was having increasing edema to the bilateral lower extremities with resultant weeping. The patient relates that his weight is been increasing despite his use of oral Lasix at home. His living situation has changed in that his [facility] the [facility] and he said eating as well as he used to. Because he was feeling considerably worse he presented to the emergency center with evidence of a cellulitis the left lower extremity the infectious diseases consultation was requested. The patient has a known history of a coronary artery bypass grafting procedure and had vein harvest from the left leg and is had resultant chronic venous stasis to the lower extremity which is now considerably aggravated by his worsening renal failure and extensive volume overload. Patient feeling somewhat better today. No shortness of breath. Lower extremity edema is improved. Developed diarrhea and CDIFF was isolated. Rocephin has completed and diarrhea improved with oral Vanco. Patient has been noted to fail his swallow study. Has been seen by pulmonary critical care. He is doing relatively well in no need for any further intervention except appropriate diet and techniques to avoid aspiration. He is feeling better some shortness of breath. Eating relatively well with the above diet. Frequency of stools has improved. His related with PT was able to stand and take a few steps. Objective - Vital Signs Vital signs: Vital Signs Temp 98.6 F 03/14/17 15:00 Pulse 88 03/14/17 19:45 Resp 16 03/14/17 22:00 BP 129/67 03/14/17 15:00 Pulse Ox 95 03/14/17 15:00 Intake & Output 03/14/17 03/14/17 03/15/17 06:59 18:59 06:59 Intake Total 30 480 200 Output Total 53 1 Balance -23 480 199 Weight 83.8 kg 83.8 kg Intake: Intake, IV Titration 480 Amount Dextrose 5% in Water 1, 480 000 ml @ 60 mls/hr IV . [id number] [facility] Rx#:[id number] Oral 200 Other 30 Output: Urine 50 Stool 3 1 Other: Voiding Method Bedside Commode Bedside Commode Urinal Urinal Diaper Diaper Incontinent Incontinent # Voids 2 1 - Exam Pleasant 86-year-old male who is short of breath and somewhat uncomfortable but denies fevers or chills. HEENT: Anicteric conjunctiva are pink and moist nasal mucosa grossly intact without significant lesions, there is no thrush. Full denture Neck: The neck is supple without significant lymphadenopathy or thyromegaly. Lungs: Symmetrical air entry is noted with bibasilar crackles but no alfredito wheezing. No egophony or dullness Heart: Irregular with an audible S1 and S2 loud S4 no distinct murmur click or rub PMI is nondisplaced Abdomen: Positive bowel sounds soft and nontender without palpable masses or organomegaly. There was no guarding or rebound. Extremities: The upper extremities have excellent pulses they are symmetric, no significant petechiae or telangiectasia. No splinter hemorrhages were noted. Lower extremities have edema left leg more than the right. The erythema is improved and no longer tender No extensive lymphadenopathy is noted inguinal or other areas Neuro: Awake alert oriented to person and place. There are no acute new gross focal sensory motor deficits. - Labs CBC & Chem 7: 03/11/17 06:24 03/14/17 06:00 Labs: Abnormal Lab Results - Last 24 Hours (Table) 03/14/17 03/14/17 03/14/17 Range/Units 05:50 06:00 06:00 PT 21.2 H (9.0-12.0) sec INR 2.4 H (<1.2) Sodium 150 H (137-145) mmol/L Chloride 111 H (98-107) mmol/L BUN 37 H (9-20) mg/dL Creatinine 2.12 H (0.66-1.25) mg/dL Glucose 131 H (74-99) mg/dL POC Glucose (mg/dL) 156 H (75-99) mg/dL 03/14/17 03/14/17 03/14/17 Range/Units 11:53 17:23 20:52 PT (9.0-12.0) sec INR (<1.2) Sodium (137-145) mmol/L Chloride (98-107) mmol/L BUN (9-20) mg/dL Creatinine (0.66-1.25) mg/dL Glucose (74-99) mg/dL POC Glucose (mg/dL) 136 H 168 H 188 H (75-99) mg/dL Laboratory Results WBC 9.2 k/uL (3.8-10.6) 03/11/17 06:24 RBC 3.49 m/uL (4.30-5.90) L 03/11/17 06:24 Hgb 10.1 gm/dL (13.0-17.5) L 03/11/17 06:24 Hct 35.1 % (39.0-53.0) L 03/11/17 06:24 MCV 100.6 fL (80.0-100.0) H 03/11/17 06:24 MCH 29.1 pg (25.0-35.0) 03/11/17 06:24 MCHC 28.9 g/dL (31.0-37.0) L 03/11/17 06:24 RDW 15.5 % (11.5-15.5) 03/11/17 06:24 Plt Count 262 k/uL (150-450) 03/11/17 06:24 Neutrophils % 75 % 03/11/17 06:24 Lymphocytes % 17 % 03/11/17 06:24 Monocytes % 4 % 03/11/17 06:24 Eosinophils % 2 % 03/11/17 06:24 Basophils % 1 % 03/11/17 06:24 Neutrophils # 6.9 k/uL (1.3-7.7) 03/11/17 06:24 Lymphocytes # 1.6 k/uL (1.0-4.8) 03/11/17 06:24 Monocytes # 0.4 k/uL (0-1.0) 03/11/17 06:24 Eosinophils # 0.2 k/uL (0-0.7) 03/11/17 06:24 Basophils # 0.1 k/uL (0-0.2) 03/11/17 06:24 Manual Slide Review Performed 02/23/17 10:45 Hypochromasia Marked 03/11/17 06:24 Macrocytosis Slight 03/11/17 06:24 PT 21.2 sec (9.0-12.0) H 03/14/17 06:00 INR 2.4 (<1.2) H 03/14/17 06:00 APTT 31.1 sec (22.0-30.0) H 02/23/17 10:45 Sodium 150 mmol/L (137-145) H 03/14/17 06:00 Potassium 3.5 mmol/L (3.5-5.1) 03/14/17 06:00 Chloride 111 mmol/L (98-107) H 03/14/17 06:00 Carbon Dioxide 30 mmol/L (22-30) 03/14/17 06:00 Anion Gap 9 mmol/L 03/14/17 06:00 BUN 37 mg/dL (9-20) H 03/14/17 06:00 Creatinine 2.12 mg/dL (0.66-1.25) H 03/14/17 06:00 Est GFR (MDRD) Af Amer 36 (>60 ml/min/1.73 sqM) 03/14/17 06:00 Est GFR (MDRD) Non-Af 30 (>60 ml/min/1.73 sqM) 03/14/17 06:00 Glucose 131 mg/dL (74-99) H 03/14/17 06:00 POC Glucose (mg/dL) 188 mg/dL (75-99) H 03/14/17 20:52 POC Glu [employer] Nneka Smith 03/14/17 20:[address] Glu mg/dL 126 02/27/17 09:23 Hemoglobin A1c 6.0 % (4.0-6.0) 02/27/17 09:23 Uric Acid 8.1 mg/dL (3.5-8.5) 02/23/17 10:45 Calcium 9.5 mg/dL (8.4-10.2) 03/14/17 06:00 Magnesium 2.3 mg/dL (1.6-2.3) 03/14/17 06:00 Iron 43 ug/dL (65-175) L 02/24/17 06:03 TIBC 245 ug/dL (228-460) 02/24/17 06:03 Iron Saturation 17.55 (15.00-50.00) 02/24/17 06:03 Total Bilirubin 0.8 mg/dL (0.2-1.3) 02/26/17 06:14 AST 22 U/L (17-59) 02/26/17 06:14 ALT 34 U/L (21-72) 02/26/17 06:14 Alkaline Phosphatase 91 U/L (38-126) 02/26/17 06:14 Total Creatine Kinase 27 U/L (55-170) L 02/23/17 17:02 CK-MB (CK-2) 0.6 ng/mL (0.0-2.4) 02/23/17 17:02 CK-MB (CK-2) Rel Index 2.2 02/23/17 17:02 Troponin I 0.036 ng/mL (0.000-0.034) H* 02/23/17 22:57 NT-Pro-B Natriuret Pep 04964 pg/mL 03/11/17 06:24 Total Protein 6.3 g/dL (6.3-8.2) 02/26/17 06:14 Albumin 3.3 g/dL (3.5-5.0) L 02/26/17 06:14 Vitamin B12 1476.0 pg/mL (200.0-944.0) H 03/11/17 06:24 TSH 2.060 mIU/L (0.465-4.680) 03/11/17 06:24 Free T4 1.01 ng/dL (0.78-2.19) 03/11/17 06:24 Urine Color Light Yellow 02/28/17 06:20 Urine Appearance Clear (Clear) 02/28/17 06:20 Urine pH 7.5 (5.0-8.0) 02/28/17 06:20 Ur Specific [place] 1.007 (1.001-1.035) 02/28/17 06:20 Urine Protein Negative (Negative) 02/28/17 06:20 Urine Glucose (UA) Negative (Negative) 02/28/17 06:20 Urine Ketones Negative (Negative) 02/28/17 06:20 Urine Blood Small (Negative) H 02/28/17 06:20 Urine Nitrite Negative (Negative) 02/28/17 06:20 Urine Bilirubin Negative (Negative) 02/28/17 06:20 Urine Urobilinogen <2.0 mg/dL (<2.0) 02/28/17 06:20 Ur Leukocyte Esterase Negative (Negative) 02/28/17 06:20 Urine RBC 18 /hpf (0-5) H 02/28/17 06:20 Urine Mucus Rare /hpf (None) H 02/28/17 06:20 C. difficile (EIA) Intrp Positive (Negative) A 03/02/17 08:11 Microbiology 03/01/17 18:11 Blood Blood Culture - Final No Growth after 144 hours 02/27/17 12:29 Blood Blood Culture - Final No Growth after 144 hours Assessment and Plan (1) Congestive heart failure Current Visit: Yes Status: Acute Code(s): I50.9 - HEART FAILURE, UNSPECIFIED SNOMED Code(s): 08855377 (2) Acute renal failure Current Visit: Yes Status: Acute Code(s): N17.9 - ACUTE KIDNEY FAILURE, UNSPECIFIED SNOMED Code(s): 55658302 (3) Cellulitis Narrative/Plan: 86-year-old male presents to hospital with increasing lower extremity edema especially the left lower extremity associated with weeping and drainage. He was feeling poorly. Much more short of breath and having increasing difficulty with day-to-day activities. He also relates to social situation is difficult with [facility] in the [facility]. Admission there was evidence of worsening of his chronic kidney disease with acute renal failure superimposed on his significant systolic congestive heart failure and pulmonary edema. He is an insulin drip showing some improvement. The extensive cellulitis of the left lower extremity is noted. The patient relates starting to show some improvement because he's had some diuresis. Duplexes been performed with no evidence of any deep venous thrombosis. The Silvadene wrap is now allowed resolution of the swelling erythema and cellulitis of the left leg. The vein harvest to the extremity is a significant contributing factor to the extensive edema and resultant cellulitis. Elevation the limb is important. Is being followed by nephrology trying to improve his fluid and potassium balance. It is noted patient developed diarrhea and Clostridium difficile colitis has been diagnosed. Responding well to vancomycin therapy. Less frequent stools today. Plan 8 further days of therapy. Fortunately the leg is now much improved and intravenous antibiotic therapy has discontinued. Still having some loose stools intermittently. The addition of Lomotil has markedly reduce the higher volume of his stool, he is feeling better. Abdominal exam is benign. He's had some shortness of breath and is now receive some Lasix. Chest x-ray in process. Being seen by pulmonary and nephrology Transfer once stable. Current Visit: No Status: Acute Code(s): L03.90 - CELLULITIS, UNSPECIFIED SNOMED Code(s): 511310404
[2017-03-15] MEDS: DEXTROSE 5% IN WATER 1,000 ML IV SCH ×2 (02:31→20:25)
[2017-03-15] MEDS: VANCOMYCIN ORAL SOLUTION 250 MG/5 ML BOTTLE PO SCH ×3 (05:47→19:27)
[2017-03-15 07:11] LABS: Glucose,Whole Blood 170 mg/dL (75-99)
[2017-03-15] MEDS: INSULIN ASPART 100 UNIT/ML 1 ML 10 ML VIAL SQ SCH ×4 (07:49→21:05)
[2017-03-15] MEDS: FERROUS SULFATE 325 MG TAB PO SCH (07:50)
[2017-03-15] MEDS: POTASSIUM CHLORIDE ER 10 MEQ TAB.ER.PRT PO SCH (07:50)
[2017-03-15] MEDS: FINASTERIDE 5 MG TAB PO SCH (07:50)
[2017-03-15] MEDS: LACTOBACILLUS ACIDOPH & BULGAR 1 EACH PACKET PO SCH ×4 (07:50→20:25)
[2017-03-15] MEDS: IPRATROPIUM-ALBUTEROL 3 ML NEB INHALATION SCH ×3 (08:55→20:30)
[2017-03-15 09:29] LABS: Calcium 9.6 mg/dL (8.4-10.2); Potassium 4.5 mmol/L (3.5-5.1)
[2017-03-15] MEDS: CHOLECALCIFEROL 400 UNIT TAB PO SCH (10:32)
[2017-03-15] MEDS: ASCORBIC ACID 500 MG TAB PO SCH (10:32)
[2017-03-15] MEDS: VITAMIN E (DL,TOCOPHERYL ACET) 400 UNIT CAP PO SCH (10:32)
[2017-03-15] MEDS: CHOLESTYRAMINE (WITH SUGAR) 4 GM PACKET PO SCH ×2 (10:32→20:24)
--- NOTE | 2017-03-15 11:41 | P.PN ---
Subjective Progress Note Date: 03/15/17 Principal diagnosis: Acute on chronic systolic congestive heart failure, aspiration pneumonia, acute cellulitis of the lower extremity Acute on chronic systolic congestive heart failure, aspiration pneumonia, acute cellulitis of the lower extremity. This is an 86-year-old white male with history of multiple medical problems including chronic systolic congestive heart failure, COPD, diabetes, hypertension, coronary artery disease and previous LA, previous CABG, history of enlarged prostate, patient presented and he was admitted to the hospital on 02/23/2017 with mostly symptoms of acute congestive heart failure, acute renal failure, and acute cellulitis of the left lower extremity. Since admission, the patient has been seen by many consultants including nephrology, cardiology, infectious disease, and has been treated for his congestive heart failure with diuretics, and cellulitis with antibiotics, and he was treated by nephrology for what seems to be a stage IIB renal failure secondary to nephrosclerosis. Baseline creatinine is in the range of 1.4-1.7. Patient was placed on good doses of diuretics in the form of Lasix, and he was on dobutamine on telemetry recently which was discontinued by cardiology. Overall the patient has made a significant clinical improvement, follow-up chest x-ray done yesterday showed some component of volume overload, patchy bilateral perihilar densities representing areas of atelectasis or pneumonia. Patient had a swallow evaluation study, and there was alfredito aspiration noted with thin liquid barium. Hence the Department of speech pathology is making recommendations regarding feeding. Clinically however the patient is feeling better, breathing easier, he seems to be debilitated and he will likely benefit from physical therapy or from rehabilitation. Today, the patient describes some occasional cough, no wheezing, no chest pain, no fever no chills no hemoptysis, no nausea no vomiting no abdominal pain. Patient was reevaluated today on 03/08/2017, feeling better, breathing easier, no cough no wheezing no shortness of breath, seen by speech pathology, and recommendation was made regarding his diet.labs were reviewed INR is 2.2, otherwise no other labs were done today. Patient is pleasant, and in no distress. The patient is seen again today 03/12/2017 in follow-up on the selective care unit. He is currently sitting up in the chair at the bedside. He denies any worsening shortness of breath, cough or congestion. His most recent x-ray from the revealed a right middle lobe opacity representing either pneumonia or confluent area pulmonary edema. There is also scattered areas of linear bibasilar subsegmental atelectasis and trace pleural effusions. He is maintaining good O2 saturations in the upper 90s on 2 L/m per nasal cannula. He 's been afebrile. Blood cultures revealed no growth. Yesterday lab revealed no leukocytosis. Hemoglobin 10.1. INR 2.0. ProBNP greater than 16,000. He remains on IV diuretics in the form of Lasix 60 mg twice a day. The patient is seen again today 03/13/2017 in follow-up on the selective care unit. He is currently resting quite comfortably in bed. He denies any worsening shortness of breath, cough or congestion. He is maintaining good O2 saturations in the upper 90s on 2 L/m per nasal cannula. He is afebrile. Hemodynamically stable. His sodium is up to 151, creatinine 2.20 he is currently on Lasix 60 mg IV every 12 hours. On 03/14/2017 patient seen again in follow-up on medical surgical floor. Doing well, denies any worsening dyspnea, lung sounds are positive for scattered rhonchi over right upper lobe, some scattered wheezes over posterior lower lobes. Does have a loose congested nonproductive cough. Remains afebrile, on 3 L per nasal cannula oxygen, with O2 sat at 99%. Vital signs are stable. Microbiology reviewed, blood cultures are negative. He was positive for C. diff this admission, on oral vancomycin, Zosyn has been discontinued. Patient continues on breathing treatments. Today his sodium is 150, down from 151 from yesterday, potassium is 3.5, chloride is 111, BUN is 37, creatinine is 2.12. Patient's oral intake is very poor, patient has very poor appetite, his grandson is at the bedside, has been assisting his grandfather with his care. He states his grandfather has been taking in some ensure supplements, he refuses nectar thick liquids. Patient did fail swallow evaluations, remains a significant risk for aspiration. Has been taken and some ice chips, but no water. D5W is infusing at the rate of 60 mL per hour. Patient denies any shortness of breath. His bilateral lower extremity edema is improved, although there is still 1+ pitting edema, and redness in bilateral lower extremities. On 03/15/2017 patient is seen in follow-up on medical surgical floor. Remains stable from pulmonary standpoint. The main concern is decreased oral intake of free water. Patient is on dysphagia diet with nectar thick liquids, which the patient is refusing to take nectar thick liquids. His serum sodium is improving , down to 148, BUN is 37, creatinine is 2.20. Patient has D5W infusing at the rate of 60 ML per hour. From pulmonary standpoint, he denies any worsening dyspnea. Lung sounds are positive for some scattered rhonchi at posterior lower bases, patient has a nonproductive cough. Vital signs are stable, he is on 3 L per nasal cannula with O2 sat at 97%. Afebrile, his stools are thickening up, only 3 episodes of soft stools last night per nursing report. Blood cultures are negative. Patient will have a repeat swallow study today to reevaluate his swallowing ability. Objective - Vital Signs Vital signs: Vital Signs Temp 97.7 F 03/15/17 07:00 Pulse 80 03/15/17 09:11 Resp 16 03/15/17 07:00 BP 131/70 03/15/17 07:00 Pulse Ox 97 03/15/17 07:00 Intake & Output 03/14/17 03/15/17 03/15/17 18:59 06:59 18:59 Intake Total 480 200 Output Total 2 Balance 480 198 Weight 83.8 kg Intake: Intake, IV Titration 480 Amount Dextrose 5% in Water 1, 480 000 ml @ 60 mls/hr IV . [id number] [facility] Rx#:[id number] Oral 200 Output: Stool 2 Other: Voiding Method Bedside Commode Urinal Diaper Incontinent # Voids 2 - Exam Physical Exam: Revealed an 86-year-old white male, frail looking, in no form of respiratory distress, seems to be comfortable. HEENT:[Neck is supple.] [No neck masses.] [No thyromegaly.] [No JVD.] Anicteric conjunctiva, PERRLA, EOMI. Dry mucous membranes noted. Chest: [Diminished breath sounds at the bases, scattered rhonchi, and end expiratory wheezing noted bilaterally] Cardiac Exam: [Irregular irregular rhythm Normal S1 and S2, no S3 gallop, no murmur.] Abdomen: [Soft, nontender, no megaly, no rebound, no guarding, normal bowel sounds.] Extremities: [No clubbing, no edema, no cyanosis.] There is evidence of edema bilaterally, left more so than right, there is also some extensive erythematous changes of the left lower extremity from the left foot to the left knee. Neurological Exam: [No focal neurologic deficit.] However the patient seems to be generally weak. Lymphatics: No lymphadenopathy. Psychiatric: Normal mood affect and mental status examination. - Labs CBC & Chem 7: 03/11/17 06:24 03/15/17 08:22 Labs: Abnormal Lab Results - Last 24 Hours (Table) 03/14/17 03/14/17 03/14/17 Range/Units 11:53 17:23 20:52 Sodium (137-145) mmol/L Carbon Dioxide (22-30) mmol/L BUN (9-20) mg/dL Creatinine (0.66-1.25) mg/dL Glucose (74-99) mg/dL POC Glucose (mg/dL) 136 H 168 H 188 H (75-99) mg/dL 03/15/17 03/15/17 Range/Units 07:03 08:22 Sodium 148 H (137-145) mmol/L Carbon Dioxide 32 H (22-30) mmol/L BUN 37 H (9-20) mg/dL Creatinine 2.20 H (0.66-1.25) mg/dL Glucose 175 H (74-99) mg/dL POC Glucose (mg/dL) 170 H (75-99) mg/dL Assessment and Plan Plan: Assessment: 1 acute on chronic systolic congestive heart failure, has been on IV diuresis, with significant improvement in bilateral lower extremity edema, and dyspnea. IV diuresis is currently on hold in view of patient's hypernatremia 2 chronic microaspiration with possible component of aspiration pneumonia bilaterally. 3 acute renal failure, nonoliguric acute kidney injury secondary to ATN secondary to cardiorenal syndrome. 4 systolic congestive heart failure with ejection fraction of 35-40%. 5 acute cellulitis of the left lower extremity 6 acute C. difficile colitis being treated 7 hypernatremia, due to poor oral intake, IV diuresis, and free water deficit. Lasix was placed on hold, patient still continues with very poor oral intake, refusing to take nectar thick liquids. Swallow evaluation will be repeated today, to reevaluate his swallowing ability. D5W infusing at the rate of 60 ML per hour. Plan: Patient remains stable from pulmonary standpoint. His sodium is very slightly improved is down to 148, continue holding Lasix. He is receiving D5W at the rate of 60 ML per hour. His oral intake remains very poor, according to the patient and his grandson. He had previously failed swallow evaluation, was recommended thickened liquids, however he is refusing nectar thick liquids, has been taken and ice chips. Patient will undergo on the swallow evaluation today. From our standpoint, patient remains stable, no worsening dyspnea, afebrile. We will see the patient on as-needed basis. Thank you for this consultation. I performed a history & physical examination of the patient and discussed their management with my nurse practitioner, Lisa Diaz. I reviewed the nurse practitioner's note and agree with the documented findings and plan of care. Lung sounds are positive for scattered rhonchi. The findings and the impression was discussed with the patient. I attest to the documentation by the nurse practitioner. Time with Patient: Less than 30
[2017-03-15 12:06] VITALS: BMI 23.7
[2017-03-15 12:35] LABS: Glucose,Whole Blood 177 mg/dL (75-99)
--- NOTE | 2017-03-15 14:22 | P.PN ---
Subjective Patient is seen in follow-up for acute kidney injury on chronic kidney disease. 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 Creatinine relatively stable at 2.2 to today. Sodium level is improved at 148. Edema is improved. Oral intake is fair. He is noted to be C. diff positive - still having loose bowel movements but overall improved. He has been ambulating. Vital signs are stable. General: The patient appeared well nourished and normally developed. HEENT: Head exam is unremarkable. Neck is without jugular venous distension. LUNGS: Scattered rhonchi. Breath sounds decreased. HEART: Rate and Rhythm are regular. First and second heart sounds normal. No murmurs, rubs or gallops. ABDOMEN: Abdominal exam reveals normal bowel sounds. Non-tender and non- distended. No evidence of peritonitis. EXTREMITITES: 1+ edema. Objective - Vital Signs Vital signs: Vital Signs Temp 97.7 F 03/15/17 07:00 Pulse 88 03/15/17 13:54 Resp 16 03/15/17 07:00 BP 131/70 03/15/17 07:00 Pulse Ox 97 03/15/17 07:00 Intake & Output 03/14/17 03/15/17 03/15/17 18:59 06:59 18:59 Intake Total 480 200 Output Total 2 Balance 480 198 Weight 83.8 kg 83.8 kg Intake: Intake, IV Titration 480 Amount Dextrose 5% in Water 1, 480 000 ml @ 60 mls/hr IV . [id number] [facility] Rx#:[id number] Oral 200 Output: Stool 2 Other: Voiding Method Bedside Commode Urinal Diaper Incontinent # Voids 2 - Labs CBC & Chem 7: 03/11/17 06:24 03/15/17 08:22 Labs: Abnormal Lab Results - Last 24 Hours (Table) 03/14/17 03/14/17 03/15/17 Range/Units 17:23 20:52 07:03 Sodium (137-145) mmol/L Carbon Dioxide (22-30) mmol/L BUN (9-20) mg/dL Creatinine (0.66-1.25) mg/dL Glucose (74-99) mg/dL POC Glucose (mg/dL) 168 H 188 H 170 H (75-99) mg/dL 03/15/17 03/15/17 Range/Units 08:22 12:28 Sodium 148 H (137-145) mmol/L Carbon Dioxide 32 H (22-30) mmol/L BUN 37 H (9-20) mg/dL Creatinine 2.20 H (0.66-1.25) mg/dL Glucose 175 H (74-99) mg/dL POC Glucose (mg/dL) 177 H (75-99) mg/dL Assessment and Plan Plan: Assessment: #1. Nonoliguric acute kidney injury secondary to ATN secondary to cardiorenal syndrome. Renal function relatively stable with creatinine at 2.2 today. No proteinuria noted on urinalysis. #2. 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 #3. Systolic CHF with ejection fraction of 35-40%. #4. Volume overload. Improving. #5. C diff colitis maintained on antibiotics. #6. Metabolic alkalosis due to volume contraction. Improved. #7. Hypernatremia secondary to lack of oral water intake. Improving. #7. Hypokalemia due to diuresis. Magnesium replete. Plan: Continue D5W to be run at 60 mL an hour. Lasix can be continued while he is on D5W - I will resume Lasix 60 mg once daily for now. Repeat electrolytes in the morning. Avoid nephrotoxic agents and hypotensive episodes. Encourage oral intake.
[2017-03-15] MEDS: FUROSEMIDE 10 MG/ML 10 ML VIAL IV SCH (16:05)
[2017-03-15 16:55] LABS: Glucose,Whole Blood 222 mg/dL (75-99)
--- NOTE | 2017-03-15 18:27 | P.PN ---
Subjective Progress Note Date: 03/15/17 Principal diagnosis: Increasing edema and shortness of breath 86-year-old male with a known history of chronic kidney disease presented to the emergency center feeling poorly for several days. Was having increasing edema to the bilateral lower extremities with resultant weeping. The patient relates that his weight is been increasing despite his use of oral Lasix at home. His living situation has changed in that [facility] and he said eating as well as he used to. Because he was feeling considerably worse he presented to the emergency center with evidence of a cellulitis the left lower extremity the infectious diseases consultation was requested. The patient has a known history of a coronary artery bypass grafting procedure and had vein harvest from the left leg and is had resultant chronic venous stasis to the lower extremity which is now considerably aggravated by his worsening renal failure and extensive volume overload. Patient feeling somewhat better today. No shortness of breath. Lower extremity edema is improved. Developed diarrhea and CDIFF was isolated. Rocephin has completed and diarrhea improved with oral Vanco. Patient has been noted to fail his swallow study. Has been seen by pulmonary critical care. He is doing relatively well in no need for any further intervention except appropriate diet and techniques to avoid aspiration. He is feeling better some shortness of breath. Eating poorly with the above diet. One formed stool noted today. He has some fluid through a straw earlier today and now has a wet moist cough concern to further aspiration. Objective - Vital Signs Vital signs: Vital Signs Temp 98.7 F 03/15/17 14:54 Pulse 103 H 03/15/17 14:54 Resp 16 03/15/17 14:54 BP 137/67 03/15/17 14:54 Pulse Ox 95 03/15/17 14:54 Intake & Output 03/14/17 03/15/17 03/15/17 18:59 06:59 18:59 Intake Total 480 200 720 Output Total 2 Balance 480 198 720 Weight 83.8 kg 83.8 kg Intake: Intake, IV Titration 480 720 Amount Dextrose 5% in Water 1, 480 720 000 ml @ 60 mls/hr IV . [id number] [facility] Rx#:[id number] Oral 200 Output: Stool 2 Other: Voiding Method Bedside Commode Bedside Commode Urinal Urinal Diaper Diaper Incontinent Incontinent # Voids 2 1 # Bowel Movements 1 - Exam Pleasant 86-year-old male who is short of breath and somewhat uncomfortable but denies fevers or chills. HEENT: Anicteric conjunctiva are pink and moist nasal mucosa grossly intact without significant lesions, there is no thrush. Full denture Neck: The neck is supple without significant lymphadenopathy or thyromegaly. Lungs: Symmetrical air entry is noted with bibasilar crackles but no alfredito wheezing. No egophony or dullness Heart: Irregular with an audible S1 and S2 loud S4 no distinct murmur click or rub PMI is nondisplaced Abdomen: Positive bowel sounds soft and nontender without palpable masses or organomegaly. There was no guarding or rebound. Extremities: The upper extremities have excellent pulses they are symmetric, no significant petechiae or telangiectasia. No splinter hemorrhages were noted. Lower extremities have edema left leg more than the right. The erythema is improved and no longer tender No extensive lymphadenopathy is noted inguinal or other areas Neuro: Awake alert oriented to person and place. There are no acute new gross focal sensory motor deficits. Is aware of his son and grandson interacts well with them. - Labs CBC & Chem 7: 03/11/17 06:24 03/15/17 08:22 Labs: Abnormal Lab Results - Last 24 Hours (Table) 03/14/17 03/15/17 03/15/17 Range/Units 20:52 07:03 08:22 Sodium 148 H (137-145) mmol/L Carbon Dioxide 32 H (22-30) mmol/L BUN 37 H (9-20) mg/dL Creatinine 2.20 H (0.66-1.25) mg/dL Glucose 175 H (74-99) mg/dL POC Glucose (mg/dL) 188 H 170 H (75-99) mg/dL 03/15/17 03/15/17 Range/Units 12:28 16:51 Sodium (137-145) mmol/L Carbon Dioxide (22-30) mmol/L BUN (9-20) mg/dL Creatinine (0.66-1.25) mg/dL Glucose (74-99) mg/dL POC Glucose (mg/dL) 177 H 222 H (75-99) mg/dL Laboratory Results WBC 9.2 k/uL (3.8-10.6) 03/11/17 06:24 RBC 3.49 m/uL (4.30-5.90) L 03/11/17 06:24 Hgb 10.1 gm/dL (13.0-17.5) L 03/11/17 06:24 Hct 35.1 % (39.0-53.0) L 03/11/17 06:24 MCV 100.6 fL (80.0-100.0) H 03/11/17 06:24 MCH 29.1 pg (25.0-35.0) 03/11/17 06:24 MCHC 28.9 g/dL (31.0-37.0) L 03/11/17 06:24 RDW 15.5 % (11.5-15.5) 03/11/17 06:24 Plt Count 262 k/uL (150-450) 03/11/17 06:24 Neutrophils % 75 % 03/11/17 06:24 Lymphocytes % 17 % 03/11/17 06:24 Monocytes % 4 % 03/11/17 06:24 Eosinophils % 2 % 03/11/17 06:24 Basophils % 1 % 03/11/17 06:24 Neutrophils # 6.9 k/uL (1.3-7.7) 03/11/17 06:24 Lymphocytes # 1.6 k/uL (1.0-4.8) 03/11/17 06:24 Monocytes # 0.4 k/uL (0-1.0) 03/11/17 06:24 Eosinophils # 0.2 k/uL (0-0.7) 03/11/17 06:24 Basophils # 0.1 k/uL (0-0.2) 03/11/17 06:24 Manual Slide Review Performed 02/23/17 10:45 Hypochromasia Marked 03/11/17 06:24 Macrocytosis Slight 03/11/17 06:24 PT 21.2 sec (9.0-12.0) H 03/14/17 06:00 INR 2.4 (<1.2) H 03/14/17 06:00 APTT 31.1 sec (22.0-30.0) H 02/23/17 10:45 Sodium 148 mmol/L (137-145) H 03/15/17 08:22 Potassium 4.5 mmol/L (3.5-5.1) 03/15/17 08:22 Chloride 107 mmol/L (98-107) 03/15/17 08:22 Carbon Dioxide 32 mmol/L (22-30) H 03/15/17 08:22 Anion Gap 9 mmol/L 03/15/17 08:22 BUN 37 mg/dL (9-20) H 03/15/17 08:22 Creatinine 2.20 mg/dL (0.66-1.25) H 03/15/17 08:22 Est GFR (MDRD) Af Amer 34 (>60 ml/min/1.73 sqM) 03/15/17 08:22 Est GFR (MDRD) Non-Af 28 (>60 ml/min/1.73 sqM) 03/15/17 08:22 Glucose 175 mg/dL (74-99) H 03/15/17 08:22 POC Glucose (mg/dL) 222 mg/dL (75-99) H 03/15/17 16:51 POC Glu Pelt Shearer ID Marzena Davey 03/15/17 16:[address] Glu mg/dL 126 02/27/17 09:23 Hemoglobin A1c 6.0 % (4.0-6.0) 02/27/17 09:23 Uric Acid 8.1 mg/dL (3.5-8.5) 02/23/17 10:45 Calcium 9.6 mg/dL (8.4-10.2) 03/15/17 08:22 Magnesium 2.3 mg/dL (1.6-2.3) 03/14/17 06:00 Iron 43 ug/dL (65-175) L 02/24/17 06:03 TIBC 245 ug/dL (228-460) 02/24/17 06:03 Iron Saturation 17.55 (15.00-50.00) 02/24/17 06:03 Total Bilirubin 0.8 mg/dL (0.2-1.3) 02/26/17 06:14 AST 22 U/L (17-59) 02/26/17 06:14 ALT 34 U/L (21-72) 02/26/17 06:14 Alkaline Phosphatase 91 U/L (38-126) 02/26/17 06:14 Total Creatine Kinase 27 U/L (55-170) L 02/23/17 17:02 CK-MB (CK-2) 0.6 ng/mL (0.0-2.4) 02/23/17 17:02 CK-MB (CK-2) Rel Index 2.2 02/23/17 17:02 Troponin I 0.036 ng/mL (0.000-0.034) H* 02/23/17 22:57 NT-Pro-B Natriuret Pep 95293 pg/mL 03/11/17 06:24 Total Protein 6.3 g/dL (6.3-8.2) 02/26/17 06:14 Albumin 3.3 g/dL (3.5-5.0) L 02/26/17 06:14 Vitamin B12 1476.0 pg/mL (200.0-944.0) H 03/11/17 06:24 TSH 2.060 mIU/L (0.465-4.680) 03/11/17 06:24 Free T4 1.01 ng/dL (0.78-2.19) 03/11/17 06:24 Urine Color Light Yellow 02/28/17 06:20 Urine Appearance Clear (Clear) 02/28/17 06:20 Urine pH 7.5 (5.0-8.0) 02/28/17 06:20 Ur Specific [place] 1.007 (1.001-1.035) 02/28/17 06:20 Urine Protein Negative (Negative) 02/28/17 06:20 Urine Glucose (UA) Negative (Negative) 02/28/17 06:20 Urine Ketones Negative (Negative) 02/28/17 06:20 Urine Blood Small (Negative) H 02/28/17 06:20 Urine Nitrite Negative (Negative) 02/28/17 06:20 Urine Bilirubin Negative (Negative) 02/28/17 06:20 Urine Urobilinogen <2.0 mg/dL (<2.0) 02/28/17 06:20 Ur Leukocyte Esterase Negative (Negative) 02/28/17 06:20 Urine RBC 18 /hpf (0-5) H 02/28/17 06:20 Urine Mucus Rare /hpf (None) H 02/28/17 06:20 C. difficile (EIA) Intrp Positive (Negative) A 03/02/17 08:11 Microbiology 03/01/17 18:11 Blood Blood Culture - Final No Growth after 144 hours 02/27/17 12:29 Blood Blood Culture - Final No Growth after 144 hours Assessment and Plan (1) Congestive heart failure Current Visit: Yes Status: Acute Code(s): I50.9 - HEART FAILURE, UNSPECIFIED SNOMED Code(s): 53078792 (2) Acute renal failure Current Visit: Yes Status: Acute Code(s): N17.9 - ACUTE KIDNEY FAILURE, UNSPECIFIED SNOMED Code(s): 16719002 (3) Cellulitis Narrative/Plan: 86-year-old male presents to hospital with increasing lower extremity edema especially the left lower extremity associated with weeping and drainage. He was feeling poorly. Much more short of breath and having increasing difficulty with day-to-day activities. He also relates to social situation is difficult with [facility]. Admission there was evidence of worsening of his chronic kidney disease with acute renal failure superimposed on his significant systolic congestive heart failure and pulmonary edema. He is an insulin drip showing some improvement. The extensive cellulitis of the left lower extremity is noted. The patient relates starting to show some improvement because he's had some diuresis. Duplexes been performed with no evidence of any deep venous thrombosis. The Silvadene wrap is now allowed resolution of the swelling erythema and cellulitis of the left leg. The vein harvest to the extremity is a significant contributing factor to the extensive edema and resultant cellulitis. Elevation the limb is important. Is being followed by nephrology trying to improve his fluid and potassium balance. It is noted patient developed diarrhea and Clostridium difficile colitis has been diagnosed. Responding well to vancomycin therapy. Less frequent stools today. Plan 7 further days of therapy. Fortunately the leg is now much improved and intravenous antibiotic therapy has discontinued. Still having some loose stools intermittently. The addition of Lomotil has markedly reduce the higher volume of his stool, he is feeling better. Abdominal exam is benign. He's had some shortness of breath and is now receive some Lasix. This did seem to worsen after drinking some thin fluid through a straw with concerns further aspiration. Suggesting no further straw usage at this time with the family. Their questions are answered. Potential transfer tomorrow. Current Visit: No Status: Acute Code(s): L03.90 - CELLULITIS, UNSPECIFIED SNOMED Code(s): 823559977
[2017-03-15] MEDS: WARFARIN 2.5 MG TAB PO SCH (19:27)
[2017-03-15] MEDS: ATORVASTATIN 10 MG TAB PO SCH (20:24)
[2017-03-15] MEDS: LISINOPRIL 5 MG TAB PO SCH (20:25)
[2017-03-15 20:57] LABS: Glucose,Whole Blood 144 mg/dL (75-99)
--- NOTE | 2017-03-15 22:36 | PN ---
PROGRESS NOTE CHIEF COMPLAINT: Re-evaluation. HISTORY OF PRESENT ILLNESS: This 86-year-old gentleman was admitted to the hospital with cellulitis of the left leg. Subsequent to that patient has developed C difficile colitis. He has improved. The patient is having some difficulty swallowing. He had some restrictions and he had free water dehydration. The patient's sodium was up to 151. It is better today at 148. The patient is more alert today. His diet is improved. REVIEW OF SYSTEMS: NEURO: Denies any headaches, dizziness. PSYCH: No anxiety. CARDIAC: No chest pain, angina, palpitations. RESPIRATORY: Chronic shortness of breath, chronic cough. No hemoptysis. GI: No nausea, vomiting, abdominal pain. Diarrhea improved. : No symptoms of dysuria, hematuria. EXTREMITIES: No pain. CONSTITUTIONAL: No fever, chills. PHYSICAL EXAMINATION: Elderly gentleman, at present in no distress. VITAL SIGNS: Temperature 97.7, pulse 108, respirations 16, blood pressure 131/70, pulse ox 97% on 3 L. HEENT: Normocephalic. NECK: Supple. No JVD. CHEST: Clear to percussion with scattered rhonchi. CARDIAC: Distant heart sounds S1, S2 with no gallops. Systolic murmur 2/6 at apex. Irregular rhythm. ABDOMEN: Soft. Bowel sounds present. Extremities reveal 1+ edema. Neurologically awake, alert, oriented with well-coordinated movements, though has generalized weakness. LABORATORY ASSESSMENT: Electrolytes which revealed sodium 148, potassium 4.5, CO2 content 32, BUN 37, creatinine 2.2, glucose 175. ASSESSMENT: 1. Hypernatremia secondary to free water dehydration, improving. 2. Clostridium difficile colitis. 3. Cellulitis, left lower leg, resolved. 4. Chronic obstructive pulmonary disease. 5. Chronic atrial fibrillation. 6. Stable coronary artery disease. 7. Chronic kidney disease, stage III. 8. Chronic atrial fibrillation. PLAN: The patient is stable. Continue present medical regimen. The patient's condition is improving. Continue present regimen. If the patient remains stable in the next 24 to 48 hours, he will be transferred to a nursing facility for rehab. The patient's condition is guarded. MMODL / IJN: [id number] /
[2017-03-16] MEDS: CHERRY FLAVOR 60 ML BOTTLE PO PRN ×2 (01:01→06:08)
[2017-03-16] MEDS: VANCOMYCIN ORAL SOLUTION 250 MG/5 ML BOTTLE PO SCH ×5 (01:02→23:23)
[2017-03-16] MEDS ORDERED: FUROSEMIDE 10 MG/ML 4 ML VIAL IV STA (04:21)
[2017-03-16 07:03] LABS: Glucose,Whole Blood 166 mg/dL (75-99)
[2017-03-16] MEDS: IPRATROPIUM-ALBUTEROL 3 ML NEB INHALATION SCH ×3 (07:45→20:26)
[2017-03-16] MEDS: INSULIN ASPART 100 UNIT/ML 1 ML 10 ML VIAL SQ SCH ×4 (08:26→21:33)
[2017-03-16] MEDS: FERROUS SULFATE 325 MG TAB PO SCH (08:32)
[2017-03-16] MEDS: LACTOBACILLUS ACIDOPH & BULGAR 1 EACH PACKET PO SCH ×4 (08:32→21:27)
[2017-03-16] MEDS: FINASTERIDE 5 MG TAB PO SCH (08:32)
[2017-03-16] MEDS: CHOLESTYRAMINE (WITH SUGAR) 4 GM PACKET PO SCH ×2 (08:32→18:09)
[2017-03-16] MEDS: POTASSIUM CHLORIDE ER 10 MEQ TAB.ER.PRT PO SCH (08:32)
[2017-03-16] MEDS: DEXTROSE 5% IN WATER 1,000 ML IV SCH (08:33)
[2017-03-16] MEDS: FUROSEMIDE 10 MG/ML 10 ML VIAL IV SCH ×2 (09:31→21:29)
[2017-03-16] MEDS: VITAMIN E (DL,TOCOPHERYL ACET) 400 UNIT CAP PO SCH (11:23)
[2017-03-16] MEDS: CHOLECALCIFEROL 400 UNIT TAB PO SCH (11:23)
[2017-03-16] MEDS: ASCORBIC ACID 500 MG TAB PO SCH (11:23)
[2017-03-16 12:15] LABS: Glucose,Whole Blood 162 mg/dL (75-99)
[2017-03-16 13:23] LABS: INR 3.7 (<1.2); Prothrombin Time 33.2 sec (9.0-12.0)
[2017-03-16 13:26] LABS: Calcium 9.4 mg/dL (8.4-10.2)
--- NOTE | 2017-03-16 14:15 | P.PN ---
Subjective Progress Note Date: 03/16/17 Chief complaint: Reevaluation. History present illness: 86-year-old gentleman was admitted to the hospital with a cellulitis of the lower leg. Patient is chronic venous stasis. 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 History of chronic kidney disease stage III as well as a history of cardiac cirrhosis of the liver. Patient had been on IV antibiotics and subsequently developed C. difficile colitis. He is recovering well from that. He has had some difficulty in swallowing and thus became free water dehydration. This hyponatremia however now has resolved with sodium down to 144. The patient has a history of chronic atrial fibrillation on anticoagulation. His INR is high at 3.7 today and Coumadin will be held. Patient does feel better he appears very weak and chronically ill. Patient's condition is reviewed with the patient and his son at the bedside. Prognosis remains guarded. Our goal for the patient be sent to rehab and if does not improve much [facility] and hospice care. Patient intake has been somewhat poor. He does appear cachectic. REVIEW OF SYSTEMS: Neuro: Denies any headaches dizziness. Psych: Denies anxiety depression feels oriented. Cardiac: Denies chest pain and angina palpitations. Respiratory: Some shortness of breath and cough. GI: Denies nausea vomiting or abdominal pain. Stool is loose but not diarrheal , frequency decreased : Denies dysuria hematuria. Extremities: Denies pain edema decreased Skin: Intact. Constitutional: No fever, chills. Objective - Vital Signs Vital signs: Vital Signs Temp 97.0 F L 03/16/17 06:36 Pulse 109 H 03/16/17 07:55 Resp 24 03/16/17 06:36 BP 133/65 03/16/17 06:36 Pulse Ox 97 03/16/17 06:36 Intake & Output 03/15/17 03/16/17 03/16/17 18:59 06:59 18:59 Intake Total 720 Balance 720 Weight 83.8 kg Intake: Intake, IV Titration 720 Amount Dextrose 5% in Water 1, 720 000 ml @ 60 mls/hr IV . [id number] [facility] Rx#:[id number] Other: Voiding Method Bedside Commode Bedside Commode Bedpan Urinal Urinal Diaper Diaper Incontinent Incontinent # Voids 1 1 2 # Bowel Movements 1 1 PHYSICAL EXAMINATION: Cooperative, at present in no acute distress. HEENT: Neck supple. No JVD. Chest: Decreased airflow left base, dullness percussion left base. Scattered rhonchi bilaterally] Cardiac: Normal S1-S2 with no gallops, irregularly irregular rhythm, systolic murmur 2/6 left sternal border and apex. Abdomen: Soft bowel sounds present. Extremities: Mild edema in the ankles no tenderness evidence of muscle wasting Neurologically: Awake alert oriented with well-corticated movements to generalized weakness. - Labs CBC & Chem 7: 03/11/17 06:24 03/16/17 12:55 Labs: Abnormal Lab Results - Last 24 Hours (Table) 03/15/17 03/15/17 03/16/17 Range/Units 16:51 20:56 07:01 PT (9.0-12.0) sec INR (<1.2) BUN (9-20) mg/dL Creatinine (0.66-1.25) mg/dL Glucose (74-99) mg/dL POC Glucose (mg/dL) 222 H 144 H 166 H (75-99) mg/dL 03/16/17 03/16/17 03/16/17 Range/Units 12:13 12:55 12:55 PT 33.2 H (9.0-12.0) sec INR 3.7 H (<1.2) BUN 37 H (9-20) mg/dL Creatinine 2.26 H (0.66-1.25) mg/dL Glucose 170 H (74-99) mg/dL POC Glucose (mg/dL) 162 H (75-99) mg/dL Assessment and Plan Assessment: ASSESSMENT: 1. Acute and chronic respiratory failure. 2. COPD with exacerbation. 3. 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 4. Chronic atrial fibrillation. 5. Hyponatremia resolved. 6. Acute on chronic renal failure improved. 7. History of cardiac cirrhosis. 8. Anticoagulated status 9. Debility and cachexia. 10. C. difficile colitis improving 11. Cellulitis lower leg resolved 12. Oropharyngeal dysphagia PLAN: Continue present medical regimen. Discontinue IV fluids. Chest x-ray to rule out a large left lower lung effusion prognosis remains guarded condition discussed with the family potential discharge next couple days.
--- NOTE | 2017-03-16 14:29 | XR ---
EXAMINATION TYPE: XR chest 1V DATE OF EXAM: 03/16/2017 COMPARISON: 03/12/2017 HISTORY: 86 year-old male shortness of breath TECHNIQUE: Single frontal view of the chest is obtained. FINDINGS: Median sternotomy wires. Persistent cardiomegaly. Persistent interstitial prominence and small effusi ons. Worsening focal airspace opacity at the left mid and lower lung. IMPRESSION: 1. Correlate for persistent CHF with vascular congestion/interstitial edema. 2. New confluent airspace opacity left mid and lower lung could represent confluent pulmonary edema o r pneumonia.
[2017-03-16 17:27] LABS: Glucose,Whole Blood 145 mg/dL (75-99)
[2017-03-16] MEDS: WARFARIN 2.5 MG TAB PO SCH (18:08)
--- NOTE | 2017-03-16 19:40 | PN ---
PROGRESS NOTE Patient is seen for followup for acute kidney injury on top of chronic kidney disease, currently being followed for mainly cardiorenal syndrome. Patient has C dif colitis, which is still causing some diarrhea although somewhat better. The patient has been short of breath. He is currently maintained on IV Lasix. Urine output is not accurately charted. EXAMINATION: Blood pressure was 135/52, heart rate 100 per minute. He is afebrile. Examination of the heart S1, S2. Examination of the lungs: Decreased breath sounds at the bases with basal crackles heard. Examination of the lower extremities shows chronic skin changes with edema 2+ bilaterally. ALLERGY PHYSICIAN exam is grossly intact. LAB: Shows serum creatinine 2.26, sodium 144, potassium 4.0. ASSESSMENT: 1. Acute kidney injury mainly cardiorenal with element of hypovolemia during the time of severe diarrhea, currently the patient is hypervolemic. Continue with IV Lasix. I will increase the Lasix to q.12 hours. 2. Clostridium difficile colitis, maintained on Questran, lactobacillus, and oral vancomycin. 3. Hypertension. I will discontinue the Zestril for now as blood pressure is not significantly elevated. PLAN: Increase Lasix. DC Zestril. Repeat labs. MMODL / IJN: [id number] /
[2017-03-16 21:03] LABS: Glucose,Whole Blood 150 mg/dL (75-99)
[2017-03-16] MEDS: ATORVASTATIN 10 MG TAB PO SCH (21:27)
[2017-03-17] MEDS: VANCOMYCIN ORAL SOLUTION 250 MG/5 ML BOTTLE PO SCH ×4 (06:19→23:27)
[2017-03-17 07:28] LABS: Glucose,Whole Blood 116 mg/dL (75-99)
[2017-03-17] MEDS: IPRATROPIUM-ALBUTEROL 3 ML NEB INHALATION SCH ×4 (07:44→20:25)
[2017-03-17 08:39] LABS: Calcium 9.6 mg/dL (8.4-10.2); Potassium 4.1 mmol/L (3.5-5.1)
[2017-03-17] MEDS: INSULIN ASPART 100 UNIT/ML 1 ML 10 ML VIAL SQ SCH ×4 (08:39→21:24)
[2017-03-17] MEDS: LACTOBACILLUS ACIDOPH & BULGAR 1 EACH PACKET PO SCH ×4 (08:40→21:26)
[2017-03-17] MEDS: POTASSIUM CHLORIDE ER 10 MEQ TAB.ER.PRT PO SCH (08:40)
[2017-03-17] MEDS: FUROSEMIDE 10 MG/ML 10 ML VIAL IV SCH ×2 (08:40→20:19)
[2017-03-17] MEDS: FERROUS SULFATE 325 MG TAB PO SCH (08:40)
[2017-03-17] MEDS: CHOLESTYRAMINE (WITH SUGAR) 4 GM PACKET PO SCH ×2 (08:40→18:29)
[2017-03-17] MEDS: FINASTERIDE 5 MG TAB PO SCH (08:40)
[2017-03-17 08:46] LABS: INR 4.6 (<1.2); Prothrombin Time 41.4 sec (9.0-12.0)
[2017-03-17] MEDS: WARFARIN 2.5 MG TAB PO SCH (08:51)
--- NOTE | 2017-03-17 11:56 | P.PN ---
Subjective Progress Note Date: 03/17/17 History present illness: This 86-year-old gentleman admitted to the hospital. Her days ago with cellulitis left lower leg. He subsequently has had problems with CHF bronchitis/COPD with exacerbation, C. difficile colitis. Difficulty swallowing with hypernatremia. Patient's general condition is basically poor. He has 4 organ involvement including his renal hepatic cardiac and pulmonary. The patient has generalized debility. Have discussed with the patient today that he is basically in a state where for a little more can be done. Have recommended the patient for placement nursing facility try some rehab if it doesn't help him much consider hospice care. Patient understands this. He does have significant congestion as mentioned with noted findings on chest x- ray. Extra Lasix dose be given today. REVIEW OF SYSTEMS: Neuro: Denies any headaches dizziness. Psych: Denies anxiety depression feels oriented. Cardiac: Denies chest pain and angina palpitations. Respiratory: Does have shortness of breath and cough and congestion. GI: Denies nausea vomiting or abdominal pain. No diarrhea . : Denies dysuria hematuria. Extremities: Denies pain. No edema. Skin: Intact. Constitutional: No fever, chills. Objective - Vital Signs Vital signs: Vital Signs Temp 97.5 F L 03/17/17 07:00 Pulse 100 03/17/17 07:55 Resp 18 03/17/17 08:00 BP 134/82 03/17/17 07:00 Pulse Ox 92 L 03/17/17 07:00 Intake & Output 03/16/17 03/17/17 03/17/17 18:59 06:59 18:59 Output Total 200 Balance -200 Output: Urine 200 Other: Voiding Method Bedside Commode Urinal # Voids 2 3 1 # Bowel Movements 1 1 PHYSICAL EXAMINATION: Cooperative, at present in no acute distress. HEENT: Neck supple. No JVD. Chest: Bilateral rhonchi with decreased airflow especially left lower lung Cardiac: Normal S1-S2 no gallops irregularly irregular rhythm systolic murmur . Abdomen: Soft bowel sounds present. Extremities: 1-2+ edema left lower leg no tenderness Neurologically: Awake, alert, oriented with well-coordinated movements with generalized weakness and muscle wasting. - Labs CBC & Chem 7: 03/11/17 06:24 03/17/17 07:42 Labs: Abnormal Lab Results - Last 24 Hours (Table) 03/16/17 03/16/17 03/16/17 Range/Units 12:13 12:55 12:55 PT 33.2 H (9.0-12.0) sec INR 3.7 H (<1.2) Sodium (137-145) mmol/L Chloride (98-107) mmol/L BUN 37 H (9-20) mg/dL Creatinine 2.26 H (0.66-1.25) mg/dL Glucose 170 H (74-99) mg/dL POC Glucose (mg/dL) 162 H (75-99) mg/dL 03/16/17 03/16/17 03/17/17 Range/Units 17:16 21:01 07:15 PT (9.0-12.0) sec INR (<1.2) Sodium (137-145) mmol/L Chloride (98-107) mmol/L BUN (9-20) mg/dL Creatinine (0.66-1.25) mg/dL Glucose (74-99) mg/dL POC Glucose (mg/dL) 145 H 150 H 116 H (75-99) mg/dL 03/17/17 03/17/17 Range/Units 07:42 07:42 PT 41.4 H (9.0-12.0) sec INR 4.6 H (<1.2) Sodium 146 H (137-145) mmol/L Chloride 108 H (98-107) mmol/L BUN 37 H (9-20) mg/dL Creatinine 2.28 H (0.66-1.25) mg/dL Glucose 110 H (74-99) mg/dL POC Glucose (mg/dL) (75-99) mg/dL Assessment and Plan Assessment: ASSESSMENT: 1. Acute and chronic respiratory failure. 2. Exacerbation COPD. 3. Chronic congestive cardiac failure second to systolic and diastolic dysfunction . 4. Chronic atrial fibrillation. 5. Hyperanticoagulated status. 6. C. difficile colitis improving. 7. Cellulitis left lower leg resolved. 8. Debility 9. Cachexia. PLAN: Continue present medical regimen. Patient is receiving Lasix. Patient's condition is guarded prognosis guarded have reviewed with him regarding placement and possible consideration of hospice care.
[2017-03-17 12:16] LABS: Glucose,Whole Blood 198 mg/dL (75-99)
[2017-03-17] MEDS: CHOLECALCIFEROL 400 UNIT TAB PO SCH (13:33)
[2017-03-17] MEDS: CHERRY FLAVOR 60 ML BOTTLE PO PRN ×3 (13:34→23:27)
[2017-03-17] MEDS: ASCORBIC ACID 500 MG TAB PO SCH (13:34)
[2017-03-17] MEDS: VITAMIN E (DL,TOCOPHERYL ACET) 400 UNIT CAP PO SCH (13:34)
--- NOTE | 2017-03-17 15:14 | PN ---
PROGRESS NOTE The patient is seen for followup for acute kidney injury. His Lasix was increased yesterday. Patient has had good urine output. His overall condition is about the same. He has not had significant skin diarrhea. In fact, no bowel movements since last night. EXAMINATION: Blood pressure is 134/82, heart rate 86 per minute. He is afebrile. Examination of the heart: S1, S2. Examination lungs: Decreased breath sounds at bases. Abdomen is soft. Examination lower extremities chronic skin changes. Edema 2+ bilaterally. LABS: Sodium 146, serum creatinine 2.28, BUN 37, potassium 4.1. ASSESSMENT: 1. Acute kidney injury mainly cardiorenal. Continue with current dose of Lasix. 2. Clostridium difficile colitis with improvement in diarrhea, maintained on oral vancomycin. 3. Cardiomyopathy. 4. Generalized debility. 5. Benign prostatic hypertrophy. PLAN: Continue with the IV Lasix for now. The patient's family is considering hospice care. MMODL / IJN: [id number] /
[2017-03-17 17:24] LABS: Glucose,Whole Blood 171 mg/dL (75-99)
[2017-03-17] MEDS: ATORVASTATIN 10 MG TAB PO SCH (20:19)
[2017-03-17 20:41] LABS: Glucose,Whole Blood 217 mg/dL (75-99)
[2017-03-18] MEDS: CHERRY FLAVOR 60 ML BOTTLE PO PRN (05:22)
[2017-03-18] MEDS: VANCOMYCIN ORAL SOLUTION 250 MG/5 ML BOTTLE PO SCH (05:22)
[2017-03-18] MEDS ORDERED: LISINOPRIL 5 MG TAB PO STA (07:29)
[2017-03-18 07:54] LABS: Glucose,Whole Blood 166 mg/dL (75-99)
[2017-03-18 07:56] VITALS: RESP 16
--- NOTE | 2017-03-18 08:18 | P.DS ---
Providers Date of admission: 02/23/17 12:16 Expected date of discharge: 03/18/17 Attending physician: Moise Jacobo Consults: 02/26/17 16:00 Consult Physician Routine Consulting Provider: Benito Padilla Consult Reason/Comments: cellulitis. Do you want consulting provider notified?: Yes, Notify in am 03/07/17 12:57 Consult Physician Routine Consulting Provider: Lo Hayes Consult Reason/Comments: Aspiration of food/liquid Do you want consulting provider notified?: Yes 02/23/17 12:15 Consult Physician Routine Consulting Provider: Anya Hairston Consult Reason/Comments: chf Do you want consulting provider notified?: Yes 02/23/17 13:59 Consult Physician Routine Consulting Provider: Sudha Sevilla Consult Reason/Comments: Elevated kidney function Do you want consulting provider notified?: Yes Primary care physician: Moise Jacobo [place] Hospital Course: This 86-year-old gentleman was admitted to the hospital or pain and swelling redness of the left leg. Patient is evidence of cellulitis. 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 Also history of COPD. Patient has a history of chronic kidney disease stage III associated with diabetes mellitus and atherosclerotic renal disease. Patient has a history of hypertension of long-standing. 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 History of chronic atrial fibrillation on anticoagulation with Coumadin. Following admission patient was seen by nephrology, pulmonology, ID,Cardiology. Patient was initially admitted to the hospital to Dr. Benito wong for co. Patient did develop C. diff colitis and was on oral vancomycin with help. Patient has no further diarrhea. His chronic pulmonary and cardiac status is causing him some increased shortness of breath. The patient is on oxygen. He has history of chronic respiratory failure. Patient also is noted to have evidence of oropharyngeal dysphagia with evidence of aspiration noted on modified. Swallow. Patient's on a modified diet and recommended only drinking water submitted time in between meals. He did develop hyponatremia which is resolved. The patient's condition is poor prognosis guarded and have recommended comfort possible hospice care. The family is considering it. Meanwhile patient's can be transferred for rehabilitation. Prognosis as mentioned about remains poor and has been discussed with the patient the patient is fairly alert and able to make adequate decisions. His Coumadin is on hold and will be resumed when his INR is therapeutic. The Coumadin to be resumed and 1.25 mg daily. Patient's INR be followed at least twice a week. Diagnosis to include 1. Cellulitis left lower leg 2. Chronic venous hypertension lower extremities left greater than right 3. Acute on chronic respiratory failure 4. Acute on chronic congestive cardiac failure secondary to systolic and diastolic dysfunction 5. Stable coronary artery disease 6. Chronic atrial fibrillation 7. Diabetes mellitus with associated chronic kidney disease and peripheral arterial disease 8. Chronic kidney disease stage III 9. Acute and chronic renal failure 10. Hypernatremia 11. COPD 12. 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 debility 15. C. difficile colitis Patient Condition at Discharge: Fair Plan - Discharge Summary Discharge Rx Participant: Yes New Discharge Prescriptions: New Acetaminophen Tab [Tylenol] 650 mg PO Q4HR PRN tab PRN Reason: Fever and/ or MILD Pain Furosemide [Lasix] 80 mg PO BID@0900,1600 tab Insulin Aspart [NovoLOG (formulary)] 0 unit SQ ACHS vial Ipratropium-Albuterol Nebulize [Duoneb 0.5 mg-3 mg/3 ml Soln] 3 ml INHALATION RT-TID ampul.neb Lactobacillus Acidoph & Bulgar [Lactinex] 1 each PO QID packet Metoprolol Succinate (ER) [Toprol XL] 25 mg PO DAILY tab.er.24h Spironolactone [Aldactone] 25 mg PO DAILY tab Warfarin [Coumadin] 1.25 mg PO DAILY@1800 dose Continue Lisinopril [Zestril] 5 mg PO HS Finasteride [Proscar] 5 mg PO QAM Cholecalciferol [Vitamin D3] 400 unit PO DAILY@1200 Aspirin 81 mg PO HS Doxazosin Mesylate 8 mg PO QAM Discontinued Warfarin [Coumadin] 5 mg PO MOWEFR Furosemide [Lasix] 80 mg PO AC-BID Potassium Chloride [Klor-Con 10] 10 meq PO QAM Ascorbic Acid [Vitamin C] 500 mg PO DAILY@1200 Vitamin E (Dl,Tocopheryl Acet) [Vitamin E] 400 unit PO DAILY@1200 Ferrous Sulfate [Feosol] 325 mg PO QAM glipiZIDE [Glucotrol] 10 mg PO AC-BID Simvastatin [Zocor] 20 mg PO HS No Action Warfarin [Coumadin] 2.5 mg PO SUTUTHSA Discharge Medication List Aspirin 81 mg PO HS 07/22/14 [History] Cholecalciferol [Vitamin D3] 400 unit PO DAILY@1200 07/22/14 [History] Finasteride [Proscar] 5 mg PO QAM 07/22/14 [History] Lisinopril [Zestril] 5 mg PO HS 07/22/14 [History] Warfarin [Coumadin] 2.5 mg PO SUTUTHSA 11/03/14 [History] Doxazosin Mesylate 8 mg PO QAM 02/23/17 [History] Acetaminophen Tab [Tylenol] 650 mg PO Q4HR PRN tab 03/18/17 [Rx] Furosemide [Lasix] 80 mg PO BID@0900,1600 tab 03/18/17 [Rx] Insulin Aspart [NovoLOG (formulary)] 0 unit SQ ACHS vial 03/18/17 [Rx] Ipratropium-Albuterol Nebulize [Duoneb 0.5 mg-3 mg/3 ml Soln] 3 ml INHALATION RT -TID ampul.neb 03/18/17 [Rx] Lactobacillus Acidoph & Bulgar [Lactinex] 1 each PO QID packet 03/18/17 [Rx] Metoprolol Succinate (ER) [Toprol XL] 25 mg PO DAILY tab.er.24h 03/18/17 [Rx] Spironolactone [Aldactone] 25 mg PO DAILY tab 03/18/17 [Rx] Warfarin [Coumadin] 1.25 mg PO DAILY@1800 dose 03/18/17 [Rx] Follow up Appointment(s)/Referral(s): Moise Jacobo MD [Primary Care Provider] - 1-2 days [facility], [NON-STAFF] -
[2017-03-18 08:40] LABS: INR 4.8 (<1.2); Prothrombin Time 43.5 sec (9.0-12.0)
[2017-03-18] MEDS: IPRATROPIUM-ALBUTEROL 3 ML NEB INHALATION SCH ×3 (08:55→20:29)
[2017-03-18] MEDS: METOPROLOL SUCCINATE (ER) 25 MG TAB.ER.24H PO SCH (09:45)
[2017-03-18] MEDS: FINASTERIDE 5 MG TAB PO SCH (09:45)
[2017-03-18] MEDS: FUROSEMIDE 80 MG TAB PO SCH ×2 (09:45→16:22)
[2017-03-18] MEDS: SPIRONOLACTONE 25 MG TAB PO SCH (09:45)
[2017-03-18] MEDS: INSULIN ASPART 100 UNIT/ML 1 ML 10 ML VIAL SQ SCH ×4 (09:46→20:55)
[2017-03-18] MEDS: LACTOBACILLUS ACIDOPH & BULGAR 1 EACH PACKET PO SCH ×4 (09:47→23:31)
--- NOTE | 2017-03-18 10:38 | P.PN ---
Subjective Patient is seen in follow-up for acute kidney injury on chronic kidney disease. 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 Creatinine relatively stable at 2.28 as of yesterday. Edema is improved. Oral intake is fair. He is noted to be C. diff positive - having more formed bowel movements now. Still feels quite weak. Vital signs are stable. General: The patient appeared well nourished and normally developed. HEENT: Head exam is unremarkable. Neck is without jugular venous distension. LUNGS: Scattered rhonchi. Breath sounds decreased. HEART: Rate and Rhythm are regular. First and second heart sounds normal. No murmurs, rubs or gallops. ABDOMEN: Abdominal exam reveals normal bowel sounds. Non-tender and non- distended. No evidence of peritonitis. EXTREMITITES: 1+ edema. Objective - Vital Signs Vital signs: Vital Signs Temp 97.7 F 03/18/17 07:00 Pulse 100 03/18/17 09:07 Resp 16 03/18/17 07:00 BP 128/64 03/18/17 07:00 Pulse Ox 96 03/18/17 07:00 Intake & Output 03/17/17 03/18/17 03/18/17 18:59 06:59 18:59 Intake Total 100 240 Balance 100 240 Intake: Oral 100 240 Other: # Voids 3 2 # Bowel Movements 1 - Labs CBC & Chem 7: 03/11/17 06:24 03/17/17 07:42 Labs: Abnormal Lab Results - Last 24 Hours (Table) 03/17/17 03/17/17 03/17/17 Range/Units 12:04 17:10 20:38 PT (9.0-12.0) sec INR (<1.2) POC Glucose (mg/dL) 198 H 171 H 217 H (75-99) mg/dL 03/18/17 03/18/17 Range/Units 07:32 08:18 PT 43.5 H (9.0-12.0) sec INR 4.8 H (<1.2) POC Glucose (mg/dL) 166 H (75-99) mg/dL Assessment and Plan Plan: Assessment: #1. Nonoliguric acute kidney injury secondary to ATN secondary to cardiorenal syndrome. Renal function relatively stable with creatinine at 2.28 as of yesterday. No proteinuria noted on urinalysis. #2. 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 #3. Systolic CHF with ejection fraction of 35-40%. #4. Volume overload. Improving. #5. C diff colitis maintained on antibiotics. #6. Metabolic alkalosis due to volume contraction. Improved. #7. Hypernatremia secondary to lack of oral water intake. Improving. #7. Hypokalemia due to diuresis. Magnesium replete. Improved post replacement. Plan: Lasix has been changed to 80 mg orally twice daily. Potential discharge today to ECF. He will need to get basic metabolic panel checked within 2-3 days of discharge and follow-up as an outpatient in the next 1-2 weeks.
[2017-03-18 12:24] LABS: Glucose,Whole Blood 203 mg/dL (75-99)
[2017-03-18] MEDS: CHOLECALCIFEROL 400 UNIT TAB PO SCH (12:28)
[2017-03-18 17:43] LABS: Glucose,Whole Blood 143 mg/dL (75-99)
[2017-03-18 20:54] LABS: Glucose,Whole Blood 159 mg/dL (75-99)
--- NOTE | 2017-03-18 22:51 | P.PN ---
Subjective Progress Note Date: 03/18/17 Principal diagnosis: Increasing edema and shortness of breath 86-year-old male with a known history of chronic kidney disease presented to the emergency center feeling poorly for several days. Was having increasing edema to the bilateral lower extremities with resultant weeping. The patient relates that his weight is been increasing despite his use of oral Lasix at home. His living situation has changed in that his is at the [facility] and he said eating as well as he used to. Because he was feeling considerably worse he presented to the emergency center with evidence of a cellulitis the left lower extremity the infectious diseases consultation was requested. The patient has a known history of a coronary artery bypass grafting procedure and had vein harvest from the left leg and is had resultant chronic venous stasis to the lower extremity which is now considerably aggravated by his worsening renal failure and extensive volume overload. Patient feeling somewhat better today. No shortness of breath. Lower extremity edema is improved. Developed diarrhea and CDIFF was isolated. Rocephin has completed and diarrhea improved with oral Vanco. Patient has been noted to fail his swallow study. Has been seen by pulmonary critical care. He is doing relatively well in no need for any further intervention except appropriate diet and techniques to avoid aspiration. Patient is now doing considerably better. He is eating his soup without difficulties. His strength is considerably better. He's been up and walking. Before going to rehab to regain his strength. Objective - Vital Signs Vital signs: Vital Signs Temp 97.6 F 03/18/17 15:00 Pulse 76 03/18/17 20:40 Resp 16 03/18/17 15:00 BP 111/74 03/18/17 15:00 Pulse Ox 99 03/18/17 15:00 Intake & Output 03/18/17 03/18/17 03/19/17 06:59 18:59 06:59 Intake Total 100 240 Balance 100 240 Weight 83.8 kg Intake: Oral 100 240 Other: # Voids 2 2 1 # Bowel Movements 1 1 - Exam Pleasant 86-year-old male who is short of breath and somewhat uncomfortable but denies fevers or chills. HEENT: Anicteric conjunctiva are pink and moist nasal mucosa grossly intact without significant lesions, there is no thrush. Full denture Neck: The neck is supple without significant lymphadenopathy or thyromegaly. Lungs: Symmetrical air entry is noted with bibasilar crackles but no alfredito wheezing. No egophony or dullness Heart: Irregular with an audible S1 and S2 loud S4 no distinct murmur click or rub PMI is nondisplaced Abdomen: Positive bowel sounds soft and nontender without palpable masses or organomegaly. There was no guarding or rebound. Extremities: The upper extremities have excellent pulses they are symmetric, no significant petechiae or telangiectasia. No splinter hemorrhages were noted. Lower extremities have edema left leg more than the right. The erythema is improved and no longer tender No extensive lymphadenopathy is noted inguinal or other areas Neuro: Awake alert oriented to person and place. There are no acute new gross focal sensory motor deficits. Is aware of his son and grandson interacts well with them. One formed stool today - Labs CBC & Chem 7: 03/11/17 06:24 03/17/17 07:42 Labs: Abnormal Lab Results - Last 24 Hours (Table) 03/18/17 03/18/17 03/18/17 Range/Units 07:32 08:18 12:20 PT 43.5 H (9.0-12.0) sec INR 4.8 H (<1.2) POC Glucose (mg/dL) 166 H 203 H (75-99) mg/dL 03/18/17 03/18/17 Range/Units 17:28 20:51 PT (9.0-12.0) sec INR (<1.2) POC Glucose (mg/dL) 143 H 159 H (75-99) mg/dL Laboratory Results WBC 9.2 k/uL (3.8-10.6) 03/11/17 06:24 RBC 3.49 m/uL (4.30-5.90) L 03/11/17 06:24 Hgb 10.1 gm/dL (13.0-17.5) L 03/11/17 06:24 Hct 35.1 % (39.0-53.0) L 03/11/17 06:24 MCV 100.6 fL (80.0-100.0) H 03/11/17 06:24 MCH 29.1 pg (25.0-35.0) 03/11/17 06:24 MCHC 28.9 g/dL (31.0-37.0) L 03/11/17 06:24 RDW 15.5 % (11.5-15.5) 03/11/17 06:24 Plt Count 262 k/uL (150-450) 03/11/17 06:24 Neutrophils % 75 % 03/11/17 06:24 Lymphocytes % 17 % 03/11/17 06:24 Monocytes % 4 % 03/11/17 06:24 Eosinophils % 2 % 03/11/17 06:24 Basophils % 1 % 03/11/17 06:24 Neutrophils # 6.9 k/uL (1.3-7.7) 03/11/17 06:24 Lymphocytes # 1.6 k/uL (1.0-4.8) 03/11/17 06:24 Monocytes # 0.4 k/uL (0-1.0) 03/11/17 06:24 Eosinophils # 0.2 k/uL (0-0.7) 03/11/17 06:24 Basophils # 0.1 k/uL (0-0.2) 03/11/17 06:24 Manual Slide Review Performed 02/23/17 10:45 Hypochromasia Marked 03/11/17 06:24 Macrocytosis Slight 03/11/17 06:24 PT 43.5 sec (9.0-12.0) H 03/18/17 08:18 INR 4.8 (<1.2) H 03/18/17 08:18 APTT 31.1 sec (22.0-30.0) H 02/23/17 10:45 Sodium 146 mmol/L (137-145) H 03/17/17 07:42 Potassium 4.1 mmol/L (3.5-5.1) 03/17/17 07:42 Chloride 108 mmol/L (98-107) H 03/17/17 07:42 Carbon Dioxide 27 mmol/L (22-30) 03/17/17 07:42 Anion Gap 11 mmol/L 03/17/17 07:42 BUN 37 mg/dL (9-20) H 03/17/17 07:42 Creatinine 2.28 mg/dL (0.66-1.25) H 03/17/17 07:42 Est GFR (MDRD) Af Amer 33 (>60 ml/min/1.73 sqM) 03/17/17 07:42 Est GFR (MDRD) Non-Af 27 (>60 ml/min/1.73 sqM) 03/17/17 07:42 Glucose 110 mg/dL (74-99) H 03/17/17 07:42 POC Glucose (mg/dL) 159 mg/dL (75-99) H 03/18/17 20:51 POC Glu Application Development Intern Judith Baig 03/18/17 20:[address] Glu mg/dL 126 02/27/17 09:23 Hemoglobin A1c 6.0 % (4.0-6.0) 02/27/17 09:23 Uric Acid 8.1 mg/dL (3.5-8.5) 02/23/17 10:45 Calcium 9.6 mg/dL (8.4-10.2) 03/17/17 07:42 Magnesium 2.3 mg/dL (1.6-2.3) 03/14/17 06:00 Iron 43 ug/dL (65-175) L 02/24/17 06:03 TIBC 245 ug/dL (228-460) 02/24/17 06:03 Iron Saturation 17.55 (15.00-50.00) 02/24/17 06:03 Total Bilirubin 0.8 mg/dL (0.2-1.3) 02/26/17 06:14 AST 22 U/L (17-59) 02/26/17 06:14 ALT 34 U/L (21-72) 02/26/17 06:14 Alkaline Phosphatase 91 U/L (38-126) 02/26/17 06:14 Total Creatine Kinase 27 U/L (55-170) L 02/23/17 17:02 CK-MB (CK-2) 0.6 ng/mL (0.0-2.4) 02/23/17 17:02 CK-MB (CK-2) Rel Index 2.2 02/23/17 17:02 Troponin I 0.036 ng/mL (0.000-0.034) H* 02/23/17 22:57 NT-Pro-B Natriuret Pep 05340 pg/mL 03/11/17 06:24 Total Protein 6.3 g/dL (6.3-8.2) 02/26/17 06:14 Albumin 3.3 g/dL (3.5-5.0) L 02/26/17 06:14 Vitamin B12 1476.0 pg/mL (200.0-944.0) H 03/11/17 06:24 TSH 2.060 mIU/L (0.465-4.680) 03/11/17 06:24 Free T4 1.01 ng/dL (0.78-2.19) 03/11/17 06:24 Urine Color Light Yellow 02/28/17 06:20 Urine Appearance Clear (Clear) 02/28/17 06:20 Urine pH 7.5 (5.0-8.0) 02/28/17 06:20 Ur Specific [place] 1.007 (1.001-1.035) 02/28/17 06:20 Urine Protein Negative (Negative) 02/28/17 06:20 Urine Glucose (UA) Negative (Negative) 02/28/17 06:20 Urine Ketones Negative (Negative) 02/28/17 06:20 Urine Blood Small (Negative) H 02/28/17 06:20 Urine Nitrite Negative (Negative) 02/28/17 06:20 Urine Bilirubin Negative (Negative) 02/28/17 06:20 Urine Urobilinogen <2.0 mg/dL (<2.0) 02/28/17 06:20 Ur Leukocyte Esterase Negative (Negative) 02/28/17 06:20 Urine RBC 18 /hpf (0-5) H 02/28/17 06:20 Urine Mucus Rare /hpf (None) H 02/28/17 06:20 C. difficile (EIA) Intrp Positive (Negative) A 03/02/17 08:11 Microbiology 03/01/17 18:11 Blood Blood Culture - Final No Growth after 144 hours 02/27/17 12:29 Blood Blood Culture - Final No Growth after 144 hours Assessment and Plan (1) Congestive heart failure Current Visit: Yes Status: Acute Code(s): I50.9 - HEART FAILURE, UNSPECIFIED SNOMED Code(s): 64344281 (2) Acute renal failure Current Visit: Yes Status: Acute Code(s): N17.9 - ACUTE KIDNEY FAILURE, UNSPECIFIED SNOMED Code(s): 21363907 (3) Cellulitis Narrative/Plan: 86-year-old male presents to hospital with increasing lower extremity edema especially the left lower extremity associated with weeping and drainage. He was feeling poorly. Much more short of breath and having increasing difficulty with day-to-day activities. He also relates to social situation is difficult with his being in the [facility]. Admission there was evidence of worsening of his chronic kidney disease with acute renal failure superimposed on his significant systolic congestive heart failure and pulmonary edema. He is an insulin drip showing some improvement. The extensive cellulitis of the left lower extremity is noted. The patient relates starting to show some improvement because he's had some diuresis. Duplexes been performed with no evidence of any deep venous thrombosis. The Silvadene wrap is now allowed resolution of the swelling erythema and cellulitis of the left leg. The vein harvest to the extremity is a significant contributing factor to the extensive edema and resultant cellulitis. Elevation the limb is important. Is being followed by nephrology trying to improve his fluid and potassium balance. It is noted patient developed diarrhea and Clostridium difficile colitis has been diagnosed. Responding well to vancomycin therapy. Less frequent stools today. Plan 4 further days of therapy. Fortunately the leg is now much improved and intravenous antibiotic therapy has discontinued. Diarrhea has now resolved Abdominal exam is benign. Overall patient is now markedly improved. Sitting upright. He's been up and walking. He is eating relatively well. No acute complaints. The family relates is eaten more the last 48 hours and he had in the prior 2 weeks. Patient looks forward to rehab. Current Visit: No Status: Acute Code(s): L03.90 - CELLULITIS, UNSPECIFIED SNOMED Code(s): 712748356
[2017-03-19] MEDS ORDERED: FUROSEMIDE 10 MG/ML 4 ML VIAL IV STA (07:02)
[2017-03-19] MEDS: FINASTERIDE 5 MG TAB PO SCH (07:33)
[2017-03-19] MEDS: METOPROLOL SUCCINATE (ER) 25 MG TAB.ER.24H PO SCH (07:33)
[2017-03-19] MEDS: FUROSEMIDE 80 MG TAB PO SCH (07:34)
[2017-03-19] MEDS: SPIRONOLACTONE 25 MG TAB PO SCH (07:34)
[2017-03-19 07:43] LABS: Glucose,Whole Blood 122 mg/dL (75-99)
[2017-03-19] MEDS: INSULIN ASPART 100 UNIT/ML 1 ML 10 ML VIAL SQ SCH ×2 (07:47→13:27)
[2017-03-19 07:53] VITALS: BP 134/72; TEMP 97.6
[2017-03-19] MEDS: IPRATROPIUM-ALBUTEROL 3 ML NEB INHALATION SCH ×2 (08:24→13:00)
[2017-03-19 08:36] VITALS: PULSE 88
[2017-03-19 10:16] LABS: INR 2.7 (<1.2)
[2017-03-19] MEDS: LACTOBACILLUS ACIDOPH & BULGAR 1 EACH PACKET PO SCH (10:22)
[2017-03-19 10:24] LABS: Calcium 9.3 mg/dL (8.4-10.2); Potassium 3.8 mmol/L (3.5-5.1)
--- NOTE | 2017-03-19 11:13 | P.PN ---
Subjective Patient is seen in follow-up for acute kidney injury on chronic kidney disease. 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 Creatinine stable at 2.29. Edema is improved. Oral intake is fair. He is noted to be C. diff positive - having more formed bowel movements now. Still feels quite weak. Vital signs are stable. General: The patient appeared well nourished and normally developed. HEENT: Head exam is unremarkable. Neck is without jugular venous distension. LUNGS: Scattered rhonchi. Breath sounds decreased. HEART: Rate and Rhythm are regular. First and second heart sounds normal. No murmurs, rubs or gallops. ABDOMEN: Abdominal exam reveals normal bowel sounds. Non-tender and non- distended. No evidence of peritonitis. EXTREMITITES: 1+ edema. Objective - Vital Signs Vital signs: Vital Signs Temp 97.6 F 03/19/17 07:00 Pulse 88 03/19/17 08:36 Resp 16 03/19/17 07:00 BP 134/72 03/19/17 07:00 Pulse Ox 92 L 03/19/17 07:00 Intake & Output 03/18/17 03/19/17 03/19/17 18:59 06:59 18:59 Intake Total 240 Balance 240 Weight 83.8 kg Intake: Oral 240 Other: # Voids 2 2 # Bowel Movements 1 1 - Labs CBC & Chem 7: 03/11/17 06:24 03/19/17 09:09 Labs: Abnormal Lab Results - Last 24 Hours (Table) 03/18/17 03/18/17 03/18/17 Range/Units 12:20 17:28 20:51 PT (9.0-12.0) sec INR (<1.2) BUN (9-20) mg/dL Creatinine (0.66-1.25) mg/dL Glucose (74-99) mg/dL POC Glucose (mg/dL) 203 H 143 H 159 H (75-99) mg/dL 03/19/17 03/19/17 03/19/17 Range/Units 07:41 09:09 09:09 PT 24.0 H (9.0-12.0) sec INR 2.7 H (<1.2) BUN 33 H (9-20) mg/dL Creatinine 2.29 H (0.66-1.25) mg/dL Glucose 131 H (74-99) mg/dL POC Glucose (mg/dL) 122 H (75-99) mg/dL Assessment and Plan Plan: Assessment: #1. Nonoliguric acute kidney injury secondary to ATN secondary to cardiorenal syndrome. Renal function relatively stable with creatinine at 2.29. No proteinuria noted on urinalysis. #2. 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 #3. Systolic CHF with ejection fraction of 35-40%. #4. Volume overload. Improving. #5. C diff colitis maintained on antibiotics. #6. Metabolic alkalosis due to volume contraction. Improved. #7. Hypernatremia secondary to lack of oral water intake. Improving. #7. Hypokalemia due to diuresis. Magnesium replete. Improved post replacement. Plan: Lasix has been changed to 80 mg orally twice daily which can be continued. Potential discharge today to ECF. He will need to get basic metabolic panel checked within 2-3 days of discharge and follow-up as an outpatient in the next 1-2 weeks.
[2017-03-19 12:03] LABS: Glucose,Whole Blood 261 mg/dL (75-99)
[2017-03-19] MEDS: CHOLECALCIFEROL 400 UNIT TAB PO SCH (13:27)
--- NOTE | 2017-03-19 20:52 | PN ---
PROGRESS NOTE ATTENDING PHYSICIAN: Dr. Sebastian Jacobo. CHIEF COMPLAINT: Re-evaluation. HISTORY OF PRESENT ILLNESS: This is an 86-year-old who was admitted to the hospital 24 days ago. The patient has cellulitis left lower leg. He has also associated history of chronic lung disease, liver disease, kidney disease, and cardiac ailments. Also history of chronic atrial fibrillation. The patient actually has been feeling some better. He does generally have more congestion and cough during the night, which makes him restless. REVIEW OF SYSTEMS: Neuro: Denies any headaches, dizziness. Psych: No anxiety. Cardiac: No chest pain, angina, palpitations. Respiratory denies shortness of breath with oxygen. Does have a cough. No hemoptysis. GI: No nausea, vomiting. Appetite fair. no symptoms of dysuria or hematuria. Extremities no pain. Does have edema. Constitutional: No fever or chills. PHYSICAL EXAMINATION: Pleasant gentleman in no distress. Vital signs reveals temperature 97.6, pulse 97, respirations 16, blood pressure 134/72, pulse ox 92% with oxygen at 3 L. HEENT: Normocephalic. Neck 1+ JVD. Chest examination bilateral scattered rhonchi which is clear with cough. Cardiac distant heart sounds S1, S2 with no gallops. Systolic murmur 2/6 left sternal border. Irregularly irregular rate and rhythm. ABDOMEN: Soft. Bowel sounds are active. Extremities revealed edema, trace right leg, 1+ left leg. NEUROLOGIC: Awake, alert, oriented, well-coordinated, both upper extremities, that had some generalized weakness. Generally significant muscle wasting. ASSESSMENT: 1. Acute on chronic respiratory failure. 2. 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 3. 4. Chronic obstructive pulmonary disease. 5. Chronic kidney disease stage 3. 6. Diabetes mellitus. 7. Chronic atrial fibrillation. 8. Debility. 9. Cachexia. PLAN: Patient at present is under guarded condition. He is going to be transferred to nursing facility for rehabilitation. Prognosis remains poor. I have discussed with the patient regarding his poor prognosis. The patient, if does not improve in the next couple of weeks, should be considered strongly for hospice care. The patient's condition discussed with the patient. Prognosis guarded. MMODL / IJN: [id number] /
[2017-03-20] MEDS ORDERED: WARFARIN 1.25 MG TAB PO SCH (18:00)
== END 2017-03-19 14:03 | DRG 291 ==
LOC: EC 10:25 → 6SEL 12:16 → 4MS4W 03-14 08:41
PROVIDERS: ADMIT Internal Medicine; ATTEND Internal Medicine
DX: I13.0 Hypertensive heart and chronic kidney disease with heart failure and stage 1 through stage 4 chronic kidney disease, or unspecified chronic kidney disease (principal); I50.43 Acute on chronic combined systolic (congestive) and diastolic (congestive) heart failure; J69.0 Pneumonitis due to inhalation of food and vomit; J96.21 Acute and chronic respiratory failure with hypoxia; N17.0 Acute kidney failure with tubular necrosis; A04.72 Enterocolitis due to Clostridium difficile, not specified as recurrent; E87.4 Mixed disorder of acid-base balance; E87.0 Hyperosmolality and hypernatremia; D69.6 Thrombocytopenia, unspecified; E11.22 Type 2 diabetes mellitus with diabetic chronic kidney disease; K76.1 Chronic passive congestion of liver; I48.1 Persistent atrial fibrillation; J44.1 Chronic obstructive pulmonary disease with (acute) exacerbation; J98.11 Atelectasis; L03.115 Cellulitis of right lower limb; L03.116 Cellulitis of left lower limb; R64 Cachexia; E86.0 Dehydration; I48.2 Chronic atrial fibrillation; E11.51 Type 2 diabetes mellitus with diabetic peripheral angiopathy without gangrene; E11.649 Type 2 diabetes mellitus with hypoglycemia without coma; D63.1 Anemia in chronic kidney disease; E78.5 Hyperlipidemia, unspecified; E86.1 Hypovolemia; E87.6 Hypokalemia; F03.90 Unspecified dementia, unspecified severity, without behavioral disturbance, psychotic disturbance, mood disturbance, and anxiety; H91.92 Unspecified hearing loss, left ear; I25.10 Atherosclerotic heart disease of native coronary artery without angina pectoris; I25.2 Old myocardial infarction; I25.5 Ischemic cardiomyopathy; I27.20 Pulmonary hypertension, unspecified; I87.303 Chronic venous hypertension (idiopathic) without complications of bilateral lower extremity; I87.8 Other specified disorders of veins; M15.9 Polyosteoarthritis, unspecified; N18.3 Chronic kidney disease, stage 3 (moderate); N40.0 Benign prostatic hyperplasia without lower urinary tract symptoms; R13.12 Dysphagia, oropharyngeal phase; R32 Unspecified urinary incontinence; T50.2X5A Adverse effect of carbonic-anhydrase inhibitors, benzothiadiazides and other diuretics, initial encounter; F32.9 Major depressive disorder, single episode, unspecified; G89.29 Other chronic pain; M54.9 Dorsalgia, unspecified; R01.1 Cardiac murmur, unspecified; R45.1 Restlessness and agitation; I35.8 Other nonrheumatic aortic valve disorders; I35.0 Nonrheumatic aortic (valve) stenosis; K59.00 Constipation, unspecified; R74.8 Abnormal levels of other serum enzymes; Z79.01 Long term (current) use of anticoagulants; Z79.82 Long term (current) use of aspirin; Z79.899 Other long term (current) drug therapy; Z99.81 Dependence on supplemental oxygen; Z95.1 Presence of aortocoronary bypass graft; Z87.891 Personal history of nicotine dependence; Z86.73 Personal history of transient ischemic attack (TIA), and cerebral infarction without residual deficits; Z82.49 Family history of ischemic heart disease and other diseases of the circulatory system
CPT/HCPCS: 36415; 71010; 71045; 71046; 74230; 80048; 80053; 81001; 82550; 82553; 82607; 83036; 83540; 83550; 83735; 83880; 84439; 84443; 84484; 84550; 85025; 85027; 85610; 85730; 87040; 87324; 93005; 93306; 93970; 94640; 94644; 94760; 96374; 99285